=== PATIENT | female | born 1940 | race Asian ===

== ENCOUNTER 2019-03-03 17:30 | Inpatient (IN) | payer MEDICARE, OTHER ==
[~2019-03-03] VITALS: Ht 144.8 cm; Wt 46.1 kg
[2019-03-03 18:09] VITALS: BP 196/96
--- NOTE | 2019-03-03 18:58 | PDOC1 ---
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 She was found outside wandering down her driveway telling neighbors she was hungry. Police confirmed with her [id number] who lives next door and allowed them access to her house that her house was clean with food in the pantry and on the table and a pill box with pills missing from only 4 days this week. She gave police contact information for her son, Grabiel, who is enroute. She was found with troponin elevated to 1.49, Lactate 3.7, NTproBNP 3650, WBC 7, Hb 10.6, Platelets 295, Na 139, K3.1, Cl 107, CO2 24, BUN 9, Cr. 0.8, Ca 8.8, Albumin 3.7, Alkaline phosphatase 70, AST 21, ALT 11, UDS neg EKG Sinus rhythm with borderline ST elevation in inferior leads per my interpretation. Vital Signs at [facility] Temp 99.1, BP 162/78, pulse 89bpm, RR 24/min Ht 1.5m, wt 47.6kg, SPO2 99% on RA She was given 324mg chewable aspirin and started on heparin GTT. After contacting her son, he requested patient be transferred to [place] or [place] for further care. She is unable to give a clear history with me, notes she is hungry and wishes to go somewhere where nurses can care for her. She tells me she has not eaten for 4 days. States he son has been in [place]. She does not know the month or year and guesses them inaccurately. She denies any chest pain. Notes occasionally shor tness of breath. Past Medical History Cardiovascular: HTN, Hyperlipidemia Pulmonary: No pertinent hx CENTRAL NERVOUS SYSTEM: CVA ( Left corbett radiata, basal ganglia and right po ns), Dementia GI: No pertinent hx Heme/Onc: No pertinent hx Hepatobiliary: No pertinent hx Psych: No pertinent hx Rheumatologic: No pertinent hx Infectious disease: No pertinent hx ENT: No pertinent hx Renal/: No pertinent hx Endocrine: No pertinent hx Dermatology: No pertinent hx Past Surgical History Past Surgical History: No pertinent history Family History Family History Reviewed, unable to give history Family History: Family History Unknown Social History Smoke: No ALCOHOL: none Drugs: None Allergies Allergies: Coded Allergies: No Known Drug Allergies (Unverified , 08/04/15) ROS Review of System Unable to obtain ROS due to confusion and inaccurate answers Physical Exam General: Alert, Cooperative, No acute distress HEENT: Atraumatic, PERRLA, EOMI, Mucous membr. moist/pink Lungs: Other (FIne crackles) Heart: S1S2, RRR, no thrills, no rubs, no gallops, no murmurs Abdomen: Normal bowel sounds, Soft, No tenderness, No hepatosplenomegaly, No masses Extremities: No clubbing, No cyanosis, No edema, Normal pulses, No tenderness/swelling Skin: No rashes, No breakdown, No significant lesion Neuro: Normal speech, Strength at 5/5 X4 ext, Normal tone, Sensation intact, Cranial nerves 3-12 NL, Reflexes 2+ Psych/Mental Status: Other (Confused) Vitals Vitals Vital Signs Date Time Temp Pulse Resp B/P (MAP) Pulse Ox O2 Delivery O2 Flow Rate FiO2 03/03/19 18:09 98.0 97 18 196/96 (129) 99 98.0 03/03/19 18:00 Room Air Images Images CXR ([facility] 03/03/2019) - Heart size is prominent with ectasia and tortuosity of the aorta seen. Interstitial prominence appears likely chronic in the lungs without focal infiltrates, pleural effusion or pneumothorax seen Osteopenic changes seen without acute bony changes seen Impression: Interstitial prominence is probably chronic with an interstitial infiltrate not completely excluded. No congestive heart failure or focal infiltrates are identified. CT Head [facility] 03/03/2019 Impression: Moderate to severe atrophy with white matter ischemic changes noted. Possible small remote lacunar infarct seen in the left frontal lobe white matter without definite acute infarction or hemorrhage seen. Echo 01/08/2019 The left ventricular systolic function is normal. The Ejection Fraction is 60-65%. There is normal LV segmental wall motion. Transmitral Doppler flow pattern is Grade I-abnormal relaxation pattern. Trace to mild aortic regurgitation. Trace tricuspid regurgitation. The PA pressure was estimated at 21 mmHg. There is no evidence of significant pericardial effusion. VTE Prophylaxis Ordered VTE Prophylaxis Devices: Yes VTE Pharmacological Prophylaxi: Yes Assessment/Plan Assessment/Plan A/P: NSTEMI - EKG NSR, troponin 1.5, initiated heparin GTT, prn IV metoprolol. Consult cardiology. Trend troponins Hypokalemia - will check mag level, replace Abnormal CXR - interstitial pattern described as chronic, will add prn nebulizers, possibly viral pneumonia vs CHF Lactic acidosis - unclear etiology, could be nutritional if she has not been eating. Will trend Accelerated hypertension - will cont home meds, add prn metoprolol Acute encephalopathy - metabolic with NSTEMI, worsened dementia Dementia - sunlight during day, frequent redirection Hyperlipidemia - cont statin H/o CVA - asa and statin FEN - Cardiac diet, npo after midnight PPX - heparin GTT DNR/DNI Dispo - inpatient for 2 midnights MONIQUE HANSON MD Mar 03, 2019 18:58
[2019-03-03] MEDS ORDERED: HEPARIN 25,000UTS/250ML PREMIX 250 ML IV PRN ×2 (19:00)
[2019-03-03] MEDS ORDERED: ONDANSETRON PF 4 MG/2 ML VIAL. IV PRN (19:00)
[2019-03-03] MEDS ORDERED: ACETAMINOPHEN 325 MG TABLET. PO PRN (19:00)
[2019-03-03] MEDS ORDERED: HEPARIN for IV BOLUS 10,000 UNIT/10 ML VIAL. IV PRN (19:00)
[2019-03-03 19:11] VITALS: BP 178/81
[2019-03-03] MEDS ORDERED: ROPI0.5T2 PO (19:24)
[2019-03-03] MEDS ORDERED: DONE5TAB7 PO (19:24)
[2019-03-03] MEDS ORDERED: LOSA100T14 PO (19:24)
[2019-03-03] MEDS ORDERED: AMLO5TAB10 PO (19:24)
[2019-03-03] MEDS ORDERED: TRAZ-118 PO (19:24)
[2019-03-03 19:40] LABS: BASO % 1 % (0-3); EOS # 0.1 x10^3/uL (0.0-0.7); EOS % 1 % (0-3); HEMATOCRIT 30.2 % (36.0-47.0); HEMOGLOBIN 10.4 g/dL (12.0-15.5); LYMPH # 1.6 x10^3/uL (1.0-4.8); LYMPH % 23 % (24-48); MEAN CORPUSCULAR HEMOGLOBIN 30 pg (25-35); MEAN CORPUSCULAR HGB CONC 34 g/dL (31-37); MEAN CORPUSCULAR VOLUME 86 fL (79-100); MONO # 0.4 x10^3/uL (0.0-1.1); MONO % 6 % (0-9); NEUT # 4.9 x10^3/uL (1.8-7.7); NEUT % 69 % (31-73); PLATELET COUNT 287 x10^3/uL (140-400); RED CELL DISTRIBUTION WIDTH 13.9 % (11.5-14.5); WHITE BLOOD COUNT 7.1 x10^3/uL (4.0-11.0)
[2019-03-03 19:49] LABS: PROTHROMBIN TIME PATIENT 13.6 SEC (11.7-14.0)
[2019-03-03] MEDS ORDERED: ANTI-COAG MONITOR BY PHARMACY. MC PRN (20:00)
[2019-03-03] MEDS ORDERED: CHOL200059 PO (20:26)
[2019-03-03] MEDS ORDERED: NITROGLYCERIN SUBLINGUAL 0.4 MG BOTTLE OF 25. SL PRN (20:30)
[2019-03-03] MEDS ORDERED: amLODIPine BESYLATE 10 MG TABLET PO ONE (21:00)
[2019-03-03] MEDS: traZODone 50 MG TABLET. PO SCH (21:40)
[2019-03-03] MEDS ORDERED: POTASSIUM CHLORIDE 20 MEQ TABLET.ER. PO ONE ×2 (22:00→23:00)
[2019-03-03] MEDS: METOPROLOL TARTRATE 5 MG/5 ML VIAL. IVP PRN (22:37)
[2019-03-03 23:08] VITALS: BP 191/81
[2019-03-04] VITALS (7 sets, daily range): BP systolic 152–179; BP diastolic 73–91
[2019-03-04 03:17] LABS: BILIRUBIN,URINE NEGATIVE (NEG); CLARITY,URINE CLEAR; COLOR,URINE YELLOW; NITRITE,URINE NEGATIVE (NEG); PH,URINE 7.5; PROTEIN,URINE NEGATIVE (NEG-TRACE); UROBILINOGEN,URINE 0.2 mg/dL (0.2 mg/dL)
[2019-03-04 03:22] LABS: SQUAMOUS EPITHELIAL CELL,UR FEW /LPF
[2019-03-04 03:23] LABS: BACTERIA,URINE 0 /HPF (0-FEW)
[2019-03-04 07:56] LABS: HEMATOCRIT 29.5 % (36.0-47.0); HEMOGLOBIN 9.9 g/dL (12.0-15.5); RED BLOOD COUNT 3.41 x10^6/uL (3.50-5.40); RED CELL DISTRIBUTION WIDTH 14.1 % (11.5-14.5); WHITE BLOOD COUNT 6.6 x10^3/uL (4.0-11.0)
[2019-03-04 07:59] LABS: CALCIUM 8.1 mg/dL (8.5-10.1); CREATININE 0.8 mg/dL (0.6-1.0); GFR 68.8; MAGNESIUM 1.6 mg/dL (1.8-2.4); POTASSIUM 4.5 mmol/L (3.5-5.1)
[2019-03-04] MEDS: DONEPEZIL HCL 5 MG TABLET. PO SCH (08:35)
[2019-03-04] MEDS: CHOLECALCIFEROL (VITAMIN D3) 1,000 UNIT TABLET PO SCH (08:35)
[2019-03-04] MEDS: LOSARTAN POTASSIUM 50 MG TABLET. PO SCH (08:36)
--- NOTE | 2019-03-04 11:13 | PDOC2 ---
CONSULT Date of Consult Date of Consult DATE: 03/04/19 TIME: 11:13 Reason for Consult Reason for Consult: Elevated troponin level Referring Physician Referring Physician: Dr. Mendoza Identification/Chief Complaint Chief Complaint Mental status changes Source Source: Caregiver, Chart review, Patient History of Present Illness Reason for Visit: 79-year-old female without any known previous cardiac history apparently was found wandering down her driveway telling neighbors that she was hungry. She was initially seen at [facility] ED patient was found to have elevated troponin level and was transferred to [facility] for further management. She is not a very good historian due to language barrier but she appeared to denied any chest pain. Review of chart did not show any mention of dyspnea or syncope. Past Medical History Cardiovascular: HTN, Hyperlipidemia Pulmonary: No pertinent hx CENTRAL NERVOUS SYSTEM: CVA ( Left corbett radiata, basal ganglia and right breana), Dementia GI: No pertinent hx Heme/Onc: No pertinent hx Hepatobiliary: No pertinent hx Psych: No pertinent hx Rheumatologic: No pertinent hx Infectious disease: No pertinent hx ENT: No pertinent hx Renal/: No pertinent hx Endocrine: No pertinent hx Dermatology: No pertinent hx Past Surgical History Past Surgical History: No pertinent history Family History Family History: Family History Unknown Social History No ALCOHOL: none Drugs: None Current Medications Current Medications Current Medications Ondansetron HCl (Zofran) 4 mg PRN Q4HRS PRN IV NAUSEA/VOMITING; Start 03/03/19 at 19:00 Acetaminophen (Tylenol) 650 mg PRN Q4HRS PRN PO TEMP OVER 100.4F OR MILD PAIN; Start 03/03/19 at 19:00 Heparin Sodium/ Dextrose 250 ml @ 0 mls/hr CONT PRN IV PER PROTOCOL; Start 03/03/19 at 19:00; Status UNV Heparin Sodium (Porcine) (Heparin Sodium) 1,750 unit PRN Q6HRS PRN IV FOR UFH LEVEL LESS THAN 0.2 Last administered on 03/04/19at 08:45; Start 03/03/19 at 19:00 Heparin Sodium/ Dextrose 250 ml @ 0 mls/hr CONT PRN IV PER PROTOCOL; Start 03/03/19 at 19:00 Amlodipine Besylate (Norvasc) 10 mg DAILY PO ; Start 03/04/19 at 21:00 Info (Anti-Coagulation Monitoring By Pharmacy) 1 each PRN DAILY PRN MC SEE COMMENTS; Start 03/03/19 at 20:00 Donepezil HCl (Aricept) 5 mg DAILY PO Last administered on 03/04/19at 08:35; Start 03/04/19 at 09:00 Trazodone HCl (Desyrel) 50 mg QHS PO Last administered on 03/03/19at 21:40; Start 03/03/19 at 21:00 Losartan Potassium (Cozaar) 100 mg DAILY PO Last administered on 03/04/19at 08:36; Start 03/04/19 at 09:00 Nitroglycerin (Nitrostat) 0.4 mg PRN Q5MIN PRN SL CHEST PAIN; Start 03/03/19 at 20:30 Metoprolol Tartrate (Lopressor Vial) 5 mg PRN Q6HRS PRN IVP HYPERTENSION Last administered on 03/03/19at 22:37; Start 03/03/19 at 20:30 Vitamin D (Vitamin D3) 2,000 unit DAILY PO Last administered on 03/04/19at 08:35; Start 03/04/19 at 09:00 Amlodipine Besylate (Norvasc) 10 mg 1X ONCE PO Last administered on 03/03/19at 21:40; Start 03/03/19 at 21:00; Stop 03/03/19 at 21:01; Status DC Potassium Chloride (Klor-Con) 40 meq 1X ONCE PO Last administered on 03/03/19at 22:30; Start 03/03/19 at 22:00; Stop 03/03/19 at 22:01; Status DC Potassium Chloride (Klor-Con) 40 meq 2135 ONCE PO Last administered on 03/03/19at 22:30; Start 03/03/19 at 23:00; Stop 03/03/19 at 23:01; Status DC Olanzapine (ZyPREXA ZYDIS) 5 mg PRN BID PRN PO agitation; Start 03/03/19 at 22:30 Active Scripts Active Reported Vitamin D-3 (Cholecalciferol (Vitamin D3)) 2,000 Unit Tablet 2,000 Unit PO DAILY Donepezil Hcl 5 Mg Tablet 1 Tab PO DAILY Trazodone Hcl 50 Mg Tablet 1 Tab PO QHS Ropinirole Hcl 0.5 Mg Tablet 0.5 Mg PO QHS Losartan Potassium 100 Mg Tablet 100 Mg PO DAILY Amlodipine Besylate 5 Mg Tablet 5 Mg PO DAILY Allergies Allergies: Coded Allergies: No Known Drug Allergies (Unverified , 08/04/15) ROS Review of System For review of systems cannot be obtained. Physical Exam General: Alert, No acute distress HEENT: Atraumatic Lungs: Clear to auscultation Heart: Regular rate Abdomen: Soft Extremities: No edema Psych/Mental Status: Mood NL Vitals VITALS Vital Signs Date Time Temp Pulse Resp B/P (MAP) Pulse Ox O2 Delivery O2 Flow Rate FiO2 03/04/19 10:11 98.3 70 18 172/85 (114) 97 Room Air 98.3 Labs Labs Laboratory Tests Test 03/03/19 19:20 03/03/19 23:10 03/04/19 00:15 03/04/19 07:35 White Blood Count 7.1 x10^3/uL (4.0-11.0) 6.6 x10^3/uL (4.0-11.0) Red Blood Count 3.50 x10^6/uL (3.50-5.40) 3.41 x10^6/uL (3.50-5.40) Hemoglobin 10.4 g/dL (12.0-15.5) 9.9 g/dL (12.0-15.5) Hematocrit 30.2 % (36.0-47.0) 29.5 % (36.0-47.0) Mean Corpuscular Volume 86 fL (79-100) 87 fL (79-100) Mean Corpuscular Hemoglobin 30 pg (25-35) 29 pg (25-35) Mean Corpuscular Hemoglobin Concent 34 g/dL (31-37) 34 g/dL (31-37) Red Cell Distribution Width 13.9 % (11.5-14.5) 14.1 % (11.5-14.5) Platelet Count 287 x10^3/uL (140-400) 297 x10^3/uL (140-400) Neutrophils (%) (Auto) 69 % (31-73) Lymphocytes (%) (Auto) 23 % (24-48) Monocytes (%) (Auto) 6 % (0-9) Eosinophils (%) (Auto) 1 % (0-3) Basophils (%) (Auto) 1 % (0-3) Neutrophils # (Auto) 4.9 x10^3/uL (1.8-7.7) Lymphocytes # (Auto) 1.6 x10^3/uL (1.0-4.8) Monocytes # (Auto) 0.4 x10^3/uL (0.0-1.1) Eosinophils # (Auto) 0.1 x10^3/uL (0.0-0.7) Basophils # (Auto) 0.0 x10^3/uL (0.0-0.2) Prothrombin Time 13.6 SEC (11.7-14.0) Prothromb Time International Ratio 1.1 (0.8-1.1) Activated Partial Thromboplast Time 116 SEC (24-38) Troponin I Quantitative 1.952 ng/mL (0.000-0.055) 1.716 ng/mL (0.000-0.055) Heparin Anti-Xa Act, Unfractionated 0.97 IU/mL (0.30-0.70) < 0.10 IU/mL (0.30-0.70) Urine Collection Type Unknown Urine Color Yellow Urine Clarity Clear Urine pH 7.5 Urine Specific [place] 1.010 Urine Protein Negative mg/dL (NEG-TRACE) Urine Glucose (UA) Negative mg/dL (NEG) Urine Ketones (Stick) Negative mg/dL (NEG) Urine Blood Trace (NEG) Urine Nitrite Negative (NEG) Urine Bilirubin Negative (NEG) Urine Urobilinogen Dipstick 0.2 mg/dL (0.2 mg/dL) Urine Leukocyte Esterase Trace (NEG) Urine RBC 3-5 /HPF (0-2) Urine WBC 1-4 /HPF (0-4) Urine Squamous Epithelial Cells Few /LPF Urine Bacteria 0 /HPF (0-FEW) Sodium Level 142 mmol/L (136-145) Potassium Level 4.5 mmol/L (3.5-5.1) Chloride Level 108 mmol/L (98-107) Carbon Dioxide Level 25 mmol/L (21-32) Anion Gap 9 (6-14) Blood Urea Nitrogen 7 mg/dL (7-20) Creatinine 0.8 mg/dL (0.6-1.0) Estimated GFR (Cockcroft-Gault) 68.8 Glucose Level 103 mg/dL (70-99) Lactic Acid Level 1.0 mmol/L (0.4-2.0) Calcium Level 8.1 mg/dL (8.5-10.1) Magnesium Level 1.6 mg/dL (1.8-2.4) Laboratory Tests Test 03/03/19 19:20 03/03/19 23:10 03/04/19 00:15 03/04/19 07:35 White Blood Count 7.1 x10^3/uL (4.0-11.0) 6.6 x10^3/uL (4.0-11.0) Red Blood Count 3.50 x10^6/uL (3.50-5.40) 3.41 x10^6/uL (3.50-5.40) Hemoglobin 10.4 g/dL (12.0-15.5) 9.9 g/dL (12.0-15.5) Hematocrit 30.2 % (36.0-47.0) 29.5 % (36.0-47.0) Mean Corpuscular Volume 86 fL (79-100) 87 fL (79-100) Mean Corpuscular Hemoglobin 30 pg (25-35) 29 pg (25-35) Mean Corpuscular Hemoglobin Concent 34 g/dL (31-37) 34 g/dL (31-37) Red Cell Distribution Width 13.9 % (11.5-14.5) 14.1 % (11.5-14.5) Platelet Count 287 x10^3/uL (140-400) 297 x10^3/uL (140-400) Neutrophils (%) (Auto) 69 % (31-73) Lymphocytes (%) (Auto) 23 % (24-48) Monocytes (%) (Auto) 6 % (0-9) Eosinophils (%) (Auto) 1 % (0-3) Basophils (%) (Auto) 1 % (0-3) Neutrophils # (Auto) 4.9 x10^3/uL (1.8-7.7) Lymphocytes # (Auto) 1.6 x10^3/uL (1.0-4.8) Monocytes # (Auto) 0.4 x10^3/uL (0.0-1.1) Eosinophils # (Auto) 0.1 x10^3/uL (0.0-0.7) Basophils # (Auto) 0.0 x10^3/uL (0.0-0.2) Prothrombin Time 13.6 SEC (11.7-14.0) Prothromb Time International Ratio 1.1 (0.8-1.1) Activated Partial Thromboplast Time 116 SEC (24-38) Troponin I Quantitative 1.952 ng/mL (0.000-0.055) 1.716 ng/mL (0.000-0.055) Heparin Anti-Xa Act, Unfractionated 0.97 IU/mL (0.30-0.70) < 0.10 IU/mL (0.30-0.70) Urine Collection Type Unknown Urine Color Yellow Urine Clarity Clear Urine pH 7.5 Urine Specific [place] 1.010 Urine Protein Negative mg/dL (NEG-TRACE) Urine Glucose (UA) Negative mg/dL (NEG) Urine Ketones (Stick) Negative mg/dL (NEG) Urine Blood Trace (NEG) Urine Nitrite Negative (NEG) Urine Bilirubin Negative (NEG) Urine Urobilinogen Dipstick 0.2 mg/dL (0.2 mg/dL) Urine Leukocyte Esterase Trace (NEG) Urine RBC 3-5 /HPF (0-2) Urine WBC 1-4 /HPF (0-4) Urine Squamous Epithelial Cells Few /LPF Urine Bacteria 0 /HPF (0-FEW) Sodium Level 142 mmol/L (136-145) Potassium Level 4.5 mmol/L (3.5-5.1) Chloride Level 108 mmol/L (98-107) Carbon Dioxide Level 25 mmol/L (21-32) Anion Gap 9 (6-14) Blood Urea Nitrogen 7 mg/dL (7-20) Creatinine 0.8 mg/dL (0.6-1.0) Estimated GFR (Cockcroft-Gault) 68.8 Glucose Level 103 mg/dL (70-99) Lactic Acid Level 1.0 mmol/L (0.4-2.0) Calcium Level 8.1 mg/dL (8.5-10.1) Magnesium Level 1.6 mg/dL (1.8-2.4) Assessment/Plan Assessment/Plan 1. Non-STEMI with troponin level I.9. Family not available when I was in patient's room but according to nursing personnel, they wanted aggressive management of her non-STEMI. Continue heparin infusion per protocol and plan for cardiac catheterization in the morning. Recent 2-D echo January 2019 showed LVEF 60-65%. CT scan of the head at [facility] did not show any acute int racranial processes. 2. Accelerated hypertension: Resume home medications and add metoprolol 3. Dementia, lactic acidosis, hypokalemia: Per IM Thank you for your consultation. MANISH LLANOS MD Mar 04, 2019 11:13
--- NOTE | 2019-03-04 13:26 | PDOC ---
[employer] PROGRESS NOTE Chief Complaint Chief Complaint Acute myocardial infarction History of Present Illness History of Present Illness Patient seen and examined Discussed with RN I also discussed the case at length with the patient's son and [id number] The plan is cardiac catheter in a.m. Vitals/I&O Vitals/I&O: Vital Signs Date Time Temp Pulse Resp B/P (MAP) Pulse Ox O2 Delivery O2 Flow Rate FiO2 03/04/19 10:11 98.3 70 18 172/85 (114) 97 Room Air 98.3 I & O 03/03/19 03/03/19 03/04/19 15:00 23:00 07:00 Intake Total 50 ml Output Total 50 ml 595 ml Balance -50 ml -545 ml Physical Exam General: Alert, Cooperative, No acute distress Abdomen: Normal bowel sounds, Soft, No tenderness, No hepatosplenomegaly, No masses Extremities: No clubbing, No cyanosis, No edema, Normal pulses, No tenderness/swelling Skin: No rashes, No breakdown, No significant lesion Labs Labs: Laboratory Tests Test 03/03/19 19:20 03/03/19 23:10 03/04/19 00:15 03/04/19 07:35 White Blood Count 7.1 x10^3/uL (4.0-11.0) 6.6 x10^3/uL (4.0-11.0) Red Blood Count 3.50 x10^6/uL (3.50-5.40) 3.41 x10^6/uL (3.50-5.40) Hemoglobin 10.4 g/dL (12.0-15.5) 9.9 g/dL (12.0-15.5) Hematocrit 30.2 % (36.0-47.0) 29.5 % (36.0-47.0) Mean Corpuscular Volume 86 fL (79-100) 87 fL (79-100) Mean Corpuscular Hemoglobin 30 pg (25-35) 29 pg (25-35) Mean Corpuscular Hemoglobin Concent 34 g/dL (31-37) 34 g/dL (31-37) Red Cell Distribution Width 13.9 % (11.5-14.5) 14.1 % (11.5-14.5) Platelet Count 287 x10^3/uL (140-400) 297 x10^3/uL (140-400) Neutrophils (%) (Auto) 69 % (31-73) Lymphocytes (%) (Auto) 23 % (24-48) Monocytes (%) (Auto) 6 % (0-9) Eosinophils (%) (Auto) 1 % (0-3) Basophils (%) (Auto) 1 % (0-3) Neutrophils # (Auto) 4.9 x10^3/uL (1.8-7.7) Lymphocytes # (Auto) 1.6 x10^3/uL (1.0-4.8) Monocytes # (Auto) 0.4 x10^3/uL (0.0-1.1) Eosinophils # (Auto) 0.1 x10^3/uL (0.0-0.7) Basophils # (Auto) 0.0 x10^3/uL (0.0-0.2) Prothrombin Time 13.6 SEC (11.7-14.0) Prothromb Time International Ratio 1.1 (0.8-1.1) Activated Partial Thromboplast Time 116 SEC (24-38) Troponin I Quantitative 1.952 ng/mL (0.000-0.055) 1.716 ng/mL (0.000-0.055) Heparin Anti-Xa Act, Unfractionated 0.97 IU/mL (0.30-0.70) < 0.10 IU/mL (0.30-0.70) Urine Collection Type Unknown Urine Color Yellow Urine Clarity Clear Urine pH 7.5 Urine Specific [place] 1.010 Urine Protein Negative mg/dL (NEG-TRACE) Urine Glucose (UA) Negative mg/dL (NEG) Urine Ketones (Stick) Negative mg/dL (NEG) Urine Blood Trace (NEG) Urine Nitrite Negative (NEG) Urine Bilirubin Negative (NEG) Urine Urobilinogen Dipstick 0.2 mg/dL (0.2 mg/dL) Urine Leukocyte Esterase Trace (NEG) Urine RBC 3-5 /HPF (0-2) Urine WBC 1-4 /HPF (0-4) Urine Squamous Epithelial Cells Few /LPF Urine Bacteria 0 /HPF (0-FEW) Sodium Level 142 mmol/L (136-145) Potassium Level 4.5 mmol/L (3.5-5.1) Chloride Level 108 mmol/L (98-107) Carbon Dioxide Level 25 mmol/L (21-32) Anion Gap 9 (6-14) Blood Urea Nitrogen 7 mg/dL (7-20) Creatinine 0.8 mg/dL (0.6-1.0) Estimated GFR (Cockcroft-Gault) 68.8 Glucose Level 103 mg/dL (70-99) Lactic Acid Level 1.0 mmol/L (0.4-2.0) Calcium Level 8.1 mg/dL (8.5-10.1) Magnesium Level 1.6 mg/dL (1.8-2.4) Test 03/04/19 12:10 Troponin I Quantitative 1.457 ng/mL (0.000-0.055) Review of Systems Review of Systems: [place] of chest pain and weakness Assessment and Plan Assessmemt and Plan Acute myocardial infarction Plan Cardiac catheter in a.m. For now continue cardiac monitoring Trend troponins Serial EKGs Home meds DVT prophylaxis DO NOT RESUSCITATE per family's and patient's request Long-term prognosis guarded Total time 31 minutes Comment Review of Relevant I have reviewed the following items dick (where applicable) has been applied. Medications: Current Medications Medications (Trade) Dose Ordered Sig/Shi Route PRN Reason Start Time Stop Time Status Last Admin Dose Admin Heparin Sodium (Porcine) (Heparin Sodium) 1,750 unit PRN Q6HRS PRN IV FOR UFH LEVEL LESS THAN 0.2 03/03/19 19:00 03/04/19 08:45 Donepezil HCl (Aricept) 5 mg DAILY PO 03/04/19 09:00 03/04/19 08:35 Trazodone HCl (Desyrel) 50 mg QHS PO 03/03/19 21:00 03/03/19 21:40 Losartan Potassium (Cozaar) 100 mg DAILY PO 03/04/19 09:00 03/04/19 08:36 Metoprolol Tartrate (Lopressor Vial) 5 mg PRN Q6HRS PRN IVP HYPERTENSION 03/03/19 20:30 03/03/19 22:37 Vitamin D (Vitamin D3) 2,000 unit DAILY PO 03/04/19 09:00 03/04/19 08:35 Amlodipine Besylate (Norvasc) 10 mg 1X ONCE PO 03/03/19 21:00 03/03/19 21:01 DC 03/03/19 21:40 Potassium Chloride (Klor-Con) 40 meq 1X ONCE PO 03/03/19 22:00 03/03/19 22:01 DC 03/03/19 22:30 Potassium Chloride (Klor-Con) 40 meq 2135 ONCE PO 03/03/19 23:00 03/03/19 23:01 DC 03/03/19 22:30 ISABELLA FLORES III DO Mar 04, 2019 13:26
[2019-03-04] MEDS: METOPROLOL TARTRATE 5 MG/5 ML VIAL. IVP PRN (17:25)
[2019-03-04] MEDS: traZODone 50 MG TABLET. PO SCH (21:30)
[2019-03-04] MEDS: amLODIPine BESYLATE 10 MG TABLET PO SCH (21:30)
[2019-03-05] VITALS (7 sets, daily range): BP systolic 115–159; BP diastolic 57–72
[2019-03-05] MEDS: LOSARTAN POTASSIUM 50 MG TABLET. PO SCH (07:57)
[2019-03-05] MEDS: CHOLECALCIFEROL (VITAMIN D3) 1,000 UNIT TABLET PO SCH (07:57)
[2019-03-05] MEDS: amLODIPine BESYLATE 10 MG TABLET PO SCH (07:57)
[2019-03-05] MEDS: DONEPEZIL HCL 5 MG TABLET. PO SCH (07:57)
[2019-03-05] MEDS ORDERED: MIDAZOLAM HCL/PF 2 MG/2 ML VIAL. ONE (08:05)
[2019-03-05] MEDS ORDERED: fentaNYL PF VIAL 100 MCG/2 ML VIAL ONE (08:05)
[2019-03-05] MEDS ORDERED: VERAPAMIL 5 MG/2 ML VIAL. ONE (08:05)
[2019-03-05] MEDS ORDERED: HEPARIN for IV BOLUS 10,000 UNIT/10 ML VIAL. ONE (08:05)
[2019-03-05] MEDS ORDERED: NITROGLYCERIN 200 MCG/2 ML SYRINGE FOR CATH/VASC LAB. ONE (08:06)
[2019-03-05] MEDS ORDERED: LIDOCAINE 1% Multi-Dose 20 ML VIAL. INJ ONE (08:15)
[2019-03-05] MEDS ORDERED: NITROGLYCERIN 200 MCG/2 ML SYRINGE FOR CATH/VASC LAB. IART ONE (08:15)
[2019-03-05] MEDS ORDERED: HEPARIN for IV BOLUS 10,000 UNIT/10 ML VIAL. IART ONE (08:15)
[2019-03-05] MEDS ORDERED: fentaNYL PF VIAL 100 MCG/2 ML VIAL IV ONE (08:15)
[2019-03-05] MEDS ORDERED: MIDAZOLAM HCL/PF 2 MG/2 ML VIAL. IV ONE (08:15)
[2019-03-05] MEDS ORDERED: VERAPAMIL 5 MG/2 ML VIAL. IART ONE (08:15)
[2019-03-05] MEDS ORDERED: IODIXANOL 320 MG/ML 100 ML VIAL. IART ONE (08:15)
[2019-03-05] MEDS ORDERED: CONTRAST GIVEN. MC PRN (08:30)
--- NOTE | 2019-03-05 09:09 | PDOC ---
MODERATE SEDATION ASSESSMENT RISKS/ALTERNATIVES Risks/Alternatives Risks and alternatives of this type of sedation and procedure discussed with: RISK/ALTERNATIVES: Patient H & P ON CHART H & P H & P on chart and reviewed for co-morbid conditions and appropriate labs. H&P ON CHART: Yes STATUS PREG STATUS ASSESSED: N/A MEDS/ALLERGIES REVIEWED Meds/Allergies Reviewed Medications and Allergies including time and route of recently administered narcotics and sedatives. MEDS/ALLERGIES REVIEWED: Yes ASA RATING ASA RATING: III AIRWAY ASSESSMENT Airway Assessment Airway patency, oral function limitations, presence of caps, crowns, dentures, partials, and ability to extend neck assessed. AIRWAY ASSESSMENT: Yes MALLAMPATI SCORE MALLAMPATI SCORE: II PRE-SEDATION ASSESSMENT PRE-SEDATION ASSESSMENT: Yes MANISH LLANOS MD Mar 05, 2019 09:09
[2019-03-05] MEDS ORDERED: NITROGLYCERIN SUBLINGUAL 0.4 MG BOTTLE OF 25. SL PRN (09:15)
[2019-03-05] MEDS ORDERED: CLOPIDOGREL BISULFATE 75 MG TABLET PO ONE (09:30)
--- NOTE | 2019-03-05 09:30 | CARD ---
MR#: [id number] Date of Study: 03/05/2019 Ordering Physician: MANISH KENNEY, Referring Physician: MANISH KENNEY Tech: Shahla Duncan APPROVED REPORT Technologist: Shahla Duncan Nurse: Sunitha Rosario RN Procedure(s) performed: Left heart catheterization, selective coronary angiography and left ventricul ography via right transradial approach fl time: 4.2 min dose: 33 gycm2 contrast: 109 ml moderate sedation: 28 minutes INDICATION The indication(s) include : non-STEMI . CSHA Clinical Frailty Scale CS Clinical Frailty Scale: Severely Frail Heart Failure Heart Failure: No PROCEDURE NARRATIVE After explaining the risks, benefits and alternative options, informed consent was obtained from keesha ent. Patient was brought to the cardiac Hand Trimmer and right wrist was prepped and draped in the usual fashion after confirming a positive modified Irvin's test. Arterial access was obtained in the [facility] t radial artery and a 6 [place] sheath was inserted. 6 [place] Sam and 6 [place] JL 3.5 catheters we re used to perform selective angiography of the right and left coronary arteries. 6 [place] pigtail c atheter was used to perform left ventriculography. Patient tolerated the procedure well. Hemostasis was achieved using TR band. There were no immediate complications. The following findings were not ed. FINDINGS 1. Hemodynamics: Left ventricular end-diastolic pressure of 21 mmHg consistent with mild acute on ch ronic diastolic heart failure. No pullback gradient across the aortic valve. 2. Left ventriculography: Normal left ventricle systolic function with ejection fraction estimated at 65%. No significant mitral regurgitation seen. 3. Coronary angiography: a. The left main coronary artery arose from the left sinus of Valsalva, gave rise to the left anteri or descending and left circumflex arteries and showed 30% stenosis in the midsegment. b. The left anterior descending artery was heavily calcified vessel that showed a long 90% stenosis in the mid to distal segment with aneurysmal dilatation in the middle of the lesion followed by 70% s tenosis in the distal segment. The third diagonal branch which is a medium caliber vessel showed 80% stenosis. c. The left circumflex artery showed 70% stenosis involving the proximal segment of second obtuse ma rginal branch. The AV groove segment after the takeoff of the third obtuse marginal branch appears to be chronically occluded. d. The right coronary artery was a large and dominant vessel arising from the right sinus of Valsalv a, was heavily calcified and showed a long 50% stenosis in the midsegment, 80% stenosis in the distal segment. The posterolateral branch showed a long 90% stenosis in the proximal to midsegment. The pos terior descending branch showed 50% stenosis in the midsegment. Conclusion 1. Severe three-vessel coronary artery disease as described above 2. Normal left ventricle systolic function with ejection fraction estimated at 65%. Recommendations Patient would benefit from coronary artery bypass surgery but considering her advanced age, dementia and comorbidities, I would recommend conservative medical management. Signed by : Manish Kenney, Electronically Approved : 03/05/2019 09:29:20
[2019-03-05] MEDS: IV 1/2 NORMAL SALINE 1,000 ML IV SCH (10:35)
[2019-03-05] MEDS ORDERED: IODIXANOL 320 MG/ML 100 ML VIAL. ONE (12:05)
[2019-03-05] MEDS ORDERED: LIDOCAINE 1% Multi-Dose 20 ML VIAL. ONE (12:05)
--- NOTE | 2019-03-05 14:02 | NUR ---
SS following for discharge planning. SS reviewed pt chart. Pt is from home with family support and is currently on room air. SS will continue to follow for discharge planning.
--- NOTE | 2019-03-05 14:25 | PDOC ---
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 Pt was alone in room. She denies any f/c/n/v. DW nurse regarding results of Cath and need for medical management of CAD. Pt's chart reviewed. Vitals/I&O Vitals/I&O: Vital Signs Date Time Temp Pulse Resp B/P (MAP) Pulse Ox O2 Delivery O2 Flow Rate FiO2 03/05/19 14:20 98.9 82 16 115/59 (77) 98 Room Air 98.9 03/05/19 09:04 2.0 I & O 03/04/19 03/04/19 03/05/19 15:00 23:00 07:00 Intake Total 325 ml Output Total 350 ml 150 ml Balance -350 ml 175 ml Physical Exam General: Alert, No acute distress Heart: Regular rate Abdomen: Soft Extremities: No edema Skin: No rashes, No breakdown, No significant lesion Labs Labs: Laboratory Tests Test 03/04/19 14:55 03/04/19 21:40 03/05/19 04:35 Heparin Anti-Xa Act, Unfractionated 0.22 IU/mL (0.30-0.70) 0.34 IU/mL (0.30-0.70) 0.32 IU/mL (0.30-0.70) Review of Systems Review of Systems: Gen: denies F/C GI: denies N/V Cardio: reports minor chest pain Extremities: denies pain in UE/ LE bl Assessment and Plan Assessmemt and Plan Assessment Acute Myocardial Infarction 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 Coronary A. Bypass is contraindicated for pt based on advanced age, dementia and comorbidities Medical Management of CAD as alternative to bypass. Cardiology consulted and following for management. For now continue cardiac monitoring Trend troponins Serial EKGs Home meds DVT prophylaxis DNR per family's and patient's request Long-term prognosis guarded Comment Review of Relevant I have reviewed the following items dick (where applicable) has been applied. Medications: Current Medications Medications (Trade) Dose Ordered Sig/Shi Route PRN Reason Start Time Stop Time Status Last Admin Dose Admin Amlodipine Besylate (Norvasc) 10 mg DAILY PO 03/04/19 21:00 03/05/19 07:57 Nitroglycerin (Nitroglycerin) 200 mcg 1X ONCE IART 03/05/19 08:15 03/05/19 08:16 DC 03/05/19 08:15 Verapamil HCl (Verapamil) 2.5 mg 1X ONCE IART 03/05/19 08:15 03/05/19 08:16 DC 03/05/19 08:15 Heparin Sodium (Porcine) (Heparin Sodium) 2,500 unit 1X ONCE IART 03/05/19 08:15 03/05/19 08:16 DC 03/05/19 08:15 Heparin Sodium/ Sodium Chloride (HEPARIN for ARTERIAL LINE FLUSH) 1,000 unit 1X ONCE IART 03/05/19 08:15 03/05/19 08:16 DC 03/05/19 08:15 Heparin Sodium/ Sodium Chloride (HEPARIN for ARTERIAL LINE FLUSH) 1,000 unit 1X ONCE IART 03/05/19 08:15 03/05/19 08:16 DC 03/05/19 08:15 Midazolam HCl (Versed) 2 mg 1X ONCE IV 03/05/19 08:15 03/05/19 08:16 DC 03/05/19 08:39 Fentanyl Citrate (Fentanyl 2ml Vial) 100 mcg 1X ONCE IV 03/05/19 08:15 03/05/19 08:16 DC 03/05/19 08:39 Iodixanol (Visipaque 320) 100 ml 1X ONCE IART 03/05/19 08:15 03/05/19 08:16 DC 03/05/19 08:55 Lidocaine HCl (Lidocaine 1% 20ml Vial) 20 ml 1X ONCE INJ 03/05/19 08:15 03/05/19 08:16 DC 03/05/19 08:15 Sodium Chloride 1,000 ml @ 60 mls/hr [id number] IV 03/05/19 09:10 03/05/19 10:35 Clopidogrel Bisulfate (Plavix) 300 mg 1X ONCE PO 03/05/19 09:30 03/05/19 09:31 DC 03/05/19 10:35 CASTLENIAL K III DO Mar 05, 2019 14:25
--- NOTE | 2019-03-05 17:14 | NUR ---
RN NOTE patient taken for heart cath this am. this RN had Loretta SORIANO to call and speak with son Didi about the results of the cath being that family was not here when patient went or returned to the unit. patients TR band air released and transparent dressing placed, arm board still on per doctors orders. patient resting in bed call light within reach, this RN will continue to monitor
[2019-03-05] MEDS ORDERED: ATORVASTATIN CALCIUM 40 MG TABLET. PO SCH (21:00)
[2019-03-05] MEDS: traZODone 50 MG TABLET. PO SCH (22:01)
[2019-03-06 03:26] LABS: HEMATOCRIT 26.1 % (36.0-47.0); HEMOGLOBIN 8.8 g/dL (12.0-15.5); RED BLOOD COUNT 3.02 x10^6/uL (3.50-5.40); WHITE BLOOD COUNT 5.5 x10^3/uL (4.0-11.0)
[2019-03-06] MEDS: IV 1/2 NORMAL SALINE 1,000 ML IV SCH (03:31)
[2019-03-06 03:37] VITALS: BP 143/72
[2019-03-06 07:00] VITALS: BP 144/69
[2019-03-06] MEDS ORDERED: ASPIRIN ENTERIC COATED 81 MG TABLET.DR. PO SCH (08:00)
[2019-03-06] MEDS ORDERED: CLOPIDOGREL BISULFATE 75 MG TABLET PO SCH (08:00)
[2019-03-06] MEDS: LOSARTAN POTASSIUM 50 MG TABLET. PO SCH (08:26)
[2019-03-06] MEDS: amLODIPine BESYLATE 10 MG TABLET PO SCH (08:27)
[2019-03-06] MEDS: CHOLECALCIFEROL (VITAMIN D3) 1,000 UNIT TABLET PO SCH (08:27)
[2019-03-06] MEDS: DONEPEZIL HCL 5 MG TABLET. PO SCH (08:27)
[2019-03-06 10:42] VITALS: BP 148/69
--- NOTE | 2019-03-06 12:15 | NUR ---
FAMILY CONTACTED REGARD TO DISCHARGE. THEY ARE AVAILABLE TO PICK PATIENT UP AROUND AFTER 4 PM.
--- NOTE | 2019-03-06 12:46 | PDOC ---
[facility] PROGRESS NOTE Chief Complaint Chief Complaint Acute myocardial infarction Severe 3 vessel CAD w/ LVEF 65%- per 03/05 cardiac cath History of Present Illness History of Present Illness 03/06/19 Pt seen and examined. Pt was alone in room, and speaks limited Serbian. Pt was able to communicate that she does not have chest pain or SOB. GÓMEZ nurse. Pt's chart reviewed. 03/05/19 Patient seen and examined. Pt was alone in room. She denies any f/c/n/v. GÓMEZ nurse regarding results of Cath and need for medical management of CAD. Pt's chart reviewed. Vitals/I&O Vitals/I&O: Vital Signs Date Time Temp Pulse Resp B/P (MAP) Pulse Ox O2 Delivery O2 Flow Rate FiO2 03/06/19 10:42 97.7 74 18 148/69 (95) 95 Room Air 97.7 03/05/19 09:04 2.0 I & O 03/05/19 03/05/19 03/06/19 15:00 23:00 07:00 Intake Total 180 ml 118 ml 240 ml Output Total 100 ml 400 ml Balance 80 ml 118 ml -160 ml Physical Exam General: Alert, No acute distress Heart: Regular rate Abdomen: Soft Extremities: No edema Skin: No rashes, No breakdown, No significant lesion Labs Labs: Laboratory Tests Test 03/06/19 03:05 White Blood Count 5.5 x10^3/uL (4.0-11.0) Red Blood Count 3.02 x10^6/uL (3.50-5.40) Hemoglobin 8.8 g/dL (12.0-15.5) Hematocrit 26.1 % (36.0-47.0) Mean Corpuscular Volume 86 fL (79-100) Mean Corpuscular Hemoglobin 29 pg (25-35) Mean Corpuscular Hemoglobin Concent 34 g/dL (31-37) Red Cell Distribution Width 14.0 % (11.5-14.5) Platelet Count 271 x10^3/uL (140-400) Review of Systems Review of Systems: unable to obtain Assessment and Plan Assessmemt and Plan Assessment Acute Myocardial Infarction 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 Coronary A. Bypass is contraindicated for pt based on advanced age, dementia and comorbidities Medical Management of CAD as alternative to bypass. Cardiology consulted and following for management. For now continue cardiac monitoring Trend troponins Serial EKGs Home meds DVT prophylaxis DNR per family's and patient's request Long-term prognosis guarded DC dependant on cardiology approval. Comment Review of Relevant I have reviewed the following items dick (where applicable) has been applied. Medications: Current Medications Medications (Trade) Dose Ordered Sig/Shi Route PRN Reason Start Time Stop Time Status Last Admin Dose Admin Aspirin (Ecotrin) 81 mg DAILYWBKFT PO 03/06/19 08:00 03/06/19 08:27 Clopidogrel Bisulfate (Plavix) 75 mg DAILYWBKFT PO 03/06/19 08:00 03/06/19 08:27 Atorvastatin Calcium (Lipitor) 40 mg QHS PO 03/05/19 21:00 03/05/19 22:01 ISABELLA FLORES III DO Mar 06, 2019 12:46
--- NOTE | 2019-03-06 13:05 | PDOC ---
JUNO HAWK LINTER DRIER OPERATOR 03/06/19 1305: CARDIO Progress Notes Date and Time Date of Service 03/06/2019 Time of Evaluation 1300 Subjective Subjective: No Chest Pain, No shortness of breath, Other (wanting to use the bathroom) Vitals Vitals Vital Signs Date Time Temp Pulse Resp B/P (MAP) Pulse Ox O2 Delivery O2 Flow Rate FiO2 03/06/19 10:42 97.7 74 18 148/69 (95) 95 Room Air 97.7 03/05/19 09:04 2.0 Weight Weight [ ] Input and Output Intake and Output Intake and Output 03/06/19 07:00 Intake Total 538 ml Output Total 500 ml Balance 38 ml Intake Oral 538 ml Output Urine Total 500 ml # Voids 1 Laboratory Labs Laboratory Tests Test 03/06/19 03:05 White Blood Count 5.5 x10^3/uL (4.0-11.0) Red Blood Count 3.02 x10^6/uL (3.50-5.40) Hemoglobin 8.8 g/dL (12.0-15.5) Hematocrit 26.1 % (36.0-47.0) Mean Corpuscular Volume 86 fL (79-100) Mean Corpuscular Hemoglobin 29 pg (25-35) Mean Corpuscular Hemoglobin Concent 34 g/dL (31-37) Red Cell Distribution Width 14.0 % (11.5-14.5) Platelet Count 271 x10^3/uL (140-400) Physical Exam HEENT: Neck Supple W Full Motion Chest: Symmetric LUNGS: Other (diminished bases) Heart: S1S2, RRR (SR), murmurs (3/6 systolic murmur to LLS border) Abdomen: Soft N/T Extremities: No Edema, No Calf Tenderness Neurology: alert, follow commands Other Exams right wrist arteriotomy site intact, no swelling, erythema, neurovascular status intact to right hand Assessment Assessment 1. NSTEMI with preserved EF 2. CAD: LHC revealed 3VD with scattered coronary lesions. CP free 3. Accelerated HTN: improved 4. Dementia Recommendations 1. Patient would benefit from coronary artery bypass surgery but considering her advanced age, dementia and comorbidities, , maintain conservative medical management. 2. GDMT with ASA/plavix/lipitor/metoprolol/losartan. Norvasc. NTG SL PRN. 3. Follow up in office in 4 weeks. MANISH LLANOS MD 03/06/19 1801: CARDIO Progress Notes Assessment Assessment Patient seen and examined. Agree with MANAGER OF HEALTH's assessment and plan. Cardiac cath with 3V CAD as noted above Continue conservative management and FU in 4 weeks JUNO HAWK APRN Mar 06, 2019 13:05 MANISH LLANOS MD Mar 06, 2019 18:01
[2019-03-06 14:01] LABS: ALBUMIN 2.1 g/dL (3.4-5.0); ALK PHOS 55 U/L (46-116); ALT (SGPT) 7 U/L (14-59); AST (SGOT) 16 U/L (15-37); CHOLESTEROL 139 mg/dL (0-200); DIRECT BILIRUBIN < 0.1 mg/dL (0.0-0.2); HDLC 41 mg/dL (40-60); LDLC 88 mg/dL (0-100); MAGNESIUM 1.9 mg/dL (1.8-2.4); TOTAL BILIRUBIN 0.1 mg/dL (0.2-1.0); TRIGLYCERIDES 49 mg/dL (0-150); VLDLC 10 mg/dL (0-40)
[2019-03-06 14:02] LABS: CHOLESTEROL/HDL RATIO 3.4
[2019-03-06 15:00] VITALS: BP 123/66
--- NOTE | 2019-03-06 16:47 | NUR ---
DISCHARGED PATIENT TO HOME. PIV AND HEART MONITOR REMOVED. DISCHARGE INSTRUCTIONS GIVEN TO PATIENT AND FAMILY. ESCORTED PATIENT TO FRONT ENTRANCE PER WHEELCHAIR INTO A PRIVATE VEHICLE.
[2019-03-06] MEDS ORDERED: METOPROLOL TART IMMED RELEASE 25 MG TABLET. PO SCH (21:00)
[2019-03-07] MEDS ORDERED: ISOSORBIDE MONONITRATE ER 30 MG TAB.ER.24H PO SCH (09:00)
== END 2019-03-06 16:40 | disposition home or self-care (01) | DRG 280 ==
LOC: 2 NORTH 17:30
PROVIDERS: ADMIT Internal Medicine; ATTEND Internal Medicine
PROC: 4A023N7 Measurement of Cardiac Sampling and Pressure, Left Heart, Percutaneous Approach (ICD-10-PCS; principal; 2019-03-05)
PROC: B2111ZZ Fluoroscopy of Multiple Coronary Arteries using Low Osmolar Contrast (ICD-10-PCS; 2019-03-05)
PROC: B2151ZZ Fluoroscopy of Left Heart using Low Osmolar Contrast (ICD-10-PCS; 2019-03-05)
DX: I21.4 Non-ST elevation (NSTEMI) myocardial infarction (principal); G93.41 Metabolic encephalopathy; E87.2 Acidosis; I25.10 Atherosclerotic heart disease of native coronary artery without angina pectoris; I10 Essential (primary) hypertension; E78.5 Hyperlipidemia, unspecified; M81.0 Age-related osteoporosis without current pathological fracture; F03.90 Unspecified dementia, unspecified severity, without behavioral disturbance, psychotic disturbance, mood disturbance, and anxiety; E87.6 Hypokalemia; Z66 Do not resuscitate; Z86.73 Personal history of transient ischemic attack (TIA), and cerebral infarction without residual deficits
CPT/HCPCS: 36415; 80048; 80061; 80076; 81001; 83605; 83735; 84484; 85025; 85027; 85520; 85610; 85730; 87086; 93458; 99152; 99153; C1769; C1892; J1644; J2250; J3010; J3490; Q9967; G0378

== ENCOUNTER 2019-06-26 01:14 | Inpatient (IN) | payer MEDICARE, OTHER ==
[~2019-06-26] VITALS: Ht 144.8 cm; Wt 44.1 kg
[2019-06-26] VITALS (7 sets, daily range): BP systolic 133–175; BP diastolic 72–88
[~2019-06-26 01:14] MED LIST: AMLO5TAB10 PO; CHOL200059 PO; DONE5TAB7 PO; LOSA100T14 PO; ROPI0.5T4 PO; TRAZ-118 PO
[2019-06-26 01:53] LABS: BASO # 0.1 x10^3/uL (0.0-0.2); BASO % 1 % (0-3); EOS % 1 % (0-3); HEMATOCRIT 34.5 % (36.0-47.0); HEMOGLOBIN 11.7 g/dL (12.0-15.5); LYMPH % 12 % (24-48); MEAN CORPUSCULAR HEMOGLOBIN 29 pg (25-35); MEAN CORPUSCULAR HGB CONC 34 g/dL (31-37); MEAN CORPUSCULAR VOLUME 87 fL (79-100); MONO # 0.4 x10^3/uL (0.0-1.1); MONO % 6 % (0-9); NEUT # 6.4 x10^3/uL (1.8-7.7); NEUT % 81 % (31-73); PLATELET COUNT 249 x10^3/uL (140-400); RED BLOOD COUNT 3.97 x10^6/uL (3.50-5.40); RED CELL DISTRIBUTION WIDTH 12.8 % (11.5-14.5); WHITE BLOOD COUNT 7.9 x10^3/uL (4.0-11.0)
[2019-06-26] MEDS: MORPHINE SULFATE 2 MG/ML VIAL. IV PRN ×4 (02:07→23:12)
[2019-06-26 02:15] LABS: ALBUMIN 3.1 g/dL (3.4-5.0); ALBUMIN/GLOBULIN RATIO 0.8 (1.0-1.7); CALCIUM 8.3 mg/dL (8.5-10.1); CREATININE 0.9 mg/dL (0.6-1.0); GFR 60.1; POTASSIUM 3.2 mmol/L (3.5-5.1); TOTAL BILIRUBIN 0.6 mg/dL (0.2-1.0); TOTAL PROTEIN 7.2 g/dL (6.4-8.2)
--- NOTE | 2019-06-26 03:27 | NUR ---
The patient, RAMESH BRAN, 79 y/o, F admitted by MERRITT URIBE MD. Reviewed patients medications and received admission orders from Dr. Uribe. Patient only speaks Maori. Patient arrived via ambulance from [facility].
--- NOTE | 2019-06-26 08:37 | PDOC2 ---
TU SMART ELECTRICAL ASSEMBLY TECHNICIAN 06/26/19 0837: CARDIAC CONSULT DATE OF CONSULT Date of Consult DATE: 06/26/19 TIME: 08:35 REASON FOR CONSULT Reason for Consult: Elevated troponin REFERRING PHYSICIAN Referring Physician: Dr. Uribe SOURCE Source: Chart review, Patient HISTORY OF PRESENT ILLNESS HISTORY OF PRESENT ILLNESS This is an 79 yo female who presented to [facility] secondary to weakness, hip pain, and altered mental status. Patient fell 3 days ago. Was ambulating with walker initially post fall, but became more weak and had another fall yesterday. Was unable to ambulate and was having increased pain. Patient has dementia at baseline, has been more confused over the past 4-5 days. Family was concerned for possible UTI so they brought her into the ED for further evaluation and treatment. Hip xray with acute displaced left femoral neck fracture. Troponin was noted at 0.079. No reports of chest pain. Patient was transferred to [facility] for ortho evaluation. Patient has a history of 3V CAD. Given advanced age and dementia, and comorbidities, conservative medical management was recommended. Discussed case with sonGrabiel. No reports of chest pain or shortness of breath. Family does not want any aggressive cardiac measures. PAST MEDICAL HISTORY Cardiovascular: CAD, HTN, Hyperlipidemia CENTRAL NERVOUS SYSTEM: CVA, Dementia Musculoskeletal: Osteoarthritis Renal/: UTI, Other (urgency ) PAST SURGICAL HISTORY Past Surgical History: Other (left heart cath ) FAMILY HISTORY Family History: Other (no pertinent history ) SOCIAL HISTORY Smoke: No ALCOHOL: none Drugs: None Lives: with Family CURRENT MEDICATIONS CURRENT MEDICATIONS Current Medications Medications (Trade) Dose Ordered Sig/Shi Route PRN Reason Start Time Stop Time Status Last Admin Dose Admin Morphine Sulfate (Morphine Sulfate) 2 mg PRN Q2HR PRN IV PAIN 06/26/19 01:30 06/26/19 05:59 ALLERGIES ALLERGIES: Coded Allergies: No Known Drug Allergies (Unverified , 08/04/15) ROS Review of System unobtainable due to dementia PHYSICAL EXAM General: Alert, Oriented X3, Cooperative, mild distress HEENT: Atraumatic, Mucous membr. moist/pink Lungs: Clear to auscultation Heart: Regular rate, Normal S1, Normal S2 Abdomen: Soft, No tenderness Extremities: No edema Skin: No significant lesion Neuro: Normal speech, Sensation intact Psych/Mental Status: Other (moaning in pain) MUSCULOSKELETAL: Osteoarthritic changes both hands VITALS/I&O VITALS/I&O: Vital Signs Date Time Temp Pulse Resp B/P (MAP) Pulse Ox O2 Delivery O2 Flow Rate FiO2 06/26/19 06:52 98.1 93 18 144/88 (106) 99 Room Air 98.1 I & O 06/25/19 06/25/19 06/26/19 14:59 22:59 06:59 Intake Total 0 ml Balance 0 ml LABS Lab: Laboratory Tests Test 06/26/19 01:43 06/26/19 04:40 White Blood Count 7.9 x10^3/uL (4.0-11.0) Red Blood Count 3.97 x10^6/uL (3.50-5.40) Hemoglobin 11.7 g/dL (12.0-15.5) L Hematocrit 34.5 % (36.0-47.0) L Mean Corpuscular Volume 87 fL (79-100) Mean Corpuscular Hemoglobin 29 pg (25-35) Mean Corpuscular Hemoglobin Concent 34 g/dL (31-37) Red Cell Distribution Width 12.8 % (11.5-14.5) Platelet Count 249 x10^3/uL (140-400) Neutrophils (%) (Auto) 81 % (31-73) H Lymphocytes (%) (Auto) 12 % (24-48) L Monocytes (%) (Auto) 6 % (0-9) Eosinophils (%) (Auto) 1 % (0-3) Basophils (%) (Auto) 1 % (0-3) Neutrophils # (Auto) 6.4 x10^3/uL (1.8-7.7) Lymphocytes # (Auto) 1.0 x10^3/uL (1.0-4.8) Monocytes # (Auto) 0.4 x10^3/uL (0.0-1.1) Eosinophils # (Auto) 0.0 x10^3/uL (0.0-0.7) Basophils # (Auto) 0.1 x10^3/uL (0.0-0.2) Sodium Level 138 mmol/L (136-145) Potassium Level 3.2 mmol/L (3.5-5.1) L Chloride Level 102 mmol/L (98-107) Carbon Dioxide Level 29 mmol/L (21-32) Anion Gap 7 (6-14) Blood Urea Nitrogen 12 mg/dL (7-20) Creatinine 0.9 mg/dL (0.6-1.0) Estimated GFR (Cockcroft-Gault) 60.1 BUN/Creatinine Ratio 13 (6-20) Glucose Level 133 mg/dL (70-99) H Calcium Level 8.3 mg/dL (8.5-10.1) L Total Bilirubin 0.6 mg/dL (0.2-1.0) Aspartate Amino Transferase (AST) 18 U/L (15-37) Alanine Aminotransferase (ALT) 14 U/L (14-59) Alkaline Phosphatase 73 U/L (46-116) Troponin I Quantitative 0.075 ng/mL (0.000-0.055) 0.077 ng/mL (0.000-0.055) Total Protein 7.2 g/dL (6.4-8.2) Albumin 3.1 g/dL (3.4-5.0) L Albumin/Globulin Ratio 0.8 (1.0-1.7) L Laboratory Tests 06/26/19 01:43 Laboratory Tests 06/26/19 01:43 ECHOCARDIOGRAM ECHOCARDIOGRAM <Conclusion> The left ventricular systolic function is normal. The Ejection Fraction is estimated at 55-60%. There is normal LV segmental wall motion. Transmitral Doppler flow pattern is Grade I-abnormal relaxation pattern. Mild aortic regurgitation. Trace mitral regurgitation. Mild tricuspid regurgitation. The PA pressure was estimated at 28 mmHg. There is no evidence of significant pericardial effusion. DATE: 08/04/15 2492 HEART CATH HEART CATH FINDINGS 1. Hemodynamics: Left ventricular end-diastolic pressure of 21 mmHg consistent with mild acute on chronic diastolic heart failure. No pullback gradient across the aortic valve. 2. Left ventriculography: Normal left ventricle systolic function with ejection fraction estimated at 65%. No significant mitral regurgitation seen. 3. Coronary angiography: a. The left main coronary artery arose from the left sinus of Valsalva, gave rise to the left anterior descending and left circumflex arteries and showed 30% stenosis in the midsegment. b. 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 The third diagonal branch which is a medium caliber vessel showed 80% stenosis. c. The left circumflex artery showed 70% stenosis involving the proximal segment of second obtuse marginal branch. The AV groove segment after the takeoff of the third obtuse marginal branch appears to be chronically occluded. d. The right coronary artery was a large and dominant vessel arising from the right sinus of Valsalva, was heavily calcified and showed a long 50% stenosis in the midsegment, 80% stenosis in the distal segment. The posterolateral branch showed a long 90% stenosis in the proximal to midsegment. The posterior descending branch showed 50% stenosis in the midsegment. Conclusion 1. Severe three-vessel coronary artery disease as described above 2. Normal left ventricle systolic function with ejection fraction estimated at 65%. Recommendations Patient would benefit from coronary artery bypass surgery but considering her advanced age, dementia and comorbidities, I would recommend conservative medical management. DATE: 03/05/19 0911 ASSESSMENT/PLAN ASSESSMENT/PLAN 1. Mechanical fall with acute displaced left femoral neck fracture 2. CAD; cath earlier this year with severe 3VD as noted above. Treated medically given advanced age, dementia, and comorbidities. Family does not want aggressive cardiac measures. LVEF preserved per [facility]. 3. Accelerated hypertension 4. Mild troponin elevation; peak 0.07. Most probable type II, demand ischemia. CP free. 5. Hyperlipidemia 6. Advance dementia. Recommendations Case discussed with sonGrabiel. Patient high risk for surgical intervention given severe triple vessel coronary artery disease Will obtain echo to ensure LV function is intact. Continue secondary prevention measures; ASA/lipitor/metoprolol/losartan/Imdur Will hold Plavix for now pending ortho evaluation. MANISH LLANSO MD 06/27/19 1232: CARDIAC CONSULT ASSESSMENT/PLAN ASSESSMENT/PLAN Patient seen and examined 06/26/19 (late entry). Agree with SAUSAGE COOKER's assessment and plan. s/p mechanical fall presenting with left femur neck fracture Slight troponin elevation probably demand ischemia Patient is a poor historian but clinically doubt ACS Recent cardiac catheterization with three-vessel CAD noted above, being managed medically Last 2D echo showed normal left ventricle systolic function Patient is at a high perioperative CV event risk based on age, comorbidities and three-vessel CAD Thank you for your consultation TU SMART APRN June 26, 2019 08:37 MANISH LLANOS MD June 27, 2019 12:32
[2019-06-26] MEDS ORDERED: POTASSIUM CHLORIDE 20 MEQ TABLET.ER. PO ONE (09:15)
[2019-06-26] MEDS: ACETAMINOPHEN 325 MG TABLET. PO PRN ×2 (11:12→21:46)
[2019-06-26] MEDS: METOPROLOL TART IMMED RELEASE 25 MG TABLET. PO SCH ×2 (11:13→21:48)
[2019-06-26] MEDS: ASPIRIN ENTERIC COATED 81 MG TABLET.DR. PO SCH (11:13)
[2019-06-26] MEDS: ISOSORBIDE MONONITRATE ER 30 MG TAB.ER.24H PO SCH (11:13)
[2019-06-26] MEDS: amLODIPine BESYLATE 5 MG TABLET PO SCH (11:14)
[2019-06-26] MEDS: LOSARTAN POTASSIUM 50 MG TABLET. PO SCH (11:14)
--- NOTE | 2019-06-26 11:50 | HP ---
ADMIT DATE: 06/26/2019 CHIEF COMPLAINT: Hip pain and recent fall and weakness. HISTORY OF PRESENT ILLNESS: The patient is a pleasant 79-year-old Indonesian lady, who has dementia. She apparently fell 3 days ago. She has been having altered mental status change and complained of some hip pain. She was ambulating with her walker even after the fall, but then had another fall yesterday. The confusion has been increased for the past 4-5 days. The family was concerned she might have a UTI, so they brought her to the ER for evaluation. We x-rayed her hip, it is showing an acute displaced left femoral neck fracture. She has now been admitted to the telemetry floor. We are consulting Cardiology because she has 3-vessel disease as well. We have also consulted Orthopedics. PAST MEDICAL HISTORY: Dementia, hypertension, CAD, hyperlipidemia, stroke, osteoarthritis, UTI, previous left heart cath, 3-vessel coronary artery disease. ALLERGIES: None. FAMILY HISTORY: Coronary artery disease. SOCIAL HISTORY: She does not drink, smoke or take drugs. MEDICATIONS: Reviewed, please see the MRAD. REVIEW OF SYSTEMS: Unable to obtain. The patient is too confused, but she does complain of left hip pain and some right leg pain as well and some right buttock pain. PHYSICAL EXAMINATION: VITALS: Within normal limits and are stable. GENERAL: No apparent distress. Alert and oriented. HEENT: Normal cephalic atraumatic, external auditory canals are patent. EYES: Extraocular muscles are intact, pupils are equally round and reactive to light and accommodation. MUSCULOSKELETAL: Well developed, well nourished, good range of motion. ENDOCRINE: No thyromegaly was palpated. LYMPHATICS: No cervical chain or axillary nodes were noted. HEMATOPOIETIC: No bruising. NECK: Supple, no JVD, no thyromegaly was noted. LUNGS: Clear to auscultation in all lung wilson without rhonchi or wheezing. HEART: RRR, S1, S2 present. Peripheral pulses intact, no obvious murmurs were noted. ABDOMEN: Soft, nontender. Positive bowel sounds no organomegaly, normal bowel sounds. EXTREMITIES: She has decreased range of motion on the left, seems to be painful to touch on the left hip. NEUROLOGIC: She is pleasantly confused. PSYCHIATRIC: Normal affect, normal mood. Stable. SKIN: No ulcerations or rashes, good skin turgor, no jaundice. VASCULAR: Good capillary refill, neurovascular bundle appears to be intact. LABORATORY DATA: White count 7.9, hemoglobin 11.7, platelets 249. Electrolytes are normal other than potassium of 3.2. Her glucose is high at 133. Troponin slightly high at 0.07; we repeated it, it is 0.077 again. ASSESSMENT AND PLAN: Fall with hip fracture with incidental finding of hypokalemia, anemia and elevated troponin. The patient has been admitted. We are consulting Cardiology, consult Orthopedics. Serial enzymes, serial EKGs, cardiac monitoring, p.r.n. pain meds, home meds, DVT prophylaxis. Full code. Suspect she might need surgery, but we are awaiting the family to give some input on that. Replace her potassium. We gave her 40 mEq of potassium chloride and p.r.n. Tylenol. Suspect she may need mcc care placement after this stay. LONG-TERM PROGNOSIS: Guarded. ISABELLA FLORES DO DR: MIKE/malena JOB#: [id number] / [id number]
--- NOTE | 2019-06-26 11:53 | NUR ---
SS following for discharge planning. SS reviewed pt chart and discussed with pt RN. Pt is from home with family and is currently on room air. Pt has left hip fracture. Ortho consulted and awaiting Dr. Kapoor to assess if surgical intervention is needed. PT/OT ordered. SS will continue to follow for discharge planning.
[2019-06-26] MEDS: CHOLECALCIFEROL (VITAMIN D3) 1,000 UNIT TABLET PO SCH (12:46)
--- NOTE | 2019-06-26 13:05 | PDOC2 ---
CONSULT Date of Consult Date of Consult DATE: 06/26/19 TIME: 13:04 Reason for Consult Reason for Consult: left hip fracture Identification/Chief Complaint Chief Complaint left hip pain after a fall Source Source: Caregiver, Chart review History of Present Illness Reason for Visit: The patient is new to me, an 79 year old woman of [place] descent who does not speak Somali. I spoke to her son Grabiel who speaks Somali and he is her DPOA for healthcare. She apparently fell 3 days ago. She has been having altered mental status change and complained of some hip pain. She was ambulating with her walker even after the fall, but then had another fall yesterday. The confusion has been increased for the past 4-5 days. The family was concerned she might have a UTI, so they brought her to the ER for evaluation. We x-rayed her hip, it is showing an acute displaced left femoral neck fracture. She has now been admitted to the telemetry floor. She lives with her son. She uses a walker to ambulate, minimal household ambulation but does get around. I spoke to the son in detail about the risks benefits and alternatives of surgery. I am hesitant to recommend surgery because of her severe three-vessel coronary disease which was not treated with CABG. I spoke to the son the DPOA about operative versus nonoperative treatment. He would like to proceed with a hip fracture surgery to help her be comfortable and return to ambulation with a walker. I made some preliminary plans for surgery today but have decided to postpone those. I spoke to Dr. Garcia the anesthesiologist, about her severe three-vessel disease and he is quite concerned that she would not survive surgery. The patient has not yet had her echocardiogram which was ordered by cardiology. I had originally thought about surgery today but I am going to hold on that and consider surgery versus nonsurgical options. Dr. Garcia asked if she could have LAD stent to improve her chances of survival. Past Medical History Cardiovascular: CAD, HTN, Hyperlipidemia Pulmonary: No pertinent hx CENTRAL NERVOUS SYSTEM: CVA, Dementia GI: No pertinent hx Heme/Onc: No pertinent hx Hepatobiliary: No pertinent hx Psych: No pertinent hx Musculoskeletal: Osteoarthritis Rheumatologic: No pertinent hx Infectious disease: No pertinent hx Renal/: UTI, Other (urgency ) Endocrine: No pertinent hx Past Surgical History Past Surgical History: Other (left heart cath ) Family History Family History: Other (no pertinent history ) Social History No ALCOHOL: none Drugs: None Lives: with Family Current Medications Current Medications Current Medications Acetaminophen (Tylenol) 650 mg PRN Q6HRS PRN PO TEMP OVER 100.4F OR MILD PAIN Last administered on 06/26/19 11:12; Start 06/26/19 at 01:30 Morphine Sulfate (Morphine Sulfate) 2 mg PRN Q2HR PRN IV PAIN Last administered on 06/26/19 05:59; Start 06/26/19 at 01:30 Amlodipine Besylate (Norvasc) 5 mg DAILY PO Last administered on 06/26/19 11:14; Start 06/26/19 at 09:00 Losartan Potassium (Cozaar) 100 mg DAILY PO Last administered on 06/26/19 11:14; Start 06/26/19 at 09:00 Potassium Chloride (Klor-Con) 40 meq 1X ONCE PO Last administered on 06/26/19 11:13; Start 06/26/19 at 09:15; Stop 06/26/19 at 09:16; Status DC Aspirin (Ecotrin) 81 mg DAILYWBKFT PO Last administered on 06/26/19 11:13; Start 06/26/19 at 10:00 Metoprolol Tartrate (Lopressor) 25 mg BID PO Last administered on 06/26/19 11:13; Start 06/26/19 at 10:00 Atorvastatin Calcium (Lipitor) 40 mg QHS PO ; Start 06/26/19 at 21:00 Isosorbide Mononitrate (Imdur) 30 mg DAILY PO Last administered on 06/26/19 11:13; Start 06/26/19 at 10:00 Vitamin D (Vitamin D3) 2,000 unit DAILY PO Last administered on 06/26/19at 12:46; Start 06/26/19 at 12:00 Ropinirole HCl (Requip) 0.5 mg QHS PO ; Start 06/26/19 at 21:00 Active Scripts Active Reported Vitamin D-3 (Cholecalciferol (Vitamin D3)) 2,000 Unit Tablet 2,000 Unit PO DAILY Ropinirole Hcl 0.5 Mg Tablet 0.5 Mg PO QHS Losartan Potassium 100 Mg Tablet 100 Mg PO DAILY Amlodipine Besylate 5 Mg Tablet 5 Mg PO DAILY Allergies Allergies: Coded Allergies: No Known Drug Allergies (Unverified , 08/04/15) ROS General: No: Chills, Night Sweats PSYCHOLOGICAL ROS: YES: Concentration difficultie, Disorientation Eyes: No Loss of vision HEENT: No: Heacaches Hematological and Lymphatic: No: Bleeding Problems, Blood Clots Respiratory: No: Cough, Shortness of breath Gastrointestinal: No Nausea, No Vomiting Genitourinary: No Hematuria Musculoskeletal: Yes Joint Pain Neurological: Yes Behavorial Changes, Yes Confusion Skin: No Hair Changes, No Mole Changes Physical Exam General: Alert, Cooperative HEENT: Atraumatic Heart: Regular rate Abdomen: Soft Extremities: No cyanosis Skin: Other (There is tenderness of the left hip. There is pain with any attempted motion. The skin is intact without ecchymosis. The extremity is shortened and externally rotated. Light touch sensation is intact at the foot and toes. Capillary refill and pulses are intact without evidence of ischemia. Slight dorsiflexion and plantarflexion are possible without evidence of sciatic nerve injury.) Neuro: Normal speech, Sensation intact Psych/Mental Status: Mood NL Vitals VITALS Vital Signs Date Time Temp Pulse Resp B/P (MAP) Pulse Ox O2 Delivery O2 Flow Rate FiO2 06/26/19 11:14 95 06/26/19 10:09 98.2 18 175/82 (113) 97 Room Air 98.2 Labs Labs Laboratory Tests Test 06/26/19 01:43 06/26/19 04:40 White Blood Count 7.9 x10^3/uL (4.0-11.0) Red Blood Count 3.97 x10^6/uL (3.50-5.40) Hemoglobin 11.7 g/dL (12.0-15.5) Hematocrit 34.5 % (36.0-47.0) Mean Corpuscular Volume 87 fL (79-100) Mean Corpuscular Hemoglobin 29 pg (25-35) Mean Corpuscular Hemoglobin Concent 34 g/dL (31-37) Red Cell Distribution Width 12.8 % (11.5-14.5) Platelet Count 249 x10^3/uL (140-400) Neutrophils (%) (Auto) 81 % (31-73) Lymphocytes (%) (Auto) 12 % (24-48) Monocytes (%) (Auto) 6 % (0-9) Eosinophils (%) (Auto) 1 % (0-3) Basophils (%) (Auto) 1 % (0-3) Neutrophils # (Auto) 6.4 x10^3/uL (1.8-7.7) Lymphocytes # (Auto) 1.0 x10^3/uL (1.0-4.8) Monocytes # (Auto) 0.4 x10^3/uL (0.0-1.1) Eosinophils # (Auto) 0.0 x10^3/uL (0.0-0.7) Basophils # (Auto) 0.1 x10^3/uL (0.0-0.2) Sodium Level 138 mmol/L (136-145) Potassium Level 3.2 mmol/L (3.5-5.1) Chloride Level 102 mmol/L (98-107) Carbon Dioxide Level 29 mmol/L (21-32) Anion Gap 7 (6-14) Blood Urea Nitrogen 12 mg/dL (7-20) Creatinine 0.9 mg/dL (0.6-1.0) Estimated GFR (Cockcroft-Gault) 60.1 BUN/Creatinine Ratio 13 (6-20) Glucose Level 133 mg/dL (70-99) Calcium Level 8.3 mg/dL (8.5-10.1) Total Bilirubin 0.6 mg/dL (0.2-1.0) Aspartate Amino Transf (AST/SGOT) 18 U/L (15-37) Alanine Aminotransferase (ALT/SGPT) 14 U/L (14-59) Alkaline Phosphatase 73 U/L (46-116) Troponin I Quantitative 0.075 ng/mL (0.000-0.055) 0.077 ng/mL (0.000-0.055) Total Protein 7.2 g/dL (6.4-8.2) Albumin 3.1 g/dL (3.4-5.0) Albumin/Globulin Ratio 0.8 (1.0-1.7) Magnesium Level 1.9 mg/dL (1.8-2.4) Laboratory Tests Test 06/26/19 01:43 06/26/19 04:40 White Blood Count 7.9 x10^3/uL (4.0-11.0) Red Blood Count 3.97 x10^6/uL (3.50-5.40) Hemoglobin 11.7 g/dL (12.0-15.5) Hematocrit 34.5 % (36.0-47.0) Mean Corpuscular Volume 87 fL (79-100) Mean Corpuscular Hemoglobin 29 pg (25-35) Mean Corpuscular Hemoglobin Concent 34 g/dL (31-37) Red Cell Distribution Width 12.8 % (11.5-14.5) Platelet Count 249 x10^3/uL (140-400) Neutrophils (%) (Auto) 81 % (31-73) Lymphocytes (%) (Auto) 12 % (24-48) Monocytes (%) (Auto) 6 % (0-9) Eosinophils (%) (Auto) 1 % (0-3) Basophils (%) (Auto) 1 % (0-3) Neutrophils # (Auto) 6.4 x10^3/uL (1.8-7.7) Lymphocytes # (Auto) 1.0 x10^3/uL (1.0-4.8) Monocytes # (Auto) 0.4 x10^3/uL (0.0-1.1) Eosinophils # (Auto) 0.0 x10^3/uL (0.0-0.7) Basophils # (Auto) 0.1 x10^3/uL (0.0-0.2) Sodium Level 138 mmol/L (136-145) Potassium Level 3.2 mmol/L (3.5-5.1) Chloride Level 102 mmol/L (98-107) Carbon Dioxide Level 29 mmol/L (21-32) Anion Gap 7 (6-14) Blood Urea Nitrogen 12 mg/dL (7-20) Creatinine 0.9 mg/dL (0.6-1.0) Estimated GFR (Cockcroft-Gault) 60.1 BUN/Creatinine Ratio 13 (6-20) Glucose Level 133 mg/dL (70-99) Calcium Level 8.3 mg/dL (8.5-10.1) Total Bilirubin 0.6 mg/dL (0.2-1.0) Aspartate Amino Transf (AST/SGOT) 18 U/L (15-37) Alanine Aminotransferase (ALT/SGPT) 14 U/L (14-59) Alkaline Phosphatase 73 U/L (46-116) Troponin I Quantitative 0.075 ng/mL (0.000-0.055) 0.077 ng/mL (0.000-0.055) Total Protein 7.2 g/dL (6.4-8.2) Albumin 3.1 g/dL (3.4-5.0) Albumin/Globulin Ratio 0.8 (1.0-1.7) Magnesium Level 1.9 mg/dL (1.8-2.4) Images Images Report reviewed, images independently reviewed. Left hip displaced femoral neck fracture. There are some vascular calcifications. This is a Garden 3 fracture with marked displacement, varus malalignment. [address] [address] IMAGING REPORT Signed PATIENT: RAMESH BRAN ACCOUNT: [id number] : 1940 LOCATION: ER AGE: 79 SEX: F EXAM STATUS: REG ER ORD. PHYSICIAN: SWETA WALLS DO REASON: Fall, severe left hip pain PROCEDURE: HIP LEFT 2V WITH PELVIS HIP LEFT 2V WITH PELVIS History: Fall. Hip pain. Technique: AP view the pelvis and 2 additional views of the left hip. Comparison: September 21, 2018. Findings: Acute left femoral neck fracture with superior displacement of the distal fracture fragment. No dislocation. Normal AP alignment of the right hip. Extensive vascular calcifications. Advanced lower lumbar spondylosis. Postop changes overlying the right pelvis. Impression: 1. Acute displaced left femoral neck fracture. Electronically signed by: Chris Mari DO (06/25/2019 10:26 PM) [facility] DICTATED AND SIGNED BY: CHRIS MARI DO DATE: 06/25/192225 CC: SWETA WALLS DO; JANINA SPARKS Assessment/Plan Assessment/Plan I spoke to the son, the DPOA about the options for treatment. I was leaning towards nonoperative treatment and discussed those treatment issues with him. I would keep her comfortable in bed, but it is unlikely she would be up walking anytime soon with nonoperative treatment. She has been in too much pain to do so recently. I spoke to him about the option of surgery, although it is very high risk based on her three-vessel cardiac disease which did not undergo coronary bypass. I did speak to the son in detail about the risks of surgery such as bleeding, infection, blood clots, dislocation, leg length discrepancy, neurovascular injury particularly the sciatic nerve causing a foot drop, or other potential surgical or anesthetic complications. All of his questions were answered and he the DPOA desires for his mother to proceed with surgery. He is eager for her to undergo surgery to fix her hip and make it more comfortable for her to be up with a walker, even if it is only for a few steps at a time. I spoke to Dr. Mcdowellttt the anesthesiologist who asked if perhaps her LAD alone could be stented which would improve her cardiac perfusion and improve her mellisa nces of survival. I asked Loretta Lion the loss control consultant to see if Dr. Kenney would consider this. I had tentatively discussed surgery today but I am canceling that. The patient's echocardiogram is still pending and further cardiology input pending. I will discuss further with cardiology and anesthesiology regarding risk management and possibility of surgery versus nonsurgical treatment. If surgery occurs at all it would be later this week. LUPE SHAIKH MD June 26, 2019 13:05
[2019-06-26] MEDS ORDERED: HYDROcodone/APAP 7.5/325MG 1 TAB TABLET PO PRN (13:30)
[2019-06-26] MEDS: rOPINIRole 0.25 MG TABLET. PO SCH (21:47)
[2019-06-26] MEDS: ATORVASTATIN CALCIUM 40 MG TABLET. PO SCH (21:48)
[2019-06-26] MEDS: HYDROcodone/APAP 7.5/325MG 1 TAB TABLET PO PRN (23:49)
[2019-06-27 03:20] VITALS: BP 182/96
[2019-06-27 06:44] LABS: CALCIUM 8.5 mg/dL (8.5-10.1); CREATININE 1.4 mg/dL (0.6-1.0); GFR 36.1; POTASSIUM 3.9 mmol/L (3.5-5.1)
[2019-06-27 06:51] LABS: BASO # 0.1 x10^3/uL (0.0-0.2); BASO % 1 % (0-3); EOS # 0.1 x10^3/uL (0.0-0.7); EOS % 2 % (0-3); HEMOGLOBIN 11.6 g/dL (12.0-15.5); LYMPH % 28 % (24-48); MEAN CORPUSCULAR HEMOGLOBIN 29 pg (25-35); MEAN CORPUSCULAR HGB CONC 34 g/dL (31-37); MEAN CORPUSCULAR VOLUME 86 fL (79-100); MONO # 0.5 x10^3/uL (0.0-1.1); MONO % 7 % (0-9); NEUT # 4.3 x10^3/uL (1.8-7.7); NEUT % 61 % (31-73); PLATELET COUNT 291 x10^3/uL (140-400); RED BLOOD COUNT 3.94 x10^6/uL (3.50-5.40); WHITE BLOOD COUNT 7.1 x10^3/uL (4.0-11.0)
[2019-06-27 07:00] VITALS: BP 137/74
[2019-06-27] MEDS ORDERED: fentaNYL PF VIAL 100 MCG/2 ML VIAL IV PRN ×2 (07:00)
[2019-06-27] MEDS ORDERED: PROCHLORPERAZINE 10 MG/2 ML VIAL. IV PRN (07:00)
[2019-06-27] MEDS ORDERED: MORPHINE SULFATE 2 MG/ML VIAL. IV PRN (07:00)
[2019-06-27] MEDS ORDERED: IV RINGERS,LACTATED 1000ML 1,000 ML IV SCH (07:00)
[2019-06-27] MEDS ORDERED: HYDROmorphone 2 MG/ML VIAL IV PRN (07:00)
[2019-06-27] MEDS ORDERED: ONDANSETRON PF 4 MG/2 ML VIAL. IV PRN (07:00)
[2019-06-27] MEDS: ASPIRIN ENTERIC COATED 81 MG TABLET.DR. PO SCH (08:00)
--- NOTE | 2019-06-27 08:59 | CARD ---
MR#: [id number] Date of Study: 06/27/2019 Ordering Physician: MANISH LLANOS, Referring Physician: MANISH LLANOS Tech: Lisa Oreilly RDCS APPROVED REPORT EXAM: Two-dimensional and M-mode echocardiogram with Doppler and color Doppler. Other Information Quality : Fair INDICATION Cardiomyopathy Non STEMI 2D DIMENSIONS Left Atrium(2D)2.8 (1.6-4.0cm)IVSd1.0 (0.7-1.1cm) Aortic Root(2D)3.4 (2.0-3.7cm)LVDd4.4 (3.9-5.9cm) LVOT Diameter2.1 (1.8-2.4cm)PWd1.1 (0.7-1.1cm) LVDs2.8 (2.5-4.0cm)FS (%) 35.0 % SV55.2 mlLVEF(%)64.5 (>50%) M-Mode DIMENSIONS Aortic Cusp Exc1.16 (1.5-2.0cm) Aortic Valve AoV Peak Varinder.158.8cm/sAoV VTI29.8cm AO Peak GR.10.1mmHgLVOT VTI 16.61cm AO Mean GR.5mmHgAVA (VTI)1.89cm2 AI P 1/2 Vehc107aw Mitral Valve MV E Gdtzuhta91.5cm/sMV DECEL [id number] MV A Knafzaed22.7cm/sE/A Ratio0.5 TDI Lateral E' P. V4.35cm/sMedial E' P. V4.69cm/s E/Lateral E'10.0E/Medial E'9.3 Tricuspid Valve TR P. Gmchfwee469df/sRAP [id number] TR Peak Gr.15vdHiUBAQ29zfFz LEFT VENTRICLE The left ventricle is normal size. There is normal left ventricular wall thickness. The left ventricu lar systolic function is normal and the ejection fraction is within normal range. The Ejection Fracti on is 55-60%. Septal motion consistent with conduction abnormality. Basal to mid inferior wall is sev erely hypokinetic. Transmitral Doppler flow pattern is Grade I-abnormal relaxation pattern. RIGHT VENTRICLE The right ventricle is normal size. The right ventricular systolic function is normal. ATRIA The left atrium size is normal. The right atrium size is normal. The interatrial septum is intact wit h no evidence for an atrial septal defect or patent foramen ovale as noted on 2-D or Doppler imaging. AORTIC VALVE The aortic valve is moderately thickened and visually appears to be a decreased opening but Doppler r eveals no stenosis. Doppler and Color Flow revealed mild aortic regurgitation. There is no significan t aortic valvular stenosis. MITRAL VALVE The mitral valve is calcified but opens well. Mitral annular calcification is mild. There is no evide nce of mitral valve prolapse. There is no mitral valve stenosis. Doppler and Color-flow revealed trac e mitral regurgitation. TRICUSPID VALVE The tricuspid valve is normal in structure and function. Doppler and Color Flow revealed trace to mil d tricuspid regurgitation. The PA pressure was estimated at 25 mmHg. There is no tricuspid valve sten osis. PULMONIC VALVE The pulmonic valve is not well visualized. Doppler and Color Flow revealed trace to mild pulmonic jose vular regurgitation. There is no pulmonic valvular stenosis. GREAT VESSELS The aortic root is normal in size. The ascending aorta is mildly dilated at 3.8 cm. The IVC is normal in size and collapses >50% with inspiration. PERICARDIAL EFFUSION There is no evidence of significant pericardial effusion. Critical Notification Critical Value: No <Conclusion> The left ventricular systolic function is normal and the ejection fraction is within normal range. Th e Ejection Fraction is 55-60%. Septal motion consistent with conduction abnormality. Basal to mid inferior wall is severely hypokine tic. Doppler and Color Flow revealed mild aortic regurgitation. The ascending aorta is mildly dilated at 3.8 cm. Signed by : Steve Ross, Electronically Approved : 06/27/2019 08:59:16
[2019-06-27] MEDS: METOPROLOL TART IMMED RELEASE 25 MG TABLET. PO SCH ×2 (09:00→20:43)
[2019-06-27] MEDS: amLODIPine BESYLATE 5 MG TABLET PO SCH (09:00)
[2019-06-27] MEDS: ISOSORBIDE MONONITRATE ER 30 MG TAB.ER.24H PO SCH (09:00)
[2019-06-27] MEDS: CHOLECALCIFEROL (VITAMIN D3) 1,000 UNIT TABLET PO SCH (09:00)
--- NOTE | 2019-06-27 10:24 | PDOC ---
BINGTU BAEZ CHRISTIE 06/27/19 1024: CARDIO Progress Notes Date and Time Date of Service 06/27/19 Time of Evaluation 1010 Subjective Subjective: Other (hip pain) Vitals Vitals Vital Signs Date Time Temp Pulse Resp B/P (MAP) Pulse Ox O2 Delivery O2 Flow Rate FiO2 06/27/19 08:00 Room Air 06/27/19 07:00 97.6 72 16 137/74 (95) 97 97.6 Weight Weight [ ] Input and Output Intake and Output Intake and Output 06/27/19 07:00 Intake Total 220 ml Output Total 875 ml Balance -655 ml Intake Oral 220 ml Output Urine Total 875 ml Laboratory Labs Laboratory Tests Test 06/27/19 04:15 White Blood Count 7.1 x10^3/uL (4.0-11.0) Red Blood Count 3.94 x10^6/uL (3.50-5.40) Hemoglobin 11.6 g/dL (12.0-15.5) Hematocrit 34.0 % (36.0-47.0) Mean Corpuscular Volume 86 fL (79-100) Mean Corpuscular Hemoglobin 29 pg (25-35) Mean Corpuscular Hemoglobin Concent 34 g/dL (31-37) Red Cell Distribution Width 13.0 % (11.5-14.5) Platelet Count 291 x10^3/uL (140-400) Neutrophils (%) (Auto) 61 % (31-73) Lymphocytes (%) (Auto) 28 % (24-48) Monocytes (%) (Auto) 7 % (0-9) Eosinophils (%) (Auto) 2 % (0-3) Basophils (%) (Auto) 1 % (0-3) Neutrophils # (Auto) 4.3 x10^3/uL (1.8-7.7) Lymphocytes # (Auto) 2.0 x10^3/uL (1.0-4.8) Monocytes # (Auto) 0.5 x10^3/uL (0.0-1.1) Eosinophils # (Auto) 0.1 x10^3/uL (0.0-0.7) Basophils # (Auto) 0.1 x10^3/uL (0.0-0.2) Sodium Level 138 mmol/L (136-145) Potassium Level 3.9 mmol/L (3.5-5.1) Chloride Level 103 mmol/L (98-107) Carbon Dioxide Level 23 mmol/L (21-32) Anion Gap 12 (6-14) Blood Urea Nitrogen 23 mg/dL (7-20) Creatinine 1.4 mg/dL (0.6-1.0) Estimated GFR (Cockcroft-Gault) 36.1 Glucose Level 126 mg/dL (70-99) Calcium Level 8.5 mg/dL (8.5-10.1) Physical Exam HEENT: Neck Supple W Full Motion Chest: Symmetric LUNGS: Clear to Auscultation Heart: S1S2, RRR (SR/ST) Abdomen: Soft N/T Extremities: No Edema Neurology: alert, follow commands, confused Assessment Assessment 1. Mechanical fall with acute displaced left femoral neck fracture 2. CAD; cath earlier this year with severe 3VD as noted above. Treated medically given advanced age, dementia, and comorbidities. Family does not want aggressive cardiac measures. Echo shows preserved LV systolic function 3. Hypertension; labile 4. Mild troponin elevation; peak 0.07. Most probable type II, demand ischemia. CP free. 5. Hyperlipidemia 6. Advance dementia. Recommendations Patient high risk for surgical intervention given severe triple vessel coronary artery disease. LAD not amendable to PCI given diffuse disease and aneurysmal dilitation of the vessel, making high risk for rupture. Continue secondary prevention measures; ASA/lipitor/metoprolol/losartan/Imdur May hold Plavix pending potential surgery; resume upon discharge Supportive care MANISH LLANOS MD 06/27/19 1938: CARDIO Progress Notes Assessment Assessment Patient seen and examined. Agree with PROVIDER RELATIONS SPECIALIST's assessment and plan. CAD status clinically stable Slight trop elevation demand ischemia 2D echo showed normal LVED Patient at high risk for periop CV events with non cardiac surgery due to age, comorbidities and 3vCAD but for lack of options and since EF is normal and patient's family understands the risks involved with surgery, would proceed with surgical fixation of femoral fracture TU SMART APRN June 27, 2019 10:24 MANISH LLANOS MD June 27, 2019 19:38
[2019-06-27 10:47] VITALS: BP 143/78
--- NOTE | 2019-06-27 11:03 | NUR ---
SS following up with discharge planning. SS reviewed pt chart and discussed with pt RN. Pt is currently on room air. Pt had ECHO today. Ortho awaiting ECHO results and will make decision of whether or not surgical intervention will be needed. PT/OT ordered. SS will continue to follow for discharge planning.
--- NOTE | 2019-06-27 12:24 | PDOC ---
PROGRESS NOTES Chief Complaint Chief Complaint Fall with hip fracture hypokalemia, anemia and elevated troponin. triple vessel coronary disease History of Present Illness History of Present Illness will review echo consider hip surg soon cardiology to review, ortho may be able to take to surg, Vitals Vitals Vital Signs Date Time Temp Pulse Resp B/P (MAP) Pulse Ox O2 Delivery O2 Flow Rate FiO2 06/27/19 10:47 98.4 70 18 143/78 (99) 97 Room Air 98.4 Physical Exam General: Alert, Cooperative Heart: Regular rate Abdomen: Soft Extremities: No cyanosis Skin: Other Labs LABS Laboratory Tests Test 06/27/19 04:15 White Blood Count 7.1 x10^3/uL (4.0-11.0) Red Blood Count 3.94 x10^6/uL (3.50-5.40) Hemoglobin 11.6 g/dL (12.0-15.5) Hematocrit 34.0 % (36.0-47.0) Mean Corpuscular Volume 86 fL (79-100) Mean Corpuscular Hemoglobin 29 pg (25-35) Mean Corpuscular Hemoglobin Concent 34 g/dL (31-37) Red Cell Distribution Width 13.0 % (11.5-14.5) Platelet Count 291 x10^3/uL (140-400) Neutrophils (%) (Auto) 61 % (31-73) Lymphocytes (%) (Auto) 28 % (24-48) Monocytes (%) (Auto) 7 % (0-9) Eosinophils (%) (Auto) 2 % (0-3) Basophils (%) (Auto) 1 % (0-3) Neutrophils # (Auto) 4.3 x10^3/uL (1.8-7.7) Lymphocytes # (Auto) 2.0 x10^3/uL (1.0-4.8) Monocytes # (Auto) 0.5 x10^3/uL (0.0-1.1) Eosinophils # (Auto) 0.1 x10^3/uL (0.0-0.7) Basophils # (Auto) 0.1 x10^3/uL (0.0-0.2) Sodium Level 138 mmol/L (136-145) Potassium Level 3.9 mmol/L (3.5-5.1) Chloride Level 103 mmol/L (98-107) Carbon Dioxide Level 23 mmol/L (21-32) Anion Gap 12 (6-14) Blood Urea Nitrogen 23 mg/dL (7-20) Creatinine 1.4 mg/dL (0.6-1.0) Estimated GFR (Cockcroft-Gault) 36.1 Glucose Level 126 mg/dL (70-99) Calcium Level 8.5 mg/dL (8.5-10.1) Comment Review of Relevant I have reviewed the following items dick (where applicable) has been applied. Labs Laboratory Tests Test 06/26/19 01:43 06/26/19 04:40 06/27/19 04:15 White Blood Count 7.9 x10^3/uL (4.0-11.0) 7.1 x10^3/uL (4.0-11.0) Red Blood Count 3.97 x10^6/uL (3.50-5.40) 3.94 x10^6/uL (3.50-5.40) Hemoglobin 11.7 g/dL (12.0-15.5) 11.6 g/dL (12.0-15.5) Hematocrit 34.5 % (36.0-47.0) 34.0 % (36.0-47.0) Mean Corpuscular Volume 87 fL (79-100) 86 fL (79-100) Mean Corpuscular Hemoglobin 29 pg (25-35) 29 pg (25-35) Mean Corpuscular Hemoglobin Concent 34 g/dL (31-37) 34 g/dL (31-37) Red Cell Distribution Width 12.8 % (11.5-14.5) 13.0 % (11.5-14.5) Platelet Count 249 x10^3/uL (140-400) 291 x10^3/uL (140-400) Neutrophils (%) (Auto) 81 % (31-73) 61 % (31-73) Lymphocytes (%) (Auto) 12 % (24-48) 28 % (24-48) Monocytes (%) (Auto) 6 % (0-9) 7 % (0-9) Eosinophils (%) (Auto) 1 % (0-3) 2 % (0-3) Basophils (%) (Auto) 1 % (0-3) 1 % (0-3) Neutrophils # (Auto) 6.4 x10^3/uL (1.8-7.7) 4.3 x10^3/uL (1.8-7.7) Lymphocytes # (Auto) 1.0 x10^3/uL (1.0-4.8) 2.0 x10^3/uL (1.0-4.8) Monocytes # (Auto) 0.4 x10^3/uL (0.0-1.1) 0.5 x10^3/uL (0.0-1.1) Eosinophils # (Auto) 0.0 x10^3/uL (0.0-0.7) 0.1 x10^3/uL (0.0-0.7) Basophils # (Auto) 0.1 x10^3/uL (0.0-0.2) 0.1 x10^3/uL (0.0-0.2) Sodium Level 138 mmol/L (136-145) 138 mmol/L (136-145) Potassium Level 3.2 mmol/L (3.5-5.1) 3.9 mmol/L (3.5-5.1) Chloride Level 102 mmol/L (98-107) 103 mmol/L (98-107) Carbon Dioxide Level 29 mmol/L (21-32) 23 mmol/L (21-32) Anion Gap 7 (6-14) 12 (6-14) Blood Urea Nitrogen 12 mg/dL (7-20) 23 mg/dL (7-20) Creatinine 0.9 mg/dL (0.6-1.0) 1.4 mg/dL (0.6-1.0) Estimated GFR (Cockcroft-Gault) 60.1 36.1 BUN/Creatinine Ratio 13 (6-20) Glucose Level 133 mg/dL (70-99) 126 mg/dL (70-99) Calcium Level 8.3 mg/dL (8.5-10.1) 8.5 mg/dL (8.5-10.1) Total Bilirubin 0.6 mg/dL (0.2-1.0) Aspartate Amino Transf (AST/SGOT) 18 U/L (15-37) Alanine Aminotransferase (ALT/SGPT) 14 U/L (14-59) Alkaline Phosphatase 73 U/L (46-116) Troponin I Quantitative 0.075 ng/mL (0.000-0.055) 0.077 ng/mL (0.000-0.055) Total Protein 7.2 g/dL (6.4-8.2) Albumin 3.1 g/dL (3.4-5.0) Albumin/Globulin Ratio 0.8 (1.0-1.7) Magnesium Level 1.9 mg/dL (1.8-2.4) Laboratory Tests Test 06/27/19 04:15 White Blood Count 7.1 x10^3/uL (4.0-11.0) Red Blood Count 3.94 x10^6/uL (3.50-5.40) Hemoglobin 11.6 g/dL (12.0-15.5) Hematocrit 34.0 % (36.0-47.0) Mean Corpuscular Volume 86 fL (79-100) Mean Corpuscular Hemoglobin 29 pg (25-35) Mean Corpuscular Hemoglobin Concent 34 g/dL (31-37) Red Cell Distribution Width 13.0 % (11.5-14.5) Platelet Count 291 x10^3/uL (140-400) Neutrophils (%) (Auto) 61 % (31-73) Lymphocytes (%) (Auto) 28 % (24-48) Monocytes (%) (Auto) 7 % (0-9) Eosinophils (%) (Auto) 2 % (0-3) Basophils (%) (Auto) 1 % (0-3) Neutrophils # (Auto) 4.3 x10^3/uL (1.8-7.7) Lymphocytes # (Auto) 2.0 x10^3/uL (1.0-4.8) Monocytes # (Auto) 0.5 x10^3/uL (0.0-1.1) Eosinophils # (Auto) 0.1 x10^3/uL (0.0-0.7) Basophils # (Auto) 0.1 x10^3/uL (0.0-0.2) Sodium Level 138 mmol/L (136-145) Potassium Level 3.9 mmol/L (3.5-5.1) Chloride Level 103 mmol/L (98-107) Carbon Dioxide Level 23 mmol/L (21-32) Anion Gap 12 (6-14) Blood Urea Nitrogen 23 mg/dL (7-20) Creatinine 1.4 mg/dL (0.6-1.0) Estimated GFR (Cockcroft-Gault) 36.1 Glucose Level 126 mg/dL (70-99) Calcium Level 8.5 mg/dL (8.5-10.1) Medications Current Medications Acetaminophen (Tylenol) 650 mg PRN Q6HRS PRN PO TEMP OVER 100.4F OR MILD PAIN Last administered on 06/26/19 21:46; Start 06/26/19 at 01:30 Morphine Sulfate (Morphine Sulfate) 2 mg PRN Q2HR PRN IV PAIN Last administered on 06/26/19 23:12; Start 06/26/19 at 01:30 Amlodipine Besylate (Norvasc) 5 mg DAILY PO Last administered on 06/26/19 11:14; Start 06/26/19 at 09:00 Losartan Potassium (Cozaar) 100 mg DAILY PO Last administered on 06/26/19 11:14; Start 06/26/19 at 09:00 Potassium Chloride (Klor-Con) 40 meq 1X ONCE PO Last administered on 06/26/19 11:13; Start 06/26/19 at 09:15; Stop 06/26/19 at 09:16; Status DC Aspirin (Ecotrin) 81 mg DAILYWBKFT PO Last administered on 06/26/19 11:13; Start 06/26/19 at 10:00 Metoprolol Tartrate (Lopressor) 25 mg BID PO Last administered on 06/26/19 21:48; Start 06/26/19 at 10:00 Atorvastatin Calcium (Lipitor) 40 mg QHS PO Last administered on 06/26/19 21:48; Start 06/26/19 at 21:00 Isosorbide Mononitrate (Imdur) 30 mg DAILY PO Last administered on 06/26/19 11:13; Start 06/26/19 at 10:00 Vitamin D (Vitamin D3) 2,000 unit DAILY PO Last administered on 06/26/19 12:46; Start 06/26/19 at 12:00 Ropinirole HCl (Requip) 0.5 mg QHS PO Last administered on 5/19/20at 21:47; Start 06/26/19 at 21:00 Acetaminophen/ Hydrocodone Bitart (Lortab 7.5/325) 1 tab PRN Q4HRS PRN PO PAIN; Start 06/26/19 at 13:30; Stop 06/26/19 at 13:23; Status DC Acetaminophen/ Hydrocodone Bitart (Lortab 7.5/325) 2 tab PRN Q4HRS PRN PO PAIN Last administered on 06/26/19at 23:49; Start 06/26/19 at 13:30 Ondansetron HCl (Zofran) 4 mg PRN Q6HRS PRN IV NAUSEA/VOMITING; Start 06/27/19 at 07:00; Stop 06/28/19 at 06:59 Fentanyl Citrate (Fentanyl 2ml Vial) 25 mcg PRN Q5MIN PRN IV MILD PAIN 1-3; Start 06/27/19 at 07:00; Stop 06/28/19 at 06:59 Fentanyl Citrate (Fentanyl 2ml Vial) 50 mcg PRN Q5MIN PRN IV MODERATE TO SEVERE PAIN; Start 06/27/19 at 07:00; Stop 06/28/19 at 06:59 Morphine Sulfate (Morphine Sulfate) 1 mg PRN Q10MIN PRN IV SEVERE PAIN 7-10; Start 06/27/19 at 07:00; Stop 06/28/19 at 06:59 Ringer's Solution 1,000 ml @ 30 mls/hr Q24H IV ; Start 06/27/19 at 07:00; Stop 06/27/19 at 18:59 Hydromorphone HCl (Dilaudid) 0.5 mg PRN Q10MIN PRN IV SEV PAIN, Second choice; Start 06/27/19 at 07:00; Stop 06/28/19 at 06:59 Prochlorperazine Edisylate (Compazine) 5 mg PACU PRN PRN IV NAUSEA, MRX1; St art 06/27/19 at 07:00; Stop 06/28/19 at 06:59 Active Scripts Active Reported Vitamin D-3 (Cholecalciferol (Vitamin D3)) 2,000 Unit Tablet 2,000 Unit PO DAILY Ropinirole Hcl 0.5 Mg Tablet 0.5 Mg PO QHS Losartan Potassium 100 Mg Tablet 100 Mg PO DAILY Amlodipine Besylate 5 Mg Tablet 5 Mg PO DAILY Vitals/I & O Vital Sign - Last 24 Hours 06/26/19 06/26/19 06/26/19 06/26/19 14:15 19:20 19:43 21:48 Temp 98.0 98.1 98.0 98.1 Pulse 78 92 92 Resp 18 20 B/P (MAP) 133/81 (98) 154/82 (106) 154/82 Pulse Ox 96 96 O2 Delivery Room Air Room Air Room Air 06/26/19 06/26/19 06/26/19 06/26/19 23:05 23:12 23:42 23:49 Temp 97.5 97.5 Pulse 97 Resp 18 B/P (MAP) 144/82 (102) Pulse Ox 98 O2 Delivery Room Air Room Air Room Air Room Air 06/27/19 06/27/19 06/27/19 06/27/19 00:51 03:20 07:00 08:00 Temp 97.8 97.6 97.8 97.6 Pulse 93 72 Resp 20 16 B/P (MAP) 182/96 (124) 137/74 (95) Pulse Ox 96 97 O2 Delivery Room Air Room Air Room Air Room Air 06/27/19 10:47 Temp 98.4 98.4 Pulse 70 Resp 18 B/P (MAP) 143/78 (99) Pulse Ox 97 O2 Delivery Room Air Intake and Output 06/26/19 06/26/19 06/27/19 15:00 23:00 07:00 Intake Total 120 ml 100 ml Output Total 375 ml 500 ml Balance -255 ml -400 ml JOSE SPRAGUE MD June 27, 2019 12:24
[2019-06-27 15:01] VITALS: BP 148/72
[2019-06-27 19:23] VITALS: BP 148/88
[2019-06-27] MEDS: rOPINIRole 0.25 MG TABLET. PO SCH (20:43)
[2019-06-27] MEDS: ATORVASTATIN CALCIUM 40 MG TABLET. PO SCH (20:43)
[2019-06-27] MEDS: LOSARTAN POTASSIUM 50 MG TABLET. PO SCH (20:44)
[2019-06-27 23:53] VITALS: BP 179/80
[2019-06-28] MEDS: MORPHINE SULFATE 2 MG/ML VIAL. IV PRN ×3 (00:23→18:03)
[2019-06-28 02:49] VITALS: BP 155/70
[2019-06-28 05:51] LABS: BASO # 0.1 x10^3/uL (0.0-0.2); BASO % 1 % (0-3); EOS # 0.2 x10^3/uL (0.0-0.7); EOS % 2 % (0-3); HEMATOCRIT 33.3 % (36.0-47.0); HEMOGLOBIN 11.3 g/dL (12.0-15.5); LYMPH # 0.8 x10^3/uL (1.0-4.8); LYMPH % 10 % (24-48); MEAN CORPUSCULAR HEMOGLOBIN 30 pg (25-35); MEAN CORPUSCULAR HGB CONC 34 g/dL (31-37); MEAN CORPUSCULAR VOLUME 87 fL (79-100); MONO # 0.6 x10^3/uL (0.0-1.1); MONO % 7 % (0-9); NEUT # 6.1 x10^3/uL (1.8-7.7); NEUT % 80 % (31-73); PLATELET COUNT 290 x10^3/uL (140-400); RED BLOOD COUNT 3.83 x10^6/uL (3.50-5.40); RED CELL DISTRIBUTION WIDTH 13.4 % (11.5-14.5); WHITE BLOOD COUNT 7.7 x10^3/uL (4.0-11.0)
[2019-06-28 06:20] LABS: ALBUMIN 2.9 g/dL (3.4-5.0); ALBUMIN/GLOBULIN RATIO 0.7 (1.0-1.7); CALCIUM 8.4 mg/dL (8.5-10.1); GFR 53.2; POTASSIUM 4.1 mmol/L (3.5-5.1); TOTAL BILIRUBIN 0.5 mg/dL (0.2-1.0); TOTAL PROTEIN 7.2 g/dL (6.4-8.2)
[2019-06-28 07:00] VITALS: BP 166/76
[2019-06-28] MEDS: METOPROLOL TART IMMED RELEASE 25 MG TABLET. PO SCH ×2 (10:24→20:54)
[2019-06-28] MEDS: amLODIPine BESYLATE 5 MG TABLET PO SCH (10:24)
[2019-06-28] MEDS: ASPIRIN ENTERIC COATED 81 MG TABLET.DR. PO SCH (10:25)
[2019-06-28] MEDS: LOSARTAN POTASSIUM 50 MG TABLET. PO SCH (10:25)
[2019-06-28] MEDS: HYDROcodone/APAP 7.5/325MG 1 TAB TABLET PO PRN ×2 (10:25→20:53)
[2019-06-28] MEDS: ISOSORBIDE MONONITRATE ER 30 MG TAB.ER.24H PO SCH (10:26)
[2019-06-28] MEDS: CHOLECALCIFEROL (VITAMIN D3) 1,000 UNIT TABLET PO SCH (10:26)
--- NOTE | 2019-06-28 10:57 | PDOC ---
TU SMART LABORER 06/28/19 1057: CARDIO Progress Notes Date and Time Date of Service 06/28/19 Time of Evaluation 1020 Subjective Subjective: Other (hip pain) Vitals Vitals Vital Signs Date Time Temp Pulse Resp B/P (MAP) Pulse Ox O2 Delivery O2 Flow Rate FiO2 06/28/19 10:26 100 166/76 06/28/19 10:26 Room Air 06/28/19 08:05 96 06/28/19 07:00 98.7 18 98.7 Weight Weight [ ] Input and Output Intake and Output Intake and Output 06/28/19 07:00 Intake Total 120 ml Output Total 275 ml Balance -155 ml Intake Oral 120 ml Output Urine Total 275 ml Laboratory Labs Laboratory Tests Test 06/28/19 04:50 White Blood Count 7.7 x10^3/uL (4.0-11.0) Red Blood Count 3.83 x10^6/uL (3.50-5.40) Hemoglobin 11.3 g/dL (12.0-15.5) Hematocrit 33.3 % (36.0-47.0) Mean Corpuscular Volume 87 fL (79-100) Mean Corpuscular Hemoglobin 30 pg (25-35) Mean Corpuscular Hemoglobin Concent 34 g/dL (31-37) Red Cell Distribution Width 13.4 % (11.5-14.5) Platelet Count 290 x10^3/uL (140-400) Neutrophils (%) (Auto) 80 % (31-73) Lymphocytes (%) (Auto) 10 % (24-48) Monocytes (%) (Auto) 7 % (0-9) Eosinophils (%) (Auto) 2 % (0-3) Basophils (%) (Auto) 1 % (0-3) Neutrophils # (Auto) 6.1 x10^3/uL (1.8-7.7) Lymphocytes # (Auto) 0.8 x10^3/uL (1.0-4.8) Monocytes # (Auto) 0.6 x10^3/uL (0.0-1.1) Eosinophils # (Auto) 0.2 x10^3/uL (0.0-0.7) Basophils # (Auto) 0.1 x10^3/uL (0.0-0.2) Sodium Level 138 mmol/L (136-145) Potassium Level 4.1 mmol/L (3.5-5.1) Chloride Level 105 mmol/L (98-107) Carbon Dioxide Level 21 mmol/L (21-32) Anion Gap 12 (6-14) Blood Urea Nitrogen 25 mg/dL (7-20) Creatinine 1.0 mg/dL (0.6-1.0) Estimated GFR (Cockcroft-Gault) 53.2 BUN/Creatinine Ratio 25 (6-20) Glucose Level 112 mg/dL (70-99) Calcium Level 8.4 mg/dL (8.5-10.1) Total Bilirubin 0.5 mg/dL (0.2-1.0) Aspartate Amino Transf (AST/SGOT) 23 U/L (15-37) Alanine Aminotransferase (ALT/SGPT) 19 U/L (14-59) Alkaline Phosphatase 61 U/L (46-116) Total Protein 7.2 g/dL (6.4-8.2) Albumin 2.9 g/dL (3.4-5.0) Albumin/Globulin Ratio 0.7 (1.0-1.7) Physical Exam HEENT: Neck Supple W Full Motion Chest: Symmetric LUNGS: Clear to Auscultation Heart: S1S2, RRR (SR/ST) Abdomen: Soft N/T Extremities: No Edema Neurology: alert, follow commands, confused Assessment Assessment 1. Mechanical fall with acute displaced left femoral neck fracture 2. CAD; cath earlier this year with severe 3VD as noted above. Treated medically given advanced age, dementia, and comorbidities. Family does not want aggressive cardiac measures. Echo shows preserved LV systolic function 3. Hypertension; labile 4. Mild troponin elevation; peak 0.07. Most probable type II, demand ischemia. CP free. 5. Hyperlipidemia; statin 6. Advance dementia. Recommendations Awaiting COVID testing for surgery Continue secondary prevention measures; ASA/lipitor/metoprolol/losartan/Imdur Resume Plavix when able. Increase amlodipine for better BP control. Supportive care MANISH LLANOS MD 06/28/191945: CARDIO Progress Notes Assessment Assessment Patient seen and examined. Agree with MATERIALS SCIENTIST's assessment and plan. 2D echo showed normal LVEF Slight trop elevation prob demand ischemia 3vCAD being managed conservatively, appears to be clinically stable Femoral fracture, surgical fixation pending COVID testing TU SMART APRN June 28, 2019 10:57 MANISH LLANOS MD June 28, 2019 19:46
[2019-06-28 11:00] VITALS: BP 125/77
[2019-06-28] MEDS ORDERED: amLODIPine BESYLATE 5 MG TABLET PO ONE (11:00)
--- NOTE | 2019-06-28 11:19 | PDOC ---
PROGRESS NOTES Chief Complaint Chief Complaint Fall with hip fracture hypokalemia, anemia and elevated troponin. triple vessel coronary disease History of Present Illness History of Present Illness will review echo consider hip surg soon cardiology to review, ortho may be able to take to surg, Vitals Vitals Vital Signs Date Time Temp Pulse Resp B/P (MAP) Pulse Ox O2 Delivery O2 Flow Rate FiO2 06/28/19 10:26 100 166/76 06/28/19 10:26 Room Air 06/28/19 08:05 96 06/28/19 07:00 98.7 18 98.7 Physical Exam General: Alert, Cooperative Heart: Regular rate Abdomen: Soft Extremities: No cyanosis Skin: Other Labs LABS Laboratory Tests Test 06/28/19 04:50 White Blood Count 7.7 x10^3/uL (4.0-11.0) Red Blood Count 3.83 x10^6/uL (3.50-5.40) Hemoglobin 11.3 g/dL (12.0-15.5) Hematocrit 33.3 % (36.0-47.0) Mean Corpuscular Volume 87 fL (79-100) Mean Corpuscular Hemoglobin 30 pg (25-35) Mean Corpuscular Hemoglobin Concent 34 g/dL (31-37) Red Cell Distribution Width 13.4 % (11.5-14.5) Platelet Count 290 x10^3/uL (140-400) Neutrophils (%) (Auto) 80 % (31-73) Lymphocytes (%) (Auto) 10 % (24-48) Monocytes (%) (Auto) 7 % (0-9) Eosinophils (%) (Auto) 2 % (0-3) Basophils (%) (Auto) 1 % (0-3) Neutrophils # (Auto) 6.1 x10^3/uL (1.8-7.7) Lymphocytes # (Auto) 0.8 x10^3/uL (1.0-4.8) Monocytes # (Auto) 0.6 x10^3/uL (0.0-1.1) Eosinophils # (Auto) 0.2 x10^3/uL (0.0-0.7) Basophils # (Auto) 0.1 x10^3/uL (0.0-0.2) Sodium Level 138 mmol/L (136-145) Potassium Level 4.1 mmol/L (3.5-5.1) Chloride Level 105 mmol/L (98-107) Carbon Dioxide Level 21 mmol/L (21-32) Anion Gap 12 (6-14) Blood Urea Nitrogen 25 mg/dL (7-20) Creatinine 1.0 mg/dL (0.6-1.0) Estimated GFR (Cockcroft-Gault) 53.2 BUN/Creatinine Ratio 25 (6-20) Glucose Level 112 mg/dL (70-99) Calcium Level 8.4 mg/dL (8.5-10.1) Total Bilirubin 0.5 mg/dL (0.2-1.0) Aspartate Amino Transf (AST/SGOT) 23 U/L (15-37) Alanine Aminotransferase (ALT/SGPT) 19 U/L (14-59) Alkaline Phosphatase 61 U/L (46-116) Total Protein 7.2 g/dL (6.4-8.2) Albumin 2.9 g/dL (3.4-5.0) Albumin/Globulin Ratio 0.7 (1.0-1.7) Comment Review of Relevant I have reviewed the following items dick (where applicable) has been applied. Labs Laboratory Tests Test 06/27/19 04:15 06/28/19 04:50 White Blood Count 7.1 x10^3/uL (4.0-11.0) 7.7 x10^3/uL (4.0-11.0) Red Blood Count 3.94 x10^6/uL (3.50-5.40) 3.83 x10^6/uL (3.50-5.40) Hemoglobin 11.6 g/dL (12.0-15.5) 11.3 g/dL (12.0-15.5) Hematocrit 34.0 % (36.0-47.0) 33.3 % (36.0-47.0) Mean Corpuscular Volume 86 fL (79-100) 87 fL (79-100) Mean Corpuscular Hemoglobin 29 pg (25-35) 30 pg (25-35) Mean Corpuscular Hemoglobin Concent 34 g/dL (31-37) 34 g/dL (31-37) Red Cell Distribution Width 13.0 % (11.5-14.5) 13.4 % (11.5-14.5) Platelet Count 291 x10^3/uL (140-400) 290 x10^3/uL (140-400) Neutrophils (%) (Auto) 61 % (31-73) 80 % (31-73) Lymphocytes (%) (Auto) 28 % (24-48) 10 % (24-48) Monocytes (%) (Auto) 7 % (0-9) 7 % (0-9) Eosinophils (%) (Auto) 2 % (0-3) 2 % (0-3) Basophils (%) (Auto) 1 % (0-3) 1 % (0-3) Neutrophils # (Auto) 4.3 x10^3/uL (1.8-7.7) 6.1 x10^3/uL (1.8-7.7) Lymphocytes # (Auto) 2.0 x10^3/uL (1.0-4.8) 0.8 x10^3/uL (1.0-4.8) Monocytes # (Auto) 0.5 x10^3/uL (0.0-1.1) 0.6 x10^3/uL (0.0-1.1) Eosinophils # (Auto) 0.1 x10^3/uL (0.0-0.7) 0.2 x10^3/uL (0.0-0.7) Basophils # (Auto) 0.1 x10^3/uL (0.0-0.2) 0.1 x10^3/uL (0.0-0.2) Sodium Level 138 mmol/L (136-145) 138 mmol/L (136-145) Potassium Level 3.9 mmol/L (3.5-5.1) 4.1 mmol/L (3.5-5.1) Chloride Level 103 mmol/L (98-107) 105 mmol/L (98-107) Carbon Dioxide Level 23 mmol/L (21-32) 21 mmol/L (21-32) Anion Gap 12 (6-14) 12 (6-14) Blood Urea Nitrogen 23 mg/dL (7-20) 25 mg/dL (7-20) Creatinine 1.4 mg/dL (0.6-1.0) 1.0 mg/dL (0.6-1.0) Estimated GFR (Cockcroft-Gault) 36.1 53.2 Glucose Level 126 mg/dL (70-99) 112 mg/dL (70-99) Calcium Level 8.5 mg/dL (8.5-10.1) 8.4 mg/dL (8.5-10.1) BUN/Creatinine Ratio 25 (6-20) Total Bilirubin 0.5 mg/dL (0.2-1.0) Aspartate Amino Transf (AST/SGOT) 23 U/L (15-37) Alanine Aminotransferase (ALT/SGPT) 19 U/L (14-59) Alkaline Phosphatase 61 U/L (46-116) Total Protein 7.2 g/dL (6.4-8.2) Albumin 2.9 g/dL (3.4-5.0) Albumin/Globulin Ratio 0.7 (1.0-1.7) Laboratory Tests Test 06/28/19 04:50 White Blood Count 7.7 x10^3/uL (4.0-11.0) Red Blood Count 3.83 x10^6/uL (3.50-5.40) Hemoglobin 11.3 g/dL (12.0-15.5) Hematocrit 33.3 % (36.0-47.0) Mean Corpuscular Volume 87 fL (79-100) Mean Corpuscular Hemoglobin 30 pg (25-35) Mean Corpuscular Hemoglobin Concent 34 g/dL (31-37) Red Cell Distribution Width 13.4 % (11.5-14.5) Platelet Count 290 x10^3/uL (140-400) Neutrophils (%) (Auto) 80 % (31-73) Lymphocytes (%) (Auto) 10 % (24-48) Monocytes (%) (Auto) 7 % (0-9) Eosinophils (%) (Auto) 2 % (0-3) Basophils (%) (Auto) 1 % (0-3) Neutrophils # (Auto) 6.1 x10^3/uL (1.8-7.7) Lymphocytes # (Auto) 0.8 x10^3/uL (1.0-4.8) Monocytes # (Auto) 0.6 x10^3/uL (0.0-1.1) Eosinophils # (Auto) 0.2 x10^3/uL (0.0-0.7) Basophils # (Auto) 0.1 x10^3/uL (0.0-0.2) Sodium Level 138 mmol/L (136-145) Potassium Level 4.1 mmol/L (3.5-5.1) Chloride Level 105 mmol/L (98-107) Carbon Dioxide Level 21 mmol/L (21-32) Anion Gap 12 (6-14) Blood Urea Nitrogen 25 mg/dL (7-20) Creatinine 1.0 mg/dL (0.6-1.0) Estimated GFR (Cockcroft-Gault) 53.2 BUN/Creatinine Ratio 25 (6-20) Glucose Level 112 mg/dL (70-99) Calcium Level 8.4 mg/dL (8.5-10.1) Total Bilirubin 0.5 mg/dL (0.2-1.0) Aspartate Amino Transf (AST/SGOT) 23 U/L (15-37) Alanine Aminotransferase (ALT/SGPT) 19 U/L (14-59) Alkaline Phosphatase 61 U/L (46-116) Total Protein 7.2 g/dL (6.4-8.2) Albumin 2.9 g/dL (3.4-5.0) Albumin/Globulin Ratio 0.7 (1.0-1.7) Medications Current Medications Acetaminophen (Tylenol) 650 mg PRN Q6HRS PRN PO TEMP OVER 100.4F OR MILD PAIN Last administered on 06/26/19at 21:46; Start 06/26/19 at 01:30 Morphine Sulfate (Morphine Sulfate) 2 mg PRN Q2HR PRN IV PAIN Last administered on 06/28/19at 08:05; Start 06/26/19 at 01:30 Amlodipine Besylate (Norvasc) 5 mg DAILY PO Last administered on 06/28/19at 10:24; Start 06/26/19 at 09:00; Stop 06/28/19 at 10:56; Status DC Losartan Potassium (Cozaar) 100 mg DAILY PO Last administered on 06/28/19at 10:25; Start 06/26/19 at 09:00 Potassium Chloride (Klor-Con) 40 meq 1X ONCE PO Last administered on 06/26/19at 11:13; Start 06/26/19 at 09:15; Stop 06/26/19 at 09:16; Status DC Aspirin (Ecotrin) 81 mg DAILYWBKFT PO Last administered on 06/28/19at 10:25; Start 06/26/19 at 10:00 Metoprolol Tartrate (Lopressor) 25 mg BID PO Last administered on 06/28/19at 10:24; Start 06/26/19 at 10:00 Atorvastatin Calcium (Lipitor) 40 mg QHS PO Last administered on 06/27/19at 20:43; Start 06/26/19 at 21:00 Isosorbide Mononitrate (Imdur) 30 mg DAILY PO Last administered on 06/28/19at 10:26; Start 06/26/19 at 10:00 Vitamin D (Vitamin D3) 2,000 unit DAILY PO Last administered on 06/28/19 10:26; Start 06/26/19 at 12:00 Ropinirole HCl (Requip) 0.5 mg QHS PO Last administered on 06/27/19at 20:43; Start 06/26/19 at 21:00 Acetaminophen/ Hydrocodone Bitart (Lortab 7.5/325) 1 tab PRN Q4HRS PRN PO PAIN; Start 06/26/19 at 13:30; Stop 06/26/19 at 13:23; Status DC Acetaminophen/ Hydrocodone Bitart (Lortab 7.5/325) 2 tab PRN Q4HRS PRN PO PAIN Last administered on 06/28/19at 10:25; Start 06/26/19 at 13:30 Ondansetron HCl (Zofran) 4 mg PRN Q6HRS PRN IV NAUSEA/VOMITING; Start 06/27/19 at 07:00; Stop 06/28/19 at 06:59; Status DC Fentanyl Citrate (Fentanyl 2ml Vial) 25 mcg PRN Q5MIN PRN IV MILD PAIN 1-3; Start 06/27/19 at 07:00; Stop 06/28/19 at 06:59; Status DC Fentanyl Citrate (Fentanyl 2ml Vial) 50 mcg PRN Q5MIN PRN IV MODERATE TO SEVERE PAIN; Start 06/27/19 at 07:00; Stop 06/28/19 at 06:59; Status DC Morphine Sulfate (Morphine Sulfate) 1 mg PRN Q10MIN PRN IV SEVERE PAIN 7-10; Start 06/27/19 at 07:00; Stop 06/28/19 at 06:59; Status DC Ringer's Solution 1,000 ml @ 30 mls/hr Q24H IV ; Start 06/27/19 at 07:00; Stop 06/27/19 at 18:59; Status DC Hydromorphone HCl (Dilaudid) 0.5 mg PRN Q10MIN PRN IV SEV PAIN, Second choice; Start 06/27/19 at 07:00; Stop 06/28/19 at 06:59; Status DC Prochlorperazine Edisylate (Compazine) 5 mg PACU PRN PRN IV NAUSEA, MRX1; Start 06/27/19 at 07:00; Stop 06/28/19 at 06:59; Status DC Amlodipine Besylate (Norvasc) 10 mg DAILY PO ; Start 06/29/19 at 09:00 Amlodipine Besylate (Norvasc) 5 mg 1X ONCE PO ; Start 06/28/19 at 11:00; Stop 06/28/19 at 11:02; Status DC Active Scripts Active Reported Vitamin D-3 (Cholecalciferol (Vitamin D3)) 2,000 Unit Tablet 2,000 Unit PO DAILY Ropinirole Hcl 0.5 Mg Tablet 0.5 Mg PO QHS Losartan Potassium 100 Mg Tablet 100 Mg PO DAILY Amlodipine Besylate 5 Mg Tablet 5 Mg PO DAILY Vitals/I & O Vital Sign - Last 24 Hours 06/27/19 06/27/19 06/27/19 06/27/19 15:01 19:23 19:45 20:43 Temp 98.2 98.4 98.2 98.4 Pulse 70 76 76 Resp 16 16 B/P (MAP) 148/72 (97) 148/88 (108) 148/88 Pulse Ox 98 97 O2 Delivery Room Air Room Air Room Air 06/27/19 06/27/19 06/28/19 06/28/19 20:44 23:53 00:23 00:53 Temp 97.7 97.7 Pulse 76 87 Resp 16 B/P (MAP) 148/88 179/80 (113) Pulse Ox 96 O2 Delivery Room Air Room Air Room Air 06/28/19 06/28/19 06/28/19 06/28/19 02:49 07:00 08:05 08:08 Temp 98.3 98.7 98.3 98.7 Pulse 77 100 Resp 18 18 B/P (MAP) 155/70 (98) 166/76 (106) Pulse Ox 96 97 96 O2 Delivery Room Air Room Air Room Air Room Air 06/28/19 06/28/19 06/28/19 06/28/19 10:24 10:24 10:25 10:25 Pulse 100 100 100 B/P (MAP) 166/76 166/76 166/76 O2 Delivery Room Air 06/28/19 06/28/19 10:26 10:26 Pulse 100 B/P (MAP) 166/76 O2 Delivery Room Air Intake and Output 06/27/19 06/27/19 06/28/19 15:00 23:00 07:00 Intake Total 20 ml 100 ml Output Total 175 ml 100 ml Balance -155 ml 0 ml JOSE SPRAGUE MD June 28, 2019 11:19
--- NOTE | 2019-06-28 11:25 | NUR ---
SS following up with discharge planning. SS reviewed pt chart and discussed with pt RN. Pt needing surgery for hip. Surgery requesting COVID19 test prior to procedure. COVID19 test ordered and currently pending. SS will continue to follow for discharge planning.
[2019-06-28 15:00] VITALS: BP 114/65
--- NOTE | 2019-06-28 18:16 | PDOC ---
Provider Note Provider Note Surgery was canceled today because the patient had not had COVID-19 testing. This is the first time this has occurred to me. I was unaware that testing had not yet been ordered/performed on this inpatient. I was notified by the OR that the surgery would need to be postponed. Apparently I am not the only surgeon who was unaware of this situation; I was told 3 inpatient surgeries were canceled today for the same reason. COVID-19 testing has been ordered STAT for Mrs. Vieira, and her surgery is planned for tomorrow. LUPE SHAIKH MD June 28, 2019 18:16
[2019-06-28 19:55] VITALS: BP 104/58
--- NOTE | 2019-06-28 20:14 | NUR ---
Per Dora in the lab, Covid 19 test negative. Report placed on patient's chart.
[2019-06-28] MEDS: ATORVASTATIN CALCIUM 40 MG TABLET. PO SCH (20:53)
[2019-06-28] MEDS: rOPINIRole 0.25 MG TABLET. PO SCH (20:53)
[2019-06-28 22:23] VITALS: BP 101/53
[2019-06-29] VITALS (15 sets, daily range): BP systolic 100–149; BP diastolic 52–69
[2019-06-29 05:19] LABS: BASO # 0.1 x10^3/uL (0.0-0.2); BASO % 1 % (0-3); EOS # 0.2 x10^3/uL (0.0-0.7); EOS % 3 % (0-3); HEMATOCRIT 29.4 % (36.0-47.0); LYMPH # 0.9 x10^3/uL (1.0-4.8); LYMPH % 15 % (24-48); MEAN CORPUSCULAR HEMOGLOBIN 30 pg (25-35); MEAN CORPUSCULAR HGB CONC 34 g/dL (31-37); MEAN CORPUSCULAR VOLUME 88 fL (79-100); MONO # 0.6 x10^3/uL (0.0-1.1); MONO % 10 % (0-9); NEUT # 4.4 x10^3/uL (1.8-7.7); NEUT % 71 % (31-73); PLATELET COUNT 317 x10^3/uL (140-400); RED BLOOD COUNT 3.36 x10^6/uL (3.50-5.40); RED CELL DISTRIBUTION WIDTH 13.3 % (11.5-14.5); WHITE BLOOD COUNT 6.1 x10^3/uL (4.0-11.0)
[2019-06-29 05:35] LABS: CALCIUM 8.5 mg/dL (8.5-10.1); CREATININE 1.5 mg/dL (0.6-1.0); GFR 33.3; POTASSIUM 4.5 mmol/L (3.5-5.1)
[2019-06-29] MEDS ORDERED: ROPIVacaine 0.75% PF 53.3 ML, EPINEPHrine 0.6 MG, MORPHINE PF 5 MG in IV NORMAL SALINE ... INT ART ONE (06:00)
[2019-06-29] MEDS ORDERED: [UNRECOGNIZED DRUG - REMARK] INT ART ONE ×4 (06:00)
[2019-06-29] MEDS ORDERED: fentaNYL PF VIAL 100 MCG/2 ML VIAL IV PRN ×2 (07:00)
[2019-06-29] MEDS ORDERED: LIDOCAINE 1% PF 2 ML VIAL. ID PRN (07:00)
[2019-06-29] MEDS ORDERED: ONDANSETRON PF 4 MG/2 ML VIAL. IV PRN (07:00)
[2019-06-29] MEDS ORDERED: PROCHLORPERAZINE 10 MG/2 ML VIAL. IV PRN (07:00)
[2019-06-29] MEDS ORDERED: HYDROmorphone 2 MG/ML VIAL IV PRN (07:00)
[2019-06-29] MEDS ORDERED: IV RINGERS,LACTATED 1000ML 1,000 ML IV SCH (07:00)
[2019-06-29] MEDS ORDERED: MORPHINE SULFATE 2 MG/ML VIAL. IV PRN (07:00)
[2019-06-29] MEDS: ASPIRIN ENTERIC COATED 81 MG TABLET.DR. PO SCH (08:00)
--- NOTE | 2019-06-29 08:49 | PDOC ---
PROGRESS NOTES Chief Complaint Chief Complaint Fall with hip fracture dementia, oriented to self vasomotor nephropathy 2 days ago, better yesterday, worse today, was NPO for surg, will give IV fluid today, surg today on hip hypokalemia, anemia and elevated troponin. triple vessel coronary disease History of Present Illness History of Present Illness will review echo consider hip surg soon cardiology to review, ortho may be able to take to surg, Vitals Vitals Vital Signs Date Time Temp Pulse Resp B/P (MAP) Pulse Ox O2 Delivery O2 Flow Rate FiO2 06/29/19 07:50 Room Air 06/29/19 06:58 98.3 68 17 137/68 (91) 97 98.3 Physical Exam General: Alert, Cooperative Heart: Regular rate Lungs: Clear Abdomen: Soft Extremities: No cyanosis Skin: Other Labs LABS Laboratory Tests Test 06/28/19 09:25 06/29/19 04:00 Coronavirus (COVID-19)(PCR) See separate report White Blood Count 6.1 x10^3/uL (4.0-11.0) Red Blood Count 3.36 x10^6/uL (3.50-5.40) Hemoglobin 10.0 g/dL (12.0-15.5) Hematocrit 29.4 % (36.0-47.0) Mean Corpuscular Volume 88 fL (79-100) Mean Corpuscular Hemoglobin 30 pg (25-35) Mean Corpuscular Hemoglobin Concent 34 g/dL (31-37) Red Cell Distribution Width 13.3 % (11.5-14.5) Platelet Count 317 x10^3/uL (140-400) Neutrophils (%) (Auto) 71 % (31-73) Lymphocytes (%) (Auto) 15 % (24-48) Monocytes (%) (Auto) 10 % (0-9) Eosinophils (%) (Auto) 3 % (0-3) Basophils (%) (Auto) 1 % (0-3) Neutrophils # (Auto) 4.4 x10^3/uL (1.8-7.7) Lymphocytes # (Auto) 0.9 x10^3/uL (1.0-4.8) Monocytes # (Auto) 0.6 x10^3/uL (0.0-1.1) Eosinophils # (Auto) 0.2 x10^3/uL (0.0-0.7) Basophils # (Auto) 0.1 x10^3/uL (0.0-0.2) Sodium Level 140 mmol/L (136-145) Potassium Level 4.5 mmol/L (3.5-5.1) Chloride Level 105 mmol/L (98-107) Carbon Dioxide Level 27 mmol/L (21-32) Anion Gap 8 (6-14) Blood Urea Nitrogen 46 mg/dL (7-20) Creatinine 1.5 mg/dL (0.6-1.0) Estimated GFR (Cockcroft-Gault) 33.3 Glucose Level 144 mg/dL (70-99) Calcium Level 8.5 mg/dL (8.5-10.1) Comment Review of Relevant I have reviewed the following items dick (where applicable) has been applied. Labs Laboratory Tests Test 06/28/19 04:50 06/28/19 09:25 06/29/19 04:00 White Blood Count 7.7 x10^3/uL (4.0-11.0) 6.1 x10^3/uL (4.0-11.0) Red Blood Count 3.83 x10^6/uL (3.50-5.40) 3.36 x10^6/uL (3.50-5.40) Hemoglobin 11.3 g/dL (12.0-15.5) 10.0 g/dL (12.0-15.5) Hematocrit 33.3 % (36.0-47.0) 29.4 % (36.0-47.0) Mean Corpuscular Volume 87 fL (79-100) 88 fL (79-100) Mean Corpuscular Hemoglobin 30 pg (25-35) 30 pg (25-35) Mean Corpuscular Hemoglobin Concent 34 g/dL (31-37) 34 g/dL (31-37) Red Cell Distribution Width 13.4 % (11.5-14.5) 13.3 % (11.5-14.5) Platelet Count 290 x10^3/uL (140-400) 317 x10^3/uL (140-400) Neutrophils (%) (Auto) 80 % (31-73) 71 % (31-73) Lymphocytes (%) (Auto) 10 % (24-48) 15 % (24-48) Monocytes (%) (Auto) 7 % (0-9) 10 % (0-9) Eosinophils (%) (Auto) 2 % (0-3) 3 % (0-3) Basophils (%) (Auto) 1 % (0-3) 1 % (0-3) Neutrophils # (Auto) 6.1 x10^3/uL (1.8-7.7) 4.4 x10^3/uL (1.8-7.7) Lymphocytes # (Auto) 0.8 x10^3/uL (1.0-4.8) 0.9 x10^3/uL (1.0-4.8) Monocytes # (Auto) 0.6 x10^3/uL (0.0-1.1) 0.6 x10^3/uL (0.0-1.1) Eosinophils # (Auto) 0.2 x10^3/uL (0.0-0.7) 0.2 x10^3/uL (0.0-0.7) Basophils # (Auto) 0.1 x10^3/uL (0.0-0.2) 0.1 x10^3/uL (0.0-0.2) Sodium Level 138 mmol/L (136-145) 140 mmol/L (136-145) Potassium Level 4.1 mmol/L (3.5-5.1) 4.5 mmol/L (3.5-5.1) Chloride Level 105 mmol/L (98-107) 105 mmol/L (98-107) Carbon Dioxide Level 21 mmol/L (21-32) 27 mmol/L (21-32) Anion Gap 12 (6-14) 8 (6-14) Blood Urea Nitrogen 25 mg/dL (7-20) 46 mg/dL (7-20) Creatinine 1.0 mg/dL (0.6-1.0) 1.5 mg/dL (0.6-1.0) Estimated GFR (Cockcroft-Gault) 53.2 33.3 BUN/Creatinine Ratio 25 (6-20) Glucose Level 112 mg/dL (70-99) 144 mg/dL (70-99) Calcium Level 8.4 mg/dL (8.5-10.1) 8.5 mg/dL (8.5-10.1) Total Bilirubin 0.5 mg/dL (0.2-1.0) Aspartate Amino Transf (AST/SGOT) 23 U/L (15-37) Alanine Aminotransferase (ALT/SGPT) 19 U/L (14-59) Alkaline Phosphatase 61 U/L (46-116) Total Protein 7.2 g/dL (6.4-8.2) Albumin 2.9 g/dL (3.4-5.0) Albumin/Globulin Ratio 0.7 (1.0-1.7) Coronavirus (COVID-19)(PCR) See separate report Laboratory Tests Test 06/28/19 09:25 06/29/19 04:00 Coronavirus (COVID-19)(PCR) See separate report White Blood Count 6.1 x10^3/uL (4.0-11.0) Red Blood Count 3.36 x10^6/uL (3.50-5.40) Hemoglobin 10.0 g/dL (12.0-15.5) Hematocrit 29.4 % (36.0-47.0) Mean Corpuscular Volume 88 fL (79-100) Mean Corpuscular Hemoglobin 30 pg (25-35) Mean Corpuscular Hemoglobin Concent 34 g/dL (31-37) Red Cell Distribution Width 13.3 % (11.5-14.5) Platelet Count 317 x10^3/uL (140-400) Neutrophils (%) (Auto) 71 % (31-73) Lymphocytes (%) (Auto) 15 % (24-48) Monocytes (%) (Auto) 10 % (0-9) Eosinophils (%) (Auto) 3 % (0-3) Basophils (%) (Auto) 1 % (0-3) Neutrophils # (Auto) 4.4 x10^3/uL (1.8-7.7) Lymphocytes # (Auto) 0.9 x10^3/uL (1.0-4.8) Monocytes # (Auto) 0.6 x10^3/uL (0.0-1.1) Eosinophils # (Auto) 0.2 x10^3/uL (0.0-0.7) Basophils # (Auto) 0.1 x10^3/uL (0.0-0.2) Sodium Level 140 mmol/L (136-145) Potassium Level 4.5 mmol/L (3.5-5.1) Chloride Level 105 mmol/L (98-107) Carbon Dioxide Level 27 mmol/L (21-32) Anion Gap 8 (6-14) Blood Urea Nitrogen 46 mg/dL (7-20) Creatinine 1.5 mg/dL (0.6-1.0) Estimated GFR (Cockcroft-Gault) 33.3 Glucose Level 144 mg/dL (70-99) Calcium Level 8.5 mg/dL (8.5-10.1) Medications Current Medications Acetaminophen (Tylenol) 650 mg PRN Q6HRS PRN PO TEMP OVER 100.4F OR MILD PAIN Last administered on 06/26/19 21:46; Start 06/26/19 at 01:30 Morphine Sulfate (Morphine Sulfate) 2 mg PRN Q2HR PRN IV PAIN Last administered on 06/28/19 18:03; Start 06/26/19 at 01:30 Amlodipine Besylate (Norvasc) 5 mg DAILY PO Last administered on 06/28/19 10:24; Start 06/26/19 at 09:00; Stop 06/28/19 at 10:56; Status DC Losartan Potassium (Cozaar) 100 mg DAILY PO Last administered on 06/28/19 10:25; Start 06/26/19 at 09:00 Potassium Chloride (Klor-Con) 40 meq 1X ONCE PO Last administered on 06/26/19 11:13; Start 06/26/19 at 09:15; Stop 06/26/19 at 09:16; Status DC Aspirin (Ecotrin) 81 mg DAILYWBKFT PO Last administered on 06/28/19 10:25; Start 06/26/19 at 10:00 Metoprolol Tartrate (Lopressor) 25 mg BID PO Last administered on 06/28/19 20:54; Start 06/26/19 at 10:00 Atorvastatin Calcium (Lipitor) 40 mg QHS PO Last administered on 06/28/19 20:53; Start 06/26/19 at 21:00 Isosorbide Mononitrate (Imdur) 30 mg DAILY PO Last administered on 06/28/19at 10:26; Start 06/26/19 at 10:00 Vitamin D (Vitamin D3) 2,000 unit DAILY PO Last administered on 06/28/19at 10:26; Start 06/26/19 at 12:00 Ropinirole HCl (Requip) 0.5 mg QHS PO Last administered on 06/28/19at 20:53; Start 06/26/19 at 21:00 Acetaminophen/ Hydrocodone Bitart (Lortab 7.5/325) 1 tab PRN Q4HRS PRN PO PAIN; Start 06/26/19 at 13:30; Stop 06/26/19 at 13:23; Status DC Acetaminophen/ Hydrocodone Bitart (Lortab 7.5/325) 2 tab PRN Q4HRS PRN PO PAIN Last administered on 06/28/19at 20:53; Start 06/26/19 at 13:30 Ondansetron HCl (Zofran) 4 mg PRN Q6HRS PRN IV NAUSEA/VOMITING; Start 06/27/19 at 07:00; Stop 06/28/19 at 06:59; Status DC Fentanyl Citrate (Fentanyl 2ml Vial) 25 mcg PRN Q5MIN PRN IV MILD PAIN 1-3; Start 06/27/19 at 07:00; Stop 06/28/19 at 06:59; Status DC Fentanyl Citrate (Fentanyl 2ml Vial) 50 mcg PRN Q5MIN PRN IV MODERATE TO SEVERE PAIN; Start 06/27/19 at 07:00; Stop 06/28/19 at 06:59; Status DC Morphine Sulfate (Morphine Sulfate) 1 mg PRN Q10MIN PRN IV SEVERE PAIN 7-10; Start 06/27/19 at 07:00; Stop 06/28/19 at 06:59; Status DC Ringer's Solution 1,000 ml @ 30 mls/hr Q24H IV ; Start 06/27/19 at 07:00; Stop 06/27/19 at 18:59; Status DC Hydromorphone HCl (Dilaudid) 0.5 mg PRN Q10MIN PRN IV SEV PAIN, Second choice; Start 06/27/19 at 07:00; Stop 06/28/19 at 06:59; Status DC Prochlorperazine Edisylate (Compazine) 5 mg PACU PRN PRN IV NAUSEA, MRX1; Start 06/27/19 at 07:00; Stop 06/28/19 at 06:59; Status DC Amlodipine Besylate (Norvasc) 10 mg DAILY PO ; Start 06/29/19 at 09:00 Amlodipine Besylate (Norvasc) 5 mg 1X ONCE PO ; Start 06/28/19 at 11:00; Stop 06/28/19 at 11:02; Status DC Ropivacaine 53.3 ml/Epinephrine HCl 0.6 mg/ Morphine Sulfate 5 mg/Sodium Chloride 100 ml @ 100 mls/hr 1X ONCE INT ART ; Start 06/29/19 at 06:00; Stop 06/29/19 at 06:59; Status DC Ondansetron HCl (Zofran) 4 mg PRN Q6HRS PRN IV NAUSEA/VOMITING; Start 06/29/19 at 07:00; Stop 06/29/19 at 20:00 Fentanyl Citrate (Fentanyl 2ml Vial) 25 mcg PRN Q5MIN PRN IV MILD PAIN 1-3; Start 06/29/19 at 07:00; Stop 06/29/19 at 20:00 Fentanyl Citrate (Fentanyl 2ml Vial) 50 mcg PRN Q5MIN PRN IV MODERATE TO SEVERE PAIN; Start 06/29/19 at 07:00; Stop 06/29/19 at 20:00 Morphine Sulfate (Morphine Sulfate) 1 mg PRN Q10MIN PRN IV SEVERE PAIN 7-10; Start 06/29/19 at 07:00; Stop 06/29/19 at 20:00 Ringer's Solution 1,000 ml @ 30 mls/hr Q24H IV ; Start 06/29/19 at 07:00; Stop 06/29/19 at 18:59 Lidocaine HCl (Xylocaine-Mpf 1% 2ml Vial) 2 ml PRN 1X PRN ID PRIOR TO IV START; Start 06/29/19 at 07:00; Stop 06/29/19 at 20:00 Hydromorphone HCl (Dilaudid) 0.5 mg PRN Q10MIN PRN IV SEV PAIN, Second choice; Start 06/29/19 at 07:00; Stop 06/29/19 at 20:00 Prochlorperazine Edisylate (Compazine) 5 mg PACU PRN PRN IV NAUSEA, MRX1; Start 06/29/19 at 07:00; Stop 06/29/19 at 20:00 Cefazolin Sodium/ Dextrose 50 ml @ 100 mls/hr 1X PREOP PRN IV SEE COMMENTS; Start 06/29/19 at 06:00 Ropivacaine 53.3 ml/Epinephrine HCl 0.6 mg/ Morphine Sulfate 5 mg/Sodium Chloride 100 ml @ 100 mls/hr 1X ONCE INT ART ; Start 06/29/19 at 06:00; Stop 06/29/19 at 06:59; Status DC Active Scripts Active Reported Vitamin D-3 (Cholecalciferol (Vitamin D3)) 2,000 Unit Tablet 2,000 Unit PO DAILY Ropinirole Hcl 0.5 Mg Tablet 0.5 Mg PO QHS Losartan Potassium 100 Mg Tablet 100 Mg PO DAILY Amlodipine Besylate 5 Mg Tablet 5 Mg PO DAILY Vitals/I & O Vital Sign - Last 24 Hours 06/28/19 06/28/19 06/28/19 06/28/19 10:24 10:24 10:25 10:25 Pulse 100 100 100 B/P (MAP) 166/76 166/76 166/76 O2 Delivery Room Air 06/28/19 06/28/19 06/28/19 06/28/19 10:26 10:26 11:00 13:14 Temp 97.8 97.8 Pulse 100 96 Resp 18 B/P (MAP) 166/76 125/77 (93) Pulse Ox 98 O2 Delivery Room Air Room Air Room Air 06/28/19 06/28/19 06/28/19 06/28/19 15:00 18:33 19:55 20:00 Temp 97.6 98.9 97.6 98.9 Pulse 82 80 Resp 18 20 20 B/P (MAP) 114/65 (81) 104/58 (73) Pulse Ox 97 97 96 O2 Delivery Room Air Room Air Room Air Room Air 06/28/19 06/28/19 06/28/19 06/28/19 20:53 20:54 21:53 22:23 Temp 99.0 99.0 Pulse 80 78 Resp 20 20 B/P (MAP) 104/58 101/53 (69) Pulse Ox 96 96 96 O2 Delivery Room Air Room Air Room Air 06/29/19 06/29/19 06/29/19 03:16 06:58 07:50 Temp 99.2 98.3 99.2 98.3 Pulse 81 68 Resp 18 17 B/P (MAP) 122/62 (82) 137/68 (91) Pulse Ox 95 97 O2 Delivery Room Air Room Air Room Air Intake and Output 06/28/19 06/28/19 06/29/19 15:00 23:00 07:00 Intake Total 480 ml 50 ml Output Total 650 ml Balance 480 ml -600 ml Nutrition Consultation Dietary Evaluation: Recommendations by RD: Dietary education by RD, Increase Calorie Intake, Protein supplementation Comments: Continue w/cardiac diet as ordered, honor food preferences, and provide snacks as requested REC Ensure w/dinner (vanilla) Expected Outcomes/Goals: PO intake to meet >75% est needs Malnutrition Findings: Food and Nutrition Intake (Mod: <75% est energy req 7days Body Fat Depletion (Non Severe: Mild Depletion Weight Status: Appropriate JOSE SPRAGUE MD June 29, 2019 08:49
[2019-06-29] MEDS ORDERED: IV NORMAL SALINE 1000ML BAG 1,000 ML IV ONE (09:00)
[2019-06-29] MEDS: CHOLECALCIFEROL (VITAMIN D3) 1,000 UNIT TABLET PO SCH (09:00)
[2019-06-29] MEDS: HYDROcodone/APAP 7.5/325MG 1 TAB TABLET PO PRN ×2 (09:53→17:38)
[2019-06-29] MEDS: amLODIPine BESYLATE 10 MG TABLET PO SCH (09:54)
[2019-06-29] MEDS: ISOSORBIDE MONONITRATE ER 30 MG TAB.ER.24H PO SCH (09:54)
[2019-06-29] MEDS: LOSARTAN POTASSIUM 50 MG TABLET. PO SCH (09:54)
[2019-06-29] MEDS: METOPROLOL TART IMMED RELEASE 25 MG TABLET. PO SCH ×2 (09:55→20:39)
[2019-06-29] MEDS ORDERED: LIDOCAINE 2% PF 5 ML VIAL. ONE (12:41)
[2019-06-29] MEDS ORDERED: PROPOFOL 10 MG/ML (20ML) VIAL. IV ONE (12:41)
[2019-06-29] MEDS ORDERED: fentaNYL PF VIAL 100 MCG/2 ML VIAL ONE (12:41)
--- NOTE | 2019-06-29 13:30 | NUR ---
SS following up with discharge planning. SS reviewed pt chart and discussed with pt RN. Pt COVID19 negative. Pt having surgery today. PT/OT to reassess after surgery. SS will continue to follow for discharge planning.
[2019-06-29] MEDS ORDERED: VANCOMYCIN 1 GM VIAL. ONE (13:53)
[2019-06-29] MEDS ORDERED: DESFLURANE 31 TO 60 MINUTES IH ONE (14:18)
[2019-06-29] MEDS ORDERED: DEXAMETHASONE SOD PHOS 4 MG/ML VIAL ONE (14:18)
[2019-06-29] MEDS ORDERED: ONDANSETRON PF 4 MG/2 ML VIAL. ONE (14:48)
[2019-06-29] MEDS ORDERED: SEVOFLURANE 61 TO 120 MINUTES. IH ONE (15:23)
[2019-06-29] MEDS ORDERED: ePHEDrine PF IN SALINE 50 MG/10 ML SYRINGE. IV ONE (15:23)
--- NOTE | 2019-06-29 15:57 | PDOC4 ---
Operative Note Operative Note Date of Procedure: June 29, 2019 Pre-Op Diagnosis: Displaced mid cervical fracture of left femur, initial encounter for closed fracture S72.032A Post-Op Diagnosis: same Procedure: left hip open treatment of femoral fracture, proximal end, neck, prosthetic replacement, CPT 32844 Anesthesia Type: General Surgeon: Lupe Kapoor MD Shingle Catcher: SMITH Marie EBL: 100 mL Specimens Obtained: left femoral head Complications: None Drains: None Implants: [employer] Synergy porous femoral component size 13, tandem cobalt chrome shell/ultrahigh molecular weight polyethylene liner bipolar 28 mm inner diameter, 43 mm outer diameter. [place] chrome 28 mm outer diameter +0 mm 12/14 taper cobalt chrome femoral head INDICATION FOR PROCEDURE: The patient is a 79-year-old woman who fell, fracturing the left hip. X-rays show an unstable displaced left femoral neck fracture. The patient and the DPOA and I discussed the risks, benefits and alternatives of treatment. One alternative for treatment is bedrest, which I generally do not recommend. I recommended a cemented bipolar arthroplasty, and I talked to them about the potential risks of this, including bleeding, infection, blood clots, dislocation, leg length discrepancy or other potential surgical or anesthetic complications. All of their questions were answered about surgery and they desired to proceed. A written consent was obtained. PROCEDURE IN DETAIL: The patient was identified in the preoperative holding area. The correct left hip was marked by me. The patient was taken to the operating room where a general anesthetic was used. Preoperative antibiotics were given intravenously. The patient was positioned laterally using a Stulberg hip positioner and the bony prominences of the nonoperative leg were well padded. A time-out procedure was performed. All of the operating team wore the personal ventilated exhaust scrub suits. The left hip and limb were thoroughly washed with chlorhexidine solution, dried, and then prepared with ChloraPrep solution using sterile technique. Sterile draping was performed, using a sterile [place] hip drape and an impervious stockinette such that the skin was entirely covered. A posterior approach to the left hip was used. Sharp dissection was used. Bovie electrocautery was used for hemostasis. Gelpi retractors were placed. Sharp dissection was used and the fascia was exposed. The fascia was divided sharply and then a Charnley retractor was placed. My interior design assistant internally rotated the hip and I divided the short external rotators off the posterior aspect of the hip. The Charnley retractor was placed in a manner to protect the sciatic nerve with the short external rotators. The capsule was divided in an inverted T fashion. The fracture was identified. The neck was recut with a s aw. The neck fragment was removed. The head was removed with a corkscrew and measured using templates. The acetabulum was cleared of bony fragments. Traction sutures were placed in the capsule. The lateral aspect of the cut femoral neck was exposed. A box osteotome was used to enlarge the entry, at the lateral cortex of the femoral neck. A manual T-handle canal finder was used first, followed by sequential power reaming based on x-ray sizing and intramedullary bone chatter. Sequential broaching was then performed and then the calcar reamer was used to ream the neck on the final broach. Different head and neck length trials were used until satisfactory length and stability were achieved in full extension, hip flexion of 90 degrees, and internal rotation. The trial components were removed, and the canal was irrigated thoroughly with the ChangeTip InterPulse device, and then dried carefully. The Synergy porous femoral component was now inserted and was securely press-fit within the femoral canal without any evidence of iatrogenic fracture. The final head assembly was tamped onto the Marvin taper. The hip was reduced a final time with my interior design assistant applying longitudinal traction and rotation, while I guided the head into the acetabulum. A final check was made of limb length and stability in multiple positions. Copious irrigation was used. A periarticular injection was used. No drains were used. The capsule was closed with #2 Ethibond suture. The fascia was closed with #2 Vicryl suture. Next, #2-0 Vicryl suture was used in the subcutaneous tissues by my interior design assistant, and sherry were placed in the skin by my interior design assistant. Xeroform and a bulky sterile dressing were applied. The patient was then transferred carefully back to a hospital bed. An abduction pillow was used. The patient tolerated the procedure well. Needle and sponge counts were correct. There were no apparent complications. LUPE KAPOOR MD June 29, 2019 15:57
[2019-06-29] MEDS ORDERED: DEXTROSE 50% 25 GM / 50ML DISP.SYRIN. IV PRN (16:00)
[2019-06-29] MEDS ORDERED: fentaNYL PF VIAL 100 MCG/2 ML VIAL IVP PRN (16:00)
[2019-06-29] MEDS ORDERED: ONDANSETRON PF 4 MG/2 ML VIAL. IVP PRN (16:00)
[2019-06-29] MEDS ORDERED: MORPHINE SULFATE 2 MG/ML VIAL. IVP PRN (16:00)
[2019-06-29] MEDS ORDERED: POLYETHYLENE GLYCOL 3350 17 GM PACKET. PO PRN (16:00)
[2019-06-29] MEDS ORDERED: oxyCODONE/APAP 5/325 1 TAB TABLET PO PRN (16:15)
--- NOTE | 2019-06-29 16:33 | RAD ---
Examination: 2 views of the left hip HISTORY: History of postop COMPARISON: None available Findings/ impression: Left femoral prosthesis in place. Postoperative air identified in the soft tissue about the left hip joint. Electronically signed by: Rajat Ngo MD (06/29/2019 4:30 PM) [id number]
[2019-06-29] MEDS: IV 1/2 NORMAL SALINE 1,000 ML IV SCH (17:39)
[2019-06-29] MEDS: rOPINIRole 0.25 MG TABLET. PO SCH (20:39)
[2019-06-29] MEDS: ATORVASTATIN CALCIUM 40 MG TABLET. PO SCH (20:39)
[2019-06-30 03:58] VITALS: BP 111/62
[2019-06-30] MEDS: IV 1/2 NORMAL SALINE 1,000 ML IV SCH ×2 (05:52→18:37)
[2019-06-30] MEDS: HYDROcodone/APAP 7.5/325MG 1 TAB TABLET PO PRN ×3 (05:57→21:03)
[2019-06-30] MEDS ORDERED: MAGNESIUM HYDROXIDE 2,400 MG/30 ML ORAL.SUSP. PO PRN (06:00)
[2019-06-30 07:00] VITALS: BP 132/63
[2019-06-30 07:29] LABS: BASO % 0 % (0-3); EOS % 0 % (0-3); HEMATOCRIT 24.7 % (36.0-47.0); HEMOGLOBIN 8.4 g/dL (12.0-15.5); LYMPH # 0.7 x10^3/uL (1.0-4.8); LYMPH % 8 % (24-48); MEAN CORPUSCULAR HEMOGLOBIN 30 pg (25-35); MEAN CORPUSCULAR HGB CONC 34 g/dL (31-37); MEAN CORPUSCULAR VOLUME 88 fL (79-100); MONO # 0.5 x10^3/uL (0.0-1.1); MONO % 5 % (0-9); NEUT # 7.7 x10^3/uL (1.8-7.7); NEUT % 87 % (31-73); PLATELET COUNT 280 x10^3/uL (140-400); RED CELL DISTRIBUTION WIDTH 13.4 % (11.5-14.5); WHITE BLOOD COUNT 8.9 x10^3/uL (4.0-11.0)
[2019-06-30 07:31] LABS: CALCIUM 7.7 mg/dL (8.5-10.1); CREATININE 0.9 mg/dL (0.6-1.0); GFR 60.1; POTASSIUM 4.3 mmol/L (3.5-5.1)
[2019-06-30] MEDS: MULTIVITAMIN with MINERAL TABLET. PO SCH (07:53)
[2019-06-30] MEDS: SENNOSIDES/DOCUSATE 8.6/50MG TABLET. PO SCH (07:54)
[2019-06-30] MEDS: amLODIPine BESYLATE 10 MG TABLET PO SCH (07:54)
[2019-06-30] MEDS: CHOLECALCIFEROL (VITAMIN D3) 1,000 UNIT TABLET PO SCH (07:54)
[2019-06-30] MEDS: ASPIRIN ENTERIC COATED 81 MG TABLET.DR. PO SCH (07:54)
[2019-06-30] MEDS: LOSARTAN POTASSIUM 50 MG TABLET. PO SCH (07:55)
[2019-06-30] MEDS: ISOSORBIDE MONONITRATE ER 30 MG TAB.ER.24H PO SCH (07:55)
[2019-06-30] MEDS: METOPROLOL TART IMMED RELEASE 25 MG TABLET. PO SCH ×2 (07:56→20:56)
[2019-06-30] MEDS: ASPIRIN 325 MG TABLET PO SCH (08:00)
[2019-06-30 08:11] LABS: % BANDS 2 % (0-9); % LYMPHS 5 % (24-48); % MONOS 4 % (0-10); % SEGS 89 % (35-66)
[2019-06-30 08:12] LABS: PLT ESTIMATE ADEQUATE (ADEQUATE)
--- NOTE | 2019-06-30 08:17 | PDOC ---
PROGRESS NOTES Subjective Subjective Appears comfortable. Doing well per nursing. Objective Vital Signs Vital Signs Date Time Temp Pulse Resp B/P (MAP) Pulse Ox O2 Delivery O2 Flow Rate FiO2 06/30/19 07:56 78 132/73 06/30/19 07:00 98.2 16 93 Room Air 98.2 06/29/19 21:00 1.0 Physical Exam Dressing intact and dry. No evidence of neurovascular injury nor DVT. Labs Laboratory Tests Test 06/28/19 09:25 06/29/19 04:00 06/30/19 06:30 Coronavirus (COVID-19)(PCR) See separate report White Blood Count 6.1 x10^3/uL (4.0-11.0) 8.9 x10^3/uL (4.0-11.0) Red Blood Count 3.36 x10^6/uL (3.50-5.40) 2.80 x10^6/uL (3.50-5.40) Hemoglobin 10.0 g/dL (12.0-15.5) 8.4 g/dL (12.0-15.5) Hematocrit 29.4 % (36.0-47.0) 24.7 % (36.0-47.0) Mean Corpuscular Volume 88 fL (79-100) 88 fL (79-100) Mean Corpuscular Hemoglobin 30 pg (25-35) 30 pg (25-35) Mean Corpuscular Hemoglobin Concent 34 g/dL (31-37) 34 g/dL (31-37) Red Cell Distribution Width 13.3 % (11.5-14.5) 13.4 % (11.5-14.5) Platelet Count 317 x10^3/uL (140-400) 280 x10^3/uL (140-400) Neutrophils (%) (Auto) 71 % (31-73) 87 % (31-73) Lymphocytes (%) (Auto) 15 % (24-48) 8 % (24-48) Monocytes (%) (Auto) 10 % (0-9) 5 % (0-9) Eosinophils (%) (Auto) 3 % (0-3) 0 % (0-3) Basophils (%) (Auto) 1 % (0-3) 0 % (0-3) Neutrophils # (Auto) 4.4 x10^3/uL (1.8-7.7) 7.7 x10^3/uL (1.8-7.7) Lymphocytes # (Auto) 0.9 x10^3/uL (1.0-4.8) 0.7 x10^3/uL (1.0-4.8) Monocytes # (Auto) 0.6 x10^3/uL (0.0-1.1) 0.5 x10^3/uL (0.0-1.1) Eosinophils # (Auto) 0.2 x10^3/uL (0.0-0.7) 0.0 x10^3/uL (0.0-0.7) Basophils # (Auto) 0.1 x10^3/uL (0.0-0.2) 0.0 x10^3/uL (0.0-0.2) Sodium Level 140 mmol/L (136-145) 141 mmol/L (136-145) Potassium Level 4.5 mmol/L (3.5-5.1) 4.3 mmol/L (3.5-5.1) Chloride Level 105 mmol/L (98-107) 107 mmol/L (98-107) Carbon Dioxide Level 27 mmol/L (21-32) 24 mmol/L (21-32) Anion Gap 8 (6-14) 10 (6-14) Blood Urea Nitrogen 46 mg/dL (7-20) 32 mg/dL (7-20) Creatinine 1.5 mg/dL (0.6-1.0) 0.9 mg/dL (0.6-1.0) Estimated GFR (Cockcroft-Gault) 33.3 60.1 Glucose Level 144 mg/dL (70-99) 142 mg/dL (70-99) Calcium Level 8.5 mg/dL (8.5-10.1) 7.7 mg/dL (8.5-10.1) Segmented Neutrophils % 89 % (35-66) Band Neutrophils % 2 % (0-9) Lymphocytes % 5 % (24-48) Monocytes % 4 % (0-10) Platelet Estimate Adequate (ADEQUATE) Laboratory Tests Test 06/30/19 06:30 White Blood Count 8.9 x10^3/uL (4.0-11.0) Red Blood Count 2.80 x10^6/uL (3.50-5.40) Hemoglobin 8.4 g/dL (12.0-15.5) Hematocrit 24.7 % (36.0-47.0) Mean Corpuscular Volume 88 fL (79-100) Mean Corpuscular Hemoglobin 30 pg (25-35) Mean Corpuscular Hemoglobin Concent 34 g/dL (31-37) Red Cell Distribution Width 13.4 % (11.5-14.5) Platelet Count 280 x10^3/uL (140-400) Neutrophils (%) (Auto) 87 % (31-73) Lymphocytes (%) (Auto) 8 % (24-48) Monocytes (%) (Auto) 5 % (0-9) Eosinophils (%) (Auto) 0 % (0-3) Basophils (%) (Auto) 0 % (0-3) Neutrophils # (Auto) 7.7 x10^3/uL (1.8-7.7) Lymphocytes # (Auto) 0.7 x10^3/uL (1.0-4.8) Monocytes # (Auto) 0.5 x10^3/uL (0.0-1.1) Eosinophils # (Auto) 0.0 x10^3/uL (0.0-0.7) Basophils # (Auto) 0.0 x10^3/uL (0.0-0.2) Segmented Neutrophils % 89 % (35-66) Band Neutrophils % 2 % (0-9) Lymphocytes % 5 % (24-48) Monocytes % 4 % (0-10) Platelet Estimate Adequate (ADEQUATE) Sodium Level 141 mmol/L (136-145) Potassium Level 4.3 mmol/L (3.5-5.1) Chloride Level 107 mmol/L (98-107) Carbon Dioxide Level 24 mmol/L (21-32) Anion Gap 10 (6-14) Blood Urea Nitrogen 32 mg/dL (7-20) Creatinine 0.9 mg/dL (0.6-1.0) Estimated GFR (Cockcroft-Gault) 60.1 Glucose Level 142 mg/dL (70-99) Calcium Level 7.7 mg/dL (8.5-10.1) Imaging Report reviewed, images independently reviewed. Satisfactory uncemented hip hemiarthroplasty. PATIENT: RAMESH BRAN ACCOUNT: [id number] : 1940 LOCATION: [facility] AGE: 79 SEX: F EXAM STATUS: ADM IN ORD. PHYSICIAN: LUPE SHAIKH MD REASON: postop PROCEDURE: HIP LEFT 1 VIEW WITH PELVIS Examination: 2 views of the left hip HISTORY: History of postop COMPARISON: None available Findings/ impression: Left femoral prosthesis in place. Postoperative air identified in the soft tissue about the left hip joint. Electronically signed by: Rajat Ngo MD (06/29/2019 4:30 PM) [id number] DICTATED and SIGNED BY: RAJAT NGO MD DATE: 06/29/19 1630 Assessment Assessment POD#1 bipolar hip hemiarthroplasty Plan Plan of Care DVT prophylaxis with aspirin Mobilize, june WBAT Discharge planning. LUPE SHAIKH MD June 30, 2019 08:17
--- NOTE | 2019-06-30 10:27 | PDOC ---
PROGRESS NOTES Chief Complaint Chief Complaint Fall with hip fracture dementia, oriented to self vasomotor nephropathy 2 days ago, better yesterday, worse today, was NPO for surg, will give IV fluid today, surg today on hip hypokalemia, anemia and elevated troponin. triple vessel coronary disease History of Present Illness History of Present Illness doing well post op no event tele stable pain OK, may need rehab Vitals Vitals Vital Signs Date Time Temp Pulse Resp B/P (MAP) Pulse Ox O2 Delivery O2 Flow Rate FiO2 06/30/19 08:01 Room Air 06/30/19 07:56 78 132/73 06/30/19 07:00 98.2 16 93 98.2 06/29/19 21:00 1.0 Physical Exam General: Alert, Cooperative Heart: Regular rate Lungs: Clear Abdomen: Soft Extremities: No cyanosis Skin: Other Labs LABS Laboratory Tests Test 06/30/19 06:30 White Blood Count 8.9 x10^3/uL (4.0-11.0) Red Blood Count 2.80 x10^6/uL (3.50-5.40) Hemoglobin 8.4 g/dL (12.0-15.5) Hematocrit 24.7 % (36.0-47.0) Mean Corpuscular Volume 88 fL (79-100) Mean Corpuscular Hemoglobin 30 pg (25-35) Mean Corpuscular Hemoglobin Concent 34 g/dL (31-37) Red Cell Distribution Width 13.4 % (11.5-14.5) Platelet Count 280 x10^3/uL (140-400) Neutrophils (%) (Auto) 87 % (31-73) Lymphocytes (%) (Auto) 8 % (24-48) Monocytes (%) (Auto) 5 % (0-9) Eosinophils (%) (Auto) 0 % (0-3) Basophils (%) (Auto) 0 % (0-3) Neutrophils # (Auto) 7.7 x10^3/uL (1.8-7.7) Lymphocytes # (Auto) 0.7 x10^3/uL (1.0-4.8) Monocytes # (Auto) 0.5 x10^3/uL (0.0-1.1) Eosinophils # (Auto) 0.0 x10^3/uL (0.0-0.7) Basophils # (Auto) 0.0 x10^3/uL (0.0-0.2) Segmented Neutrophils % 89 % (35-66) Band Neutrophils % 2 % (0-9) Lymphocytes % 5 % (24-48) Monocytes % 4 % (0-10) Platelet Estimate Adequate (ADEQUATE) Sodium Level 141 mmol/L (136-145) Potassium Level 4.3 mmol/L (3.5-5.1) Chloride Level 107 mmol/L (98-107) Carbon Dioxide Level 24 mmol/L (21-32) Anion Gap 10 (6-14) Blood Urea Nitrogen 32 mg/dL (7-20) Creatinine 0.9 mg/dL (0.6-1.0) Estimated GFR (Cockcroft-Gault) 60.1 Glucose Level 142 mg/dL (70-99) Calcium Level 7.7 mg/dL (8.5-10.1) Comment Review of Relevant I have reviewed the following items dick (where applicable) has been applied. Labs Laboratory Tests Test 06/29/19 04:00 06/30/19 06:30 White Blood Count 6.1 x10^3/uL (4.0-11.0) 8.9 x10^3/uL (4.0-11.0) Red Blood Count 3.36 x10^6/uL (3.50-5.40) 2.80 x10^6/uL (3.50-5.40) Hemoglobin 10.0 g/dL (12.0-15.5) 8.4 g/dL (12.0-15.5) Hematocrit 29.4 % (36.0-47.0) 24.7 % (36.0-47.0) Mean Corpuscular Volume 88 fL (79-100) 88 fL (79-100) Mean Corpuscular Hemoglobin 30 pg (25-35) 30 pg (25-35) Mean Corpuscular Hemoglobin Concent 34 g/dL (31-37) 34 g/dL (31-37) Red Cell Distribution Width 13.3 % (11.5-14.5) 13.4 % (11.5-14.5) Platelet Count 317 x10^3/uL (140-400) 280 x10^3/uL (140-400) Neutrophils (%) (Auto) 71 % (31-73) 87 % (31-73) Lymphocytes (%) (Auto) 15 % (24-48) 8 % (24-48) Monocytes (%) (Auto) 10 % (0-9) 5 % (0-9) Eosinophils (%) (Auto) 3 % (0-3) 0 % (0-3) Basophils (%) (Auto) 1 % (0-3) 0 % (0-3) Neutrophils # (Auto) 4.4 x10^3/uL (1.8-7.7) 7.7 x10^3/uL (1.8-7.7) Lymphocytes # (Auto) 0.9 x10^3/uL (1.0-4.8) 0.7 x10^3/uL (1.0-4.8) Monocytes # (Auto) 0.6 x10^3/uL (0.0-1.1) 0.5 x10^3/uL (0.0-1.1) Eosinophils # (Auto) 0.2 x10^3/uL (0.0-0.7) 0.0 x10^3/uL (0.0-0.7) Basophils # (Auto) 0.1 x10^3/uL (0.0-0.2) 0.0 x10^3/uL (0.0-0.2) Sodium Level 140 mmol/L (136-145) 141 mmol/L (136-145) Potassium Level 4.5 mmol/L (3.5-5.1) 4.3 mmol/L (3.5-5.1) Chloride Level 105 mmol/L (98-107) 107 mmol/L (98-107) Carbon Dioxide Level 27 mmol/L (21-32) 24 mmol/L (21-32) Anion Gap 8 (6-14) 10 (6-14) Blood Urea Nitrogen 46 mg/dL (7-20) 32 mg/dL (7-20) Creatinine 1.5 mg/dL (0.6-1.0) 0.9 mg/dL (0.6-1.0) Estimated GFR (Cockcroft-Gault) 33.3 60.1 Glucose Level 144 mg/dL (70-99) 142 mg/dL (70-99) Calcium Level 8.5 mg/dL (8.5-10.1) 7.7 mg/dL (8.5-10.1) Segmented Neutrophils % 89 % (35-66) Band Neutrophils % 2 % (0-9) Lymphocytes % 5 % (24-48) Monocytes % 4 % (0-10) Platelet Estimate Adequate (ADEQUATE) Laboratory Tests Test 06/30/19 06:30 White Blood Count 8.9 x10^3/uL (4.0-11.0) Red Blood Count 2.80 x10^6/uL (3.50-5.40) Hemoglobin 8.4 g/dL (12.0-15.5) Hematocrit 24.7 % (36.0-47.0) Mean Corpuscular Volume 88 fL (79-100) Mean Corpuscular Hemoglobin 30 pg (25-35) Mean Corpuscular Hemoglobin Concent 34 g/dL (31-37) Red Cell Distribution Width 13.4 % (11.5-14.5) Platelet Count 280 x10^3/uL (140-400) Neutrophils (%) (Auto) 87 % (31-73) Lymphocytes (%) (Auto) 8 % (24-48) Monocytes (%) (Auto) 5 % (0-9) Eosinophils (%) (Auto) 0 % (0-3) Basophils (%) (Auto) 0 % (0-3) Neutrophils # (Auto) 7.7 x10^3/uL (1.8-7.7) Lymphocytes # (Auto) 0.7 x10^3/uL (1.0-4.8) Monocytes # (Auto) 0.5 x10^3/uL (0.0-1.1) Eosinophils # (Auto) 0.0 x10^3/uL (0.0-0.7) Basophils # (Auto) 0.0 x10^3/uL (0.0-0.2) Segmented Neutrophils % 89 % (35-66) Band Neutrophils % 2 % (0-9) Lymphocytes % 5 % (24-48) Monocytes % 4 % (0-10) Platelet Estimate Adequate (ADEQUATE) Sodium Level 141 mmol/L (136-145) Potassium Level 4.3 mmol/L (3.5-5.1) Chloride Level 107 mmol/L (98-107) Carbon Dioxide Level 24 mmol/L (21-32) Anion Gap 10 (6-14) Blood Urea Nitrogen 32 mg/dL (7-20) Creatinine 0.9 mg/dL (0.6-1.0) Estimated GFR (Cockcroft-Gault) 60.1 Glucose Level 142 mg/dL (70-99) Calcium Level 7.7 mg/dL (8.5-10.1) Medications Current Medications Acetaminophen (Tylenol) 650 mg PRN Q6HRS PRN PO TEMP OVER 100.4F OR MILD PAIN Last administered on 06/26/19 21:46; Start 06/26/19 at 01:30 Morphine Sulfate (Morphine Sulfate) 2 mg PRN Q2HR PRN IV PAIN Last administered on 06/28/19 18:03; Start 06/26/19 at 01:30; Stop 06/29/19 at 16:11; Status DC Amlodipine Besylate (Norvasc) 5 mg DAILY PO Last administered on 06/28/19at 10:24; Start 06/26/19 at 09:00; Stop 06/28/19 at 10:56; Status DC Losartan Potassium (Cozaar) 100 mg DAILY PO Last administered on 06/30/19 07:55; Start 06/26/19 at 09:00 Potassium Chloride (Klor-Con) 40 meq 1X ONCE PO Last administered on 06/26/19 11:13; Start 06/26/19 at 09:15; Stop 06/26/19 at 09:16; Status DC Aspirin (Ecotrin) 81 mg DAILYWBKFT PO Last administered on 06/30/19at 07:54; Start 06/26/19 at 10:00 Metoprolol Tartrate (Lopressor) 25 mg BID PO Last administered on 06/30/19 07:56; Start 06/26/19 at 10:00 Atorvastatin Calcium (Lipitor) 40 mg QHS PO Last administered on 06/29/19at 20:39; Start 06/26/19 at 21:00 Isosorbide Mononitrate (Imdur) 30 mg DAILY PO Last administered on 06/30/19 07:55; Start 06/26/19 at 10:00 Vitamin D (Vitamin D3) 2,000 unit DAILY PO Last administered on 06/30/19 07:54; Start 06/26/19 at 12:00 Ropinirole HCl (Requip) 0.5 mg QHS PO Last administered on 06/29/19at 20:39; Start 06/26/19 at 21:00 Acetaminophen/ Hydrocodone Bitart (Lortab 7.5/325) 1 tab PRN Q4HRS PRN PO PAIN; Start 06/26/19 at 13:30; Stop 06/26/19 at 13:23; Status DC Acetaminophen/ Hydrocodone Bitart (Lortab 7.5/325) 2 tab PRN Q4HRS PRN PO Mod/Severe pain, 2nd choice Last administered on 06/30/19at 05:57; Start 06/26/19 at 13:30 Ondansetron HCl (Zofran) 4 mg PRN Q6HRS PRN IV NAUSEA/VOMITING; Start 06/27/19 at 07:00; Stop 06/28/19 at 06:59; Status DC Fentanyl Citrate (Fentanyl 2ml Vial) 25 mcg PRN Q5MIN PRN IV MILD PAIN 1-3; Start 06/27/19 at 07:00; Stop 06/28/19 at 06:59; Status DC Fentanyl Citrate (Fentanyl 2ml Vial) 50 mcg PRN Q5MIN PRN IV MODERATE TO SEVERE PAIN; Start 06/27/19 at 07:00; Stop 06/28/19 at 06:59; Status DC Morphine Sulfate (Morphine Sulfate) 1 mg PRN Q10MIN PRN IV SEVERE PAIN 7-10; Start 06/27/19 at 07:00; Stop 06/28/19 at 06:59; Status DC Ringer's Solution 1,000 ml @ 30 mls/hr Q24H IV ; Start 06/27/19 at 07:00; Stop 06/27/19 at 18:59; Status DC Hydromorphone HCl (Dilaudid) 0.5 mg PRN Q10MIN PRN IV SEV PAIN, Second choice; Start 06/27/19 at 07:00; Stop 06/28/19 at 06:59; Status DC Prochlorperazine Edisylate (Compazine) 5 mg PACU PRN PRN IV NAUSEA, MRX1; Start 06/27/19 at 07:00; Stop 06/28/19 at 06:59; Status DC Amlodipine Besylate (Norvasc) 10 mg DAILY PO Last administered on 06/30/19at 07:54; Start 06/29/19 at 09:00 Amlodipine Besylate (Norvasc) 5 mg 1X ONCE PO ; Start 06/28/19 at 11:00; Stop 06/28/19 at 11:02; Status DC Ropivacaine 53.3 ml/Epinephrine HCl 0.6 mg/ Morphine Sulfate 5 mg/Sodium Chloride 100 ml @ 100 mls/hr 1X ONCE INT ART ; Start 06/29/19 at 06:00; Stop 06/29/19 at 06:59; Status DC Ondansetron HCl (Zofran) 4 mg PRN Q6HRS PRN IV NAUSEA/VOMITING; Start 06/29/19 at 07:00; Stop 06/29/19 at 20:00; Status DC Fentanyl Citrate (Fentanyl 2ml Vial) 25 mcg PRN Q5MIN PRN IV MILD PAIN 1-3; Start 06/29/19 at 07:00; Stop 06/29/19 at 20:00; Status DC Fentanyl Citrate (Fentanyl 2ml Vial) 50 mcg PRN Q5MIN PRN IV MODERATE TO SEVERE PAIN; Start 06/29/19 at 07:00; Stop 06/29/19 at 20:00; Status DC Morphine Sulfate (Morphine Sulfate) 1 mg PRN Q10MIN PRN IV SEVERE PAIN 7-10; Start 06/29/19 at 07:00; Stop 06/29/19 at 20:00; Status DC Ringer's Solution 1,000 ml @ 30 mls/hr Q24H IV ; Start 06/29/19 at 07:00; Stop 06/29/19 at 18:01; Status DC Lidocaine HCl (Xylocaine-Mpf 1% 2ml Vial) 2 ml PRN 1X PRN ID PRIOR TO IV START; Start 06/29/19 at 07:00; Stop 06/29/19 at 20:00; Status DC Hydromorphone HCl (Dilaudid) 0.5 mg PRN Q10MIN PRN IV SEV PAIN, Second choice; Start 06/29/19 at 07:00; Stop 06/29/19 at 20:00; Status DC Prochlorperazine Edisylate (Compazine) 5 mg PACU PRN PRN IV NAUSEA, MRX1; Start 06/29/19 at 07:00; Stop 06/29/19 at 20:00; Status DC Cefazolin Sodium/ Dextrose 50 ml @ 100 mls/hr 1X PREOP PRN IV SEE COMMENTS Last administered on 06/29/19at 14:19; Start 06/29/19 at 06:00; Stop 06/30/19 at 07:23; Status DC Ropivacaine 53.3 ml/Epinephrine HCl 0.6 mg/ Morphine Sulfate 5 mg/Sodium Chloride 100 ml @ 100 mls/hr 1X ONCE INT ART Last administered on 06/29/19at 15:00; Start 06/29/19 at 06:00; Stop 06/29/19 at 06:59; Status DC Sodium Chloride 1,000 ml @ 100 mls/hr 1X ONCE IV Last administered on 06/29/19at 09:11; Start 06/29/19 at 09:00; Stop 06/29/19 at 18:59; Status DC Propofol (Diprivan) 200 mg STK-MED ONCE IV ; Start 06/29/19 at 12:41; Stop 06/29/19 at 12:41; Status DC Lidocaine HCl (Lidocaine Pf 2% Vial) 5 ml STK-MED ONCE .ROUTE ; Start 06/29/19 at 12:41; Stop 06/29/19 at 12:41; Status DC Fentanyl Citrate (Fentanyl 2ml Vial) 100 mcg STK-MED ONCE .ROUTE ; Start 06/29/19 at 12:41; Stop 06/29/19 at 12:41; Status DC Vancomycin HCl (Vancomycin) 1 gm STK-MED ONCE .ROUTE ; Start 06/29/19 at 13:53; Stop 06/29/19 at 13:53; Status DC Dexamethasone Sodium Phosphate (Decadron) 4 mg STK-MED ONCE .ROUTE ; Start 06/29/19 at 14:18; Stop 06/29/19 at 14:18; Status DC Desflurane (Suprane) 30 ml STK-MED ONCE IH ; Start 06/29/19 at 14:18; Stop 06/29/19 at 14:18; Status DC Ondansetron HCl (Zofran) 4 mg STK-MED ONCE .ROUTE ; Start 06/29/19 at 14:48; Stop 06/29/19 at 14:48; Status DC Sevoflurane (Ultane) 60 ml STK-MED ONCE IH ; Start 06/29/19 at 15:23; Stop at 15:23; Status DC Ephedrine Sulfate (ePHEDrine PF IN SALINE SYRINGE) 50 mg STK-MED ONCE IV ; Start 06/29/19 at 15:23; Stop 06/29/19 at 15:24; Status DC Morphine Sulfate (Morphine Sulfate) 2 mg PRN Q1HR PRN IVP MODERATE PAIN; Start 06/29/19 at 16:00 Fentanyl Citrate (Fentanyl 2ml Vial) 25 mcg PRN Q1HR PRN IVP PAIN UNRELIEVED BY MORPHINE; Start 06/29/19 at 16:00 Multivitamins (Thera M Plus) 1 tab DAILY PO Last administered on 06/30/19at 07:53; Start 06/30/19 at 09:00 Senna/Docusate Sodium (Senna Plus) 1 tab DAILY PO Last administered on 06/30/19at 07:54; Start 06/30/19 at 09:00 Polyethylene Glycol (miraLAX PACKET) 17 gm PRN DAILY PRN PO CONSTIPATION; Start 06/29/19 at 16:00 Sodium Chloride 1,000 ml @ 75 mls/hr [id number] IV Last administered on 06/30/19at 05:52; Start 06/29/19 at 15:57 Ondansetron HCl (Zofran) 4 mg PRN Q4HRS PRN IVP NAUSEA/VOMITING; Start 06/29/19 at 16:00 Aspirin (Cas Aspirin) 325 mg DAILYWBKFT PO ; Start 06/30/19 at 08:00 Magnesium Hydroxide (Milk Of Magnesia) 2,400 mg 1X PRN PRN PO CONSTIPATION; Start 06/30/19 at 06:00; Stop 07/01/19 at 05:59 Bisacodyl (Dulcolax Supp) 10 mg 1X PRN PRN VA CONSTIPATION; Start 06/30/19 at 16:00; Stop 07/01/19 at 15:59 Morphine Sulfate (Morphine Sulfate) 4 mg PRN Q2HR PRN IVP SEVERE PAIN; Start 06/29/19 at 16:00 Dextrose (Dextrose 50%-Water Syringe) 12.5 gm PRN Q15MIN PRN IV SEE COMMENTS; Start 06/29/19 at 16:00 Cefazolin Sodium/ Dextrose 50 ml @ 100 mls/hr Q6H IV Last administered on 06/30/19at 04:00; Start 06/29/19 at 22:00; Stop 06/30/19 at 10:29 Oxycodone/ Acetaminophen (Percocet 5/325) 1 tab PRN Q4HRS PRN PO MODERATE PAIN; Start 06/29/19 at 16:00 Oxycodone/ Acetaminophen (Percocet 5/325) 2 tab PRN Q4HRS PRN PO SEVERE PAIN; Start 06/29/19 at 16:15 Active Scripts Active Reported Vitamin D-3 (Cholecalciferol (Vitamin D3)) 2,000 Unit Tablet 2,000 Unit PO DAILY Ropinirole Hcl 0.5 Mg Tablet 0.5 Mg PO QHS Losartan Potassium 100 Mg Tablet 100 Mg PO DAILY Amlodipine Besylate 5 Mg Tablet 5 Mg PO DAILY Vitals/I & O Vital Sign - Last 24 Hours 06/29/19 06/29/19 06/29/19 06/29/19 11:42 13:11 15:51 15:51 Temp 98.1 98.1 Pulse 65 Resp 15 B/P (MAP) 99/52 134/49 Pulse Ox 96 96 O2 Delivery Room Air Room Air Mask O2 Flow Rate 8 06/29/19 06/29/19 06/29/19 06/29/19 15:51 16:05 16:20 16:34 Temp 98.7 98.7 98.7 98.7 98.7 98.7 Pulse 90 92 93 92 Resp 16 18 14 B/P (MAP) 103/52 110/49 98/54 149/69 (95) Pulse Ox 100 100 99 O2 Delivery Simple Mask Simple Mask Room Air O2 Flow Rate 8 8 06/29/19 06/29/19 06/29/19 06/29/19 16:35 16:49 17:04 17:19 Pulse 88 92 96 B/P (MAP) 104/52 (69) 100/54 (69) 106/59 (75) O2 Delivery Room Air 06/29/19 06/29/19 06/29/19 06/29/19 17:34 17:38 17:49 18:04 Pulse 86 88 90 B/P (MAP) 105/56 (72) 104/55 (71) 106/57 (73) O2 Delivery Nasal Cannula O2 Flow Rate 3.0 506/29/19 06/29/19 06/29/19 18:42 19:00 19:11 19:26 Temp 97.6 97.6 Pulse 92 87 Resp 16 B/P (MAP) 121/58 (79) 116/58 (77) Pulse Ox 99 O2 Delivery Nasal Cannula Nasal Cannula Nasal Cannula O2 Flow Rate 2.0 1.0 1.0 06/29/19 06/29/19 06/29/19 06/29/19 20:00 20:39 21:00 22:58 Temp 97.6 97.6 97.6 97.6 Pulse 96 91 83 87 Resp 16 16 14 B/P (MAP) 122/64 (83) 122/64 123/64 (83) 123/66 (85) Pulse Ox 99 99 93 O2 Delivery Nasal Cannula Nasal Cannula Room Air O2 Flow Rate 1.0 1.0 06/30/19 06/30/19 06/30/19 06/30/19 03:58 05:57 06:56 07:00 Temp 97.6 98.2 97.6 98.2 Pulse 80 78 Resp 16 16 B/P (MAP) 111/62 (78) 132/63 (86) Pulse Ox 92 94 94 93 O2 Delivery Room Air Room Air Room Air Room Air 06/30/19 06/30/19 06/30/19 06/30/19 07:54 07:55 07:55 07:56 Pulse 78 78 78 B/P (MAP) 132/63 132/73 132/63 132/73 06/30/19 08:01 O2 Delivery Room Air Intake and Output 06/29/19 06/29/19 06/30/19 15:00 23:00 07:00 Intake Total 1260 ml 310 ml Output Total 750 ml 350 ml Balance 510 ml -40 ml Nutrition Consultation Dietary Evaluation: Recommendations by RD: Dietary education by RD, Increase Calorie Intake, Protein supplementation Comments: Continue w/cardiac diet as ordered, honor food preferences, and provide snacks as requested REC Ensure w/dinner (vanilla) Expected Outcomes/Goals: PO intake to meet >75% est needs Malnutrition Findings: Food and Nutrition Intake (Mod: <75% est energy req 7days Body Fat Depletion (Non Severe: Mild Depletion Weight Status: Appropriate JOSE SPRAGUE MD June 30, 2019 10:26
[2019-06-30 10:47] VITALS: BP 132/62
--- NOTE | 2019-06-30 13:26 | PDOC ---
PROGRESS NOTES Subjective Subjective Patient seen and examined Objective Objective Vital Signs Date Time Temp Pulse Resp B/P (MAP) Pulse Ox O2 Delivery O2 Flow Rate FiO2 06/30/19 11:51 90 Room Air 1.0 06/30/19 10:47 98.1 74 16 132/62 (85) 98.1 Intake and Output 06/30/19 06:59 Intake Total 1570 ml Output Total 1100 ml Balance 470 ml Intake Oral 320 ml IV Total 1250 ml Output Urine Total 1000 ml Estimated Blood Loss 100 ml Physical Exam Heart: Regular rate General: mild distress Lungs: Clear to auscultation Assessment Assessment Femoral fracture. Status post repair as per the orthopedic service. Three-vessel coronary artery disease with intact LV systolic function. Stable overnight. Continue baseline medications. Minimally elevated troponin. Consistent with demand ischemia. Medical treatment as above. Chest Pain Indications Comment Review of Relevant I have reviewed the following items dick (where applicable) has been applied. Labs Laboratory Tests Test 06/29/19 04:00 06/30/19 06:30 White Blood Count 6.1 x10^3/uL (4.0-11.0) 8.9 x10^3/uL (4.0-11.0) Red Blood Count 3.36 x10^6/uL (3.50-5.40) 2.80 x10^6/uL (3.50-5.40) Hemoglobin 10.0 g/dL (12.0-15.5) 8.4 g/dL (12.0-15.5) Hematocrit 29.4 % (36.0-47.0) 24.7 % (36.0-47.0) Mean Corpuscular Volume 88 fL (79-100) 88 fL (79-100) Mean Corpuscular Hemoglobin 30 pg (25-35) 30 pg (25-35) Mean Corpuscular Hemoglobin Concent 34 g/dL (31-37) 34 g/dL (31-37) Red Cell Distribution Width 13.3 % (11.5-14.5) 13.4 % (11.5-14.5) Platelet Count 317 x10^3/uL (140-400) 280 x10^3/uL (140-400) Neutrophils (%) (Auto) 71 % (31-73) 87 % (31-73) Lymphocytes (%) (Auto) 15 % (24-48) 8 % (24-48) Monocytes (%) (Auto) 10 % (0-9) 5 % (0-9) Eosinophils (%) (Auto) 3 % (0-3) 0 % (0-3) Basophils (%) (Auto) 1 % (0-3) 0 % (0-3) Neutrophils # (Auto) 4.4 x10^3/uL (1.8-7.7) 7.7 x10^3/uL (1.8-7.7) Lymphocytes # (Auto) 0.9 x10^3/uL (1.0-4.8) 0.7 x10^3/uL (1.0-4.8) Monocytes # (Auto) 0.6 x10^3/uL (0.0-1.1) 0.5 x10^3/uL (0.0-1.1) Eosinophils # (Auto) 0.2 x10^3/uL (0.0-0.7) 0.0 x10^3/uL (0.0-0.7) Basophils # (Auto) 0.1 x10^3/uL (0.0-0.2) 0.0 x10^3/uL (0.0-0.2) Sodium Level 140 mmol/L (136-145) 141 mmol/L (136-145) Potassium Level 4.5 mmol/L (3.5-5.1) 4.3 mmol/L (3.5-5.1) Chloride Level 105 mmol/L (98-107) 107 mmol/L (98-107) Carbon Dioxide Level 27 mmol/L (21-32) 24 mmol/L (21-32) Anion Gap 8 (6-14) 10 (6-14) Blood Urea Nitrogen 46 mg/dL (7-20) 32 mg/dL (7-20) Creatinine 1.5 mg/dL (0.6-1.0) 0.9 mg/dL (0.6-1.0) Estimated GFR (Cockcroft-Gault) 33.3 60.1 Glucose Level 144 mg/dL (70-99) 142 mg/dL (70-99) Calcium Level 8.5 mg/dL (8.5-10.1) 7.7 mg/dL (8.5-10.1) Segmented Neutrophils % 89 % (35-66) Band Neutrophils % 2 % (0-9) Lymphocytes % 5 % (24-48) Monocytes % 4 % (0-10) Platelet Estimate Adequate (ADEQUATE) Laboratory Tests Test 06/30/19 06:30 White Blood Count 8.9 x10^3/uL (4.0-11.0) Red Blood Count 2.80 x10^6/uL (3.50-5.40) Hemoglobin 8.4 g/dL (12.0-15.5) Hematocrit 24.7 % (36.0-47.0) Mean Corpuscular Volume 88 fL (79-100) Mean Corpuscular Hemoglobin 30 pg (25-35) Mean Corpuscular Hemoglobin Concent 34 g/dL (31-37) Red Cell Distribution Width 13.4 % (11.5-14.5) Platelet Count 280 x10^3/uL (140-400) Neutrophils (%) (Auto) 87 % (31-73) Lymphocytes (%) (Auto) 8 % (24-48) Monocytes (%) (Auto) 5 % (0-9) Eosinophils (%) (Auto) 0 % (0-3) Basophils (%) (Auto) 0 % (0-3) Neutrophils # (Auto) 7.7 x10^3/uL (1.8-7.7) Lymphocytes # (Auto) 0.7 x10^3/uL (1.0-4.8) Monocytes # (Auto) 0.5 x10^3/uL (0.0-1.1) Eosinophils # (Auto) 0.0 x10^3/uL (0.0-0.7) Basophils # (Auto) 0.0 x10^3/uL (0.0-0.2) Segmented Neutrophils % 89 % (35-66) Band Neutrophils % 2 % (0-9) Lymphocytes % 5 % (24-48) Monocytes % 4 % (0-10) Platelet Estimate Adequate (ADEQUATE) Sodium Level 141 mmol/L (136-145) Potassium Level 4.3 mmol/L (3.5-5.1) Chloride Level 107 mmol/L (98-107) Carbon Dioxide Level 24 mmol/L (21-32) Anion Gap 10 (6-14) Blood Urea Nitrogen 32 mg/dL (7-20) Creatinine 0.9 mg/dL (0.6-1.0) Estimated GFR (Cockcroft-Gault) 60.1 Glucose Level 142 mg/dL (70-99) Calcium Level 7.7 mg/dL (8.5-10.1) Medications Current Medications Acetaminophen (Tylenol) 650 mg PRN Q6HRS PRN PO TEMP OVER 100.4F OR MILD PAIN Last administered on 06/26/19at 21:46; Start 06/26/19 at 01:30 Morphine Sulfate (Morphine Sulfate) 2 mg PRN Q2HR PRN IV PAIN Last administered on 06/28/19 18:03; Start 06/26/19 at 01:30; Stop 06/29/19 at 16:11; Status DC Amlodipine Besylate (Norvasc) 5 mg DAILY PO Last administered on 06/28/19at 10:24; Start 06/26/19 at 09:00; Stop 06/28/19 at 10:56; Status DC Losartan Potassium (Cozaar) 100 mg DAILY PO Last administered on 06/30/19at 07:55; Start 06/26/19 at 09:00 Potassium Chloride (Klor-Con) 40 meq 1X ONCE PO Last administered on 06/26/19at 11:13; Start 06/26/19 at 09:15; Stop 06/26/19 at 09:16; Status DC Aspirin (Ecotrin) 81 mg [id number] PO Last administered on 06/30/19at 07:54; Start 06/26/19 at 10:00 Metoprolol Tartrate (Lopressor) 25 mg BID PO Last administered on 06/30/19 07:56; Start 06/26/19 at 10:00 Atorvastatin Calcium (Lipitor) 40 mg QHS PO Last administered on 06/29/19at 20:39; Start 06/26/19 at 21:00 Isosorbide Mononitrate (Imdur) 30 mg DAILY PO Last administered on 06/30/19 07:55; Start 06/26/19 at 10:00 Vitamin D (Vitamin D3) 2,000 unit DAILY PO Last administered on 06/30/19at 07:54; Start 06/26/19 at 12:00 Ropinirole HCl (Requip) 0.5 mg QHS PO Last administered on 06/29/19at 20:39; Start 06/26/19 at 21:00 Acetaminophen/ Hydrocodone Bitart (Lortab 7.5/325) 1 tab PRN Q4HRS PRN PO PAIN; Start 06/26/19 at 13:30; Stop 06/26/19 at 13:23; Status DC Acetaminophen/ Hydrocodone Bitart (Lortab 7.5/325) 2 tab PRN Q4HRS PRN PO Mod/Severe pain, 2nd choice Last administered on 06/30/19at 11:51; Start 06/26/19 at 13:30 Ondansetron HCl (Zofran) 4 mg PRN Q6HRS PRN IV NAUSEA/VOMITING; Start 06/27/19 at 07:00; Stop 06/28/19 at 06:59; Status DC Fentanyl Citrate (Fentanyl 2ml Vial) 25 mcg PRN Q5MIN PRN IV MILD PAIN 1-3; Start 06/27/19 at 07:00; Stop 06/28/19 at 06:59; Status DC Fentanyl Citrate (Fentanyl 2ml Vial) 50 mcg PRN Q5MIN PRN IV MODERATE TO SEVERE PAIN; Start 06/27/19 at 07:00; Stop 06/28/19 at 06:59; Status DC Morphine Sulfate (Morphine Sulfate) 1 mg PRN Q10MIN PRN IV SEVERE PAIN 7-10; Start 06/27/19 at 07:00; Stop 06/28/19 at 06:59; Status DC Ringer's Solution 1,000 ml @ 30 mls/hr Q24H IV ; Start 06/27/19 at 07:00; Stop 06/27/19 at 18:59; Status DC Hydromorphone HCl (Dilaudid) 0.5 mg PRN Q10MIN PRN IV SEV PAIN, Second choice; Start 06/27/19 at 07:00; Stop 06/28/19 at 06:59; Status DC Prochlorperazine Edisylate (Compazine) 5 mg PACU PRN PRN IV NAUSEA, MRX1; Start 06/27/19 at 07:00; Stop 06/28/19 at 06:59; Status DC Amlodipine Besylate (Norvasc) 10 mg DAILY PO Last administered on 06/30/19at 07:54; Start 06/29/19 at 09:00 Amlodipine Besylate (Norvasc) 5 mg 1X ONCE PO ; Start 06/28/19 at 11:00; Stop 06/28/19 at 11:02; Status DC Ropivacaine 53.3 ml/Epinephrine HCl 0.6 mg/ Morphine Sulfate 5 mg/Sodium Chloride 100 ml @ 100 mls/hr 1X ONCE INT ART ; Start 06/29/19 at 06:00; Stop 06/29/19 at 06:59; Status DC Ondansetron HCl (Zofran) 4 mg PRN Q6HRS PRN IV NAUSEA/VOMITING; Start 06/29/19 at 07:00; Stop 06/29/19 at 20:00; Status DC Fentanyl Citrate (Fentanyl 2ml Vial) 25 mcg PRN Q5MIN PRN IV MILD PAIN 1-3; Start 06/29/19 at 07:00; Stop 06/29/19 at 20:00; Status DC Fentanyl Citrate (Fentanyl 2ml Vial) 50 mcg PRN Q5MIN PRN IV MODERATE TO SEVERE PAIN; Start 06/29/19 at 07:00; Stop 06/29/19 at 20:00; Status DC Morphine Sulfate (Morphine Sulfate) 1 mg PRN Q10MIN PRN IV SEVERE PAIN 7-10; Start 06/29/19 at 07:00; Stop 06/29/19 at 20:00; Status DC Ringer's Solution 1,000 ml @ 30 mls/hr Q24H IV ; Start 06/29/19 at 07:00; Stop 06/29/19 at 18:01; Status DC Lidocaine HCl (Xylocaine-Mpf 1% 2ml Vial) 2 ml PRN 1X PRN ID PRIOR TO IV START; Start 06/29/19 at 07:00; Stop 06/29/19 at 20:00; Status DC Hydromorphone HCl (Dilaudid) 0.5 mg PRN Q10MIN PRN IV SEV PAIN, Second choice; Start 06/29/19 at 07:00; Stop 06/29/19 at 20:00; Status DC Prochlorperazine Edisylate (Compazine) 5 mg PACU PRN PRN IV NAUSEA, MRX1; Start 06/29/19 at 07:00; Stop 06/29/19 at 20:00; Status DC Cefazolin Sodium/ Dextrose 50 ml @ 100 mls/hr 1X PREOP PRN IV SEE COMMENTS Last administered on 06/29/19at 14:19; Start 06/29/19 at 06:00; Stop 06/30/19 at 07:23; Status DC Ropivacaine 53.3 ml/Epinephrine HCl 0.6 mg/ Morphine Sulfate 5 mg/Sodium Chloride 100 ml @ 100 mls/hr 1X ONCE INT ART Last administered on 06/29/19at 15:00; Start 06/29/19 at 06:00; Stop 06/29/19 at 06:59; Status DC Sodium Chloride 1,000 ml @ 100 mls/hr 1X ONCE IV Last administered on 06/29/19at 09:11; Start 06/29/19 at 09:00; Stop 06/29/19 at 18:59; Status DC Propofol (Diprivan) 200 mg STK-MED ONCE IV ; Start 06/29/19 at 12:41; Stop 06/29/19 at 12:41; Status DC Lidocaine HCl (Lidocaine Pf 2% Vial) 5 ml STK-MED ONCE .ROUTE ; Start 06/29/19 at 12:41; Stop 06/29/19 at 12:41; Status DC Fentanyl Citrate (Fentanyl 2ml Vial) 100 mcg STK-MED ONCE .ROUTE ; Start 06/29/19 at 12:41; Stop 06/29/19 at 12:41; Status DC Vancomycin HCl (Vancomycin) 1 gm STK-MED ONCE .ROUTE ; Start 06/29/19 at 13:53; Stop 06/29/19 at 13:53; Status DC Dexamethasone Sodium Phosphate (Decadron) 4 mg STK-MED ONCE .ROUTE ; Start 06/29/19 at 14:18; Stop 06/29/19 at 14:18; Status DC Desflurane (Suprane) 30 ml STK-MED ONCE IH ; Start 06/29/19 at 14:18; Stop 06/29/19 at 14:18; Status DC Ondansetron HCl (Zofran) 4 mg STK-MED ONCE .ROUTE ; Start 06/29/19 at 14:48; Stop 06/29/19 at 14:48; Status DC Sevoflurane (Ultane) 60 ml STK-MED ONCE IH ; Start 06/29/19 at 15:23; Stop 06/29/19 at 15:23; Status DC Ephedrine Sulfate (ePHEDrine PF IN SALINE SYRINGE) 50 mg STK-MED ONCE IV ; Start 06/29/19 at 15:23; Stop 06/29/19 at 15:24; Status DC Morphine Sulfate (Morphine Sulfate) 2 mg PRN Q1HR PRN IVP MODERATE PAIN; Start 06/29/19 at 16:00 Fentanyl Citrate (Fentanyl 2ml Vial) 25 mcg PRN Q1HR PRN IVP PAIN UNRELIEVED BY MORPHINE; Start 06/29/19 at 16:00 Multivitamins (Thera M Plus) 1 tab DAILY PO Last administered on 06/30/19at 07:53; Start 06/30/19 at 09:00 Senna/Docusate Sodium (Senna Plus) 1 tab DAILY PO Last administered on 06/30/19at 07:54; Start 06/30/19 at 09:00 Polyethylene Glycol (miraLAX PACKET) 17 gm PRN DAILY PRN PO CONSTIPATION; Start 06/29/19 at 16:00 Sodium Chloride 1,000 ml @ 75 mls/hr [id number] IV Last administered on 06/30/19at 05:52; Start 06/29/19 at 15:57 Ondansetron HCl (Zofran) 4 mg PRN Q4HRS PRN IVP NAUSEA/VOMITING; Start 06/29/19 at 16:00 Aspirin (Cas Aspirin) 325 mg DAILYWBKFT PO ; Start 06/30/19 at 08:00 Magnesium Hydroxide (Milk Of Magnesia) 2,400 mg 1X PRN PRN PO CONSTIPATION; Start 06/30/19 at 06:00; Stop 07/01/19 at 05:59 Bisacodyl (Dulcolax Supp) 10 mg 1X PRN PRN MS CONSTIPATION; Start 06/30/19 at 16:00; Stop 07/01/19 at 15:59 Morphine Sulfate (Morphine Sulfate) 4 mg PRN Q2HR PRN IVP SEVERE PAIN; Start 06/29/19 at 16:00 Dextrose (Dextrose 50%-Water Syringe) 12.5 gm PRN Q15MIN PRN IV SEE COMMENTS; Start 06/29/19 at 16:00 Cefazolin Sodium/ Dextrose 50 ml @ 100 mls/hr Q6H IV Last administered on 06/30/19at 11:12; Start 06/29/19 at 22:00; Stop 06/30/19 at 10:29; Status DC Oxycodone/ Acetaminophen (Percocet 5/325) 1 tab PRN Q4HRS PRN PO MODERATE PAIN; Start 06/29/19 at 16:00 Oxycodone/ Acetaminophen (Percocet 5/325) 2 tab PRN Q4HRS PRN PO SEVERE PAIN; Start 06/29/19 at 16:15 Active Scripts Active Reported Vitamin D-3 (Cholecalciferol (Vitamin D3)) 2,000 Unit Tablet 2,000 Unit PO DAILY Ropinirole Hcl 0.5 Mg Tablet 0.5 Mg PO QHS Losartan Potassium 100 Mg Tablet 100 Mg PO DAILY Amlodipine Besylate 5 Mg Tablet 5 Mg PO DAILY Vitals/I & O Vital Sign - Last 24 Hours 06/29/19 06/29/19 06/29/19 06/29/19 15:51 15:51 15:51 16:05 Temp 98.7 98.7 98.7 98.7 Pulse 90 92 Resp 16 18 B/P (MAP) 134/49 103/52 110/49 Pulse Ox 100 100 O2 Delivery Mask Simple Mask Simple Mask O2 Flow Rate 8 8 8 06/29/19 06/29/19 06/29/19 06/29/19 16:20 16:34 16:35 16:49 Temp 98.7 98.7 Pulse 93 92 88 Resp 14 B/P (MAP) 98/54 149/69 (95) 104/52 (69) Pulse Ox 99 O2 Delivery Room Air Room Air 06/29/19 06/29/19 06/29/19 06/29/19 17:04 17:19 17:34 17:38 Pulse 92 96 86 B/P (MAP) 100/54 (69) 106/59 (75) 105/56 (72) O2 Delivery Nasal Cannula O2 Flow Rate 3.0 06/29/19 06/29/19 06/29/19 06/29/19 17:49 18:04 18:42 19:00 Temp 97.6 97.6 Pulse 88 90 92 87 Resp 16 B/P (MAP) 104/55 (71) 106/57 (73) 121/58 (79) 116/58 (77) Pulse Ox 99 O2 Delivery Nasal Cannula O2 Flow Rate 2.0 06/29/19 06/29/19 06/29/19/22/20 19:11 19:26 20:00 20:39 Temp 97.6 97.6 Pulse 96 91 Resp 16 B/P (MAP) 122/64 (83) 122/64 Pulse Ox 99 O2 Delivery Nasal Cannula Nasal Cannula Nasal Cannula O2 Flow Rate 1.0 1.0 1.0 06/29/19 06/29/19 06/30/19 06/30/19 21:00 22:58 03:58 05:57 Temp 97.6 97.6 97.6 97.6 Pulse 83 87 80 Resp 16 14 16 B/P (MAP) 123/64 (83) 123/66 (85) 111/62 (78) Pulse Ox 99 93 92 94 O2 Delivery Nasal Cannula Room Air Room Air Room Air O2 Flow Rate 1.0 06/30/19 06/30/19 06/30/19 06/30/19 06:56 07:00 07:54 07:55 Temp 98.2 98.2 Pulse 78 78 Resp 16 B/P (MAP) 132/63 (86) 132/63 132/73 Pulse Ox 94 93 O2 Delivery Room Air Room Air 06/30/19 06/30/19 06/30/19 06/30/19 07:55 07:56 08:01 10:47 Temp 98.1 98.1 Pulse 78 78 74 Resp 16 B/P (MAP) 132/63 132/73 132/62 (85) Pulse Ox 90 O2 Delivery Room Air Room Air 06/30/19 11:51 Pulse Ox 90 O2 Delivery Room Air O2 Flow Rate 1.0 Intake and Output 06/29/19 06/29/19 06/30/19 14:59 22:59 06:59 Intake Total 1260 ml 310 ml Output Total 750 ml 350 ml Balance 510 ml -40 ml Nutrition Consultation Dietary Evaluation: Recommendations by RD: Dietary education by RD, Increase Calorie Intake, Protein supplementation Comments: Continue w/cardiac diet as ordered, honor food preferences, and provide snacks as requested REC Ensure w/dinner (vanilla) Expected Outcomes/Goals: PO intake to meet >75% est needs Malnutrition Findings: Food and Nutrition Intake (Mod: <75% est energy req 7days Body Fat Depletion (Non Severe: Mild Depletion Weight Status: Appropriate OG RANDHAWA MD June 30, 2019 13:26
[2019-06-30 15:00] VITALS: BP 107/53
[2019-06-30] MEDS ORDERED: BISACODYL 10 MG SUPP.RECT. PR PRN (16:00)
[2019-06-30 16:18] LABS: HEMATOCRIT 23.6 % (36.0-47.0); HEMOGLOBIN 8.2 g/dL (12.0-15.5)
[2019-06-30 19:15] VITALS: BP 126/58
[2019-06-30] MEDS: ATORVASTATIN CALCIUM 40 MG TABLET. PO SCH (20:55)
[2019-06-30] MEDS: rOPINIRole 0.25 MG TABLET. PO SCH (20:55)
[2019-06-30 23:20] VITALS: BP 131/58
[2019-07-01] MEDS: MORPHINE SULFATE 4 MG/ML VIAL. IVP PRN ×3 (01:30→07:26)
[2019-07-01 03:01] VITALS: BP 151/69
[2019-07-01 04:17] LABS: BASO % 0 % (0-3); EOS % 0 % (0-3); HEMATOCRIT 22.6 % (36.0-47.0); HEMOGLOBIN 7.7 g/dL (12.0-15.5); LYMPH # 1.2 x10^3/uL (1.0-4.8); LYMPH % 18 % (24-48); MEAN CORPUSCULAR HEMOGLOBIN 30 pg (25-35); MEAN CORPUSCULAR HGB CONC 34 g/dL (31-37); MEAN CORPUSCULAR VOLUME 88 fL (79-100); MONO # 0.4 x10^3/uL (0.0-1.1); MONO % 7 % (0-9); NEUT % 75 % (31-73); PLATELET COUNT 278 x10^3/uL (140-400); RED BLOOD COUNT 2.55 x10^6/uL (3.50-5.40); RED CELL DISTRIBUTION WIDTH 13.3 % (11.5-14.5); WHITE BLOOD COUNT 6.7 x10^3/uL (4.0-11.0)
[2019-07-01 04:58] LABS: CALCIUM 7.9 mg/dL (8.5-10.1); CREATININE 0.8 mg/dL (0.6-1.0); GFR 68.8; POTASSIUM 4.1 mmol/L (3.5-5.1)
[2019-07-01 07:14] VITALS: BP 165/77
[2019-07-01] MEDS: amLODIPine BESYLATE 10 MG TABLET PO SCH (07:24)
[2019-07-01] MEDS: ISOSORBIDE MONONITRATE ER 30 MG TAB.ER.24H PO SCH (07:24)
[2019-07-01] MEDS: SENNOSIDES/DOCUSATE 8.6/50MG TABLET. PO SCH (07:25)
[2019-07-01] MEDS: MULTIVITAMIN with MINERAL TABLET. PO SCH (07:25)
[2019-07-01] MEDS: CHOLECALCIFEROL (VITAMIN D3) 1,000 UNIT TABLET PO SCH (07:25)
[2019-07-01] MEDS: METOPROLOL TART IMMED RELEASE 25 MG TABLET. PO SCH ×2 (07:25→21:30)
[2019-07-01] MEDS: ASPIRIN 325 MG TABLET PO SCH (07:25)
[2019-07-01] MEDS: LOSARTAN POTASSIUM 50 MG TABLET. PO SCH (07:26)
--- NOTE | 2019-07-01 09:52 | PDOC ---
PROGRESS NOTES Chief Complaint Chief Complaint Fall with hip fracture s/p surg dementia, oriented to self vasomotor nephropathy 2 days ago, better post op anemia, expected, will give B complex, iron, increase Vit D hypokalemia, anemia and elevated troponin. triple vessel coronary disease History of Present Illness History of Present Illness PT and OT anthony skilled in AM doing well post op no event tele stable pain OK, Vitals Vitals Vital Signs Date Time Temp Pulse Resp B/P (MAP) Pulse Ox O2 Delivery O2 Flow Rate FiO2 07/01/19 08:25 Room Air 07/01/19 08:18 18 94 1.0 07/01/19 07:26 165/77 07/01/19 07:14 98.2 81 98.2 Physical Exam General: mild distress Heart: Regular rate Lungs: Clear Abdomen: Soft Extremities: No cyanosis Skin: Other Labs LABS Laboratory Tests Test 06/30/19 16:00 07/01/19 03:30 Hemoglobin 8.2 g/dL (12.0-15.5) 7.7 g/dL (12.0-15.5) Hematocrit 23.6 % (36.0-47.0) 22.6 % (36.0-47.0) Mean Corpuscular Hemoglobin Concent 35 g/dL (31-37) 34 g/dL (31-37) White Blood Count 6.7 x10^3/uL (4.0-11.0) Red Blood Count 2.55 x10^6/uL (3.50-5.40) Mean Corpuscular Volume 88 fL (79-100) Mean Corpuscular Hemoglobin 30 pg (25-35) Red Cell Distribution Width 13.3 % (11.5-14.5) Platelet Count 278 x10^3/uL (140-400) Neutrophils (%) (Auto) 75 % (31-73) Lymphocytes (%) (Auto) 18 % (24-48) Monocytes (%) (Auto) 7 % (0-9) Eosinophils (%) (Auto) 0 % (0-3) Basophils (%) (Auto) 0 % (0-3) Neutrophils # (Auto) 5.0 x10^3/uL (1.8-7.7) Lymphocytes # (Auto) 1.2 x10^3/uL (1.0-4.8) Monocytes # (Auto) 0.4 x10^3/uL (0.0-1.1) Eosinophils # (Auto) 0.0 x10^3/uL (0.0-0.7) Basophils # (Auto) 0.0 x10^3/uL (0.0-0.2) Sodium Level 135 mmol/L (136-145) Potassium Level 4.1 mmol/L (3.5-5.1) Chloride Level 105 mmol/L (98-107) Carbon Dioxide Level 21 mmol/L (21-32) Anion Gap 9 (6-14) Blood Urea Nitrogen 26 mg/dL (7-20) Creatinine 0.8 mg/dL (0.6-1.0) Estimated GFR (Cockcroft-Gault) 68.8 Glucose Level 111 mg/dL (70-99) Calcium Level 7.9 mg/dL (8.5-10.1) Comment Review of Relevant I have reviewed the following items dick (where applicable) has been applied. Labs Laboratory Tests Test 06/30/19 06:30 06/30/19 16:00 07/01/19 03:30 White Blood Count 8.9 x10^3/uL (4.0-11.0) 6.7 x10^3/uL (4.0-11.0) Red Blood Count 2.80 x10^6/uL (3.50-5.40) 2.55 x10^6/uL (3.50-5.40) Hemoglobin 8.4 g/dL (12.0-15.5) 8.2 g/dL (12.0-15.5) 7.7 g/dL (12.0-15.5) Hematocrit 24.7 % (36.0-47.0) 23.6 % (36.0-47.0) 22.6 % (36.0-47.0) Mean Corpuscular Volume 88 fL (79-100) 88 fL (79-100) Mean Corpuscular Hemoglobin 30 pg (25-35) 30 pg (25-35) Mean Corpuscular Hemoglobin Concent 34 g/dL (31-37) 35 g/dL (31-37) 34 g/dL (31-37) Red Cell Distribution Width 13.4 % (11.5-14.5) 13.3 % (11.5-14.5) Platelet Count 280 x10^3/uL (140-400) 278 x10^3/uL (140-400) Neutrophils (%) (Auto) 87 % (31-73) 75 % (31-73) Lymphocytes (%) (Auto) 8 % (24-48) 18 % (24-48) Monocytes (%) (Auto) 5 % (0-9) 7 % (0-9) Eosinophils (%) (Auto) 0 % (0-3) 0 % (0-3) Basophils (%) (Auto) 0 % (0-3) 0 % (0-3) Neutrophils # (Auto) 7.7 x10^3/uL (1.8-7.7) 5.0 x10^3/uL (1.8-7.7) Lymphocytes # (Auto) 0.7 x10^3/uL (1.0-4.8) 1.2 x10^3/uL (1.0-4.8) Monocytes # (Auto) 0.5 x10^3/uL (0.0-1.1) 0.4 x10^3/uL (0.0-1.1) Eosinophils # (Auto) 0.0 x10^3/uL (0.0-0.7) 0.0 x10^3/uL (0.0-0.7) Basophils # (Auto) 0.0 x10^3/uL (0.0-0.2) 0.0 x10^3/uL (0.0-0.2) Segmented Neutrophils % 89 % (35-66) Band Neutrophils % 2 % (0-9) Lymphocytes % 5 % (24-48) Monocytes % 4 % (0-10) Platelet Estimate Adequate (ADEQUATE) Sodium Level 141 mmol/L (136-145) 135 mmol/L (136-145) Potassium Level 4.3 mmol/L (3.5-5.1) 4.1 mmol/L (3.5-5.1) Chloride Level 107 mmol/L (98-107) 105 mmol/L (98-107) Carbon Dioxide Level 24 mmol/L (21-32) 21 mmol/L (21-32) Anion Gap 10 (6-14) 9 (6-14) Blood Urea Nitrogen 32 mg/dL (7-20) 26 mg/dL (7-20) Creatinine 0.9 mg/dL (0.6-1.0) 0.8 mg/dL (0.6-1.0) Estimated GFR (Cockcroft-Gault) 60.1 68.8 Glucose Level 142 mg/dL (70-99) 111 mg/dL (70-99) Calcium Level 7.7 mg/dL (8.5-10.1) 7.9 mg/dL (8.5-10.1) Laboratory Tests Test 06/30/19 16:00 07/01/19 03:30 Hemoglobin 8.2 g/dL (12.0-15.5) 7.7 g/dL (12.0-15.5) Hematocrit 23.6 % (36.0-47.0) 22.6 % (36.0-47.0) Mean Corpuscular Hemoglobin Concent 35 g/dL (31-37) 34 g/dL (31-37) White Blood Count 6.7 x10^3/uL (4.0-11.0) Red Blood Count 2.55 x10^6/uL (3.50-5.40) Mean Corpuscular Volume 88 fL (79-100) Mean Corpuscular Hemoglobin 30 pg (25-35) Red Cell Distribution Width 13.3 % (11.5-14.5) Platelet Count 278 x10^3/uL (140-400) Neutrophils (%) (Auto) 75 % (31-73) Lymphocytes (%) (Auto) 18 % (24-48) Monocytes (%) (Auto) 7 % (0-9) Eosinophils (%) (Auto) 0 % (0-3) Basophils (%) (Auto) 0 % (0-3) Neutrophils # (Auto) 5.0 x10^3/uL (1.8-7.7) Lymphocytes # (Auto) 1.2 x10^3/uL (1.0-4.8) Monocytes # (Auto) 0.4 x10^3/uL (0.0-1.1) Eosinophils # (Auto) 0.0 x10^3/uL (0.0-0.7) Basophils # (Auto) 0.0 x10^3/uL (0.0-0.2) Sodium Level 135 mmol/L (136-145) Potassium Level 4.1 mmol/L (3.5-5.1) Chloride Level 105 mmol/L (98-107) Carbon Dioxide Level 21 mmol/L (21-32) Anion Gap 9 (6-14) Blood Urea Nitrogen 26 mg/dL (7-20) Creatinine 0.8 mg/dL (0.6-1.0) Estimated GFR (Cockcroft-Gault) 68.8 Glucose Level 111 mg/dL (70-99) Calcium Level 7.9 mg/dL (8.5-10.1) Medications Current Medications Acetaminophen (Tylenol) 650 mg PRN Q6HRS PRN PO TEMP OVER 100.4F OR MILD PAIN Last administered on 06/26/19at 21:46; Start 06/26/19 at 01:30 Morphine Sulfate (Morphine Sulfate) 2 mg PRN Q2HR PRN IV PAIN Last administered on 06/28/19 18:03; Start 06/26/19 at 01:30; Stop 06/29/19 at 16:11; Status DC Amlodipine Besylate (Norvasc) 5 mg DAILY PO Last administered on 06/28/19at 10:24; Start 06/26/19 at 09:00; Stop 06/28/19 at 10:56; Status DC Losartan Potassium (Cozaar) 100 mg DAILY PO Last administered on 07/01/19at 07:26; Start 06/26/19 at 09:00 Potassium Chloride (Klor-Con) 40 meq 1X ONCE PO Last administered on 06/26/19at 11:13; Start 06/26/19 at 09:15; Stop 06/26/19 at 09:16; Status DC Aspirin (Ecotrin) 81 mg DAILYWBKFT PO Last administered on 06/30/19at 07:54; Start 06/26/19 at 10:00; Stop 06/30/19 at 14:21; Status DC Metoprolol Tartrate (Lopressor) 25 mg BID PO Last administered on 07/01/19at 07:25; Start 06/26/19 at 10:00 Atorvastatin Calcium (Lipitor) 40 mg QHS PO Last administered on 06/30/19at 20:55; Start 06/26/19 at 21:00 Isosorbide Mononitrate (Imdur) 30 mg DAILY PO Last administered on 07/01/19at 07:24; Start 06/26/19 at 10:00 Vitamin D (Vitamin D3) 2,000 unit DAILY PO Last administered on 07/01/19at 07:25; Start 06/26/19 at 12:00 Ropinirole HCl (Requip) 0.5 mg QHS PO Last administered on 06/30/19at 20:55; Start 06/26/19 at 21:00 Acetaminophen/ Hydrocodone Bitart (Lortab 7.5/325) 1 tab PRN Q4HRS PRN PO PAIN; Start 06/26/19 at 13:30; Stop 06/26/19 at 13:23; Status DC Acetaminophen/ Hydrocodone Bitart (Lortab 7.5/325) 2 tab PRN Q4HRS PRN PO Mod/Severe pain, 2nd choice Last administered on 06/30/19at 21:03; Start 06/26/19 at 13:30 Ondansetron HCl (Zofran) 4 mg PRN Q6HRS PRN IV NAUSEA/VOMITING; Start 06/27/19 at 07:00; Stop 06/28/19 at 06:59; Status DC Fentanyl Citrate (Fentanyl 2ml Vial) 25 mcg PRN Q5MIN PRN IV MILD PAIN 1-3; Start 06/27/19 at 07:00; Stop 06/28/19 at 06:59; Status DC Fentanyl Citrate (Fentanyl 2ml Vial) 50 mcg PRN Q5MIN PRN IV MODERATE TO SEVERE PAIN; Start 06/27/19 at 07:00; Stop 06/28/19 at 06:59; Status DC Morphine Sulfate (Morphine Sulfate) 1 mg PRN Q10MIN PRN IV SEVERE PAIN 7-10; Start 06/27/19 at 07:00; Stop 06/28/19 at 06:59; Status DC Ringer's Solution 1,000 ml @ 30 mls/hr Q24H IV ; Start 06/27/19 at 07:00; Stop 06/27/19 at 18:59; Status DC Hydromorphone HCl (Dilaudid) 0.5 mg PRN Q10MIN PRN IV SEV PAIN, Second choice; Start 06/27/19 at 07:00; Stop 06/28/19 at 06:59; Status DC Prochlorperazine Edisylate (Compazine) 5 mg PACU PRN PRN IV NAUSEA, MRX1; Start 06/27/19 at 07:00; Stop 06/28/19 at 06:59; Status DC Amlodipine Besylate (Norvasc) 10 mg DAILY PO Last administered on 07/01/19at 07:24; Start 06/29/19 at 09:00 Amlodipine Besylate (Norvasc) 5 mg 1X ONCE PO ; Start 06/28/19 at 11:00; Stop 06/28/19 at 11:02; Status DC Ropivacaine 53.3 ml/Epinephrine HCl 0.6 mg/ Morphine Sulfate 5 mg/Sodium Chloride 100 ml @ 100 mls/hr 1X ONCE INT ART ; Start 06/29/19 at 06:00; Stop 06/29/19 at 06:59; Status DC Ondansetron HCl (Zofran) 4 mg PRN Q6HRS PRN IV NAUSEA/VOMITING; Start 06/29/19 at 07:00; Stop 06/29/19 at 20:00; Status DC Fentanyl Citrate (Fentanyl 2ml Vial) 25 mcg PRN Q5MIN PRN IV MILD PAIN 1-3; Start 06/29/19 at 07:00; Stop 06/29/19 at 20:00; Status DC Fentanyl Citrate (Fentanyl 2ml Vial) 50 mcg PRN Q5MIN PRN IV MODERATE TO SEVERE PAIN; Start 06/29/19 at 07:00; Stop 06/29/19 at 20:00; Status DC Morphine Sulfate (Morphine Sulfate) 1 mg PRN Q10MIN PRN IV SEVERE PAIN 7-10; Start 06/29/19 at 07:00; Stop 06/29/19 at 20:00; Status DC Ringer's Solution 1,000 ml @ 30 mls/hr Q24H IV ; Start 06/29/19 at 07:00; Stop 06/29/19 at 18:01; Status DC Lidocaine HCl (Xylocaine-Mpf 1% 2ml Vial) 2 ml PRN 1X PRN ID PRIOR TO IV START; Start 06/29/19 at 07:00; Stop 06/29/19 at 20:00; Status DC Hydromorphone HCl (Dilaudid) 0.5 mg PRN Q10MIN PRN IV SEV PAIN, Second choice; Start 06/29/19 at 07:00; Stop 06/29/19 at 20:00; Status DC Prochlorperazine Edisylate (Compazine) 5 mg PACU PRN PRN IV NAUSEA, MRX1; Start 06/29/19 at 07:00; Stop 06/29/19 at 20:00; Status DC Cefazolin Sodium/ Dextrose 50 ml @ 100 mls/hr 1X PREOP PRN IV SEE COMMENTS Last administered on 06/29/19at 14:19; Start 06/29/19 at 06:00; Stop 06/30/19 at 07:23; Status DC Ropivacaine 53.3 ml/Epinephrine HCl 0.6 mg/ Morphine Sulfate 5 mg/Sodium Chloride 100 ml @ 100 mls/hr 1X ONCE INT ART Last administered on 06/29/19at 15:00; Start 06/29/19 at 06:00; Stop 06/29/19 at 06:59; Status DC Sodium Chloride 1,000 ml @ 100 mls/hr 1X ONCE IV Last administered on 06/29/19at 09:11; Start 06/29/19 at 09:00; Stop 06/29/19 at 18:59; Status DC Propofol (Diprivan) 200 mg STK-MED ONCE IV ; Start 06/29/19 at 12:41; Stop at 12:41; Status DC Lidocaine HCl (Lidocaine Pf 2% Vial) 5 ml STK-MED ONCE .ROUTE ; Start 06/29/19 at 12:41; Stop 06/29/19 at 12:41; Status DC Fentanyl Citrate (Fentanyl 2ml Vial) 100 mcg STK-MED ONCE .ROUTE ; Start 06/29/19 at 12:41; Stop 06/29/19 at 12:41; Status DC Vancomycin HCl (Vancomycin) 1 gm STK-MED ONCE .ROUTE ; Start 06/29/19 at 13:53; Stop 06/29/19 at 13:53; Status DC Dexamethasone Sodium Phosphate (Decadron) 4 mg STK-MED ONCE .ROUTE ; Start 06/29/19 at 14:18; Stop 06/29/19 at 14:18; Status DC Desflurane (Suprane) 30 ml STK-MED ONCE IH ; Start 06/29/19 at 14:18; Stop 5/22/20 at 14:18; Status DC Ondansetron HCl (Zofran) 4 mg STK-MED ONCE .ROUTE ; Start 06/29/19 at 14:48; Stop 06/29/19 at 14:48; Status DC Sevoflurane (Ultane) 60 ml STK-MED ONCE IH ; Start 06/29/19 at 15:23; Stop 06/29/19 at 15:23; Status DC Ephedrine Sulfate (ePHEDrine PF IN SALINE SYRINGE) 50 mg STK-MED ONCE IV ; Start 06/29/19 at 15:23; Stop 06/29/19 at 15:24; Status DC Morphine Sulfate (Morphine Sulfate) 2 mg PRN Q1HR PRN IVP MODERATE PAIN; Start 06/29/19 at 16:00 Fentanyl Citrate (Fentanyl 2ml Vial) 25 mcg PRN Q1HR PRN IVP PAIN UNRELIEVED BY MORPHINE Last administered on 07/01/19at 00:03; Start 06/29/19 at 16:00 Multivitamins (Thera M Plus) 1 tab DAILY PO Last administered on 07/01/19at 07:25; Start 06/30/19 at 09:00 Senna/Docusate Sodium (Senna Plus) 1 tab DAILY PO Last administered on 07/01/19at 07:25; Start 06/30/19 at 09:00 Polyethylene Glycol (miraLAX PACKET) 17 gm PRN DAILY PRN PO CONSTIPATION; Start 06/29/19 at 16:00 Sodium Chloride 1,000 ml @ 75 mls/hr [id number] IV Last administered on 06/30/19at 05:52; Start 06/29/19 at 15:57; Stop 06/30/19 at 23:43; Status DC Ondansetron HCl (Zofran) 4 mg PRN Q4HRS PRN IVP NAUSEA/VOMITING; Start 06/29/19 at 16:00 Aspirin (Cas Aspirin) 325 mg DAILYWBKFT PO Last administered on 07/01/19at 07:25; Start 06/30/19 at 08:00 Magnesium Hydroxide (Milk Of Magnesia) 2,400 mg 1X PRN PRN PO CONSTIPATION; Start 06/30/19 at 06:00; Stop 07/01/19 at 05:59; Status DC Bisacodyl (Dulcolax Supp) 10 mg 1X PRN PRN CO CONSTIPATION; Start 06/30/19 at 16:00; Stop 07/01/19 at 15:59 Morphine Sulfate (Morphine Sulfate) 4 mg PRN Q2HR PRN IVP SEVERE PAIN Last administered on 07/01/19at 07:26; Start 06/29/19 at 16:00 Dextrose (Dextrose 50%-Water Syringe) 12.5 gm PRN Q15MIN PRN IV SEE COMMENTS; Start 06/29/19 at 16:00 Cefazolin Sodium/ Dextrose 50 ml @ 100 mls/hr Q6H IV Last administered on 06/30/19at 11:12; Start 06/29/19 at 22:00; Stop 06/30/19 at 10:29; Status DC Oxycodone/ Acetaminophen (Percocet 5/325) 1 tab PRN Q4HRS PRN PO MODERATE PAIN; Start 06/29/19 at 16:00 Oxycodone/ Acetaminophen (Percocet 5/325) 2 tab PRN Q4HRS PRN PO SEVERE PAIN; Start 06/29/19 at 16:15 Active Scripts Active Reported Vitamin D-3 (Cholecalciferol (Vitamin D3)) 2,000 Unit Tablet 2,000 Unit PO DAILY Ropinirole Hcl 0.5 Mg Tablet 0.5 Mg PO QHS Losartan Potassium 100 Mg Tablet 100 Mg PO DAILY Amlodipine Besylate 5 Mg Tablet 5 Mg PO DAILY Vitals/I & O Vital Sign - Last 24 Hours 06/30/19 06/30/19 06/30/19 06/30/19 10:47 11:51 12:51 15:00 Temp 98.1 98.1 98.1 98.1 Pulse 74 60 Resp 16 16 B/P (MAP) 132/62 (85) 107/53 (71) Pulse Ox 90 90 90 93 O2 Delivery Room Air Room Air Room Air Room Air O2 Flow Rate 1.0 1.0 06/30/19 06/30/19 06/30/19 06/30/19 19:15 19:23 20:56 21:03 Temp 97.9 97.9 Pulse 77 77 Resp 16 16 B/P (MAP) 126/58 (80) 126/58 Pulse Ox 92 O2 Delivery Room Air Room Air Room Air O2 Flow Rate 1.0 06/30/19 06/30/19 07/01/19 07/01/19 22:23 23:20 00:03 00:40 Temp 98.2 98.2 Pulse 62 Resp 16 16 16 16 B/P (MAP) 131/58 (82) Pulse Ox 96 O2 Delivery Room Air Room Air Room Air Room Air 07/01/19 07/01/19 07/01/19 07/01/19 01:30 02:02 03:01 04:23 Temp 98.2 98.2 Pulse 79 Resp 18 16 16 16 B/P (MAP) 151/69 (96) Pulse Ox 94 O2 Delivery Room Air Room Air Room Air Room Air 07/01/19 07/01/19 07/01/19 07/01/19 05:00 07:14 07:24 07:24 Temp 98.2 98.2 Pulse 81 Resp 16 18 B/P (MAP) 165/77 (106) 165/77 165/77 Pulse Ox 94 O2 Delivery Room Air Room Air 07/01/19 07/01/19 07/01/19 07/01/19 07:25 07:26 07:26 08:18 Resp 18 B/P (MAP) 165/77 165/77 Pulse Ox 94 94 O2 Delivery Room Air Room Air O2 Flow Rate 1.0 1.0 07/01/19 08:25 O2 Delivery Room Air Intake and Output 06/30/19 06/30/19 07/01/19 15:00 23:00 07:00 Intake Total 100 ml 900 ml Output Total 400 ml 1150 ml Balance 100 ml 500 ml -1150 ml Nutrition Consultation Dietary Evaluation: Recommendations by RD: Dietary education by RD, Increase Calorie Intake, Protein supplementation Comments: Continue w/cardiac diet as ordered, honor food preferences, and provide snacks as requested REC Ensure w/dinner (vanilla) Expected Outcomes/Goals: PO intake to meet >75% est needs Malnutrition Findings: Food and Nutrition Intake (Mod: <75% est energy req 7days Body Fat Depletion (Non Severe: Mild Depletion Weight Status: Appropriate JOSE SPRAGUE MD July 01, 2019 09:52
[2019-07-01 10:33] VITALS: BP 113/58
[2019-07-01] MEDS: FERROUS SULFATE 325 MG TABLET. PO SCH (11:53)
[2019-07-01] MEDS: VITAMIN B12,B9,B6 COMPLEX 1 TABLET. PO SCH (11:53)
[2019-07-01] MEDS: HYDROcodone/APAP 7.5/325MG 1 TAB TABLET PO PRN ×2 (11:54→19:49)
[2019-07-01 15:00] VITALS: BP 114/52
--- NOTE | 2019-07-01 16:03 | NUR ---
Report called to ROSMERY Daniel. Pt transferred with all belongings to room 410 via bed. Pt vss and alert and oriented x1 at time of transfer.
[2019-07-01 19:00] VITALS: BP 98/44
[2019-07-01] MEDS: ATORVASTATIN CALCIUM 40 MG TABLET. PO SCH (21:31)
[2019-07-01] MEDS: rOPINIRole 0.25 MG TABLET. PO SCH (21:31)
[2019-07-01 23:00] VITALS: BP 125/63
[2019-07-02 03:00] VITALS: BP 120/57
[2019-07-02] MEDS: HYDROcodone/APAP 7.5/325MG 1 TAB TABLET PO PRN (03:15)
[2019-07-02 04:32] LABS: BASO % 1 % (0-3); EOS # 0.2 x10^3/uL (0.0-0.7); EOS % 3 % (0-3); HEMATOCRIT 21.3 % (36.0-47.0); HEMOGLOBIN 7.5 g/dL (12.0-15.5); LYMPH # 1.8 x10^3/uL (1.0-4.8); LYMPH % 26 % (24-48); MEAN CORPUSCULAR HEMOGLOBIN 31 pg (25-35); MEAN CORPUSCULAR HGB CONC 35 g/dL (31-37); MEAN CORPUSCULAR VOLUME 87 fL (79-100); MONO # 0.4 x10^3/uL (0.0-1.1); MONO % 6 % (0-9); NEUT # 4.4 x10^3/uL (1.8-7.7); NEUT % 65 % (31-73); PLATELET COUNT 305 x10^3/uL (140-400); RED BLOOD COUNT 2.44 x10^6/uL (3.50-5.40); WHITE BLOOD COUNT 6.8 x10^3/uL (4.0-11.0)
[2019-07-02 05:06] LABS: CALCIUM 7.8 mg/dL (8.5-10.1); GFR 53.2; POTASSIUM 4.1 mmol/L (3.5-5.1)
[2019-07-02 07:05] VITALS: BP 118/51
[2019-07-02] MEDS: METOPROLOL TART IMMED RELEASE 25 MG TABLET. PO SCH ×2 (08:34→21:37)
[2019-07-02] MEDS: ASPIRIN 325 MG TABLET PO SCH (08:34)
[2019-07-02] MEDS: MULTIVITAMIN with MINERAL TABLET. PO SCH (08:34)
[2019-07-02] MEDS: CHOLECALCIFEROL (VITAMIN D3) 5,000 UNIT CAPSULE PO SCH (08:34)
[2019-07-02] MEDS: SENNOSIDES/DOCUSATE 8.6/50MG TABLET. PO SCH (08:34)
[2019-07-02] MEDS: VITAMIN B12,B9,B6 COMPLEX 1 TABLET. PO SCH (08:34)
[2019-07-02] MEDS: LOSARTAN POTASSIUM 50 MG TABLET. PO SCH (08:35)
[2019-07-02] MEDS: amLODIPine BESYLATE 10 MG TABLET PO SCH (08:35)
[2019-07-02] MEDS: FERROUS SULFATE 325 MG TABLET. PO SCH (08:35)
[2019-07-02] MEDS: ISOSORBIDE MONONITRATE ER 30 MG TAB.ER.24H PO SCH (08:35)
[2019-07-02 10:55] VITALS: BP 97/55
--- NOTE | 2019-07-02 11:41 | PDOC ---
PROGRESS NOTES Chief Complaint Chief Complaint impression Fall with hip fracture s/p surg dementia, oriented to self vasomotor nephropathy 3 days ago, better post op anemia, expected, will give B complex, iron, increase Vit D hypokalemia, anemia and elevated troponin. triple vessel coronary disease D/W RN History of Present Illness History of Present Illness PT and OT needs skilled d/w rn doing well post op no event pain OK, Operative Note Operative Note Date of Procedure: June 29, 2019 Pre-Op Diagnosis: Displaced mid cervical fracture of left femur, initial encounter for closed fracture S72.032A Post-Op Diagnosis: same Procedure: left hip open treatment of femoral fracture, proximal end, neck, prosthetic replacement, CPT 45838 Anesthesia Type: General Surgeon: Partha Kapoor MD Plastic Battery Assembler: SMITH Marie EBL: 100 mL Specimens Obtained: left femoral head Complications: None Drains: None Vitals Vitals Vital Signs Date Time Temp Pulse Resp B/P (MAP) Pulse Ox O2 Delivery O2 Flow Rate FiO2 07/02/19 10:55 98.7 92 16 97/55 (69) 94 Room Air 98.7 07/01/19 12:54 1.0 Physical Exam General: Cooperative, mild distress Heart: Regular rate Lungs: Clear Abdomen: Soft Extremities: No cyanosis Skin: Other Labs LABS Laboratory Tests Test 07/02/19 03:15 White Blood Count 6.8 x10^3/uL (4.0-11.0) Red Blood Count 2.44 x10^6/uL (3.50-5.40) Hemoglobin 7.5 g/dL (12.0-15.5) Hematocrit 21.3 % (36.0-47.0) Mean Corpuscular Volume 87 fL (79-100) Mean Corpuscular Hemoglobin 31 pg (25-35) Mean Corpuscular Hemoglobin Concent 35 g/dL (31-37) Red Cell Distribution Width 13.0 % (11.5-14.5) Platelet Count 305 x10^3/uL (140-400) Neutrophils (%) (Auto) 65 % (31-73) Lymphocytes (%) (Auto) 26 % (24-48) Monocytes (%) (Auto) 6 % (0-9) Eosinophils (%) (Auto) 3 % (0-3) Basophils (%) (Auto) 1 % (0-3) Neutrophils # (Auto) 4.4 x10^3/uL (1.8-7.7) Lymphocytes # (Auto) 1.8 x10^3/uL (1.0-4.8) Monocytes # (Auto) 0.4 x10^3/uL (0.0-1.1) Eosinophils # (Auto) 0.2 x10^3/uL (0.0-0.7) Basophils # (Auto) 0.0 x10^3/uL (0.0-0.2) Sodium Level 139 mmol/L (136-145) Potassium Level 4.1 mmol/L (3.5-5.1) Chloride Level 105 mmol/L (98-107) Carbon Dioxide Level 25 mmol/L (21-32) Anion Gap 9 (6-14) Blood Urea Nitrogen 29 mg/dL (7-20) Creatinine 1.0 mg/dL (0.6-1.0) Estimated GFR (Cockcroft-Gault) 53.2 Glucose Level 106 mg/dL (70-99) Calcium Level 7.8 mg/dL (8.5-10.1) Comment Review of Relevant I have reviewed the following items dick (where applicable) has been applied. Labs Laboratory Tests Test 06/30/19 16:00 07/01/19 03:30 07/02/19 03:15 Hemoglobin 8.2 g/dL (12.0-15.5) 7.7 g/dL (12.0-15.5) 7.5 g/dL (12.0-15.5) Hematocrit 23.6 % (36.0-47.0) 22.6 % (36.0-47.0) 21.3 % (36.0-47.0) Mean Corpuscular Hemoglobin Concent 35 g/dL (31-37) 34 g/dL (31-37) 35 g/dL (31-37) White Blood Count 6.7 x10^3/uL (4.0-11.0) 6.8 x10^3/uL (4.0-11.0) Red Blood Count 2.55 x10^6/uL (3.50-5.40) 2.44 x10^6/uL (3.50-5.40) Mean Corpuscular Volume 88 fL (79-100) 87 fL (79-100) Mean Corpuscular Hemoglobin 30 pg (25-35) 31 pg (25-35) Red Cell Distribution Width 13.3 % (11.5-14.5) 13.0 % (11.5-14.5) Platelet Count 278 x10^3/uL (140-400) 305 x10^3/uL (140-400) Neutrophils (%) (Auto) 75 % (31-73) 65 % (31-73) Lymphocytes (%) (Auto) 18 % (24-48) 26 % (24-48) Monocytes (%) (Auto) 7 % (0-9) 6 % (0-9) Eosinophils (%) (Auto) 0 % (0-3) 3 % (0-3) Basophils (%) (Auto) 0 % (0-3) 1 % (0-3) Neutrophils # (Auto) 5.0 x10^3/uL (1.8-7.7) 4.4 x10^3/uL (1.8-7.7) Lymphocytes # (Auto) 1.2 x10^3/uL (1.0-4.8) 1.8 x10^3/uL (1.0-4.8) Monocytes # (Auto) 0.4 x10^3/uL (0.0-1.1) 0.4 x10^3/uL (0.0-1.1) Eosinophils # (Auto) 0.0 x10^3/uL (0.0-0.7) 0.2 x10^3/uL (0.0-0.7) Basophils # (Auto) 0.0 x10^3/uL (0.0-0.2) 0.0 x10^3/uL (0.0-0.2) Sodium Level 135 mmol/L (136-145) 139 mmol/L (136-145) Potassium Level 4.1 mmol/L (3.5-5.1) 4.1 mmol/L (3.5-5.1) Chloride Level 105 mmol/L (98-107) 105 mmol/L (98-107) Carbon Dioxide Level 21 mmol/L (21-32) 25 mmol/L (21-32) Anion Gap 9 (6-14) 9 (6-14) Blood Urea Nitrogen 26 mg/dL (7-20) 29 mg/dL (7-20) Creatinine 0.8 mg/dL (0.6-1.0) 1.0 mg/dL (0.6-1.0) Estimated GFR (Cockcroft-Gault) 68.8 53.2 Glucose Level 111 mg/dL (70-99) 106 mg/dL (70-99) Calcium Level 7.9 mg/dL (8.5-10.1) 7.8 mg/dL (8.5-10.1) Laboratory Tests Test 07/02/19 03:15 White Blood Count 6.8 x10^3/uL (4.0-11.0) Red Blood Count 2.44 x10^6/uL (3.50-5.40) Hemoglobin 7.5 g/dL (12.0-15.5) Hematocrit 21.3 % (36.0-47.0) Mean Corpuscular Volume 87 fL (79-100) Mean Corpuscular Hemoglobin 31 pg (25-35) Mean Corpuscular Hemoglobin Concent 35 g/dL (31-37) Red Cell Distribution Width 13.0 % (11.5-14.5) Platelet Count 305 x10^3/uL (140-400) Neutrophils (%) (Auto) 65 % (31-73) Lymphocytes (%) (Auto) 26 % (24-48) Monocytes (%) (Auto) 6 % (0-9) Eosinophils (%) (Auto) 3 % (0-3) Basophils (%) (Auto) 1 % (0-3) Neutrophils # (Auto) 4.4 x10^3/uL (1.8-7.7) Lymphocytes # (Auto) 1.8 x10^3/uL (1.0-4.8) Monocytes # (Auto) 0.4 x10^3/uL (0.0-1.1) Eosinophils # (Auto) 0.2 x10^3/uL (0.0-0.7) Basophils # (Auto) 0.0 x10^3/uL (0.0-0.2) Sodium Level 139 mmol/L (136-145) Potassium Level 4.1 mmol/L (3.5-5.1) Chloride Level 105 mmol/L (98-107) Carbon Dioxide Level 25 mmol/L (21-32) Anion Gap 9 (6-14) Blood Urea Nitrogen 29 mg/dL (7-20) Creatinine 1.0 mg/dL (0.6-1.0) Estimated GFR (Cockcroft-Gault) 53.2 Glucose Level 106 mg/dL (70-99) Calcium Level 7.8 mg/dL (8.5-10.1) Medications Current Medications Acetaminophen (Tylenol) 650 mg PRN Q6HRS PRN PO TEMP OVER 100.4F OR MILD PAIN Last administered on 06/26/19 21:46; Start 06/26/19 at 01:30 Morphine Sulfate (Morphine Sulfate) 2 mg PRN Q2HR PRN IV PAIN Last administered on 06/28/19 18:03; Start 06/26/19 at 01:30; Stop 06/29/19 at 16:11; Status DC Amlodipine Besylate (Norvasc) 5 mg DAILY PO Last administered on 06/28/19at 10:24; Start 06/26/19 at 09:00; Stop 06/28/19 at 10:56; Status DC Losartan Potassium (Cozaar) 100 mg DAILY PO Last administered on 07/02/19 08:35; Start 06/26/19 at 09:00 Potassium Chloride (Klor-Con) 40 meq 1X ONCE PO Last administered on 06/26/19at 11:13; Start 06/26/19 at 09:15; Stop 06/26/19 at 09:16; Status DC Aspirin (Ecotrin) 81 mg DAILYWBKFT PO Last administered on 06/30/19at 07:54; Start 06/26/19 at 10:00; Stop 06/30/19 at 14:21; Status DC Metoprolol Tartrate (Lopressor) 25 mg BID PO Last administered on 07/02/19 08:34; Start 06/26/19 at 10:00 Atorvastatin Calcium (Lipitor) 40 mg QHS PO Last administered on 07/01/19at 21:31; Start 06/26/19 at 21:00 Isosorbide Mononitrate (Imdur) 30 mg DAILY PO Last administered on 07/02/19 08:35; Start 06/26/19 at 10:00 Vitamin D (Vitamin D3) 2,000 unit DAILY PO Last administered on 07/01/19at 0 7:25; Start 06/26/19 at 12:00; Stop 07/01/19 at 09:55; Status DC Ropinirole HCl (Requip) 0.5 mg QHS PO Last administered on 07/01/19at 21:31; Start 06/26/19 at 21:00 Acetaminophen/ Hydrocodone Bitart (Lortab 7.5/325) 1 tab PRN Q4HRS PRN PO PAIN; Start 06/26/19 at 13:30; Stop 06/26/19 at 13:23; Status DC Acetaminophen/ Hydrocodone Bitart (Lortab 7.5/325) 2 tab PRN Q4HRS PRN PO M od/Severe pain, 2nd choice Last administered on 07/02/19at 03:15; Start 06/26/19 at 13:30 Ondansetron HCl (Zofran) 4 mg PRN Q6HRS PRN IV NAUSEA/VOMITING; Start 06/27/19 at 07:00; Stop 06/28/19 at 06:59; Status DC Fentanyl Citrate (Fentanyl 2ml Vial) 25 mcg PRN Q5MIN PRN IV MILD PAIN 1-3; Start 06/27/19 at 07:00; Stop 06/28/19 at 06:59; Status DC Fentanyl Citrate (Fentanyl 2ml Vial) 50 mcg PRN Q5MIN PRN IV MODERATE TO SEVERE PAIN; Start 06/27/19 at 07:00; Stop 06/28/19 at 06:59; Status DC Morphine Sulfate (Morphine Sulfate) 1 mg PRN Q10MIN PRN IV SEVERE PAIN 7-10; Start 06/27/19 at 07:00; Stop 06/28/19 at 06:59; Status DC Ringer's Solution 1,000 ml @ 30 mls/hr Q24H IV ; Start 06/27/19 at 07:00; Stop 06/27/19 at 18:59; Status DC Hydromorphone HCl (Dilaudid) 0.5 mg PRN Q10MIN PRN IV SEV PAIN, Second choice; Start 06/27/19 at 07:00; Stop 06/28/19 at 06:59; Status DC Prochlorperazine Edisylate (Compazine) 5 mg PACU PRN PRN IV NAUSEA, MRX1; Start 06/27/19 at 07:00; Stop 06/28/19 at 06:59; Status DC Amlodipine Besylate (Norvasc) 10 mg DAILY PO Last administered on 07/02/19at 08:35; Start 06/29/19 at 09:00 Amlodipine Besylate (Norvasc) 5 mg 1X ONCE PO ; Start 06/28/19 at 11:00; Stop 06/28/19 at 11:02; Status DC Ropivacaine 53.3 ml/Epinephrine HCl 0.6 mg/ Morphine Sulfate 5 mg/Sodium Chloride 100 ml @ 100 mls/hr 1X ONCE INT ART ; Start 06/29/19 at 06:00; Stop 06/29/19 at 06:59; Status DC Ondansetron HCl (Zofran) 4 mg PRN Q6HRS PRN IV NAUSEA/VOMITING; Start 06/29/19 at 07:00; Stop 06/29/19 at 20:00; Status DC Fentanyl Citrate (Fentanyl 2ml Vial) 25 mcg PRN Q5MIN PRN IV MILD PAIN 1-3; Start 06/29/19 at 07:00; Stop 06/29/19 at 20:00; Status DC Fentanyl Citrate (Fentanyl 2ml Vial) 50 mcg PRN Q5MIN PRN IV MODERATE TO SEVERE PAIN; Start 06/29/19 at 07:00; Stop 06/29/19 at 20:00; Status DC Morphine Sulfate (Morphine Sulfate) 1 mg PRN Q10MIN PRN IV SEVERE PAIN 7-10; Start 06/29/19 at 07:00; Stop 06/29/19 at 20:00; Status DC Ringer's Solution 1,000 ml @ 30 mls/hr Q24H IV ; Start 06/29/19 at 07:00; Stop 06/29/19 at 18:01; Status DC Lidocaine HCl (Xylocaine-Mpf 1% 2ml Vial) 2 ml PRN 1X PRN ID PRIOR TO IV START; Start 06/29/19 at 07:00; Stop 06/29/19 at 20:00; Status DC Hydromorphone HCl (Dilaudid) 0.5 mg PRN Q10MIN PRN IV SEV PAIN, Second choice; Start 06/29/19 at 07:00; Stop 06/29/19 at 20:00; Status DC Prochlorperazine Edisylate (Compazine) 5 mg PACU PRN PRN IV NAUSEA, MRX1; Start 06/29/19 at 07:00; Stop 06/29/19 at 20:00; Status DC Cefazolin Sodium/ Dextrose 50 ml @ 100 mls/hr 1X PREOP PRN IV SEE COMMENTS Last administered on 06/29/19at 14:19; Start 06/29/19 at 06:00; Stop 06/30/19 at 07:23; Status DC Ropivacaine 53.3 ml/Epinephrine HCl 0.6 mg/ Morphine Sulfate 5 mg/Sodium Chloride 100 ml @ 100 mls/hr 1X ONCE INT ART Last administered on 06/29/19at 15:00; Start 06/29/19 at 06:00; Stop 06/29/19 at 06:59; Status DC Sodium Chloride 1,000 ml @ 100 mls/hr 1X ONCE IV Last administered on 06/29/19at 09:11; Start 06/29/19 at 09:00; Stop 06/29/19 at 18:59; Status DC Propofol (Diprivan) 200 mg STK-MED ONCE IV ; Start 06/29/19 at 12:41; Stop 06/29/19 at 12:41; Status DC Lidocaine HCl (Lidocaine Pf 2% Vial) 5 ml STK-MED ONCE .ROUTE ; Start 06/29/19 at 12:41; Stop 06/29/19 at 12:41; Status DC Fentanyl Citrate (Fentanyl 2ml Vial) 100 mcg STK-MED ONCE .ROUTE ; Start 06/29/19 at 12:41; Stop 06/29/19 at 12:41; Status DC Vancomycin HCl (Vancomycin) 1 gm STK-MED ONCE .ROUTE ; Start 06/29/19 at 13:53; Stop 06/29/19 at 13:53; Status DC Dexamethasone Sodium Phosphate (Decadron) 4 mg STK-MED ONCE .ROUTE ; Start 06/29/19 at 14:18; Stop 06/29/19 at 14:18; Status DC Desflurane (Suprane) 30 ml STK-MED ONCE IH ; Start 06/29/19 at 14:18; Stop 06/29/19 at 14:18; Status DC Ondansetron HCl (Zofran) 4 mg STK-MED ONCE .ROUTE ; Start 06/29/19 at 14:48; Stop 06/29/19 at 14:48; Status DC Sevoflurane (Ultane) 60 ml STK-MED ONCE IH ; Start 06/29/19 at 15:23; Stop 06/29/19 at 15:23; Status DC Ephedrine Sulfate (ePHEDrine PF IN SALINE SYRINGE) 50 mg STK-MED ONCE IV ; Start 06/29/19 at 15:23; Stop 06/29/19 at 15:24; Status DC Morphine Sulfate (Morphine Sulfate) 2 mg PRN Q1HR PRN IVP MODERATE PAIN; Start 06/29/19 at 16:00 Fentanyl Citrate (Fentanyl 2ml Vial) 25 mcg PRN Q1HR PRN IVP PAIN UNRELIEVED BY MORPHINE Last administered on 07/01/19at 00:03; Start 06/29/19 at 16:00 Multivitamins (Thera M Plus) 1 tab DAILY PO Last administered on 07/02/19at 08:34; Start 06/30/19 at 09:00 Senna/Docusate Sodium (Senna Plus) 1 tab DAILY PO Last administered on 07/02/19at 08:34; Start 06/30/19 at 09:00 Polyethylene Glycol (miraLAX PACKET) 17 gm PRN DAILY PRN PO CONSTIPATION; Start 06/29/19 at 16:00 Sodium Chloride 1,000 ml @ 75 mls/hr [id number] IV Last administered on 06/30/19at 05:52; Start 06/29/19 at 15:57; Stop 06/30/19 at 23:43; Status DC Ondansetron HCl (Zofran) 4 mg PRN Q4HRS PRN IVP NAUSEA/VOMITING; Start 06/29/19 at 16:00 Aspirin (Cas Aspirin) 325 mg DAILYWBKFT PO Last administered on 07/02/19at 08:34; Start 06/30/19 at 08:00 Magnesium Hydroxide (Milk Of Magnesia) 2,400 mg 1X PRN PRN PO CONSTIPATION; Start 06/30/19 at 06:00; Stop 07/01/19 at 05:59; Status DC Bisacodyl (Dulcolax Supp) 10 mg 1X PRN PRN [place] CONSTIPATION; Start 06/30/19 at 16:00; Stop 07/01/19 at 15:59; Status DC Morphine Sulfate (Morphine Sulfate) 4 mg PRN Q2HR PRN IVP SEVERE PAIN Last administered on 07/01/19at 07:26; Start 06/29/19 at 16:00 Dextrose (Dextrose 50%-Water Syringe) 12.5 gm PRN Q15MIN PRN IV SEE COMMENTS; Start 06/29/19 at 16:00 Cefazolin Sodium/ Dextrose 50 ml @ 100 mls/hr Q6H IV Last administered on 06/30/19at 11:12; Start 06/29/19 at 22:00; Stop 06/30/19 at 10:29; Status DC Oxycodone/ Acetaminophen (Percocet 5/325) 1 tab PRN Q4HRS PRN PO MODERATE PAIN; Start 06/29/19 at 16:00 Oxycodone/ Acetaminophen (Percocet 5/325) 2 tab PRN Q4HRS PRN PO SEVERE PAIN; Start 06/29/19 at 16:15 Vitamin B Complex (Folbic Tablet) 1 tab DAILY PO Last administered on 07/02/19at 08:34; Start 07/01/19 at 10:00 Ferrous Sulfate (Feosol) 325 mg DAILYWBKFT PO Last administered on 07/02/19at 08:35; Start 07/01/19 at 10:00 Vitamin D (Vitamin D3) 5,000 unit DAILY PO Last administered on 07/02/19at 08:34; Start 07/02/19 at 09:00 Active Scripts Active Reported Vitamin D-3 (Cholecalciferol (Vitamin D3)) 2,000 Unit Tablet 2,000 Unit PO DAILY Ropinirole Hcl 0.5 Mg Tablet 0.5 Mg PO QHS Losartan Potassium 100 Mg Tablet 100 Mg PO DAILY Amlodipine Besylate 5 Mg Tablet 5 Mg PO DAILY Vitals/I & O Vital Sign - Last 24 Hours 07/01/19 07/01/19 07/01/19 07/01/19 11:54 12:54 15:00 19:00 Temp 98.7 97.6 98.7 97.6 Pulse 76 93 Resp 18 18 18 B/P (MAP) 114/52 (72) 98/44 (62) Pulse Ox 96 96 95 92 O2 Delivery Room Air Room Air Room Air Room Air O2 Flow Rate 1.0 1.0 07/01/19 07/01/19 07/01/19 5/24/20 19:49 20:00 21:30 21:32 Pulse 93 B/P (MAP) 98/44 O2 Delivery Room Air Room Air Room Air 07/01/19 07/02/19 07/02/19 07/02/19 23:00 03:00 03:15 04:18 Temp 98.3 98.2 98.3 98.2 Pulse 88 92 Resp 16 16 B/P (MAP) 125/63 (83) 120/57 (78) Pulse Ox 97 95 O2 Delivery Room Air Room Air Room Air Room Air 07/02/19 07/02/19 07/02/19 07/02/19 07:05 08:00 08:34 08:35 Temp 97.8 97.8 Pulse 67 67 67 Resp 16 B/P (MAP) 118/51 (73) 118/51 118/51 Pulse Ox 97 O2 Delivery Room Air Room Air 07/02/19 07/02/19 07/02/19 08:35 08:35 10:55 Temp 98.7 98.7 Pulse 67 67 92 Resp 16 B/P (MAP) 118/51 118/51 97/55 (69) Pulse Ox 94 O2 Delivery Room Air Intake and Output 07/01/19 07/01/19 07/02/19 15:00 23:00 07:00 Intake Total 240 ml 360 ml 600 ml Output Total 0 ml 600 ml Balance 240 ml 360 ml 0 ml Nutrition Consultation Dietary Evaluation: Recommendations by RD: Dietary education by RD, Increase Calorie Intake, Protein supplementation Comments: Continue w/cardiac diet as ordered, honor food preferences, and provide snacks as requested REC Ensure w/dinner (vanilla) Expected Outcomes/Goals: PO intake to meet >75% est needs Malnutrition Findings: Food and Nutrition Intake (Mod: <75% est energy req 7days Body Fat Depletion (Non Severe: Mild Depletion Weight Status: Appropriate PAUL GREENE MD July 02, 2019 11:41
--- NOTE | 2019-07-02 14:00 | NUR ---
Bladder scanned pt 135mL of urine.
[2019-07-02 14:25] VITALS: BP 111/58
--- NOTE | 2019-07-02 16:30 | NUR ---
Paged Dr. Og. Pt has not voided. Bladder scan only showed 135. Pt is not drinking or eating much. Received orders for NS Bolus 500cc and then NS @ 100cc/hr. Updated orders.
[2019-07-02] MEDS ORDERED: IV NORMAL SALINE 500ML BAG 500 ML IV ONE (17:00)
[2019-07-02] MEDS: IV NORMAL SALINE 1000ML BAG 1,000 ML IV SCH (17:31)
[2019-07-02 19:00] VITALS: BP 107/64
[2019-07-02] MEDS: oxyCODONE/APAP 5/325 1 TAB TABLET PO PRN (21:40)
[2019-07-02] MEDS: ATORVASTATIN CALCIUM 40 MG TABLET. PO SCH (21:40)
[2019-07-02] MEDS: rOPINIRole 0.25 MG TABLET. PO SCH (21:41)
[2019-07-02 23:00] VITALS: BP 122/75
[2019-07-03 03:00] VITALS: BP 114/61
[2019-07-03 04:52] LABS: BASO # 0.1 x10^3/uL (0.0-0.2); BASO % 1 % (0-3); EOS # 0.3 x10^3/uL (0.0-0.7); EOS % 4 % (0-3); HEMATOCRIT 21.7 % (36.0-47.0); HEMOGLOBIN 7.4 g/dL (12.0-15.5); LYMPH # 1.5 x10^3/uL (1.0-4.8); LYMPH % 19 % (24-48); MEAN CORPUSCULAR HEMOGLOBIN 30 pg (25-35); MEAN CORPUSCULAR HGB CONC 34 g/dL (31-37); MEAN CORPUSCULAR VOLUME 88 fL (79-100); MONO # 0.4 x10^3/uL (0.0-1.1); MONO % 5 % (0-9); NEUT # 5.6 x10^3/uL (1.8-7.7); NEUT % 72 % (31-73); PLATELET COUNT 354 x10^3/uL (140-400); RED BLOOD COUNT 2.47 x10^6/uL (3.50-5.40); RED CELL DISTRIBUTION WIDTH 13.4 % (11.5-14.5); WHITE BLOOD COUNT 7.8 x10^3/uL (4.0-11.0)
[2019-07-03 05:12] LABS: CALCIUM 7.6 mg/dL (8.5-10.1); CREATININE 0.9 mg/dL (0.6-1.0); GFR 60.1; POTASSIUM 3.9 mmol/L (3.5-5.1)
[2019-07-03] MEDS: IV NORMAL SALINE 1000ML BAG 1,000 ML IV SCH ×2 (05:14→13:00)
[2019-07-03 07:22] VITALS: BP 140/67
[2019-07-03] MEDS: VITAMIN B12,B9,B6 COMPLEX 1 TABLET. PO SCH (07:34)
[2019-07-03] MEDS: SENNOSIDES/DOCUSATE 8.6/50MG TABLET. PO SCH (07:34)
[2019-07-03] MEDS: MULTIVITAMIN with MINERAL TABLET. PO SCH (07:34)
[2019-07-03] MEDS: CHOLECALCIFEROL (VITAMIN D3) 5,000 UNIT CAPSULE PO SCH (07:34)
[2019-07-03] MEDS: ASPIRIN 325 MG TABLET PO SCH (07:34)
[2019-07-03] MEDS: FERROUS SULFATE 325 MG TABLET. PO SCH (07:34)
[2019-07-03] MEDS: METOPROLOL TART IMMED RELEASE 25 MG TABLET. PO SCH ×2 (07:35→21:29)
[2019-07-03] MEDS: ISOSORBIDE MONONITRATE ER 30 MG TAB.ER.24H PO SCH (07:35)
[2019-07-03] MEDS: LOSARTAN POTASSIUM 50 MG TABLET. PO SCH (07:35)
[2019-07-03] MEDS: amLODIPine BESYLATE 10 MG TABLET PO SCH (07:36)
[2019-07-03 11:04] VITALS: BP 134/58
--- NOTE | 2019-07-03 11:06 | PDOC ---
PROGRESS NOTES Chief Complaint Chief Complaint impression Fall with hip fracture s/p surg dementia, oriented to self vasomotor nephropathy acute post op anemia, expected, will give B complex, iron, increase Vit D poor intake, due to food preferences hypokalemia, anemia and elevated troponin. triple vessel coronary disease D/W RN poor po intake 07/02, cont iv fluids History of Present Illness History of Present Illness PT and OT needs skilled d/w rn doing well post op no event pain OK, Operative Note Operative Note Date of Procedure: June 29, 2019 Pre-Op Diagnosis: Displaced mid cervical fracture of left femur, initial encounter for closed fracture S72.032A Post-Op Diagnosis: same Procedure: left hip open treatment of femoral fracture, proximal end, neck, prosthetic replacement, CPT 63062 Anesthesia Type: General Surgeon: Partha Kapoor MD Hostess: SMITH Marie EBL: 100 mL Specimens Obtained: left femoral head Complications: None Drains: None Vitals Vitals Vital Signs Date Time Temp Pulse Resp B/P (MAP) Pulse Ox O2 Delivery O2 Flow Rate FiO2 07/03/19 08:00 Room Air 07/03/19 07:36 69 140/67 07/03/19 07:22 97.8 14 97 97.8 07/02/19 21:40 1.0 Physical Exam General: Alert, Oriented X3, Cooperative, No acute distress, mild distress Heart: Regular rate, Normal S1 Lungs: Clear Abdomen: Normal bowel sounds, Soft Extremities: No cyanosis Skin: Other Labs LABS Laboratory Tests Test 07/03/19 03:35 07/03/19 04:50 Sodium Level 140 mmol/L (136-145) Potassium Level 3.9 mmol/L (3.5-5.1) Chloride Level 109 mmol/L (98-107) Carbon Dioxide Level 23 mmol/L (21-32) Anion Gap 8 (6-14) Blood Urea Nitrogen 22 mg/dL (7-20) Creatinine 0.9 mg/dL (0.6-1.0) Estimated GFR (Cockcroft-Gault) 60.1 Glucose Level 104 mg/dL (70-99) Calcium Level 7.6 mg/dL (8.5-10.1) White Blood Count 7.8 x10^3/uL (4.0-11.0) Red Blood Count 2.47 x10^6/uL (3.50-5.40) Hemoglobin 7.4 g/dL (12.0-15.5) Hematocrit 21.7 % (36.0-47.0) Mean Corpuscular Volume 88 fL (79-100) Mean Corpuscular Hemoglobin 30 pg (25-35) Mean Corpuscular Hemoglobin Concent 34 g/dL (31-37) Red Cell Distribution Width 13.4 % (11.5-14.5) Platelet Count 354 x10^3/uL (140-400) Neutrophils (%) (Auto) 72 % (31-73) Lymphocytes (%) (Auto) 19 % (24-48) Monocytes (%) (Auto) 5 % (0-9) Eosinophils (%) (Auto) 4 % (0-3) Basophils (%) (Auto) 1 % (0-3) Neutrophils # (Auto) 5.6 x10^3/uL (1.8-7.7) Lymphocytes # (Auto) 1.5 x10^3/uL (1.0-4.8) Monocytes # (Auto) 0.4 x10^3/uL (0.0-1.1) Eosinophils # (Auto) 0.3 x10^3/uL (0.0-0.7) Basophils # (Auto) 0.1 x10^3/uL (0.0-0.2) Assessment and Plan Assessmemt and Plan Visit Type * Pt Declined Attempted Visit Details * Attempted visit. Pt yelling in [place] with any attempts at movement. Appeared at one time to state later Tuesday. Will attempt to followup later today or tomorrow. PT/ROLFER * Citlaly Bui PT Comment Review of Relevant I have reviewed the following items dick (where applicable) has been applied. Labs Laboratory Tests Test 07/02/19 03:15 07/03/19 03:35 07/03/19 04:50 White Blood Count 6.8 x10^3/uL (4.0-11.0) 7.8 x10^3/uL (4.0-11.0) Red Blood Count 2.44 x10^6/uL (3.50-5.40) 2.47 x10^6/uL (3.50-5.40) Hemoglobin 7.5 g/dL (12.0-15.5) 7.4 g/dL (12.0-15.5) Hematocrit 21.3 % (36.0-47.0) 21.7 % (36.0-47.0) Mean Corpuscular Volume 87 fL (79-100) 88 fL (79-100) Mean Corpuscular Hemoglobin 31 pg (25-35) 30 pg (25-35) Mean Corpuscular Hemoglobin Concent 35 g/dL (31-37) 34 g/dL (31-37) Red Cell Distribution Width 13.0 % (11.5-14.5) 13.4 % (11.5-14.5) Platelet Count 305 x10^3/uL (140-400) 354 x10^3/uL (140-400) Neutrophils (%) (Auto) 65 % (31-73) 72 % (31-73) Lymphocytes (%) (Auto) 26 % (24-48) 19 % (24-48) Monocytes (%) (Auto) 6 % (0-9) 5 % (0-9) Eosinophils (%) (Auto) 3 % (0-3) 4 % (0-3) Basophils (%) (Auto) 1 % (0-3) 1 % (0-3) Neutrophils # (Auto) 4.4 x10^3/uL (1.8-7.7) 5.6 x10^3/uL (1.8-7.7) Lymphocytes # (Auto) 1.8 x10^3/uL (1.0-4.8) 1.5 x10^3/uL (1.0-4.8) Monocytes # (Auto) 0.4 x10^3/uL (0.0-1.1) 0.4 x10^3/uL (0.0-1.1) Eosinophils # (Auto) 0.2 x10^3/uL (0.0-0.7) 0.3 x10^3/uL (0.0-0.7) Basophils # (Auto) 0.0 x10^3/uL (0.0-0.2) 0.1 x10^3/uL (0.0-0.2) Sodium Level 139 mmol/L (136-145) 140 mmol/L (136-145) Potassium Level 4.1 mmol/L (3.5-5.1) 3.9 mmol/L (3.5-5.1) Chloride Level 105 mmol/L (98-107) 109 mmol/L (98-107) Carbon Dioxide Level 25 mmol/L (21-32) 23 mmol/L (21-32) Anion Gap 9 (6-14) 8 (6-14) Blood Urea Nitrogen 29 mg/dL (7-20) 22 mg/dL (7-20) Creatinine 1.0 mg/dL (0.6-1.0) 0.9 mg/dL (0.6-1.0) Estimated GFR (Cockcroft-Gault) 53.2 60.1 Glucose Level 106 mg/dL (70-99) 104 mg/dL (70-99) Calcium Level 7.8 mg/dL (8.5-10.1) 7.6 mg/dL (8.5-10.1) Laboratory Tests Test 07/03/19 03:35 07/03/19 04:50 Sodium Level 140 mmol/L (136-145) Potassium Level 3.9 mmol/L (3.5-5.1) Chloride Level 109 mmol/L (98-107) Carbon Dioxide Level 23 mmol/L (21-32) Anion Gap 8 (6-14) Blood Urea Nitrogen 22 mg/dL (7-20) Creatinine 0.9 mg/dL (0.6-1.0) Estimated GFR (Cockcroft-Gault) 60.1 Glucose Level 104 mg/dL (70-99) Calcium Level 7.6 mg/dL (8.5-10.1) White Blood Count 7.8 x10^3/uL (4.0-11.0) Red Blood Count 2.47 x10^6/uL (3.50-5.40) Hemoglobin 7.4 g/dL (12.0-15.5) Hematocrit 21.7 % (36.0-47.0) Mean Corpuscular Volume 88 fL (79-100) Mean Corpuscular Hemoglobin 30 pg (25-35) Mean Corpuscular Hemoglobin Concent 34 g/dL (31-37) Red Cell Distribution Width 13.4 % (11.5-14.5) Platelet Count 354 x10^3/uL (140-400) Neutrophils (%) (Auto) 72 % (31-73) Lymphocytes (%) (Auto) 19 % (24-48) Monocytes (%) (Auto) 5 % (0-9) Eosinophils (%) (Auto) 4 % (0-3) Basophils (%) (Auto) 1 % (0-3) Neutrophils # (Auto) 5.6 x10^3/uL (1.8-7.7) Lymphocytes # (Auto) 1.5 x10^3/uL (1.0-4.8) Monocytes # (Auto) 0.4 x10^3/uL (0.0-1.1) Eosinophils # (Auto) 0.3 x10^3/uL (0.0-0.7) Basophils # (Auto) 0.1 x10^3/uL (0.0-0.2) Medications Current Medications Acetaminophen (Tylenol) 650 mg PRN Q6HRS PRN PO TEMP OVER 100.4F OR MILD PAIN Last administered on 06/26/19at 21:46; Start 06/26/19 at 01:30 Morphine Sulfate (Morphine Sulfate) 2 mg PRN Q2HR PRN IV PAIN Last administered on 06/28/19at 18:03; Start 06/26/19 at 01:30; Stop 06/29/19 at 16:11; Status DC Amlodipine Besylate (Norvasc) 5 mg DAILY PO Last administered on 06/28/19at 10:24; Start 06/26/19 at 09:00; Stop 06/28/19 at 10:56; Status DC Losartan Potassium (Cozaar) 100 mg DAILY PO Last administered on 07/03/19at 07:35; Start 06/26/19 at 09:00 Potassium Chloride (Klor-Con) 40 meq 1X ONCE PO Last administered on 06/26/19at 11:13; Start 06/26/19 at 09:15; Stop 06/26/19 at 09:16; Status DC Aspirin (Ecotrin) 81 mg DAILYWBKFT PO Last administered on 06/30/19at 07:54; Start 06/26/19 at 10:00; Stop 06/30/19 at 14:21; Status DC Metoprolol Tartrate (Lopressor) 25 mg BID PO Last administered on 07/03/19at 07:35; Start 06/26/19 at 10:00 Atorvastatin Calcium (Lipitor) 40 mg QHS PO Last administered on 07/02/19at 21:40; Start 06/26/19 at 21:00 Isosorbide Mononitrate (Imdur) 30 mg DAILY PO Last administered on 07/03/19at 07:35; Start 06/26/19 at 10:00 Vitamin D (Vitamin D3) 2,000 unit DAILY PO Last administered on 07/01/19at 07:25; Start 06/26/19 at 12:00; Stop 07/01/19 at 09:55; Status DC Ropinirole HCl (Requip) 0.5 mg QHS PO Last administered on 07/02/19at 21:41; Start 06/26/19 at 21:00 Acetaminophen/ Hydrocodone Bitart (Lortab 7.5/325) 1 tab PRN Q4HRS PRN PO PAIN; Start 06/26/19 at 13:30; Stop 06/26/19 at 13:23; Status DC Acetaminophen/ Hydrocodone Bitart (Lortab 7.5/325) 2 tab PRN Q4HRS PRN PO Mod/Severe pain, 2nd choice Last administered on 07/02/19at 03:15; Start 06/26/19 at 13:30 Ondansetron HCl (Zofran) 4 mg PRN Q6HRS PRN IV NAUSEA/VOMITING; Start 06/27/19 at 07:00; Stop 06/28/19 at 06:59; Status DC Fentanyl Citrate (Fentanyl 2ml Vial) 25 mcg PRN Q5MIN PRN IV MILD PAIN 1-3; Start 06/27/19 at 07:00; Stop 06/28/19 at 06:59; Status DC Fentanyl Citrate (Fentanyl 2ml Vial) 50 mcg PRN Q5MIN PRN IV MODERATE TO SEVERE PAIN; Start 06/27/19 at 07:00; Stop 06/28/19 at 06:59; Status DC Morphine Sulfate (Morphine Sulfate) 1 mg PRN Q10MIN PRN IV SEVERE PAIN 7-10; Start 06/27/19 at 07:00; Stop 06/28/19 at 06:59; Status DC Ringer's Solution 1,000 ml @ 30 mls/hr Q24H IV ; Start 06/27/19 at 07:00; Stop 06/27/19 at 18:59; Status DC Hydromorphone HCl (Dilaudid) 0.5 mg PRN Q10MIN PRN IV SEV PAIN, Second choice; Start 06/27/19 at 07:00; Stop 06/28/19 at 06:59; Status DC Prochlorperazine Edisylate (Compazine) 5 mg PACU PRN PRN IV NAUSEA, MRX1; Start 06/27/19 at 07:00; Stop 06/28/19 at 06:59; Status DC Amlodipine Besylate (Norvasc) 10 mg DAILY PO Last administered on 07/03/19at 07:36; Start 06/29/19 at 09:00 Amlodipine Besylate (Norvasc) 5 mg 1X ONCE PO ; Start 06/28/19 at 11:00; Stop 06/28/19 at 11:02; Status DC Ropivacaine 53.3 ml/Epinephrine HCl 0.6 mg/ Morphine Sulfate 5 mg/Sodium Chloride 100 ml @ 100 mls/hr 1X ONCE INT ART ; Start 06/29/19 at 06:00; Stop 06/29/19 at 06:59; Status DC Ondansetron HCl (Zofran) 4 mg PRN Q6HRS PRN IV NAUSEA/VOMITING; Start 06/29/19 at 07:00; Stop 06/29/19 at 20:00; Status DC Fentanyl Citrate (Fentanyl 2ml Vial) 25 mcg PRN Q5MIN PRN IV MILD PAIN 1-3; Start 06/29/19 at 07:00; Stop 06/29/19 at 20:00; Status DC Fentanyl Citrate (Fentanyl 2ml Vial) 50 mcg PRN Q5MIN PRN IV MODERATE TO SEVERE PAIN; Start 06/29/19 at 07:00; Stop 06/29/19 at 20:00; Status DC Morphine Sulfate (Morphine Sulfate) 1 mg PRN Q10MIN PRN IV SEVERE PAIN 7-10; Start 06/29/19 at 07:00; Stop 06/29/19 at 20:00; Status DC Ringer's Solution 1,000 ml @ 30 mls/hr Q24H IV ; Start 06/29/19 at 07:00; Stop 06/29/19 at 18:01; Status DC Lidocaine HCl (Xylocaine-Mpf 1% 2ml Vial) 2 ml PRN 1X PRN ID PRIOR TO IV START; Start 06/29/19 at 07:00; Stop 06/29/19 at 20:00; Status DC Hydromorphone HCl (Dilaudid) 0.5 mg PRN Q10MIN PRN IV SEV PAIN, Second choice; Start 06/29/19 at 07:00; Stop 06/29/19 at 20:00; Status DC Prochlorperazine Edisylate (Compazine) 5 mg PACU PRN PRN IV NAUSEA, MRX1; Start 06/29/19 at 07:00; Stop 06/29/19 at 20:00; Status DC Cefazolin Sodium/ Dextrose 50 ml @ 100 mls/hr 1X PREOP PRN IV SEE COMMENTS Last administered on 06/29/19at 14:19; Start 06/29/19 at 06:00; Stop 06/30/19 at 07:23; Status DC Ropivacaine 53.3 ml/Epinephrine HCl 0.6 mg/ Morphine Sulfate 5 mg/Sodium Chloride 100 ml @ 100 mls/hr 1X ONCE INT ART Last administered on 06/29/19at 15:00; Start 06/29/19 at 06:00; Stop 06/29/19 at 06:59; Status DC Sodium Chloride 1,000 ml @ 100 mls/hr 1X ONCE IV Last administered on 06/29/19at 09:11; Start 06/29/19 at 09:00; Stop 06/29/19 at 18:59; Status DC Propofol (Diprivan) 200 mg STK-MED ONCE IV ; Start 06/29/19 at 12:41; Stop 06/29/19 at 12:41; Status DC Lidocaine HCl (Lidocaine Pf 2% Vial) 5 ml STK-MED ONCE .ROUTE ; Start 06/29/19 at 12:41; Stop 06/29/19 at 12:41; Status DC Fentanyl Citrate (Fentanyl 2ml Vial) 100 mcg STK-MED ONCE .ROUTE ; Start 06/29/19 at 12:41; Stop 06/29/19 at 12:41; Status DC Vancomycin HCl (Vancomycin) 1 gm STK-MED ONCE .ROUTE ; Start 06/29/19 at 13:53; Stop 06/29/19 at 13:53; Status DC Dexamethasone Sodium Phosphate (Decadron) 4 mg STK-MED ONCE .ROUTE ; Start 06/29/19 at 14:18; Stop 06/29/19 at 14:18; Status DC Desflurane (Suprane) 30 ml STK-MED ONCE IH ; Start 06/29/19 at 14:18; Stop 06/29/19 at 14:18; Status DC Ondansetron HCl (Zofran) 4 mg STK-MED ONCE .ROUTE ; Start 06/29/19 at 14:48; Stop 06/29/19 at 14:48; Status DC Sevoflurane (Ultane) 60 ml STK-MED ONCE IH ; Start 06/29/19 at 15:23; Stop 06/29/19 at 15:23; Status DC Ephedrine Sulfate (ePHEDrine PF IN SALINE SYRINGE) 50 mg STK-MED ONCE IV ; Start 06/29/19 at 15:23; Stop 06/29/19 at 15:24; Status DC Morphine Sulfate (Morphine Sulfate) 2 mg PRN Q1HR PRN IVP MODERATE PAIN; Start 06/29/19 at 16:00 Fentanyl Citrate (Fentanyl 2ml Vial) 25 mcg PRN Q1HR PRN IVP PAIN UNRELIEVED BY MORPHINE Last administered on 07/01/19at 00:03; Start 06/29/19 at 16:00 Multivitamins (Thera M Plus) 1 tab DAILY PO Last administered on 07/03/19at 07:34; Start 06/30/19 at 09:00 Senna/Docusate Sodium (Senna Plus) 1 tab DAILY PO Last administered on 07/03/19at 07:34; Start 06/30/19 at 09:00 Polyethylene Glycol (miraLAX PACKET) 17 gm PRN DAILY PRN PO CONSTIPATION; Start 06/29/19 at 16:00 Sodium Chloride 1,000 ml @ 75 mls/hr [id number] IV Last administered on 06/30/19at 05:52; Start 06/29/19 at 15:57; Stop 06/30/19 at 23:43; Status DC Ondansetron HCl (Zofran) 4 mg PRN Q4HRS PRN IVP NAUSEA/VOMITING; Start 06/29/19 at 16:00 Aspirin (Cas Aspirin) 325 mg DAILYWBKFT PO Last administered on 07/03/19at 07:34; Start 06/30/19 at 08:00 Magnesium Hydroxide (Milk Of Magnesia) 2,400 mg 1X PRN PRN PO CONSTIPATION; Start 06/30/19 at 06:00; Stop 07/01/19 at 05:59; Status DC Bisacodyl (Dulcolax Supp) 10 mg 1X PRN PRN CA CONSTIPATION; Start 06/30/19 at 16:00; Stop 07/01/19 at 15:59; Status DC Morphine Sulfate (Morphine Sulfate) 4 mg PRN Q2HR PRN IVP SEVERE PAIN Last administered on 07/01/19at 07:26; Start 06/29/19 at 16:00 Dextrose (Dextrose 50%-Water Syringe) 12.5 gm PRN Q15MIN PRN IV SEE COMMENTS; Start 06/29/19 at 16:00 Cefazolin Sodium/ Dextrose 50 ml @ 100 mls/hr Q6H IV Last administered on 06/30/19at 11:12; Start 06/29/19 at 22:00; Stop 06/30/19 at 10:29; Status DC Oxycodone/ Acetaminophen (Percocet 5/325) 1 tab PRN Q4HRS PRN PO MODERATE PAIN Last administered on 07/02/19at 21:40; Start 06/29/19 at 16:00 Oxycodone/ Acetaminophen (Percocet 5/325) 2 tab PRN Q4HRS PRN PO SEVERE PAIN; Start 06/29/19 at 16:15 Vitamin B Complex (Folbic Tablet) 1 tab DAILY PO Last administered on 07/03/19at 07:34; Start 07/01/19 at 10:00 Ferrous Sulfate (Feosol) 325 mg DAILYWBKFT PO Last administered on 07/03/19at 07:34; Start 07/01/19 at 10:00 Vitamin D (Vitamin D3) 5,000 unit DAILY PO Last administered on 07/03/19at 07:34; Start 07/02/19 at 09:00 Sodium Chloride 500 ml @ 500 mls/hr 1X ONCE IV Last administered on 07/02/19at 17:31; Start 07/02/19 at 17:00; Stop 07/02/19 at 17:59; Status DC Sodium Chloride 1,000 ml @ 100 mls/hr Q10H IV Last administered on 07/03/19at 05:14; Start 5/25/20 at 17:00 Active Scripts Active Reported Vitamin D-3 (Cholecalciferol (Vitamin D3)) 2,000 Unit Tablet 2,000 Unit PO DAILY Ropinirole Hcl 0.5 Mg Tablet 0.5 Mg PO QHS Losartan Potassium 100 Mg Tablet 100 Mg PO DAILY Amlodipine Besylate 5 Mg Tablet 5 Mg PO DAILY Vitals/I & O Vital Sign - Last 24 Hours 07/02/19 07/02/19 07/02/19 07/02/19 14:25 19:00 20:00 21:37 Temp 97.5 98.8 97.5 98.8 Pulse 70 84 70 Resp 14 16 B/P (MAP) 111/58 (75) 107/64 (78) 111/58 Pulse Ox 95 93 O2 Delivery Room Air Room Air 07/02/19 07/02/19 07/03/19 07/03/19 21:40 23:00 03:00 07:22 Temp 98.6 98.6 97.8 98.6 98.6 97.8 Pulse 88 78 69 Resp 20 18 14 B/P (MAP) 122/75 (91) 114/61 (78) 140/67 (91) Pulse Ox 95 96 94 97 O2 Delivery Room Air Room Air O2 Flow Rate 1.0 07/03/19 07/03/19 07/03/19 07/03/19 07:35 07:35 07:35 07:36 Pulse 69 69 69 69 B/P (MAP) 140/67 140/67 140/67 140/67 07/03/19 08:00 O2 Delivery Room Air Intake and Output 07/02/19 07/02/19 07/03/19 15:00 23:00 07:00 Intake Total 100 ml Output Total 325 ml Balance 100 ml -325 ml Nutrition Consultation Dietary Evaluation: Recommendations by RD: Dietary education by RD, Increase Calorie Intake, Protein supplementation Comments: Continue w/cardiac diet as ordered, honor food preferences, and provide snacks as requested REC Ensure w/dinner (vanilla) Expected Outcomes/Goals: PO intake to meet >75% est needs Malnutrition Findings: Food and Nutrition Intake (Mod: <75% est energy req 7days Body Fat Depletion (Non Severe: Mild Depletion Weight Status: Appropriate PAUL GREENE MD July 03, 2019 11:06
[2019-07-03] MEDS: oxyCODONE/APAP 5/325 1 TAB TABLET PO PRN (11:23)
[2019-07-03 14:59] VITALS: BP 123/60
--- NOTE | 2019-07-03 15:19 | NUR ---
SS following up with discharge planning. SS reviewed pt chart and discussed with pt RN. PT/OT recommended senior living unit. Pt is currently on room air. SS discussed with pt's family and pt's family had no preference facility as long as it was in [place]. SS discussed [facility] with pt's family and pt's family was agreeable. SS phoned and faxed referral to [facility], ; fax [phone]. SS will await acceptance decision and will proceed accordingly.
[2019-07-03 19:00] VITALS: BP 116/58
[2019-07-03] MEDS: rOPINIRole 0.25 MG TABLET. PO SCH (21:29)
[2019-07-03] MEDS: ATORVASTATIN CALCIUM 40 MG TABLET. PO SCH (21:29)
[2019-07-03 22:55] VITALS: BP 131/55
[2019-07-04] MEDS: oxyCODONE/APAP 5/325 1 TAB TABLET PO PRN (01:23)
[2019-07-04 02:42] LABS: BASO % 1 % (0-3); EOS # 0.2 x10^3/uL (0.0-0.7); EOS % 4 % (0-3); HEMATOCRIT 21.2 % (36.0-47.0); HEMOGLOBIN 7.4 g/dL (12.0-15.5); LYMPH # 1.1 x10^3/uL (1.0-4.8); LYMPH % 17 % (24-48); MEAN CORPUSCULAR HEMOGLOBIN 31 pg (25-35); MEAN CORPUSCULAR HGB CONC 35 g/dL (31-37); MEAN CORPUSCULAR VOLUME 88 fL (79-100); MONO # 0.3 x10^3/uL (0.0-1.1); MONO % 5 % (0-9); NEUT # 4.9 x10^3/uL (1.8-7.7); NEUT % 74 % (31-73); PLATELET COUNT 399 x10^3/uL (140-400); RED BLOOD COUNT 2.42 x10^6/uL (3.50-5.40); RED CELL DISTRIBUTION WIDTH 13.4 % (11.5-14.5); WHITE BLOOD COUNT 6.6 x10^3/uL (4.0-11.0)
[2019-07-04 02:55] VITALS: BP 141/68
[2019-07-04 03:09] LABS: CALCIUM 7.6 mg/dL (8.5-10.1); CREATININE 0.8 mg/dL (0.6-1.0); GFR 68.8; POTASSIUM 3.3 mmol/L (3.5-5.1)
[2019-07-04 07:15] VITALS: BP 137/68
[2019-07-04] MEDS: CHOLECALCIFEROL (VITAMIN D3) 5,000 UNIT CAPSULE PO SCH (08:06)
[2019-07-04] MEDS: FERROUS SULFATE 325 MG TABLET. PO SCH (08:09)
[2019-07-04] MEDS: ASPIRIN 325 MG TABLET PO SCH (08:09)
[2019-07-04] MEDS: MULTIVITAMIN with MINERAL TABLET. PO SCH (08:09)
[2019-07-04] MEDS: METOPROLOL TART IMMED RELEASE 25 MG TABLET. PO SCH (08:10)
[2019-07-04] MEDS: ISOSORBIDE MONONITRATE ER 30 MG TAB.ER.24H PO SCH (08:11)
[2019-07-04] MEDS: VITAMIN B12,B9,B6 COMPLEX 1 TABLET. PO SCH (08:11)
[2019-07-04] MEDS: amLODIPine BESYLATE 10 MG TABLET PO SCH (08:11)
[2019-07-04] MEDS: LOSARTAN POTASSIUM 50 MG TABLET. PO SCH (08:12)
[2019-07-04] MEDS: SENNOSIDES/DOCUSATE 8.6/50MG TABLET. PO SCH (08:15)
--- NOTE | 2019-07-04 10:24 | PDOC ---
PROGRESS NOTES Chief Complaint Chief Complaint DISCHARGE DX Fall with hip fracture s/p surg dementia, oriented to self vasomotor nephropathy acute post op anemia, expected, will give B complex, iron, increase Vit D poor intake, due to food preferences hypokalemia, anemia and elevated troponin. triple vessel coronary disease hypokalemia on replacement rx D/W RN poor po intake 07/02, cont iv fluids 07/03 ACCEPTED AT [facility] D/C PLANNING 28 MIN History of Present Illness History of Present Illness PT and OT needs skilled d/w rn doing well post op no event pain OK, Operative Note Operative Note Date of Procedure: June 29, 2019 Pre-Op Diagnosis: Displaced mid cervical fracture of left femur, initial encounter for closed fracture S72.032A Post-Op Diagnosis: same Procedure: left hip open treatment of femoral fracture, proximal end, neck, prosthetic replacement, CPT 73856 Anesthesia Type: General Surgeon: Partha Kapoor MD Truck Manager: SMITH Marie EBL: 100 mL Specimens Obtained: left femoral head Complications: None Drains: None Vitals Vitals Vital Signs Date Time Temp Pulse Resp B/P (MAP) Pulse Ox O2 Delivery O2 Flow Rate FiO2 07/04/19 08:12 74 137/68 07/04/19 08:00 Room Air 07/04/19 07:15 98.4 16 96 98.4 Physical Exam General: Alert, Oriented X3, Cooperative, No acute distress, mild distress Heart: Regular rate, Normal S1 Lungs: Clear Abdomen: Normal bowel sounds, Soft Extremities: No cyanosis Skin: Other Labs LABS Laboratory Tests Test 07/04/19 01:41 White Blood Count 6.6 x10^3/uL (4.0-11.0) Red Blood Count 2.42 x10^6/uL (3.50-5.40) Hemoglobin 7.4 g/dL (12.0-15.5) Hematocrit 21.2 % (36.0-47.0) Mean Corpuscular Volume 88 fL (79-100) Mean Corpuscular Hemoglobin 31 pg (25-35) Mean Corpuscular Hemoglobin Concent 35 g/dL (31-37) Red Cell Distribution Width 13.4 % (11.5-14.5) Platelet Count 399 x10^3/uL (140-400) Neutrophils (%) (Auto) 74 % (31-73) Lymphocytes (%) (Auto) 17 % (24-48) Monocytes (%) (Auto) 5 % (0-9) Eosinophils (%) (Auto) 4 % (0-3) Basophils (%) (Auto) 1 % (0-3) Neutrophils # (Auto) 4.9 x10^3/uL (1.8-7.7) Lymphocytes # (Auto) 1.1 x10^3/uL (1.0-4.8) Monocytes # (Auto) 0.3 x10^3/uL (0.0-1.1) Eosinophils # (Auto) 0.2 x10^3/uL (0.0-0.7) Basophils # (Auto) 0.0 x10^3/uL (0.0-0.2) Sodium Level 140 mmol/L (136-145) Potassium Level 3.3 mmol/L (3.5-5.1) Chloride Level 109 mmol/L (98-107) Carbon Dioxide Level 23 mmol/L (21-32) Anion Gap 8 (6-14) Blood Urea Nitrogen 15 mg/dL (7-20) Creatinine 0.8 mg/dL (0.6-1.0) Estimated GFR (Cockcroft-Gault) 68.8 Glucose Level 103 mg/dL (70-99) Calcium Level 7.6 mg/dL (8.5-10.1) Comment Review of Relevant I have reviewed the following items dick (where applicable) has been applied. Labs Laboratory Tests Test 07/03/19 03:35 07/03/19 04:50 07/04/19 01:41 Sodium Level 140 mmol/L (136-145) 140 mmol/L (136-145) Potassium Level 3.9 mmol/L (3.5-5.1) 3.3 mmol/L (3.5-5.1) Chloride Level 109 mmol/L (98-107) 109 mmol/L (98-107) Carbon Dioxide Level 23 mmol/L (21-32) 23 mmol/L (21-32) Anion Gap 8 (6-14) 8 (6-14) Blood Urea Nitrogen 22 mg/dL (7-20) 15 mg/dL (7-20) Creatinine 0.9 mg/dL (0.6-1.0) 0.8 mg/dL (0.6-1.0) Estimated GFR (Cockcroft-Gault) 60.1 68.8 Glucose Level 104 mg/dL (70-99) 103 mg/dL (70-99) Calcium Level 7.6 mg/dL (8.5-10.1) 7.6 mg/dL (8.5-10.1) White Blood Count 7.8 x10^3/uL (4.0-11.0) 6.6 x10^3/uL (4.0-11.0) Red Blood Count 2.47 x10^6/uL (3.50-5.40) 2.42 x10^6/uL (3.50-5.40) Hemoglobin 7.4 g/dL (12.0-15.5) 7.4 g/dL (12.0-15.5) Hematocrit 21.7 % (36.0-47.0) 21.2 % (36.0-47.0) Mean Corpuscular Volume 88 fL (79-100) 88 fL (79-100) Mean Corpuscular Hemoglobin 30 pg (25-35) 31 pg (25-35) Mean Corpuscular Hemoglobin Concent 34 g/dL (31-37) 35 g/dL (31-37) Red Cell Distribution Width 13.4 % (11.5-14.5) 13.4 % (11.5-14.5) Platelet Count 354 x10^3/uL (140-400) 399 x10^3/uL (140-400) Neutrophils (%) (Auto) 72 % (31-73) 74 % (31-73) Lymphocytes (%) (Auto) 19 % (24-48) 17 % (24-48) Monocytes (%) (Auto) 5 % (0-9) 5 % (0-9) Eosinophils (%) (Auto) 4 % (0-3) 4 % (0-3) Basophils (%) (Auto) 1 % (0-3) 1 % (0-3) Neutrophils # (Auto) 5.6 x10^3/uL (1.8-7.7) 4.9 x10^3/uL (1.8-7.7) Lymphocytes # (Auto) 1.5 x10^3/uL (1.0-4.8) 1.1 x10^3/uL (1.0-4.8) Monocytes # (Auto) 0.4 x10^3/uL (0.0-1.1) 0.3 x10^3/uL (0.0-1.1) Eosinophils # (Auto) 0.3 x10^3/uL (0.0-0.7) 0.2 x10^3/uL (0.0-0.7) Basophils # (Auto) 0.1 x10^3/uL (0.0-0.2) 0.0 x10^3/uL (0.0-0.2) Laboratory Tests Test 07/04/19 01:41 White Blood Count 6.6 x10^3/uL (4.0-11.0) Red Blood Count 2.42 x10^6/uL (3.50-5.40) Hemoglobin 7.4 g/dL (12.0-15.5) Hematocrit 21.2 % (36.0-47.0) Mean Corpuscular Volume 88 fL (79-100) Mean Corpuscular Hemoglobin 31 pg (25-35) Mean Corpuscular Hemoglobin Concent 35 g/dL (31-37) Red Cell Distribution Width 13.4 % (11.5-14.5) Platelet Count 399 x10^3/uL (140-400) Neutrophils (%) (Auto) 74 % (31-73) Lymphocytes (%) (Auto) 17 % (24-48) Monocytes (%) (Auto) 5 % (0-9) Eosinophils (%) (Auto) 4 % (0-3) Basophils (%) (Auto) 1 % (0-3) Neutrophils # (Auto) 4.9 x10^3/uL (1.8-7.7) Lymphocytes # (Auto) 1.1 x10^3/uL (1.0-4.8) Monocytes # (Auto) 0.3 x10^3/uL (0.0-1.1) Eosinophils # (Auto) 0.2 x10^3/uL (0.0-0.7) Basophils # (Auto) 0.0 x10^3/uL (0.0-0.2) Sodium Level 140 mmol/L (136-145) Potassium Level 3.3 mmol/L (3.5-5.1) Chloride Level 109 mmol/L (98-107) Carbon Dioxide Level 23 mmol/L (21-32) Anion Gap 8 (6-14) Blood Urea Nitrogen 15 mg/dL (7-20) Creatinine 0.8 mg/dL (0.6-1.0) Estimated GFR (Cockcroft-Gault) 68.8 Glucose Level 103 mg/dL (70-99) Calcium Level 7.6 mg/dL (8.5-10.1) Medications Current Medications Acetaminophen (Tylenol) 650 mg PRN Q6HRS PRN PO TEMP OVER 100.4F OR MILD PAIN Last administered on 06/26/19at 21:46; Start 06/26/19 at 01:30 Morphine Sulfate (Morphine Sulfate) 2 mg PRN Q2HR PRN IV PAIN Last administered on 06/28/19at 18:03; Start 06/26/19 at 01:30; Stop 06/29/19 at 16:11; Status DC Amlodipine Besylate (Norvasc) 5 mg DAILY PO Last administered on 06/28/19at 10:24; Start 06/26/19 at 09:00; Stop 06/28/19 at 10:56; Status DC Losartan Potassium (Cozaar) 100 mg DAILY PO Last administered on 07/04/19at 08:12; Start 06/26/19 at 09:00 Potassium Chloride (Klor-Con) 40 meq 1X ONCE PO Last administered on 06/26/19at 11:13; Start 06/26/19 at 09:15; Stop 06/26/19 at 09:16; Status DC Aspirin (Ecotrin) 81 mg DAILYWBKFT PO Last administered on 06/30/19at 07:54; Start 06/26/19 at 10:00; Stop 06/30/19 at 14:21; Status DC Metoprolol Tartrate (Lopressor) 25 mg BID PO Last administered on 07/04/19at 08:10; Start 06/26/19 at 10:00 Atorvastatin Calcium (Lipitor) 40 mg QHS PO Last administered on 07/03/19at 21:29; Start 06/26/19 at 21:00 Isosorbide Mononitrate (Imdur) 30 mg DAILY PO Last administered on 07/04/19at 08:11; Start 06/26/19 at 10:00 Vitamin D (Vitamin D3) 2,000 unit DAILY PO Last administered on 07/01/19at 07:25; Start 06/26/19 at 12:00; Stop 07/01/19 at 09:55; Status DC Ropinirole HCl (Requip) 0.5 mg QHS PO Last administered on 07/03/19at 21:29; Start 06/26/19 at 21:00 Acetaminophen/ Hydrocodone Bitart (Lortab 7.5/325) 1 tab PRN Q4HRS PRN PO PAIN; Start 06/26/19 at 13:30; Stop 06/26/19 at 13:23; Status DC Acetaminophen/ Hydrocodone Bitart (Lortab 7.5/325) 2 tab PRN Q4HRS PRN PO Mod/Severe pain, 2nd choice Last administered on 07/02/19at 03:15; Start 06/26/19 at 13:30 Ondansetron HCl (Zofran) 4 mg PRN Q6HRS PRN IV NAUSEA/VOMITING; Start 06/27/19 at 07:00; Stop 06/28/19 at 06:59; Status DC Fentanyl Citrate (Fentanyl 2ml Vial) 25 mcg PRN Q5MIN PRN IV MILD PAIN 1-3; Start 06/27/19 at 07:00; Stop 06/28/19 at 06:59; Status DC Fentanyl Citrate (Fentanyl 2ml Vial) 50 mcg PRN Q5MIN PRN IV MODERATE TO SEVERE PAIN; Start 06/27/19 at 07:00; Stop 06/28/19 at 06:59; Status DC Morphine Sulfate (Morphine Sulfate) 1 mg PRN Q10MIN PRN IV SEVERE PAIN 7-10; Start 06/27/19 at 07:00; Stop 06/28/19 at 06:59; Status DC Ringer's Solution 1,000 ml @ 30 mls/hr Q24H IV ; Start 06/27/19 at 07:00; Stop 06/27/19 at 18:59; Status DC Hydromorphone HCl (Dilaudid) 0.5 mg PRN Q10MIN PRN IV SEV PAIN, Second choice; Start 06/27/19 at 07:00; Stop 06/28/19 at 06:59; Status DC Prochlorperazine Edisylate (Compazine) 5 mg PACU PRN PRN IV NAUSEA, MRX1; Start 06/27/19 at 07:00; Stop 06/28/19 at 06:59; Status DC Amlodipine Besylate (Norvasc) 10 mg DAILY PO Last administered on 07/04/19at 08:11; Start 06/29/19 at 09:00 Amlodipine Besylate (Norvasc) 5 mg 1X ONCE PO ; Start 06/28/19 at 11:00; Stop 06/28/19 at 11:02; Status DC Ropivacaine 53.3 ml/Epinephrine HCl 0.6 mg/ Morphine Sulfate 5 mg/Sodium Chloride 100 ml @ 100 mls/hr 1X ONCE INT ART ; Start 06/29/19 at 06:00; Stop 06/29/19 at 06:59; Status DC Ondansetron HCl (Zofran) 4 mg PRN Q6HRS PRN IV NAUSEA/VOMITING; Start 06/29/19 at 07:00; Stop 06/29/19 at 20:00; Status DC Fentanyl Citrate (Fentanyl 2ml Vial) 25 mcg PRN Q5MIN PRN IV MILD PAIN 1-3; Start 06/29/19 at 07:00; Stop 06/29/19 at 20:00; Status DC Fentanyl Citrate (Fentanyl 2ml Vial) 50 mcg PRN Q5MIN PRN IV MODERATE TO SEVERE PAIN; Start 06/29/19 at 07:00; Stop 06/29/19 at 20:00; Status DC Morphine Sulfate (Morphine Sulfate) 1 mg PRN Q10MIN PRN IV SEVERE PAIN 7-10; Start 06/29/19 at 07:00; Stop 06/29/19 at 20:00; Status DC Ringer's Solution 1,000 ml @ 30 mls/hr Q24H IV ; Start 06/29/19 at 07:00; Stop 06/29/19 at 18:01; Status DC Lidocaine HCl (Xylocaine-Mpf 1% 2ml Vial) 2 ml PRN 1X PRN ID PRIOR TO IV START; Start 06/29/19 at 07:00; Stop 06/29/19 at 20:00; Status DC Hydromorphone HCl (Dilaudid) 0.5 mg PRN Q10MIN PRN IV SEV PAIN, Second choice; Start 06/29/19 at 07:00; Stop 06/29/19 at 20:00; Status DC Prochlorperazine Edisylate (Compazine) 5 mg PACU PRN PRN IV NAUSEA, MRX1; Start 06/29/19 at 07:00; Stop 06/29/19 at 20:00; Status DC Cefazolin Sodium/ Dextrose 50 ml @ 100 mls/hr 1X PREOP PRN IV SEE COMMENTS Last administered on 06/29/19at 14:19; Start 06/29/19 at 06:00; Stop 06/30/19 at 07:23; Status DC Ropivacaine 53.3 ml/Epinephrine HCl 0.6 mg/ Morphine Sulfate 5 mg/Sodium Chloride 100 ml @ 100 mls/hr 1X ONCE INT ART Last administered on 06/29/19at 15:00; Start 06/29/19 at 06:00; Stop 06/29/19 at 06:59; Status DC Sodium Chloride 1,000 ml @ 100 mls/hr 1X ONCE IV Last administered on 06/29/19at 09:11; Start 06/29/19 at 09:00; Stop 06/29/19 at 18:59; Status DC Propofol (Diprivan) 200 mg STK-MED ONCE IV ; Start 06/29/19 at 12:41; Stop 06/28 at 12:41; Status DC Lidocaine HCl (Lidocaine Pf 2% Vial) 5 ml STK-MED ONCE .ROUTE ; Start 06/29/19 at 12:41; Stop 06/29/19 at 12:41; Status DC Fentanyl Citrate (Fentanyl 2ml Vial) 100 mcg STK-MED ONCE .ROUTE ; Start 06/29/19 at 12:41; Stop 06/29/19 at 12:41; Status DC Vancomycin HCl (Vancomycin) 1 gm STK-MED ONCE .ROUTE ; Start 06/29/19 at 13:53; Stop 06/29/19 at 13:53; Status DC Dexamethasone Sodium Phosphate (Decadron) 4 mg STK-MED ONCE .ROUTE ; Start 06/29/19 at 14:18; Stop 06/29/19 at 14:18; Status DC Desflurane (Suprane) 30 ml STK-MED ONCE IH ; Start 06/29/19 at 14:18; Stop 06/29/19 at 14:18; Status DC Ondansetron HCl (Zofran) 4 mg STK-MED ONCE .ROUTE ; Start 06/29/19 at 14:48; Stop 06/29/19 at 14:48; Status DC Sevoflurane (Ultane) 60 ml STK-MED ONCE IH ; Start 06/29/19 at 15:23; Stop 06/29/19 at 15:23; Status DC Ephedrine Sulfate (ePHEDrine PF IN SALINE SYRINGE) 50 mg STK-MED ONCE IV ; Start 06/29/19 at 15:23; Stop 06/29/19 at 15:24; Status DC Morphine Sulfate (Morphine Sulfate) 2 mg PRN Q1HR PRN IVP MODERATE PAIN; Start 06/29/19 at 16:00 Fentanyl Citrate (Fentanyl 2ml Vial) 25 mcg PRN Q1HR PRN IVP PAIN UNRELIEVED BY MORPHINE Last administered on 07/01/19at 00:03; Start 06/29/19 at 16:00 Multivitamins (Thera M Plus) 1 tab DAILY PO Last administered on 07/04/19at 08:09; Start 06/30/19 at 09:00 Senna/Docusate Sodium (Senna Plus) 1 tab DAILY PO Last administered on at 08:15; Start 06/30/19 at 09:00 Polyethylene Glycol (miraLAX PACKET) 17 gm PRN DAILY PRN PO CONSTIPATION; Start 06/29/19 at 16:00 Sodium Chloride 1,000 ml @ 75 mls/hr [id number] IV Last administered on 06/30/19at 05:52; Start 06/29/19 at 15:57; Stop 06/30/19 at 23:43; Status DC Ondansetron HCl (Zofran) 4 mg PRN Q4HRS PRN IVP NAUSEA/VOMITING; Start 06/29/19 at 16:00 Aspirin (Cas Aspirin) 325 mg DAILYWBKFT PO Last administered on 07/04/19at 08:09; Start 06/30/19 at 08:00 Magnesium Hydroxide (Milk Of Magnesia) 2,400 mg 1X PRN PRN PO CONSTIPATION; Start 06/30/19 at 06:00; Stop 07/01/19 at 05:59; Status DC Bisacodyl (Dulcolax Supp) 10 mg 1X PRN PRN [place] CONSTIPATION; Start 06/30/19 at 16:00; Stop 07/01/19 at 15:59; Status DC Morphine Sulfate (Morphine Sulfate) 4 mg PRN Q2HR PRN IVP SEVERE PAIN Last administered on 07/01/19at 07:26; Start 06/29/19 at 16:00 Dextrose (Dextrose 50%-Water Syringe) 12.5 gm PRN Q15MIN PRN IV SEE COMMENTS; Start 06/29/19 at 16:00 Cefazolin Sodium/ Dextrose 50 ml @ 100 mls/hr Q6H IV Last administered on 06/30/19at 11:12; Start 06/29/19 at 22:00; Stop 06/30/19 at 10:29; Status DC Oxycodone/ Acetaminophen (Percocet 5/325) 1 tab PRN Q4HRS PRN PO MODERATE PAIN Last administered on 07/04/19at 01:23; Start 06/29/19 at 16:00 Oxycodone/ Acetaminophen (Percocet 5/325) 2 tab PRN Q4HRS PRN PO SEVERE PAIN; Start 06/29/19 at 16:15 Vitamin B Complex (Folbic Tablet) 1 tab DAILY PO Last administered on 07/04/19at 08:11; Start 07/01/19 at 10:00 Ferrous Sulfate (Feosol) 325 mg DAILYWBKFT PO Last administered on 07/04/19at 08:09; Start 07/01/19 at 10:00 Vitamin D (Vitamin D3) 5,000 unit DAILY PO Last administered on 07/04/19at 08:06; Start 07/02/19 at 09:00 Sodium Chloride 500 ml @ 500 mls/hr 1X ONCE IV Last administered on 07/02/19at 17:31; Start 07/02/19 at 17:00; Stop 07/02/19 at 17:59; Status DC Sodium Chloride 1,000 ml @ 100 mls/hr Q10H IV Last administered on 07/03/19at 05:14; Start 07/02/19 at 17:00; Stop 07/03/19 at 19:47; Status DC Active Scripts Active Reported Vitamin D-3 (Cholecalciferol (Vitamin D3)) 2,000 Unit Tablet 2,000 Unit PO DAILY Ropinirole Hcl 0.5 Mg Tablet 0.5 Mg PO QHS Losartan Potassium 100 Mg Tablet 100 Mg PO DAILY Amlodipine Besylate 5 Mg Tablet 5 Mg PO DAILY Vitals/I & O Vital Sign - Last 24 Hours 07/03/19 07/03/19 07/03/19 07/03/19 11:04 11:23 14:59 19:00 Temp 98.0 97.8 98.4 98.0 97.8 98.4 Pulse 75 64 83 Resp 16 16 17 B/P (MAP) 134/58 (83) 123/60 (81) 116/58 (77) Pulse Ox 95 95 97 O2 Delivery Room Air Room Air Room Air Room Air 07/03/19 07/03/19 07/03/19 07/04/19 20:00 21:29 22:55 01:23 Temp 98.7 98.7 Pulse 83 69 Resp 18 B/P (MAP) 116/58 131/55 (80) Pulse Ox 98 O2 Delivery Room Air Room Air Room Air 07/04/19 07/04/19 07/04/19 07/04/19 02:33 02:55 07:15 08:00 Temp 97.4 98.4 97.4 98.4 Pulse 79 74 Resp 18 16 B/P (MAP) 141/68 (92) 137/68 (91) Pulse Ox 94 96 O2 Delivery Room Air Room Air Room Air Room Air 07/04/19 07/04/19 07/04/19 07/04/19 08:10 08:11 08:11 08:12 Pulse 74 74 74 74 B/P (MAP) 137/68 137/68 137/68 137/68 Intake and Output 07/03/19 07/03/19 07/04/19 15:00 23:00 07:00 Intake Total 200 ml 520 ml 120 ml Balance 200 ml 520 ml 120 ml Nutrition Consultation Dietary Evaluation: Recommendations by RD: Dietary education by RD, Increase Calorie Intake, Protein supplementation Comments: Continue w/cardiac diet as ordered, honor food preferences, and provide snacks as requested REC Ensure w lunch and dinner Expected Outcomes/Goals: PO intake to meet >75% est needs- not met, goal ongoing Malnutrition Findings: Food and Nutrition Intake (Mod: <75% est energy req 7days Body Fat Depletion (Non Severe: Mild Depletion Weight Status: Appropriate PAUL GREENE MD July 04, 2019 10:24
[2019-07-04] MEDS ORDERED: POTASSIUM CHLORIDE 20 MEQ TABLET.ER. PO ONE ×2 (10:30)
--- NOTE | 2019-07-04 10:31 | PDOC ---
CARDIO Progress Notes Date and Time Date of Service 07/04/19 Time of Evaluation 1020 Subjective Subjective: No Chest Pain, No shortness of breath Vitals Vitals Vital Signs Date Time Temp Pulse Resp B/P (MAP) Pulse Ox O2 Delivery O2 Flow Rate FiO2 07/04/19 08:12 74 137/68 07/04/19 08:00 Room Air 07/04/19 07:15 98.4 16 96 98.4 Weight Weight [ ] Input and Output Intake and Output Intake and Output 07/04/19 07:00 Intake Total 840 ml Balance 840 ml Intake Oral 840 ml # Voids 8 Laboratory Labs Laboratory Tests Test 07/04/19 01:41 White Blood Count 6.6 x10^3/uL (4.0-11.0) Red Blood Count 2.42 x10^6/uL (3.50-5.40) Hemoglobin 7.4 g/dL (12.0-15.5) Hematocrit 21.2 % (36.0-47.0) Mean Corpuscular Volume 88 fL (79-100) Mean Corpuscular Hemoglobin 31 pg (25-35) Mean Corpuscular Hemoglobin Concent 35 g/dL (31-37) Red Cell Distribution Width 13.4 % (11.5-14.5) Platelet Count 399 x10^3/uL (140-400) Neutrophils (%) (Auto) 74 % (31-73) Lymphocytes (%) (Auto) 17 % (24-48) Monocytes (%) (Auto) 5 % (0-9) Eosinophils (%) (Auto) 4 % (0-3) Basophils (%) (Auto) 1 % (0-3) Neutrophils # (Auto) 4.9 x10^3/uL (1.8-7.7) Lymphocytes # (Auto) 1.1 x10^3/uL (1.0-4.8) Monocytes # (Auto) 0.3 x10^3/uL (0.0-1.1) Eosinophils # (Auto) 0.2 x10^3/uL (0.0-0.7) Basophils # (Auto) 0.0 x10^3/uL (0.0-0.2) Sodium Level 140 mmol/L (136-145) Potassium Level 3.3 mmol/L (3.5-5.1) Chloride Level 109 mmol/L (98-107) Carbon Dioxide Level 23 mmol/L (21-32) Anion Gap 8 (6-14) Blood Urea Nitrogen 15 mg/dL (7-20) Creatinine 0.8 mg/dL (0.6-1.0) Estimated GFR (Cockcroft-Gault) 68.8 Glucose Level 103 mg/dL (70-99) Calcium Level 7.6 mg/dL (8.5-10.1) Physical Exam HEENT: Neck Supple W Full Motion Chest: Symmetric LUNGS: Clear to Auscultation Heart: S1S2, RRR (heart tones regular. Not on tele) Abdomen: Soft N/T Extremities: No Edema, Other (drsg intact to left hip) Neurology: alert, follow commands, confused Assessment Assessment 1. Mechanical fall with acute displaced left femoral neck fracture; s/p surgical intervention. Tolerated surgery well. POD #5 2. CAD; severe 3VD. Medically managed given advanced age, dementia, and comorbidities. Echo shows preserved LV systolic function 3. Hypertension; controlled 4. Mild troponin elevation; peak 0.07. Most probable type II, demand ischemia. CP free. 5. Hyperlipidemia; statin 6. Dementia 7. Post op anemia; hgb stable 8. Hypokalemia Recommendations Replace K, Check Mg and replace as warranted Continue secondary prevention measures; ASA/lipitor/metoprolol/losartan/Imdur Resume Plavix when okay from surgical standpoint Supportive care Continue post-op management as per TU Hebert APRN July 04, 2019 10:31
[2019-07-04 10:56] VITALS: BP 128/71
--- NOTE | 2019-07-04 11:19 | NUR ---
SS following up with discharge planning. SS reviewed pt chart and discussed with pt RN. Pt accepted at [facility]. Report#[phone]; fax# [phone]. Dr. Og notified. SS will continue to follow for discharge planning.
--- NOTE | 2019-07-04 11:36 | PDOC3 ---
Discharge Summary Date of Admission: June 26, 2019 Date of Discharge: July 04, 2019 Follow-Up: 1-2 days Admitting Diagnosis comment: DISCHARGE DX Fall with hip fracture s/p surg dementia, oriented to self vasomotor nephropathy acute post op anemia, expected, will give B complex, iron, increase Vit D poor intake, due to food preferences hypokalemia, anemia and elevated troponin. triple vessel coronary disease hypokalemia on replacement rx D/W RN poor po intake 07/02, cont iv fluids 07/03 ACCEPTED AT [facility] D/C PLANNING 28 MIN History of Present Illness History of Present Illness pleasant 79-year-old Khmer lady,who has dementia. She apparently fell 3 days ago. She has been having altered mental status change and complained of some hip pain. She was ambulating with her walker even after the fall, but then had another fall yesterday. The confusion has been increased for the past 4-5 days. The family was concerned she might have a UTI, so they brought her to the ER for evaluation. We x-rayed her hip, it is showing an acute displaced left femoral neck fracture PT and OT needs skilled d/w rn doing well post op no event pain OK, Operative Note Operative Note Date of Procedure: June 29, 2019 Pre-Op Diagnosis: Displaced mid cervical fracture of left femur, initial encounter for closed fracture S72.032A Post-Op Diagnosis: same Procedure: left hip open treatment of femoral fracture, proximal end, neck, prosthetic replacement, CPT 24857 Anesthesia Type: General Surgeon: Partha Kapoor MD Audiometrist: SMITH Marie EBL: 100 mL Specimens Obtained: left femoral head Complications: None Drains: None Vitals Vitals Vital Signs Date Time Temp Pulse Resp B/P (MAP) Pulse Ox O2 Delivery O2 Flow Rate FiO2 07/04/19 08:12 74 137/68 07/04/19 08:00 Room Air 07/04/19 07:15 98.4 16 96 98.4 Physical Exam General: Alert, Oriented X3, Cooperative, No acute distress, Heart: Regular rate, Normal S1 Lungs: Clear Abdomen: Normal bowel sounds, Soft Extremities: No cyanosis Skin: Other Brief Hospital Course Ms. Vieira is a 79 old [sex] who presented with [ ACUTE HIP FRACTURE ] CONDITION AT DISCHARGE: Improved Discharge Medications Current Medications Acetaminophen (Tylenol) 650 mg PRN Q6HRS PRN PO TEMP OVER 100.4F OR MILD PAIN Last administered on 06/26/19at 21:46; Start 06/26/19 at 01:30 Morphine Sulfate (Morphine Sulfate) 2 mg PRN Q2HR PRN IV PAIN Last administered on 06/28/19at 18:03; Start 06/26/19 at 01:30; Stop 06/29/19 at 16:11; Status DC Amlodipine Besylate (Norvasc) 5 mg DAILY PO Last administered on 06/28/19at 10:24; Start 06/26/19 at 09:00; Stop 06/28/19 at 10:56; Status DC Losartan Potassium (Cozaar) 100 mg DAILY PO Last administered on 07/04/19 08:12; Start 06/26/19 at 09:00 Potassium Chloride (Klor-Con) 40 meq 1X ONCE PO Last administered on 06/26/19at 11:13; Start 06/26/19 at 09:15; Stop 06/26/19 at 09:16; Status DC Aspirin (Ecotrin) 81 mg DAILYWBKFT PO Last administered on 06/30/19at 07:54; Start 06/26/19 at 10:00; Stop 06/30/19 at 14:21; Status DC Metoprolol Tartrate (Lopressor) 25 mg BID PO Last administered on 07/04/19at 08:10; Start 06/26/19 at 10:00 Atorvastatin Calcium (Lipitor) 40 mg QHS PO Last administered on 07/03/19at 21:29; Start 06/26/19 at 21:00 Isosorbide Mononitrate (Imdur) 30 mg DAILY PO Last administered on 07/04/19at 08:11; Start 06/26/19 at 10:00 Vitamin D (Vitamin D3) 2,000 unit DAILY PO Last administered on 07/01/19at 07:25; Start 06/26/19 at 12:00; Stop 07/01/19 at 09:55; Status DC Ropinirole HCl (Requip) 0.5 mg QHS PO Last administered on 07/03/19at 21:29; Start 06/26/19 at 21:00 Acetaminophen/ Hydrocodone Bitart (Lortab 7.5/325) 1 tab PRN Q4HRS PRN PO PAIN; Start 06/26/19 at 13:30; Stop 06/26/19 at 13:23; Status DC Acetaminophen/ Hydrocodone Bitart (Lortab 7.5/325) 2 tab PRN Q4HRS PRN PO Mod/Severe pain, 2nd choice Last administered on 07/02/19at 03:15; Start 06/26/19 at 13:30 Ondansetron HCl (Zofran) 4 mg PRN Q6HRS PRN IV NAUSEA/VOMITING; Start 06/27/19 at 07:00; Stop 06/28/19 at 06:59; Status DC Fentanyl Citrate (Fentanyl 2ml Vial) 25 mcg PRN Q5MIN PRN IV MILD PAIN 1-3; Start 06/27/19 at 07:00; Stop 06/28/19 at 06:59; Status DC Fentanyl Citrate (Fentanyl 2ml Vial) 50 mcg PRN Q5MIN PRN IV MODERATE TO SEVERE PAIN; Start 06/27/19 at 07:00; Stop 06/28/19 at 06:59; Status DC Morphine Sulfate (Morphine Sulfate) 1 mg PRN Q10MIN PRN IV SEVERE PAIN 7-10; Start 06/27/19 at 07:00; Stop 06/28/19 at 06:59; Status DC Ringer's Solution 1,000 ml @ 30 mls/hr Q24H IV ; Start 06/27/19 at 07:00; Stop 06/27/19 at 18:59; Status DC Hydromorphone HCl (Dilaudid) 0.5 mg PRN Q10MIN PRN IV SEV PAIN, Second choice; Start 06/27/19 at 07:00; Stop 06/28/19 at 06:59; Status DC Prochlorperazine Edisylate (Compazine) 5 mg PACU PRN PRN IV NAUSEA, MRX1; Start 06/27/19 at 07:00; Stop 06/28/19 at 06:59; Status DC Amlodipine Besylate (Norvasc) 10 mg DAILY PO Last administered on 07/04/19at 08:11; Start 06/29/19 at 09:00 Amlodipine Besylate (Norvasc) 5 mg 1X ONCE PO ; Start 06/28/19 at 11:00; Stop 06/28/19 at 11:02; Status DC Ropivacaine 53.3 ml/Epinephrine HCl 0.6 mg/ Morphine Sulfate 5 mg/Sodium Chloride 100 ml @ 100 mls/hr 1X ONCE INT ART ; Start 06/29/19 at 06:00; Stop 06/29/19 at 06:59; Status DC Ondansetron HCl (Zofran) 4 mg PRN Q6HRS PRN IV NAUSEA/VOMITING; Start 06/29/19 at 07:00; Stop 06/29/19 at 20:00; Status DC Fentanyl Citrate (Fentanyl 2ml Vial) 25 mcg PRN Q5MIN PRN IV MILD PAIN 1-3; Start 06/29/19 at 07:00; Stop 06/29/19 at 20:00; Status DC Fentanyl Citrate (Fentanyl 2ml Vial) 50 mcg PRN Q5MIN PRN IV MODERATE TO SEVERE PAIN; Start 06/29/19 at 07:00; Stop 06/29/19 at 20:00; Status DC Morphine Sulfate (Morphine Sulfate) 1 mg PRN Q10MIN PRN IV SEVERE PAIN 7-10; Start 06/29/19 at 07:00; Stop 06/29/19 at 20:00; Status DC Ringer's Solution 1,000 ml @ 30 mls/hr Q24H IV ; Start 06/29/19 at 07:00; Stop 06/29/19 at 18:01; Status DC Lidocaine HCl (Xylocaine-Mpf 1% 2ml Vial) 2 ml PRN 1X PRN ID PRIOR TO IV START; Start 06/29/19 at 07:00; Stop 06/29/19 at 20:00; Status DC Hydromorphone HCl (Dilaudid) 0.5 mg PRN Q10MIN PRN IV SEV PAIN, Second choice; Start 06/29/19 at 07:00; Stop 06/29/19 at 20:00; Status DC Prochlorperazine Edisylate (Compazine) 5 mg PACU PRN PRN IV NAUSEA, MRX1; Start 06/29/19 at 07:00; Stop 06/29/19 at 20:00; Status DC Cefazolin Sodium/ Dextrose 50 ml @ 100 mls/hr 1X PREOP PRN IV SEE COMMENTS Last administered on 06/29/19at 14:19; Start 06/29/19 at 06:00; Stop 06/30/19 at 07:23; Status DC Ropivacaine 53.3 ml/Epinephrine HCl 0.6 mg/ Morphine Sulfate 5 mg/Sodium Chloride 100 ml @ 100 mls/hr 1X ONCE INT ART Last administered on 06/29/19at 15:00; Start 06/29/19 at 06:00; Stop 06/29/19 at 06:59; Status DC Sodium Chloride 1,000 ml @ 100 mls/hr 1X ONCE IV Last administered on 06/29/19at 09:11; Start 06/29/19 at 09:00; Stop 06/29/19 at 18:59; Status DC Propofol (Diprivan) 200 mg STK-MED ONCE IV ; Start 06/29/19 at 12:41; Stop 06/29/19 at 12:41; Status DC Lidocaine HCl (Lidocaine Pf 2% Vial) 5 ml STK-MED ONCE .ROUTE ; Start 06/29/19 at 12:41; Stop 06/29/19 at 12:41; Status DC Fentanyl Citrate (Fentanyl 2ml Vial) 100 mcg STK-MED ONCE .ROUTE ; Start 06/29/19 at 12:41; Stop 06/29/19 at 12:41; Status DC Vancomycin HCl (Vancomycin) 1 gm STK-MED ONCE .ROUTE ; Start 06/29/19 at 13:53; Stop 06/29/19 at 13:53; Status DC Dexamethasone Sodium Phosphate (Decadron) 4 mg STK-MED ONCE .ROUTE ; Start 06/29/19 at 14:18; Stop 06/29/19 at 14:18; Status DC Desflurane (Suprane) 30 ml STK-MED ONCE IH ; Start 06/29/19 at 14:18; Stop 06/29/19 at 14:18; Status DC Ondansetron HCl (Zofran) 4 mg STK-MED ONCE .ROUTE ; Start 06/29/19 at 14:48; Stop 06/29/19 at 14:48; Status DC Sevoflurane (Ultane) 60 ml STK-MED ONCE IH ; Start 06/29/19 at 15:23; Stop 06/29/19 at 15:23; Status DC Ephedrine Sulfate (ePHEDrine PF IN SALINE SYRINGE) 50 mg STK-MED ONCE IV ; Start 06/29/19 at 15:23; Stop 06/29/19 at 15:24; Status DC Morphine Sulfate (Morphine Sulfate) 2 mg PRN Q1HR PRN IVP MODERATE PAIN; Start 06/29/19 at 16:00 Fentanyl Citrate (Fentanyl 2ml Vial) 25 mcg PRN Q1HR PRN IVP PAIN UNRELIEVED BY MORPHINE Last administered on 07/01/19at 00:03; Start 06/29/19 at 16:00 Multivitamins (Thera M Plus) 1 tab DAILY PO Last administered on 07/04/19at 08:09; Start 06/30/19 at 09:00 Senna/Docusate Sodium (Senna Plus) 1 tab DAILY PO Last administered on 07/04/19at 08:15; Start 06/30/19 at 09:00 Polyethylene Glycol (miraLAX PACKET) 17 gm PRN DAILY PRN PO CONSTIPATION; Start 06/29/19 at 16:00 Sodium Chloride 1,000 ml @ 75 mls/hr Q55O07H IV Last administered on 06/30/19at 05:52; Start 06/29/19 at 15:57; Stop 06/30/19 at 23:43; Status DC Ondansetron HCl (Zofran) 4 mg PRN Q4HRS PRN IVP NAUSEA/VOMITING; Start 06/29/19 at 16:00 Aspirin (Cas Aspirin) 325 mg DAILYWBKFT PO Last administered on 07/04/19at 08:09; Start 06/30/19 at 08:00 Magnesium Hydroxide (Milk Of Magnesia) 2,400 mg 1X PRN PRN PO CONSTIPATION; Start 06/30/19 at 06:00; Stop 07/01/19 at 05:59; Status DC Bisacodyl (Dulcolax Supp) 10 mg 1X PRN PRN [place] CONSTIPATION; Start 06/30/19 at 16:00; Stop 07/01/19 at 15:59; Status DC Morphine Sulfate (Morphine Sulfate) 4 mg PRN Q2HR PRN IVP SEVERE PAIN Last administered on 07/01/19at 07:26; Start 06/29/19 at 16:00 Dextrose (Dextrose 50%-Water Syringe) 12.5 gm PRN Q15MIN PRN IV SEE COMMENTS; Start 06/29/19 at 16:00 Cefazolin Sodium/ Dextrose 50 ml @ 100 mls/hr Q6H IV Last administered on 06/30/19at 11:12; Start 06/29/19 at 22:00; Stop 06/30/19 at 10:29; Status DC Oxycodone/ Acetaminophen (Percocet 5/325) 1 tab PRN Q4HRS PRN PO MODERATE PAIN Last administered on 07/04/19at 01:23; Start 06/29/19 at 16:00 Oxycodone/ Acetaminophen (Percocet 5/325) 2 tab PRN Q4HRS PRN PO SEVERE PAIN; Start 06/29/19 at 16:15 Vitamin B Complex (Folbic Tablet) 1 tab DAILY PO Last administered on 07/04/19at 08:11; Start 07/01/19 at 10:00 Ferrous Sulfate (Feosol) 325 mg DAILYWBKFT PO Last administered on 07/04/19at 08:09; Start 07/01/19 at 10:00 Vitamin D (Vitamin D3) 5,000 unit DAILY PO Last administered on 07/04/19at 08:06; Start 07/02/19 at 09:00 Sodium Chloride 500 ml @ 500 mls/hr 1X ONCE IV Last administered on 07/02/19at 17:31; Start 07/02/19 at 17:00; Stop 07/02/19 at 17:59; Status DC Sodium Chloride 1,000 ml @ 100 mls/hr Q10H IV Last administered on 07/03/19at 05:14; Start 07/02/19 at 17:00; Stop 07/03/19 at 19:47; Status DC Potassium Chloride (Klor-Con) 40 meq 1X ONCE PO ; Start 07/04/19 at 10:30; Stop 07/04/19 at 10:31; Status DC Potassium Chloride (Klor-Con) 20 meq DAILYWBKFT PO ; Start 07/05/19 at 08:00 Potassium Chloride (Klor-Con) 20 meq 1X ONCE PO ; Start 07/04/19 at 10:30; Stop 07/04/19 at 10:31; Status UNV Active Scripts Active Reported Vitamin D-3 (Cholecalciferol (Vitamin D3)) 2,000 Unit Tablet 2,000 Unit PO DAILY Ropinirole Hcl 0.5 Mg Tablet 0.5 Mg PO QHS Losartan Potassium 100 Mg Tablet 100 Mg PO DAILY Amlodipine Besylate 5 Mg Tablet 5 Mg PO DAILY Vital Signs Vital Signs Date Time Temp Pulse Resp B/P (MAP) Pulse Ox O2 Delivery O2 Flow Rate FiO2 07/04/19 10:56 97.9 71 16 128/71 (90) 95 Room Air 97.9 Labs Laboratory Tests Test 07/03/19 03:35 07/03/19 04:50 07/04/19 01:41 Sodium Level 140 mmol/L (136-145) 140 mmol/L (136-145) Potassium Level 3.9 mmol/L (3.5-5.1) 3.3 mmol/L (3.5-5.1) Chloride Level 109 mmol/L (98-107) 109 mmol/L (98-107) Carbon Dioxide Level 23 mmol/L (21-32) 23 mmol/L (21-32) Anion Gap 8 (6-14) 8 (6-14) Blood Urea Nitrogen 22 mg/dL (7-20) 15 mg/dL (7-20) Creatinine 0.9 mg/dL (0.6-1.0) 0.8 mg/dL (0.6-1.0) Estimated GFR (Cockcroft-Gault) 60.1 68.8 Glucose Level 104 mg/dL (70-99) 103 mg/dL (70-99) Calcium Level 7.6 mg/dL (8.5-10.1) 7.6 mg/dL (8.5-10.1) White Blood Count 7.8 x10^3/uL (4.0-11.0) 6.6 x10^3/uL (4.0-11.0) Red Blood Count 2.47 x10^6/uL (3.50-5.40) 2.42 x10^6/uL (3.50-5.40) Hemoglobin 7.4 g/dL (12.0-15.5) 7.4 g/dL (12.0-15.5) Hematocrit 21.7 % (36.0-47.0) 21.2 % (36.0-47.0) Mean Corpuscular Volume 88 fL (79-100) 88 fL (79-100) Mean Corpuscular Hemoglobin 30 pg (25-35) 31 pg (25-35) Mean Corpuscular Hemoglobin Concent 34 g/dL (31-37) 35 g/dL (31-37) Red Cell Distribution Width 13.4 % (11.5-14.5) 13.4 % (11.5-14.5) Platelet Count 354 x10^3/uL (140-400) 399 x10^3/uL (140-400) Neutrophils (%) (Auto) 72 % (31-73) 74 % (31-73) Lymphocytes (%) (Auto) 19 % (24-48) 17 % (24-48) Monocytes (%) (Auto) 5 % (0-9) 5 % (0-9) Eosinophils (%) (Auto) 4 % (0-3) 4 % (0-3) Basophils (%) (Auto) 1 % (0-3) 1 % (0-3) Neutrophils # (Auto) 5.6 x10^3/uL (1.8-7.7) 4.9 x10^3/uL (1.8-7.7) Lymphocytes # (Auto) 1.5 x10^3/uL (1.0-4.8) 1.1 x10^3/uL (1.0-4.8) Monocytes # (Auto) 0.4 x10^3/uL (0.0-1.1) 0.3 x10^3/uL (0.0-1.1) Eosinophils # (Auto) 0.3 x10^3/uL (0.0-0.7) 0.2 x10^3/uL (0.0-0.7) Basophils # (Auto) 0.1 x10^3/uL (0.0-0.2) 0.0 x10^3/uL (0.0-0.2) Magnesium Level 1.8 mg/dL (1.8-2.4) Laboratory Tests Test 07/04/19 01:41 White Blood Count 6.6 x10^3/uL (4.0-11.0) Red Blood Count 2.42 x10^6/uL (3.50-5.40) Hemoglobin 7.4 g/dL (12.0-15.5) Hematocrit 21.2 % (36.0-47.0) Mean Corpuscular Volume 88 fL (79-100) Mean Corpuscular Hemoglobin 31 pg (25-35) Mean Corpuscular Hemoglobin Concent 35 g/dL (31-37) Red Cell Distribution Width 13.4 % (11.5-14.5) Platelet Count 399 x10^3/uL (140-400) Neutrophils (%) (Auto) 74 % (31-73) Lymphocytes (%) (Auto) 17 % (24-48) Monocytes (%) (Auto) 5 % (0-9) Eosinophils (%) (Auto) 4 % (0-3) Basophils (%) (Auto) 1 % (0-3) Neutrophils # (Auto) 4.9 x10^3/uL (1.8-7.7) Lymphocytes # (Auto) 1.1 x10^3/uL (1.0-4.8) Monocytes # (Auto) 0.3 x10^3/uL (0.0-1.1) Eosinophils # (Auto) 0.2 x10^3/uL (0.0-0.7) Basophils # (Auto) 0.0 x10^3/uL (0.0-0.2) Sodium Level 140 mmol/L (136-145) Potassium Level 3.3 mmol/L (3.5-5.1) Chloride Level 109 mmol/L (98-107) Carbon Dioxide Level 23 mmol/L (21-32) Anion Gap 8 (6-14) Blood Urea Nitrogen 15 mg/dL (7-20) Creatinine 0.8 mg/dL (0.6-1.0) Estimated GFR (Cockcroft-Gault) 68.8 Glucose Level 103 mg/dL (70-99) Calcium Level 7.6 mg/dL (8.5-10.1) Magnesium Level 1.8 mg/dL (1.8-2.4) Allergies Allergies Coded Allergies Type Severity Reaction Last Updated Verified No Known Drug Allergies 08/04/15 No Disposition/Orders: Other (D/C TO SNF) PAUL GREENE MD July 04, 2019 11:36
[2019-07-04] MEDS ORDERED: AMLO10TA8 PO (11:44)
[2019-07-04] MEDS ORDERED: HYDR-2765 PO (11:44)
[2019-07-04] MEDS ORDERED: METO25TA4 PO (11:44)
[2019-07-04] MEDS ORDERED: SENN-22 PO (11:44)
[2019-07-04] MEDS ORDERED: ACET325T9 PO (11:44)
[2019-07-04] MEDS ORDERED: POLY17PO28 PO (11:44)
[2019-07-04] MEDS ORDERED: MULT1TAB90 PO (11:44)
[2019-07-04] MEDS ORDERED: FERR325T72 PO (11:44)
[2019-07-04] MEDS ORDERED: CYAN1TAB19 PO (11:44)
[2019-07-04] MEDS ORDERED: POTA20TA4 PO (11:44)
[2019-07-04] MEDS ORDERED: ASPI325T8 PO (11:44)
[2019-07-04] MEDS ORDERED: ATOR40TA59 PO (11:44)
[2019-07-04] MEDS ORDERED: CHOL500051 PO (11:44)
[2019-07-04] MEDS ORDERED: ISOS30TA4 PO (11:44)
--- NOTE | 2019-07-04 11:46 | SNU/HH DC ---
DISCHARGE ORDERS DISCHARGE INFORMATION: CONDITION ON DISCHARGE: Stable CODE STATUS: Code Status: Full MCFP: SNF STAY <30 DAYS: Yes HOSPICE: HOSPICE: No HOSPICE EVAL & TREAT: No LTAC: ADMIT TO LTAC: No POST DISCHARGE ORDERS: ACTIVITY ORDERS: Other, see below WEIGHT BEARING STATUS: Other, see below DIET AFTER DISCHARGE: Cardiac CHECKS AFTER DISCHARGE: CHECKS AFTER DISCHARGE: Check blood press - daily TREATMENT/EQUIPMENT ORDERS: ADAPTIVE EQUIPMENT NEEDED: Commode, Front wheeled walker Physical Therapy For: Evalulation/Treatment Occupational Therapy For: Evaluation/Treatment Speech Language Pathology For: Evaluation/Treatment DISCHARGE MEDICATIONS: Home Meds Active Scripts Multivits,Ca,Minerals/Iron/Fa (THERA-M TABLET) 1 Each Tablet, 1 TAB PO DAILY for SUPPLEMENT for 30 Days, #30 TAB Prov:PAUL GREENE MD 07/04/19 Cholecalciferol (Vitamin D3) (Vitamin D3) 125 Mcg Capsule, 5000 UNIT PO DAILY for BONE HEALTH for 30 Days, #30 CAP Prov:PAUL GREENE MD 07/04/19 Cyanocobalamin/Fa/Pyridoxine (FOLBIC TABLET) 1 Each Tablet, 1 TAB PO DAILY for SUPPLEMENT for 30 Days, #30 TAB Prov:PAUL GREENE MD 07/04/19 Sennosides/Docusate Sodium (SENNA-TIME S TABLET) 1 Each Tablet, 1 TAB PO DAILY for PRN CONSTIPATION for 28 Days, #28 TAB Prov:PAUL GREENE MD 07/04/19 Polyethylene Glycol 3350 (POLYETHYLENE GLYCOL 3350) 17 Gm Powd.pack, 17 GM PO PRN DAILY PRN for CONSTIPATION for 14 Days, #14 PKT Prov:PAUL GREENE MD 07/04/19 Potassium Chloride (KLOR-CON M20) 20 Meq Tab.er.prt, 20 MEQ PO DAILYWBKFT for SUPPLEMENT for 10 Days, #10 TAB.SR Prov:PAUL GREENE MD 07/04/19 Acetaminophen (TYLENOL) 325 Mg Tablet, 650 MG PO PRN Q6HRS PRN for TEMP OVER 100.4F OR MILD PAIN for 30 Days, #60 TAB Prov:PAUL GREENE MD 07/04/19 Hydrocodone Bit/Acetaminophen (HYDROCODONE-APAP 7.5-325 ) 1 Tab Tablet, 2 TAB PO PRN Q4HRS PRN for Mod/Severe pain, 2nd choice for 14 Days, #30 TAB Prov:PAUL GREENE MD 07/04/19 Aspirin (ASPIRIN) 325 Mg Tablet, 325 MG PO DAILYWBKFT for HEART HEALTH for 30 Days, #30 TAB Prov:PAUL GREENE MD 07/04/19 Amlodipine Besylate (AMLODIPINE BESYLATE) 10 Mg Tablet, 10 MG PO DAILY for BLOOD PRESSURE for 30 Days, #30 TAB Prov:PAUL GREENE MD 07/04/19 Metoprolol Tartrate (METOPROLOL TARTRATE) 25 Mg Tablet, 25 MG PO BID for HEART for 30 Days, #60 TAB Prov:PAUL GREENE MD 07/04/19 Isosorbide Mononitrate (ISOSORBIDE MONONITRATE ER) 30 Mg Tab.er.24h, 30 MG PO DAILY for HEART for 30 Days, #30 TAB.SR Prov:PAUL GREENE MD 07/04/19 Atorvastatin Calcium (ATORVASTATIN CALCIUM) 40 Mg Tablet, 40 MG PO QHS for CHOLESTEROL for 30 Days, #30 TAB Prov:PAUL GREENE MD 07/04/19 Ferrous Sulfate (FEOSOL) 325 Mg Tablet, 325 MG PO DAILYWBKFT for ANEMIA for 30 Days, #30 TAB Prov:PAUL GREENE MD 07/04/19 Reported Medications Ropinirole Hcl (ROPINIROLE HCL) 0.5 Mg Tablet, 0.5 MG PO QHS for restless leg, TAB 03/03/19 Losartan Potassium (LOSARTAN POTASSIUM) 100 Mg Tablet, 100 MG PO DAILY for HYPERTENSION, TAB 03/03/19 Discontinued Reported Medications Cholecalciferol (Vitamin D3) (VITAMIN D-3) 2,000 Unit Tablet, 2000 UNIT PO DAILY for supplement, TAB 03/03/19 Amlodipine Besylate (AMLODIPINE BESYLATE) 5 Mg Tablet, 5 MG PO DAILY for blood pressure, TAB 03/03/19 PAUL GREENE MD July 04, 2019 11:46
--- NOTE | 2019-07-04 13:14 | NUR ---
SS following up with discharge planning. Discharge orders received for [facility]. SS phoned and faxed discharge orders to [facility]. Pt will discharge today and go to [facility] between 1500 and 1530 via [facility]. Pt, pt's family, and pt's RN notified.
[2019-07-04 15:02] VITALS: BP 119/76
--- NOTE | 2019-07-04 15:34 | NUR ---
Called to give report. Left message.
--- NOTE | 2019-07-04 16:17 | NUR ---
Report given to
[2019-07-05] MEDS ORDERED: POTASSIUM CHLORIDE 20 MEQ TABLET.ER. PO SCH (08:00)
--- NOTE | 2019-07-05 18:06 | PATHOLOGY ---
[facility] Accession Number: [id number] . 01 Material submitted: . hip - LEFT HIP BONE AND TISSUE. Modifiers: left . 01 Clinical history: . left hip fx . 02 Diagnosis: Femoral head and separate segments of bone and soft tissue, left hip hemiarthroplasty: - Focal fragmentation of bony trabeculae and recent intertrabecular hemorrhage consistent with fracture. . (JPM:mm; 07/05/2019) [facility] 07/05/2019 1542 Local . 02 Comment: There is no evidence of malignancy. . (JPM:mml; 07/05/2019) . 02 Electronically signed: . Blair Goodson MD, Pathologist NPI- [id number] . 01 Gross description: . The specimen is received in formalin, labeled "Stuart Vieira, left hip bone and tissue" and consists of a femoral head absent the neck measuring 4.0 x 4.0 x 3.1 cm. The articular surface is baez and smooth with the opposite aspect hemorrhagic and fragmented. Additionally received in the container are multiple fragments of hemorrhagic brown bone measuring 6.5 x 6.0 x 1.5 cm. [employer] sections are submitted in A1-A2 following decalcification. (SDY; 07/04/2019) [facility]/SYU 07/04/2019 1329 Local . 02 Pathologist provided ICD-10: S72.092A . 02 CPT . 626304, 281829 Specimen Comment: A courtesy copy of this report has been sent to [phone] Specimen Comment: [id number], Specimen Comment: Report sent to ,DR ALLRED / DR SPARKS Performed at: [address] [place] [address] [address], [place], [place] [id number] MD Cirilo Albarran MD Phone: [phone] Performed at: [address] [id number] MD Blair Goodson MD Phone: [phone]
== END 2019-07-04 15:00 | DRG 469 ==
LOC: 2 NORTH 01:14 → 4 NORTH 07-01 16:04
PROVIDERS: ADMIT Internal Medicine; ATTEND Internal Medicine
PROC: 0SRS01A Replacement of Left Hip Joint, Femoral Surface with Metal Synthetic Substitute, Uncemented, Open Approach (ICD-10-PCS; principal; 2019-06-29 13:45)
DX: S72.032A Displaced midcervical fracture of left femur, initial encounter for closed fracture (principal); N17.0 Acute kidney failure with tubular necrosis; N39.0 Urinary tract infection, site not specified; Z20.828 Contact with and (suspected) exposure to other viral communicable diseases; D64.9 Anemia, unspecified; E78.5 Hyperlipidemia, unspecified; E87.6 Hypokalemia; F03.90 Unspecified dementia, unspecified severity, without behavioral disturbance, psychotic disturbance, mood disturbance, and anxiety; I10 Essential (primary) hypertension; I25.10 Atherosclerotic heart disease of native coronary artery without angina pectoris; Z82.49 Family history of ischemic heart disease and other diseases of the circulatory system; Z86.73 Personal history of transient ischemic attack (TIA), and cerebral infarction without residual deficits; Z95.1 Presence of aortocoronary bypass graft; M19.90 Unspecified osteoarthritis, unspecified site; Z87.440 Personal history of urinary (tract) infections; W18.39XA Other fall on same level, initial encounter; Y93.89 Activity, other specified; Y92.89 Other specified places as the place of occurrence of the external cause; Y99.8 Other external cause status
CPT/HCPCS: 36415; 73501; 80048; 80053; 82306; 83735; 84484; 85007; 85014; 85018; 85025; 86850; 86900; 86901; 93306; C1713; J0696; J1100; J2270; J2405; J2704; J3010; J3370; J3490; J7030; J7040; 97110-GP; 97530-GO; 97530-GP; 97535-GO; A4461; G0378; U0003-CS

== ENCOUNTER 2019-09-08 17:37 | Inpatient (IN) | payer MEDICARE, OTHER ==
[~2019-09-08] VITALS: Ht 139.7 cm; Wt 43.2 kg
[2019-09-08 17:00] VITALS: BP 140/71
[~2019-09-08 17:37] MED LIST changes: +ACET325T9 PO; +AMLO10TA8 PO; +ASPI325T8 PO; +ATOR40TA59 PO; +CHOL500051 PO; +CYAN1TAB19 PO; +FERR325T72 PO; +HYDR-2765 PO; +ISOS30TA4 PO; +METO25TA4 PO; +MULT1TAB90 PO; +POLY17PO28 PO; +POTA20TA4 PO; +SENN-22 PO
[2019-09-08] MEDS ORDERED: ONDANSETRON PF 4 MG/2 ML VIAL. IVP PRN (18:45)
[2019-09-08 19:00] VITALS: BP 148/74
[2019-09-08] MEDS: MORPHINE SULFATE 2 MG/ML VIAL. IV PRN ×2 (20:27→23:44)
[2019-09-08 23:00] VITALS: BP 153/77
[2019-09-09] VITALS (7 sets, daily range): BP systolic 139–172; BP diastolic 66–78
[2019-09-09] MEDS ORDERED: PROPOFOL 10 MG/ML (20ML) VIAL. IV ONE (06:51)
[2019-09-09] MEDS ORDERED: LIDOCAINE 2% PF 5 ML VIAL. ONE (06:51)
[2019-09-09] MEDS ORDERED: fentaNYL PF VIAL 100 MCG/2 ML VIAL ONE (07:39)
[2019-09-09] MEDS ORDERED: IV RINGERS,LACTATED 1000ML 1,000 ML IV SCH (07:58)
[2019-09-09] MEDS ORDERED: PROCHLORPERAZINE 10 MG/2 ML VIAL. IV PRN (08:00)
[2019-09-09] MEDS ORDERED: HYDROmorphone 2 MG/ML VIAL IV PRN (08:00)
[2019-09-09] MEDS ORDERED: LIDOCAINE 1% PF 2 ML VIAL. ID PRN (08:00)
[2019-09-09] MEDS ORDERED: ONDANSETRON PF 4 MG/2 ML VIAL. IV PRN (08:00)
[2019-09-09] MEDS ORDERED: fentaNYL PF VIAL 100 MCG/2 ML VIAL IV PRN ×2 (08:00)
[2019-09-09] MEDS ORDERED: MORPHINE SULFATE 2 MG/ML VIAL. IV PRN (08:00)
[2019-09-09 08:06] LABS: BASO % 1 % (0-3); EOS # 0.1 x10^3/uL (0.0-0.7); EOS % 1 % (0-3); HEMATOCRIT 29.6 % (36.0-47.0); HEMOGLOBIN 9.8 g/dL (12.0-15.5); LYMPH # 1.2 x10^3/uL (1.0-4.8); LYMPH % 12 % (24-48); MEAN CORPUSCULAR HEMOGLOBIN 30 pg (25-35); MEAN CORPUSCULAR HGB CONC 33 g/dL (31-37); MEAN CORPUSCULAR VOLUME 89 fL (79-100); MONO # 0.4 x10^3/uL (0.0-1.1); MONO % 4 % (0-9); NEUT # 8.3 x10^3/uL (1.8-7.7); NEUT % 82 % (31-73); PLATELET COUNT 376 x10^3/uL (140-400); RED BLOOD COUNT 3.32 x10^6/uL (3.50-5.40); RED CELL DISTRIBUTION WIDTH 13.7 % (11.5-14.5); WHITE BLOOD COUNT 10.1 x10^3/uL (4.0-11.0)
[2019-09-09 08:10] LABS: CREATININE 0.8 mg/dL (0.6-1.0); GFR 68.8; POTASSIUM 3.2 mmol/L (3.5-5.1)
--- NOTE | 2019-09-09 08:40 | PDOC2 ---
CONSULT Date of Consult Date of Consult DATE: 09/09/19 TIME: 08:36 Reason for Consult Reason for Consult: Left hip dislocation Referring Physician Referring Physician: Long Identification/Chief Complaint Chief Complaint Unobtainable Source Source: Chart review History of Present Illness Reason for Visit: Patient is an 79-year-old female who was brought into [facility] over general concerns and found be septic. She would grimace and the noticed deformity at her hip which prompted an x-ray and revealed a hemiarthroplasty dislocation. Per report, she had a hemiarthroplasty performed June of this year. Caregivers at the facility and others really have no idea how long the hip has been dislocated. An attempted reduction was performed by the emergency department doctor who says he felt he got close but could not quite get the hip reduced. The patient does not verbalize any complaints. Past Medical History Cardiovascular: CAD, HTN, Hyperlipidemia Pulmonary: No pertinent hx CENTRAL NERVOUS SYSTEM: CVA, Dementia GI: No pertinent hx Heme/Onc: No pertinent hx Hepatobiliary: No pertinent hx Psych: No pertinent hx Musculoskeletal: Osteoarthritis Rheumatologic: No pertinent hx Infectious disease: No pertinent hx Renal/: UTI, Other Endocrine: No pertinent hx Past Surgical History Past Surgical History: Other (Left hip hemiarthroplasty 2019) Family History Family History: Other Social History ALCOHOL: none Drugs: None Lives: with Family Current Medications Current Medications Current Medications Morphine Sulfate (Morphine Sulfate) 2 mg PRN Q4HRS PRN IV PAIN Last administered on 09/08/19at 23:44; Start 09/08/19 at 18:45 Ondansetron HCl (Zofran) 4 mg PRN Q4HRS PRN IVP NAUSEA/VOMITING; Start 09/08/19 at 18:45 Propofol (Diprivan) 200 mg STK-MED ONCE IV ; Start 09/09/19 at 06:51; Stop 09/09/19 at 06:51; Status DC Lidocaine HCl (Lidocaine Pf 2% Vial) 5 ml STK-MED ONCE .ROUTE ; Start 09/09/19 at 06:51; Stop 09/09/19 at 06:51; Status DC Fentanyl Citrate (Fentanyl 2ml Vial) 100 mcg STK-MED ONCE .ROUTE ; Start 09/09/19 at 07:39; Stop 09/09/19 at 07:40; Status DC Ondansetron HCl (Zofran) 4 mg PRN Q6HRS PRN IV NAUSEA/VOMITING; Start 09/09/19 at 08:00; Stop 09/09/19 at 23:00 Fentanyl Citrate (Fentanyl 2ml Vial) 25 mcg PRN Q5MIN PRN IV MILD PAIN 1-3; Start 09/09/19 at 08:00; Stop 09/09/19 at 23:00 Fentanyl Citrate (Fentanyl 2ml Vial) 50 mcg PRN Q5MIN PRN IV MODERATE TO SEVERE PAIN; Start 09/09/19 at 08:00; Stop 09/09/19 at 23:00 Morphine Sulfate (Morphine Sulfate) 1 mg PRN Q10MIN PRN IV SEVERE PAIN 7-10; Start 09/09/19 at 08:00; Stop 09/09/19 at 23:00 Ringer's Solution 1,000 ml @ 30 mls/hr Q24H IV ; Start 09/09/19 at 07:58; Stop 09/09/19 at 19:57 Lidocaine HCl (Xylocaine-Mpf 1% 2ml Vial) 2 ml PRN 1X PRN ID PRIOR TO IV START; Start 09/09/19 at 08:00; Stop 09/10/19 at 07:59 Hydromorphone HCl (Dilaudid) 0.5 mg PRN Q10MIN PRN IV SEV PAIN, Second choice; Start 09/09/19 at 08:00; Stop 09/09/19 at 23:00 Prochlorperazine Edisylate (Compazine) 5 mg PACU PRN PRN IV NAUSEA, MRX1; Start 09/09/19 at 08:00; Stop 09/09/19 at 23:00 Active Scripts Active Thera-M Tablet (Multivits,Ca,Minerals/Iron/Fa) 1 Each Tablet 1 Tab PO DAILY 30 Days Vitamin D3 (Cholecalciferol (Vitamin D3)) 125 Mcg Capsule 5,000 Unit PO DAILY 30 Days Folbic Tablet (Cyanocobalamin/Fa/Pyridoxine) 1 Each Tablet 1 Tab PO DAILY 30 Days Senna-Time S Tablet (Sennosides/Docusate Sodium) 1 Each Tablet 1 Tab PO DAILY 28 Days Polyethylene Glycol 3350 17 Gm Powd.pack 17 Gm PO PRN DAILY PRN 14 Days Klor-Con M20 (Potassium Chloride) 20 Meq Tab.er.prt 20 Meq PO DAILYWBKFT 10 Days Tylenol (Acetaminophen) 325 Mg Tablet 650 Mg PO PRN Q6HRS PRN 30 Days Hydrocodone-Apap 7.5-325 (Hydrocodone Bit/Acetaminophen) 1 Tab Tablet 2 Tab PO PRN Q4HRS PRN 14 Days Aspirin 325 Mg Tablet 325 Mg PO DAILYWBKFT 30 Days Amlodipine Besylate 10 Mg Tablet 10 Mg PO DAILY 30 Days Metoprolol Tartrate 25 Mg Tablet 25 Mg PO BID 30 Days Isosorbide Mononitrate Er (Isosorbide Mononitrate) 30 Mg Tab.er.24h 30 Mg PO DAILY 30 Days Atorvastatin Calcium 40 Mg Tablet 40 Mg PO QHS 30 Days Feosol (Ferrous Sulfate) 325 Mg Tablet 325 Mg PO DAILYWBKFT 30 Days Reported Ropinirole Hcl 0.5 Mg Tablet 0.5 Mg PO QHS Losartan Potassium 100 Mg Tablet 100 Mg PO DAILY Allergies Allergies: Coded Allergies: No Known Drug Allergies (Unverified , 08/04/15) ROS Review of System Unobtainable secondary to mental status Physical Exam General: No acute distress HEENT: Atraumatic, EOMI Lungs: Other (Respirations unlabored with symmetric chest rise) Heart: Regular rate Abdomen: Soft, No tenderness Extremities: No edema, Normal pulses Skin: No rashes Neuro: Other (Unable to assess neurologic exam due to patient's mental status) Psych/Mental Status: Other (Patient does not answer ask any questions) MUSCULOSKELETAL: Other (Posterior lateral incision is noted over her left hip region. There is shortening of her left lower extremity and a fullness in her gluteal region.) Vitals VITALS Vital Signs Date Time Temp Pulse Resp B/P (MAP) Pulse Ox O2 Delivery O2 Flow Rate FiO2 09/09/19 03:14 97.7 80 14 172/78 (109) 99 Room Air 97.7 Labs Labs Laboratory Tests Test 09/09/19 07:20 White Blood Count 10.1 x10^3/uL (4.0-11.0) Red Blood Count 3.32 x10^6/uL (3.50-5.40) Hemoglobin 9.8 g/dL (12.0-15.5) Hematocrit 29.6 % (36.0-47.0) Mean Corpuscular Volume 89 fL (79-100) Mean Corpuscular Hemoglobin 30 pg (25-35) Mean Corpuscular Hemoglobin Concent 33 g/dL (31-37) Red Cell Distribution Width 13.7 % (11.5-14.5) Platelet Count 376 x10^3/uL (140-400) Neutrophils (%) (Auto) 82 % (31-73) Lymphocytes (%) (Auto) 12 % (24-48) Monocytes (%) (Auto) 4 % (0-9) Eosinophils (%) (Auto) 1 % (0-3) Basophils (%) (Auto) 1 % (0-3) Neutrophils # (Auto) 8.3 x10^3/uL (1.8-7.7) Lymphocytes # (Auto) 1.2 x10^3/uL (1.0-4.8) Monocytes # (Auto) 0.4 x10^3/uL (0.0-1.1) Eosinophils # (Auto) 0.1 x10^3/uL (0.0-0.7) Basophils # (Auto) 0.0 x10^3/uL (0.0-0.2) Sodium Level 144 mmol/L (136-145) Potassium Level 3.2 mmol/L (3.5-5.1) Chloride Level 111 mmol/L (98-107) Carbon Dioxide Level 24 mmol/L (21-32) Anion Gap 9 (6-14) Blood Urea Nitrogen 20 mg/dL (7-20) Creatinine 0.8 mg/dL (0.6-1.0) Estimated GFR (Cockcroft-Gault) 68.8 Glucose Level 95 mg/dL (70-99) Calcium Level 8.0 mg/dL (8.5-10.1) Laboratory Tests Test 09/09/19 07:20 White Blood Count 10.1 x10^3/uL (4.0-11.0) Red Blood Count 3.32 x10^6/uL (3.50-5.40) Hemoglobin 9.8 g/dL (12.0-15.5) Hematocrit 29.6 % (36.0-47.0) Mean Corpuscular Volume 89 fL (79-100) Mean Corpuscular Hemoglobin 30 pg (25-35) Mean Corpuscular Hemoglobin Concent 33 g/dL (31-37) Red Cell Distribution Width 13.7 % (11.5-14.5) Platelet Count 376 x10^3/uL (140-400) Neutrophils (%) (Auto) 82 % (31-73) Lymphocytes (%) (Auto) 12 % (24-48) Monocytes (%) (Auto) 4 % (0-9) Eosinophils (%) (Auto) 1 % (0-3) Basophils (%) (Auto) 1 % (0-3) Neutrophils # (Auto) 8.3 x10^3/uL (1.8-7.7) Lymphocytes # (Auto) 1.2 x10^3/uL (1.0-4.8) Monocytes # (Auto) 0.4 x10^3/uL (0.0-1.1) Eosinophils # (Auto) 0.1 x10^3/uL (0.0-0.7) Basophils # (Auto) 0.0 x10^3/uL (0.0-0.2) Sodium Level 144 mmol/L (136-145) Potassium Level 3.2 mmol/L (3.5-5.1) Chloride Level 111 mmol/L (98-107) Carbon Dioxide Level 24 mmol/L (21-32) Anion Gap 9 (6-14) Blood Urea Nitrogen 20 mg/dL (7-20) Creatinine 0.8 mg/dL (0.6-1.0) Estimated GFR (Cockcroft-Gault) 68.8 Glucose Level 95 mg/dL (70-99) Calcium Level 8.0 mg/dL (8.5-10.1) Images Images Hip and pelvis x-rays were reviewed. Left hip hemiarthroplasty dislocation Assessment/Plan Assessment/Plan Given that her joint is dislocated and despite the uncertain timeframe, I do think an attempt at closed reduction and the most prudent thing to do. We will plan on performing that this morning. DEIRDRE ESCOTO II, MD Sep 09, 2019 08:40
[2019-09-09] MEDS: metroNIDAZOLE 500 MG TABLET PO SCH ×4 (09:00→20:12)
--- NOTE | 2019-09-09 09:27 | PDOC4 ---
Operative Note Operative Note Date of procedure: 09/09/2019 Surgeon: Dalton Escoto Preoperative diagnosis: Left hip hemiarthroplasty dislocation Postoperative diagnosis: Same Procedure performed: Attempted closed reduction left hip hemiarthroplasty Anesthesia: LMA sedation Findings: Unable to reduce hip Blood loss: 0 Complications: none Reason for procedure: Patient is an 79-year-old female who had a hip hemiarthroplasty in June 2019 that has been dislocated for an unknown amount of time. I discussion of the risks, benefits, and alternatives the patient's power of job development specialist elected to proceed. Description of procedure: Patient was greeted in the preoperative area by myself or the correct extremity was verified and marked. She was taken back to the operative suite and transferred gently supine to the operating room table and secured to the bed with all pressure points padded and had successful induction of her anesthetic. I then had an child development assistant put gentle downward pressure over her left ASIS region while I flexed her hip and controlled rotation and pulled slow and steady pressure. Despite holding slow and steady pressure and counterpressure and checking my progress with fluoroscopy, we were unable to reduce the hip or even get close to a reduction. After many attempts, I made the decision to not try any further to avoid any risk of harm to the patient. Postoperative plan is to readmit her to the floor in the care of the hospitalist. No plans for surgical intervention in the acute setting. I will see the patient back in clinic with family to discuss resection versus revision hemiarthroplasty. DALTON ESCOTO II, MD Sep 09, 2019 09:27
--- NOTE | 2019-09-09 09:30 | HP ---
ADMIT DATE: 09/09/2019 HISTORY OF PRESENT ILLNESS: The patient is an 79-year-old female patient, who presented to the Emergency Room of [facility] with generalized weakness. She lives at home with her son and iccrhdty-kn-zew, who have noticed acute deterioration in the patient's condition the past 10 days. Her intake has greatly declined. Her sleep requirement has dramatically increased. She has become more lethargic and lacks energy to perform daily activities. The patient has a history of dementia, but her egimlpqs-jr-vtu, who accompanies the patient, is not close to baseline. They have been using baby bottles to feed the patient at home. The patient has had 3 loose bowel movements for the last 3 days which is unusual for her. She admits to left hip pain currently. Uzbfysjn-um-dpw denies any febrile illness, recent travel or recent change in medication. The ldrwlvdg-pb-lna works in the healthcare field; however, she was tested negative for COVID-19. Son stays at home exclusively with no known COVID-19 contacts. Of note, rjisowib-tf-wye, who accompanies the patient, reports the patient is a DNR. The patient was found to be hypotensive with a systolic pressure of only 80 with otherwise unremarkable vital signs. IV access was obtained. The patient was transported to the Emergency Room for further evaluation. She has had lab work showing that her white cell count was 15,000. Her BUN and creatinine were slightly elevated. Has also mild lactic acidosis. Her beta-natriuretic peptide was extremely high at 8433. While in the Emergency Room, she had also imaging studies, including a chest x-ray, which showed no acute infiltrate. X-ray of her left hip done because she complains of left hip pain showed that there is a dislocation of the bipolar hip prosthesis and acute fracture is not identified. An attempt to reduce to closed reduction by the ER physician has failed; and therefore, the patient was transferred to [facility] in consultation of Orthopedic surgeon to be done at [facility] by the Orthopedic surgeon. She apparently has had blood cultures done and was started on IV ceftriaxone after receiving a liter of normal saline. PAST MEDICAL HISTORY: Significant for hypertension, hyperlipidemia, history of cerebrovascular accident, generalized weakness. She is also known to have osteoarthritis and osteoporosis. PAST SURGICAL HISTORY: Significant for left femoral neck fracture, status post open reduction and internal fixation. ALLERGIES: She has no known drug allergies. MEDICATIONS: She is currently on following medications: She is on ferrous sulfate 325 mg once a day, atorvastatin calcium 40 mg at bedtime, isosorbide mononitrate 30 mg daily, metoprolol tartrate 25 mg twice a day, amlodipine besylate 10 mg once a day, losartan potassium 100 mg once a day, aspirin 325 mg once a day, hydrocodone/APAP 7.5/325 two tablets every 4 hours as needed. She is on Requip 0.5 mg at bedtime, potassium chloride 20 mEq once a day, senna-S 1 capsule twice a day, cyanocobalamin for Foltx tablets 1 tablet once a day, cholecalciferol/vitamin D3 of 1000 units once a day, multivitamin with mineral 1 tablet once a day, and polyethylene glycol 17 grams daily. REVIEW OF SYSTEMS: As per history of present illness. PHYSICAL EXAMINATION: GENERAL: On arrival to the Emergency Room, the patient looked well and was clearly in no apparent respiratory distress, pale, but no jaundice, cyanosis, or thyromegaly. No jugular venous distention. No lower limb edema. VITAL SIGNS: Her heart rate was 79, blood pressure was 153/69, her temperature was 97.5, respiratory rate was 18, and oxygen saturation was 96% on room air. HEAD, EYES, EARS, NOSE, AND THROAT: Showed normocephalic, atraumatic. NECK: Supple. HEART: Showed normal first and second heart sounds. No gallop, rub, or murmur. CHEST: Clear to auscultation. No crepitation or rhonchi. ABDOMEN: Distended, soft, nontender. NEUROLOGIC: She is alert, oriented to person at baseline. Cognitive status without any focal neurological deficit per txablhey-hy-emp, who is present for the entire examination. LABORATORY DATA: While in the Emergency Room, she has had lab work done, which showed a white cell count of 15,200; hemoglobin 11; hematocrit 34; MCV 89; and platelet count of 465,000. Her chemistry showed a serum sodium 141, potassium 4.2, chloride 105, bicarbonate 24, anion gap of 12, BUN 31, creatinine 1.2, estimated GFR was 43 mL per minute. Her glucose 177. Lactic acid was 2.4. Calcium was 9.4. Total bilirubin, AST, ALT, alkaline phosphatase were normal. Her ammonia was less than 10. CK was 146. Beta-natriuretic peptide was 8433. Total protein 7. Albumin was 2.8. Urinalysis showed the urine was yellow, hazy with a pH of 6.5 with specific gravity of 1.015. The urine was negative for protein, glucose, ketones, trace of blood, negative for nitrite, trace amount of leukocyte esterase, 3-5 rbc's, 20-40 wbc's, and many bacteria. Her DWLN-YTLMP-[id number] antigen rapid negative. Has had a chest x-ray, which showed that the heart is normal. There are no confluent infiltrates and no effusion or pneumothorax. Her x-ray of the right hip appears unremarkable. The pelvic fracture is not identified. Two views were taken to the left hip. There is dislocation of the bipolar hip, prosthesis and acute fracture is not identified and as I stated, the ER physician attempted closed reduction of her dislocated left hip without success; and therefore, a consultation with the Orthopedic surgeon. ASSESSMENT AND PLAN: The patient was transferred to [facility]. Other medical problems include sepsis, likely due to urinary tract infection and diarrhea, likely due to Clostridium difficile colitis. The patient was started on IV Rocephin as well as Flagyl. She did receive a liter of normal saline and ceftriaxone, linezolid as well as Flagyl. ALESHA MUNSON MD DR: SAM/malena JOB#: [id number] / [id number]
--- NOTE | 2019-09-09 09:30 | PN ---
DATE: 09/09/2019 SUBJECTIVE: The patient is resting, slightly propped up in bed, does not seem to be in any respiratory distress. She speaks Azeri, so it is difficile to communicate with her, although she is capable of speaking Bulgarian. PHYSICAL EXAMINATION: GENERAL: When I examined her, she looked pale, no jaundice, cyanosis or thyromegaly. No jugular venous distention. No lower limb edema. VITAL SIGNS: Her heart rate was 80, blood pressure was 172/78, temperature 97.7, respiratory rate was 14 and oxygen saturation was 99%. HEAD, EYES, EARS, NOSE AND THROAT: Showed normocephalic, atraumatic. NECK: Supple. HEART: Normal first and second heart sounds. No gallop or murmur. CHEST: Clear to auscultation. No crepitation or rhonchi. ABDOMEN: Scaphoid, soft, nontender. NEUROLOGIC: She is grossly intact, although she is demented. LABORATORY DATA: Her lab work this morning showed a serum sodium 144, potassium 3.2, chloride 111, bicarbonate 24, anion gap of 9, BUN 20, creatinine 0.8, estimated GFR was 70 mL per minute. Her white cell count is down to 10,000, hemoglobin 10, hematocrit 30, MCV 89 and platelet count of 376,000. ASSESSMENT: 1. Sepsis, likely due to urinary tract infection. She presented to the Emergency Room of [facility] with hypertension and marked leukocytosis and leukocyturia. Her urine and blood were sent for culture and sensitivity. She also had recurrent bouts of diarrhea for which she was started also on IV Flagyl. 2. Dislocated left hip prosthesis that the ER physician was unable to do the closed reduction; and therefore, the patient is transferred to [facility] and we have consulted Dr. Bhandari. PLAN: To continue with the IV antibiotic in the form of Rocephin and Zyvox and Flagyl. She has also hypokalemia that will replenish. We will monitor her labs on a daily basis and adjust the antibiotic once we have the result of the urine culture and stool for C. diff toxins. ALESHA MUNSON MD DR: SAM/malena JOB#: [id number] / [id number]
[2019-09-09] MEDS ORDERED: DEXAMETHASONE SOD PHOS 4 MG/ML VIAL ONE (09:44)
[2019-09-09] MEDS ORDERED: ONDANSETRON PF 4 MG/2 ML VIAL. ONE (09:44)
[2019-09-09] MEDS ORDERED: SEVOFLURANE UP TO 15 MINUTES. IH ONE (09:46)
[2019-09-09] MEDS: cefTRIAXone IV Push 1 GM VIAL. IVP SCH (10:53)
[2019-09-09] MEDS: MORPHINE SULFATE 2 MG/ML VIAL. IV PRN ×2 (10:53→22:36)
[2019-09-09] MEDS: LINEZOLID 600 MG TABLET PO SCH ×2 (12:45→20:12)
[2019-09-09] MEDS: LACTOBACILLUS RHAMNOSUS GG 1 CAPSULE. PO SCH (20:12)
[2019-09-10] MEDS: MORPHINE SULFATE 2 MG/ML VIAL. IV PRN ×2 (02:40→11:18)
--- NOTE | 2019-09-10 03:46 | RAD ---
INDICATION: Fluoroscopy for procedure.Reason: LEFT HIP CLOSED REDUCTION/0.1 min fluoro time, 1 image saved / Spl. Instructions: / History: IMPRESSION: Fluoroscopy was utilized by the clinical service to assist with their procedure. There are 1 saved images/series. 0.1 minutes of fluoroscopy time was used. The limited saved images show a spot image of the hip with superior dislocation of femoral arthroplasty in relation to acetabulum. This dictation is for the usage of fluoroscopy only. Please see the clinical service's procedure note for detail on the procedure. Electronically signed by: Yordan Medrano MD (09/10/2019 3:42 AM) [id number]
[2019-09-10 03:50] VITALS: BP 152/71
[2019-09-10 05:32] LABS: HEMATOCRIT 29.8 % (36.0-47.0); HEMOGLOBIN 10.1 g/dL (12.0-15.5); RED BLOOD COUNT 3.39 x10^6/uL (3.50-5.40); RED CELL DISTRIBUTION WIDTH 13.7 % (11.5-14.5)
[2019-09-10] MEDS: metroNIDAZOLE 500 MG TABLET PO SCH (05:33)
[2019-09-10 05:59] LABS: ALBUMIN 2.1 g/dL (3.4-5.0); ALBUMIN/GLOBULIN RATIO 0.5 (1.0-1.7); CALCIUM 8.1 mg/dL (8.5-10.1); CREATININE 0.9 mg/dL (0.6-1.0); GFR 60.1; POTASSIUM 3.2 mmol/L (3.5-5.1); TOTAL BILIRUBIN 0.2 mg/dL (0.2-1.0); TOTAL PROTEIN 6.1 g/dL (6.4-8.2)
[2019-09-10 07:23] VITALS: BP 150/71
[2019-09-10] MEDS: LINEZOLID 600 MG TABLET PO SCH ×2 (08:45→21:58)
[2019-09-10] MEDS: LACTOBACILLUS RHAMNOSUS GG 1 CAPSULE. PO SCH ×2 (08:45→21:58)
[2019-09-10] MEDS: cefTRIAXone IV Push 1 GM VIAL. IVP SCH (08:46)
[2019-09-10] MEDS ORDERED: POTASSIUM CHLORIDE 20 MEQ TABLET.ER. PO ONE (09:27)
--- NOTE | 2019-09-10 09:38 | PDOC ---
ORTHO PROGRESS NOTES Vitals Vital Signs Date Time Temp Pulse Resp B/P (MAP) Pulse Ox O2 Delivery O2 Flow Rate FiO2 09/10/19 07:23 97.7 76 37 150/71 (97) 100 Room Air 97.7 09/09/19 12:45 5.0 Labs Laboratory Tests Test 09/09/19 07:20 09/10/19 05:20 White Blood Count 10.1 x10^3/uL (4.0-11.0) 9.0 x10^3/uL (4.0-11.0) Red Blood Count 3.32 x10^6/uL (3.50-5.40) 3.39 x10^6/uL (3.50-5.40) Hemoglobin 9.8 g/dL (12.0-15.5) 10.1 g/dL (12.0-15.5) Hematocrit 29.6 % (36.0-47.0) 29.8 % (36.0-47.0) Mean Corpuscular Volume 89 fL (79-100) 88 fL (79-100) Mean Corpuscular Hemoglobin 30 pg (25-35) 30 pg (25-35) Mean Corpuscular Hemoglobin Concent 33 g/dL (31-37) 34 g/dL (31-37) Red Cell Distribution Width 13.7 % (11.5-14.5) 13.7 % (11.5-14.5) Platelet Count 376 x10^3/uL (140-400) 385 x10^3/uL (140-400) Neutrophils (%) (Auto) 82 % (31-73) Lymphocytes (%) (Auto) 12 % (24-48) Monocytes (%) (Auto) 4 % (0-9) Eosinophils (%) (Auto) 1 % (0-3) Basophils (%) (Auto) 1 % (0-3) Neutrophils # (Auto) 8.3 x10^3/uL (1.8-7.7) Lymphocytes # (Auto) 1.2 x10^3/uL (1.0-4.8) Monocytes # (Auto) 0.4 x10^3/uL (0.0-1.1) Eosinophils # (Auto) 0.1 x10^3/uL (0.0-0.7) Basophils # (Auto) 0.0 x10^3/uL (0.0-0.2) Sodium Level 144 mmol/L (136-145) 143 mmol/L (136-145) Potassium Level 3.2 mmol/L (3.5-5.1) 3.2 mmol/L (3.5-5.1) Chloride Level 111 mmol/L (98-107) 110 mmol/L (98-107) Carbon Dioxide Level 24 mmol/L (21-32) 25 mmol/L (21-32) Anion Gap 9 (6-14) 8 (6-14) Blood Urea Nitrogen 20 mg/dL (7-20) 25 mg/dL (7-20) Creatinine 0.8 mg/dL (0.6-1.0) 0.9 mg/dL (0.6-1.0) Estimated GFR (Cockcroft-Gault) 68.8 60.1 Glucose Level 95 mg/dL (70-99) 150 mg/dL (70-99) Calcium Level 8.0 mg/dL (8.5-10.1) 8.1 mg/dL (8.5-10.1) BUN/Creatinine Ratio 28 (6-20) Total Bilirubin 0.2 mg/dL (0.2-1.0) Aspartate Amino Transf (AST/SGOT) 15 U/L (15-37) Alanine Aminotransferase (ALT/SGPT) 13 U/L (14-59) Alkaline Phosphatase 59 U/L (46-116) Total Protein 6.1 g/dL (6.4-8.2) Albumin 2.1 g/dL (3.4-5.0) Albumin/Globulin Ratio 0.5 (1.0-1.7) Laboratory Tests Test 09/10/19 05:20 White Blood Count 9.0 x10^3/uL (4.0-11.0) Red Blood Count 3.39 x10^6/uL (3.50-5.40) Hemoglobin 10.1 g/dL (12.0-15.5) Hematocrit 29.8 % (36.0-47.0) Mean Corpuscular Volume 88 fL (79-100) Mean Corpuscular Hemoglobin 30 pg (25-35) Mean Corpuscular Hemoglobin Concent 34 g/dL (31-37) Red Cell Distribution Width 13.7 % (11.5-14.5) Platelet Count 385 x10^3/uL (140-400) Sodium Level 143 mmol/L (136-145) Potassium Level 3.2 mmol/L (3.5-5.1) Chloride Level 110 mmol/L (98-107) Carbon Dioxide Level 25 mmol/L (21-32) Anion Gap 8 (6-14) Blood Urea Nitrogen 25 mg/dL (7-20) Creatinine 0.9 mg/dL (0.6-1.0) Estimated GFR (Cockcroft-Gault) 60.1 BUN/Creatinine Ratio 28 (6-20) Glucose Level 150 mg/dL (70-99) Calcium Level 8.1 mg/dL (8.5-10.1) Total Bilirubin 0.2 mg/dL (0.2-1.0) Aspartate Amino Transf (AST/SGOT) 15 U/L (15-37) Alanine Aminotransferase (ALT/SGPT) 13 U/L (14-59) Alkaline Phosphatase 59 U/L (46-116) Total Protein 6.1 g/dL (6.4-8.2) Albumin 2.1 g/dL (3.4-5.0) Albumin/Globulin Ratio 0.5 (1.0-1.7) Assessment and Plan Spoke withe patients son regarding her hip. Given her resting posture, this puts her at continued risk for dislocation events. With her current medical problems, would delay any operative intervention until this resolves. I asked her son to come to f/u appt in 2-3 weeks to discuss resection vs revision. No further inte rventions from Ortho this hospital stay DEIRDRE ESCOTO II, MD Sep 10, 2019 09:38
[2019-09-10] MEDS ORDERED: POLYETHYLENE GLYCOL 3350 17 GM PACKET. PO PRN (10:15)
[2019-09-10] MEDS ORDERED: ACETAMINOPHEN 325 MG TABLET. PO PRN (10:15)
--- NOTE | 2019-09-10 10:36 | PN ---
DATE: 09/10/2019 SUBJECTIVE: The patient was seen in the Emergency Room of [facility] with a complaint of generalized weakness. She also had multiple episodes of loose bowel movement and she is more lethargic and lacks energy to perform daily activities. She was extensively investigated in the Emergency Room. Her COVID-19 was negative; however, x-ray of her left hip joint showed that she has dislocated left hip prosthesis, and therefore, the patient was transferred to [facility] and apparently an attempt was made with closed reduction by the Orthopedic surgeon and has failed. Dr. Bhandari decided not to do any further procedures and the patient will be seen as an outpatient to discuss with the family whether resection versus surgical revision will be the appropriate procedure to be done. Her C. diff toxins came back positive. PHYSICAL EXAMINATION: GENERAL: When I examined her, she looked well and was clearly in no apparent respiratory distress, pale, somewhat cachectic, but no jaundice, cyanosis, or thyromegaly. No jugular venous distention. No lower limb edema. VITAL SIGNS: Her heart rate was 76, blood pressure is 150/71, temperature 97.7, respiratory rate was 20, and oxygen saturation was 100% on room air. HEENT: Showed normocephalic, atraumatic. NECK: Supple. HEART: Showed normal first and second heart sounds with no gallop, rub, or murmur. CHEST: Clear to auscultation. No crepitation or rhonchi. ABDOMEN: Distended, soft, nontender. No guarding or rigidity. No organomegaly. All hernial orifice intact. Bowel sounds normal. NEUROLOGIC: She was demented, but without any obvious lateralizing sign. She does complain of severe pain in her left hip joint and moving here, but when she is sitting still, she does not have any complaint. Her intake over the last 24 hours was incompletely recorded, output was 700. LABORATORY DATA: Her lab work this morning showed a serum sodium 143, potassium 3.2, chloride 110, bicarbonate 25, anion gap of 8, BUN 25, creatinine 0.9, estimated GFR was 60 mL per minute. Her glucose 150, calcium was 8.1. Total bilirubin, AST, ALT, alkaline phosphatase were normal. Total protein was 6.1, albumin was 2.1. Her white cell count was 9000; hemoglobin 10; hematocrit 30; MCV 88; and platelet count 385,000. ASSESSMENT: 1. Left hip hemiarthroplasty dislocation with failed attempt at closed reduction of left hip hemiarthroplasty. 2. Other medical problems include hypokalemia with serum potassium only 2.2. 3. Hypertension. 4. Hyperlipidemia. 5. History of cerebrovascular accident. 6. Osteoporosis. 7. Osteoarthritis. 8. Clostridium difficile colitis. PLAN: To obviously continue with Flagyl, continue with ceftriaxone for now, continue with linezolid. I will wait for the results of the culture and sensitivity. I will arrange for her to have venous Doppler ultrasound of both lower extremities as she has been nonambulatory for almost 10 days now. If she has any clots in her legs, we will treat her accordingly; otherwise, I will put her on a prophylactic treatment before she goes home. ALESHA MUNSON MD DR: SAM/malena JOB#: [id number] / [id number]
[2019-09-10] MEDS: MULTIVITAMIN with MINERAL TABLET. PO SCH (10:53)
[2019-09-10] MEDS: amLODIPine BESYLATE 10 MG TABLET PO SCH (10:54)
[2019-09-10] MEDS: ISOSORBIDE MONONITRATE ER 30 MG TAB.ER.24H PO SCH (10:54)
[2019-09-10] MEDS: METOPROLOL TART IMMED RELEASE 25 MG TABLET. PO SCH ×2 (10:54→21:58)
[2019-09-10] MEDS: VITAMIN B12,B9,B6 COMPLEX 1 TABLET. PO SCH (10:54)
[2019-09-10] MEDS: CHOLECALCIFEROL (VITAMIN D3) 5,000 UNIT CAPSULE PO SCH (10:55)
[2019-09-10] MEDS: POTASSIUM CHLORIDE 20 MEQ TABLET.ER. PO SCH (10:55)
[2019-09-10] MEDS: SENNOSIDES/DOCUSATE 8.6/50MG TABLET. PO SCH (10:58)
[2019-09-10] MEDS: LOSARTAN POTASSIUM 50 MG TABLET. PO SCH (10:59)
[2019-09-10] MEDS: POTASSIUM CHLORIDE 20 MEQ TABLET.ER. PO ONE ×2 (11:00→13:24)
[2019-09-10 11:27] VITALS: BP 142/67
--- NOTE | 2019-09-10 11:35 | NUR ---
Fax received from [facility] with positive C-Diff results. Called the floor and spoke to ROSMERY Huff who is aware and patient is already on isolation and has received Vancomycin. (ROSMERY Israel).
[2019-09-10] MEDS: FERROUS SULFATE 325 MG TABLET. PO SCH ×2 (12:00→13:24)
[2019-09-10] MEDS: ASPIRIN 325 MG TABLET PO SCH ×2 (12:00→13:24)
[2019-09-10] MEDS: VANCOMYCIN 125 MG/2.5 ML ORAL SOLUTION. PO SCH ×4 (13:00→21:58)
[2019-09-10 15:05] VITALS: BP 117/61
--- NOTE | 2019-09-10 15:20 | NUR ---
Pt son Jimmie called stating that he was at the front entrance and wanted to see his mom. This RN explained that they will not allow visitors until her second COVID test comes back. He stated to have this RN come down and talk to him and this RN stated she could not leave the floor but can answer any questions over the phone. Pt son wanted to know "what we are treating her for." and "when is she going to get better" and "when will she come home." This RN explained that those questions need to be answered by the physicians on the case. Pt son stated he spoke to "Dr. López" yesterday. This RN stated she will have Dr. Alves call patient in the morning to discuss the plan of care. Pt son verbalized understanding.
--- NOTE | 2019-09-10 16:58 | NUR ---
SW following. Spoke with RN and reviewed chart. Pt lives with her son and dtr-in-law Citlaly. Spoke with pt's family and they are agreeable to a referral for HH but do not want pt in a nursing facility. PT/OT evaluation is pending. UBALDO completed Patient Choice of Vendor form. UBALDO notified Maye from [facility] that the son would like a call with more information about HH. Pt on room air. Pt is on IV Rocephin and IV Morphine. SW to continue following.
[2019-09-10 19:49] VITALS: BP 121/63
[2019-09-10] MEDS: ATORVASTATIN CALCIUM 40 MG TABLET. PO SCH (21:58)
[2019-09-10] MEDS: rOPINIRole 0.25 MG TABLET. PO SCH (21:58)
[2019-09-10 23:09] VITALS: BP 126/61
[2019-09-11 03:28] VITALS: BP 143/65
[2019-09-11 07:15] VITALS: BP 159/72
[2019-09-11] MEDS: VITAMIN B12,B9,B6 COMPLEX 1 TABLET. PO SCH (08:55)
[2019-09-11] MEDS: LACTOBACILLUS RHAMNOSUS GG 1 CAPSULE. PO SCH ×2 (08:55→20:06)
[2019-09-11] MEDS: ISOSORBIDE MONONITRATE ER 30 MG TAB.ER.24H PO SCH (08:55)
[2019-09-11] MEDS: SENNOSIDES/DOCUSATE 8.6/50MG TABLET. PO SCH (08:55)
[2019-09-11] MEDS: LOSARTAN POTASSIUM 50 MG TABLET. PO SCH (08:56)
[2019-09-11] MEDS: ASPIRIN 325 MG TABLET PO SCH (08:56)
[2019-09-11] MEDS: POTASSIUM CHLORIDE 20 MEQ TABLET.ER. PO SCH ×4 (08:56→20:06)
[2019-09-11] MEDS: FERROUS SULFATE 325 MG TABLET. PO SCH (08:56)
[2019-09-11] MEDS: LINEZOLID 600 MG TABLET PO SCH ×2 (08:56→20:06)
[2019-09-11] MEDS: cefTRIAXone IV Push 1 GM VIAL. IVP SCH (08:57)
[2019-09-11] MEDS: VANCOMYCIN 125 MG/2.5 ML ORAL SOLUTION. PO SCH ×4 (08:57→20:06)
[2019-09-11] MEDS: METOPROLOL TART IMMED RELEASE 25 MG TABLET. PO SCH ×2 (08:57→20:07)
[2019-09-11] MEDS: CHOLECALCIFEROL (VITAMIN D3) 5,000 UNIT CAPSULE PO SCH (08:57)
[2019-09-11] MEDS: amLODIPine BESYLATE 10 MG TABLET PO SCH (08:57)
[2019-09-11] MEDS: MULTIVITAMIN with MINERAL TABLET. PO SCH (08:59)
--- NOTE | 2019-09-11 10:24 | NUR ---
UBALDO following. Spoke with RN and Dr. Alves. Reviewed chart. Discharge plan remains home with family and [facility] when stable. Pt on room air and changed to oral medications. UBALDO to continue following. Addendum: 09/11/19 at 1225 by JEAN MARIE CONNER Spoke with pt's son again today about pt's increased care needs at discharge. Pt's [id number] works at [employer] and so he is agreeable to a referral to their Swing Bed for SN. UBALDO completed Patient Choice of Vendor Form. UBALDO phoned and faxed referral to [place], , (fax). Pt will likely be ready for discharge tomorrow per Dr. Alves. UBALDO to continue following. Addendum: 09/11/19 at 1523 by JEAN MARIE CONNER Pt declined for admission to [facility] per pt hx of non-compliance with staff at [facility]. Spoke with pt's son and [id number] and pt will discharge home tomorrow with HH pending approval from Dr. Alves. Pt transferred to [facility] from [facility] to follow up with family tomorrow, 09/12/2019.
[2019-09-11 11:21] VITALS: BP 138/68
--- NOTE | 2019-09-11 11:23 | NUR ---
Negative COVID PCR results received from [facility] and communicated to [employer]. (Lindy Lu RN)
--- NOTE | 2019-09-11 12:38 | PN ---
DATE: 09/11/2019 SUBJECTIVE: The patient is resting slightly propped up in bed, in no apparent distress. On questioning her, she denied any complaints. Nursing staff states that she had one loose bowel movement this morning. Her urine culture has grown Enterococcus species, sensitive to penicillin. Her blood cultures remained negative after 3 days and her stool came back positive. She is now on oral vancomycin. Her family is adamant and they wanted to go to a skilled nursing and therefore, we will consult the physical therapist and also discharge her tomorrow home with home health. Her potassium continues to be low, so will replenish that. I will discontinue her IV Rocephin and start her on oral amoxicillin. PHYSICAL EXAMINATION: GENERAL: When I examined her this morning, she looked well and was clearly in no apparent respiratory distress. No pallor, jaundice, cyanosis or thyromegaly. No jugular venous distention. No limb edema. VITAL SIGNS: Her heart rate was 65, blood pressure 138/68, temperature was 98.4, respiratory rate 20, and oxygen saturation was 99%. HEAD, EYES, EARS, NOSE AND THROAT: Showed normocephalic, atraumatic. NECK: Supple. HEART: Showed normal first and second heart sounds. No gallop or murmur. CHEST: Clear to auscultation. No crepitation or rhonchi. ABDOMEN: Distended, soft, nontender. No guarding or rigidity. No organomegaly. All hernial orifice intact. Bowel sounds normal. NEUROLOGIC: She is demented, but without any obvious lateralizing sign. Her intake over the last 24 hours was 600, output was 700. LABORATORY DATA: Today's labs are still pending at the time of this dictation. As of yesterday, her white cell count was 9000, hemoglobin 10, hematocrit 29, MCV 88 and platelet count 385,000. Her chemistry showed a serum sodium of 143, potassium 3.2, chloride 110, bicarbonate 25, anion gap of 8, BUN 25 and creatinine 0.9. ASSESSMENT: 1. Left hip hemiarthroplasty dislocation with failed attempts at closed reduction both at the Emergency Room of [facility] and here under anesthesia. No further orthopedic intervention recommended by Dr. Bhandari for now. 2. Other medical problems include: A. Hypokalemia with serum potassium was 3.2. 3. Clostridium difficile colitis. 4. Urinary tract infection with growth of more than 100,000 colony forming units of Gram-positive cocci identified as Enterococcus faecalis that is vancomycin sensitive. 5. Other medical problems include: A. Hypertension. B. Hyperlipidemia. C. History of cerebrovascular accident. D. Osteoporosis. E. Osteoarthritis F. Anemia. PLAN: My plan is to discontinue IV Rocephin. Continue with oral vancomycin and start also amoxicillin. I have consulted the physical and occupational therapy and the plan is for her to be discharged home with home health tomorrow. ALESHA MUNSON MD DR: SAM/malena JOB#: [id number] / [id number]
[2019-09-11 13:12] LABS: CALCIUM 8.1 mg/dL (8.5-10.1); CREATININE 0.8 mg/dL (0.6-1.0); GFR 68.8; POTASSIUM 4.2 mmol/L (3.5-5.1)
[2019-09-11] MEDS: AMOXICILLIN 250 MG CAPSULE. PO SCH ×2 (14:30→20:06)
[2019-09-11 15:00] VITALS: BP 127/64
[2019-09-11] MEDS: MORPHINE SULFATE 2 MG/ML VIAL. IV PRN ×2 (15:58→21:22)
--- NOTE | 2019-09-11 16:20 | NUR ---
PATIENT TRANSFERRED TO THE 4TH FLOOR ROOM 406, REPORT GIVEN TO [place], QUESTIONS AND CONCERNS ANSWERED, EMOTIONAL SUPPORT GIVEN TO THE PATIENT.
--- NOTE | 2019-09-11 16:25 | NUR ---
Received patient transfer from [facility] on , will continue to monitor patient, fresh ice water given and bed alarm turned on.
[2019-09-11 19:27] VITALS: BP 102/55
[2019-09-11] MEDS: rOPINIRole 0.25 MG TABLET. PO SCH (20:06)
[2019-09-11] MEDS: ATORVASTATIN CALCIUM 40 MG TABLET. PO SCH (20:06)
[2019-09-11 23:00] VITALS: BP 130/63
[2019-09-12] MEDS: MORPHINE SULFATE 2 MG/ML VIAL. IV PRN ×2 (02:31→09:03)
[2019-09-12 03:00] VITALS: BP 134/77
[2019-09-12 07:00] VITALS: BP 139/69
[2019-09-12 07:42] LABS: CALCIUM 7.8 mg/dL (8.5-10.1); CREATININE 0.6 mg/dL (0.6-1.0); GFR 95.9; POTASSIUM 4.9 mmol/L (3.5-5.1)
[2019-09-12] MEDS: VANCOMYCIN 125 MG/2.5 ML ORAL SOLUTION. PO SCH ×2 (09:17→12:39)
[2019-09-12] MEDS: METOPROLOL TART IMMED RELEASE 25 MG TABLET. PO SCH (09:17)
[2019-09-12] MEDS: LACTOBACILLUS RHAMNOSUS GG 1 CAPSULE. PO SCH (09:18)
[2019-09-12] MEDS: FERROUS SULFATE 325 MG TABLET. PO SCH (09:18)
[2019-09-12] MEDS: ISOSORBIDE MONONITRATE ER 30 MG TAB.ER.24H PO SCH (09:18)
[2019-09-12] MEDS: ASPIRIN 325 MG TABLET PO SCH (09:18)
[2019-09-12] MEDS: MULTIVITAMIN with MINERAL TABLET. PO SCH (09:18)
[2019-09-12] MEDS: POTASSIUM CHLORIDE 20 MEQ TABLET.ER. PO SCH ×2 (09:18→12:42)
[2019-09-12] MEDS: AMOXICILLIN 250 MG CAPSULE. PO SCH ×2 (09:18→12:39)
[2019-09-12] MEDS: LINEZOLID 600 MG TABLET PO SCH (09:18)
[2019-09-12] MEDS: amLODIPine BESYLATE 10 MG TABLET PO SCH (09:19)
[2019-09-12] MEDS: CHOLECALCIFEROL (VITAMIN D3) 5,000 UNIT CAPSULE PO SCH (09:19)
[2019-09-12] MEDS: SENNOSIDES/DOCUSATE 8.6/50MG TABLET. PO SCH (09:19)
[2019-09-12] MEDS: LOSARTAN POTASSIUM 50 MG TABLET. PO SCH (09:19)
[2019-09-12] MEDS: VITAMIN B12,B9,B6 COMPLEX 1 TABLET. PO SCH (09:23)
[2019-09-12] MEDS: HYDROcodone/APAP 7.5/325MG 1 TAB TABLET PO PRN ×2 (09:24→16:42)
--- NOTE | 2019-09-12 09:53 | RAD ---
Bilateral lower extremity venous doppler ultrasound History: Hip dislocation, status post surgery, nonambulatory for about 2 weeks Comparison: None Findings: Multiple grayscale, color, and duplex spectral analysis sonographic images were acquired of the bilateral lower extremity veins to evaluate for the presence of DVT. There is normal phasicity. Normal compression, color-flow, and augmentation is demonstrated from the bilateral common femoral to the popliteal veins. There is normal color flow of the proximal greater saphenous and profunda femoris veins. There is normal color flow of segments of the calf veins. Impression: 1. There is no evidence of deep venous thrombosis from the bilateral common femoral to the popliteal veins. Electronically signed by: Sterling Amezcua MD (09/12/2019 9:51 AM) [id number]
[2019-09-12] MEDS ORDERED: VANC125C3 PO (10:37)
[2019-09-12] MEDS ORDERED: AMOX250C PO (10:37)
--- NOTE | 2019-09-12 10:46 | SNU/HH DC ---
DISCHARGE WITH HOME HEALTH DISCHARGE INFORMATION: Discharge Date: Sep 12, 2019 Final Diagnosis: dislocated left hip prosthesis UTI C DIFF COLITIS Condition on Discharge: Stable CODE STATUS: Code Status: DNR/DNI HOME HEALTH: Face to Face: I certify this patient is under my care and that I, or a nurse practitioner or physician's assistant baseball coach working with me, had a face to face encounter that meets the physician face to face encounter requirements with this patient on 09/12/2019 Medical Complications: Other RN For Eval/Treatment: Yes Physical Therapy For: Evalulation/Treatment Occupational Therapy For: Evaluation/Treatment Pt Meets Homebound Status: Extreme weakness w/ amb. POST DISCHARGE ORDERS: Activity Instructions for Disc: Activity as tolerated Weight Bearing Status after Di: As tolerated DIET AFTER DISCHARGE: Cardiac Wound/Incision Care: Change dressing CHECKS AFTER DISCHARGE: Checks after discharge: Check blood press - daily TREATMENT/EQUIPMENT ORDERS: Adaptive Equipment Issued: Commode, Front wheeled walker CERTIFICATION STATEMENT: Certification Statement: Certification Statement: Based on the above finding, I certify that this patient is confined to the home and needs intermittent usp care, physical therapy and/or speech therapy, or continues to need occupational therapy.~ This patient is under my care, and I have initiated the establishment of the plan of care.~ This patient will be followed by myself or a community physician who will periodically review the plan of care. Home Meds Active Scripts Vancomycin Hcl (VANCOMYCIN HCL) 125 Mg Capsule, 1 CAP PO QID for c diff colitis for 14 Days, #56 CAP 0 Refills Prov:ALESHA MUNSON MD 09/12/19 Amoxicillin (AMOXICILLIN) 250 Mg Capsule, 1 CAP PO TID for uti for 7 Days, #21 CAP Prov:ALESHA MUNSON MD 09/12/19 Multivits,Ca,Minerals/Iron/Fa (THERA-M TABLET) 1 Each Tablet, 1 TAB PO DAILY for SUPPLEMENT for 30 Days, #30 TAB Prov:PAUL GREENE MD 07/04/19 Cholecalciferol (Vitamin D3) (Vitamin D3) 125 Mcg Capsule, 5000 UNIT PO DAILY for BONE HEALTH for 30 Days, #30 CAP Prov:PAUL GREENE MD 07/04/19 Cyanocobalamin/Fa/Pyridoxine (FOLBIC TABLET) 1 Each Tablet, 1 TAB PO DAILY for SUPPLEMENT for 30 Days, #30 TAB Prov:PAUL GREENE MD 07/04/19 Sennosides/Docusate Sodium (SENNA-TIME S TABLET) 1 Each Tablet, 1 TAB PO DAILY for PRN CONSTIPATION for 28 Days, #28 TAB Prov:PAUL GREENE MD 07/04/19 Polyethylene Glycol 3350 (POLYETHYLENE GLYCOL 3350) 17 Gm Powd.pack, 17 GM PO PRN DAILY PRN for CONSTIPATION for 14 Days, #14 PKT Prov:PAUL GREENE MD 07/04/19 Potassium Chloride (KLOR-CON M20) 20 Meq Tab.er.prt, 20 MEQ PO DAILYWBKFT for SUPPLEMENT for 10 Days, #10 TAB.SR Prov:PAUL GREENE MD 07/04/19 Acetaminophen (TYLENOL) 325 Mg Tablet, 650 MG PO PRN Q6HRS PRN for TEMP OVER 100.4F OR MILD PAIN for 30 Days, #60 TAB Prov:PAUL GREENE MD 07/04/19 Hydrocodone Bit/Acetaminophen (HYDROCODONE-APAP 7.5-325 ) 1 Tab Tablet, 2 TAB PO PRN Q4HRS PRN for Mod/Severe pain, 2nd choice for 14 Days, #30 TAB Prov:PAUL GREENE MD 07/04/19 Aspirin (ASPIRIN) 325 Mg Tablet, 325 MG PO DAILYWBKFT for HEART HEALTH for 30 Days, #30 TAB Prov:PAUL GREENE MD 07/04/19 Amlodipine Besylate (AMLODIPINE BESYLATE) 10 Mg Tablet, 10 MG PO DAILY for BLOOD PRESSURE for 30 Days, #30 TAB Prov:PAUL GREENE MD 07/04/19 Metoprolol Tartrate (METOPROLOL TARTRATE) 25 Mg Tablet, 25 MG PO BID for HEART for 30 Days, #60 TAB Prov:PAUL GREENE MD 07/04/19 Isosorbide Mononitrate (ISOSORBIDE MONONITRATE ER) 30 Mg Tab.er.24h, 30 MG PO DAILY for HEART for 30 Days, #30 TAB.SR Prov:PAUL GREENE MD 07/04/19 Atorvastatin Calcium (ATORVASTATIN CALCIUM) 40 Mg Tablet, 40 MG PO QHS for CHOLESTEROL for 30 Days, #30 TAB Prov:PAUL GREENE MD 07/04/19 Ferrous Sulfate (FEOSOL) 325 Mg Tablet, 325 MG PO DAILYWBKFT for ANEMIA for 30 Days, #30 TAB Prov:PAUL GREENE MD 07/04/19 Reported Medications Ropinirole Hcl (ROPINIROLE HCL) 0.5 Mg Tablet, 0.5 MG PO QHS for restless leg, TAB 03/03/19 Losartan Potassium (LOSARTAN POTASSIUM) 100 Mg Tablet, 100 MG PO DAILY for HYPERTENSION, TAB 03/03/19 ALESHA MUNSON MD Sep 12, 2019 10:45
--- NOTE | 2019-09-12 10:59 | NUR ---
SW following. Discussed with RN, pt discharging home with [facility] today. RN notified.
[2019-09-12 11:00] VITALS: BP 158/65
[2019-09-12] MEDS ORDERED: APIX2.5T PO (11:25)
--- NOTE | 2019-09-12 12:04 | DS ---
DATE OF DISCHARGE: 09/12/2019 HISTORY AND HOSPITAL COURSE: The patient is an 79-year-old [place] female patient who was admitted to the Emergency Room of [facility] where she was found to be septic and ultimately was found to have urinary tract infection as well as C. diff colitis. She was also found to have a dislocated left hip prosthesis. An attempt was made by the Emergency Room physician to reduce it, did do a closed reduction, has failed and therefore, she was transferred to [facility] where Dr. Bhandari also attempted the closed reduction under anesthesia, but he was unable to reduce the hip or even get closed to a reduction and therefore no further attempts were made and decision was to discharge her home to follow him in his clinic in 2 weeks' time until discussed with the family the option of either resection versus revision hemiarthroplasty. Her urine culture has grown Enterococcus faecalis and her stool was positive for C. diff toxins and therefore, she was initially on Rocephin, Zyvox, and Flagyl and she was switched to amoxicillin and oral vancomycin and as she remained hemodynamically stable, a decision was made to discharge her home with home health. PHYSICAL EXAMINATION: GENERAL: When I saw her today, she looked well and was clearly in no apparent respiratory distress. No pallor, jaundice, cyanosis or thyromegaly. No jugular venous distention. No limb edema. VITAL SIGNS: Her heart rate was 63, blood pressure was 139/95, temperature was 97.7, respiratory rate was 18 and oxygen saturation was 95% on 5 liters of oxygen. HEAD, EYES, EARS, NOSE AND THROAT: Showed normocephalic, atraumatic. NECK: Supple. CARDIAC: Normal first and second heart sounds. No gallop, rub or murmur. CHEST: Clear to auscultation. No crepitation or rhonchi. ABDOMEN: Distended, soft, nontender. NEUROLOGIC: She is awake, alert, responding appropriately. All cranial nerves are intact. She moves upper extremities to much good extent than lower extremities. She is mostly bedbound. LABORATORY DATA: As of yesterday showed a white cell count of 9000, hemoglobin 10, hematocrit 30, MCV 88 and platelet count 385,000. Her chemistry showed a serum sodium of 137, potassium 4.9, chloride 107, bicarbonate 22, anion gap of 8, BUN 15, creatinine 0.6, estimated GFR was 96 mL per minute. Her glucose was 89, calcium was 7.8. DISCHARGE MEDICATIONS: She will be discharged home with home health to continue on following medications: Amoxicillin 250 mg 3 times a day for 7 days, vancomycin 125 mg 4 times a day for 2 weeks. She should also continue on Tylenol 650 mg every 6 hours, amlodipine 10 mg once a day, aspirin 325 mg once a day, atorvastatin calcium 40 mg at bedtime, ergocalciferol 5000 units once a day, cyanocobalamin for Folbic tablet 1 tablet once a day, ferrous sulfate 325 mg once a day with breakfast, hydrocodone/APAP 7.5/325 one to two tablets every 4 hours as needed, isosorbide mononitrate 30 mg daily, losartan potassium 100 mg once a day, metoprolol tartrate 25 mg twice a day, multivitamin with mineral 1 tablet once a day, polyethylene glycol 17 grams daily, potassium chloride 20 mEq once a day, ropinirole 0.5 mg at bedtime, Senna-S 1 tablet once a day. FINAL DISCHARGE DIAGNOSES: 1. Left hip hemiarthroplasty dislocation with failed attempt at closed reduction both at the Emergency Room of [facility] and here under anesthesia. No further orthopedic intervention recommended by Dr. Bhandari for now. 2. Other medical problems include hypokalemia that resolved. Her serum potassium is up to 4.2 today. 3. Clostridium difficile colitis for which she is on oral vancomycin. 4. Urinary tract infection with growth of more than 100,000 colony forming units, Gram-positive cocci identified as Enterococcus faecalis that is vancomycin sensitive for which she is now on amoxicillin. 5. Other medical problems include: A. Hypertension. B. Hyperlipidemia. C. History of cerebrovascular accident. D. Osteoporosis. E. Osteoarthritis. F. Anemia. The patient should have an appointment with Dr. Bhandari in 2 weeks' time to discuss with our resection versus revision hemiarthroplasty is a way to go. ALESHA MUNSON MD DR: SAM/malena JOB#: [id number] / [id number]
[2019-09-12 15:00] VITALS: BP 122/57
--- NOTE | 2019-09-12 17:00 | NUR ---
Pt was escorted out via wheelchair to family vehicle, education given to both patient and family. IV discontinued encouraged family for HH.
== END 2019-09-12 16:50 | disposition home health service (06) | DRG 871 ==
LOC: 6 SOUTH 17:37 → 4 NORTH 09-11 14:58
PROVIDERS: ADMIT Internal Medicine; ATTEND Internal Medicine
DX: A41.9 Sepsis, unspecified organism (principal); E43 Unspecified severe protein-calorie malnutrition; T84.021A Dislocation of internal left hip prosthesis, initial encounter; N39.0 Urinary tract infection, site not specified; A04.72 Enterocolitis due to Clostridium difficile, not specified as recurrent; E87.2 Acidosis; D64.9 Anemia, unspecified; E78.5 Hyperlipidemia, unspecified; E87.6 Hypokalemia; F03.90 Unspecified dementia, unspecified severity, without behavioral disturbance, psychotic disturbance, mood disturbance, and anxiety; I10 Essential (primary) hypertension; I25.10 Atherosclerotic heart disease of native coronary artery without angina pectoris; M19.90 Unspecified osteoarthritis, unspecified site; M81.0 Age-related osteoporosis without current pathological fracture; Y79.2 Prosthetic and other implants, materials and accessory orthopedic devices associated with adverse incidents; Z20.828 Contact with and (suspected) exposure to other viral communicable diseases; Z86.73 Personal history of transient ischemic attack (TIA), and cerebral infarction without residual deficits; Z66 Do not resuscitate; B95.2 Enterococcus as the cause of diseases classified elsewhere; Z74.01 Bed confinement status
CPT/HCPCS: 36415; 76000; 80048; 80053; 85025; 85027; 93970; A7015; J0696; J1100; J2270; J2405; J2704; J3010; J7120; G0378